=== PATIENT | female | born 1960 | race Caucasian/White ===

== ENCOUNTER → 2017-04-17 | Outpatient (CLI) | payer BC ==
[~2017-04-17] VITALS: Ht 149.9 cm; Wt 43.5 kg
[~2017-04-17] MED LIST: EST1.25T PO; LEVO500T69 PO; NITR100C3 PO; NS IV 1000 ML 1,000 ML ONE; PROP1TAB77 PO; ZLP5T PO
[2017-04-17 13:58] LABS: BILIRUBIN,URINE NEGATIVE (NEGATIVE); CLARITY,URINE CLEAR; COLOR,URINE YELLOW; GLUCOSE, URINE (UA) NEGATIVE (NEGATIVE); KETONES,URINE NEGATIVE (NEGATIVE); LEUKOCYTE ESTERASE ,URINE NEGATIVE (NEGATIVE); NITRITE,URINE NEGATIVE (NEGATIVE); PH,URINE 7 (5-9); PROTEIN,URINE NEGATIVE (NEGATIVE); UROBILINOGEN,URINE NORMAL (NORMAL)
[2017-04-17 14:00] VITALS: BP 131/51
[2017-04-17 14:07] LABS: HEMOGLOBIN 13.5 G/DL (11.5-16.0); MEAN PLATELET VOLUME 8.7 FL (7.4-10.4); RED BLOOD COUNT 4.59 10^6/uL (4.35-5.85); RED CELL DISTRIBUTION WIDTH 12.7 % (10.0-14.5); WHITE BLOOD COUNT 12.8 10^3/uL (4.3-11.0)
[2017-04-17 14:09] LABS: RBC,URINE 0-2 /HPF
[2017-04-17 14:10] LABS: BACTERIA,URINE NEGATIVE /HPF; SQUAMOUS EPITHELIAL CELL,UR RARE /HPF
[2017-04-17 14:32] LABS: BUN/CREATININE RATIO 15; CARBON DIOXIDE 27 MMOL/L (21-32); CHLORIDE 104 MMOL/L (98-107); CREATININE SERUM 0.75 MG/DL (0.60-1.30); POTASSIUM 3.7 MMOL/L (3.6-5.0); SODIUM 141 MMOL/L (135-145)
[2017-04-17 14:33] LABS: ALANINE AMINOTRANSFERASE 18 U/L (0-55); ALBUMIN 3.5 GM/DL (3.2-4.5); ALKALINE PHOSPHATASE 40 U/L (40-136); BILIRUBIN,TOTAL 0.3 MG/DL (0.1-1.0); CALCIUM 9.3 MG/DL (8.5-10.1); GFR ESTIMATED > 60; GLUCOSE 90 MG/DL (70-105); TOTAL PROTEIN 6.4 GM/DL (6.4-8.2)
[2017-04-17 15:00] VITALS: BP 131/51
== END ==
LOC: SDC 13:34 → EDSTATUS 13:36
PROVIDERS: ATTEND Nurse Practitioner Family
DX: E86.0 Dehydration (principal); R53.83 Other fatigue; R53.81 Other malaise
CPT/HCPCS: 36415; 80053; 81000; 84443; 85027; 96360

== ENCOUNTER → 2017-04-25 | Outpatient (CLI) | payer BC ==
[~2017-04-25] MED LIST changes: -NS IV 1000 ML 1,000 ML ONE
--- NOTE | 2017-04-25 12:31 | Diagnostic Imaging Report ---
INDICATION: Cough and shortness of breath. COMPARISON: None. FINDINGS: Two views of the chest are obtained. Heart size is normal. The pulmonary vessels appear unremarkable. There is no pneumothorax, mediastinal widening, or pleural fluid. The lungs are clear. The osseous structures appear unremarkable. IMPRESSION: Negative chest. Dictated by: Dictated on workstation # [id number]
== END ==
LOC: RAD 11:54
PROVIDERS: ATTEND Nurse Practitioner Family
DX: R05 Cough (principal); R06.02 Shortness of breath
CPT/HCPCS: 71046

== ENCOUNTER → 2017-04-30 | Outpatient (CLI) | payer BC ==
--- NOTE | 2017-04-30 11:31 | Diagnostic Imaging Report ---
PROCEDURE: US Thyroid. TECHNIQUE: Multiple Real-time grayscale images were obtained of the thyroid in various projections. INDICATION: Enlarged thyroid. FINDINGS: The right lobe of the thyroid measures 3.6 x 1.1 x 0.9 cm and the left lobe measures 4.4 x 1.1 x 1.1 cm. Both lobes demonstrate fairly homogeneous echotexture. There is a tiny well-defined hypoechoic nodule in the left lobe measuring 3 mm. No dominant thyroid mass is detected. IMPRESSION: Tiny left lobe thyroid nodule. No dominant thyroid mass is detected. Dictated by: Dictated on workstation # [id number]
== END ==
LOC: RAD 09:36
PROVIDERS: ATTEND Nurse Practitioner Family
DX: E04.9 Nontoxic goiter, unspecified (principal); R13.10 Dysphagia, unspecified
CPT/HCPCS: 76536

== ENCOUNTER → 2017-05-09 | Outpatient (CLI) | payer BC | LOC: RT 14:09 | PROVIDERS: ATTEND Nurse Practitioner Family | DX: R06.02 Shortness of breath (principal) | CPT/HCPCS: 94060; 94726; 94729 ==

== ENCOUNTER 2018-08-01 08:59 | Outpatient (CLI) | payer BC ==
[~2018-08-01] VITALS: Ht 149.9 cm; Wt 51.3 kg
[2018-08-01] MEDS ORDERED: PANT40TA3 PO (12:40)
[2018-08-01] MEDS ORDERED: PRED5TAB PO (12:40)
[2018-08-01] MEDS ORDERED: EST1.25T PO (12:40)
[2018-08-01] MEDS ORDERED: ADAL40SY SQ (12:40)
[2018-08-01] MEDS ORDERED: SUCR1TAB PO (12:40)
== END 2018-08-01 12:42 | disposition home or self-care (01) ==
LOC: PREOP 08:59
PROVIDERS: ATTEND Surgery
DX: Z01.818 Encounter for other preprocedural examination (principal)

== ENCOUNTER 2018-08-07 10:25 | Day surgery (SDC) | payer BC ==
[~2018-08-07] VITALS: Ht 149.9 cm; Wt 51.3 kg
[~2018-08-07 10:25] MED LIST changes: +ADAL40SY SQ; +PANT40TA3 PO; +PRED5TAB PO; +SUCR1TAB PO
--- NOTE | 2018-08-07 10:30 | Conscious Sedation/ASA ---
Conscious Sedation Pre-Proced Time 10:30 ASA Score 2 For ASA 3 and 4: Consider anesthesia and medical clearance. Also, for patients with a history of failed moderate sedation consider anesthesia. Airway Lungs Heart ASA score ASA 1: a normal healthy patient ASA 2: a patient with a mild systemic disease (mid diabetes, controlled hypertension, obesity ASA 3: a patient with a severe systemic disease that limits activity (angina , COPD, prior Myocardial infarction) ASA 4: a patient with an incapacitating disease that is a constant threat to life (CHF, renal failure) ASA 5: a moribund patient not expected to survive 24 hrs. (ruptured aneurysm) ASA 6: a declared brain- patient whose organs are being harvested. For emergent operations, add the letter E after the classification Mallampati Classification Grade 2 Sedation Plan Analgesia, Amnesia, Plan communicated to team members, Discussed options with patient/fam, Discussed risks with patient/fam The patient is an appropriate candidate to undergo the planned procedure, sedation, and anesthesia. The patient immediately re-assessed prior to indication. KADEEM ORLANDO MD August 07, 2018 10:30
--- OUTSIDE RECORDS SUMMARY | 2018-08-07 10:30 | XMS REPORT | CCD ---
Author Author Radha Sosa Organization Yamilet Angeles MD, [facility] Address [address] [place] [address] Phone Care Team Providers Care Airline Security Representative Name Role Phone PP Unavailable CCM Unavailable Summary Purpose Interface Exchange Insurance Providers Payer name Policy type / Coverage type Covered alliance party ID Effective Begin Date Effective End Date Blue Cross Blue [facility] Blue Cross/Blue [facility] [id number] Unknown Family history Father Diagnosis Age At Onset Arthritis Unknown Cancer Unknown Mother Diagnosis Age At Onset Cancer Unknown Social History Social History Element Codes Description Effective Dates Marital status Unknown Michael 04/17/2017 Number of children Unknown 1 04/06/[address]: 329483784 Never smoker 04/06/[address]: 238646701 Never drinks alcohol 04/06/2017 Allergies, Adverse Reactions, Alerts Substance Reaction Codes Entered Date Inactivated Date Status unknown ingredient - see notes Unknown 04/13/2017 No Inactive Date Active Latex Unknown 04/13/2017 No Inactive Date Active CEPHALOSPORINS Unknown 04/13/2017 No Inactive Date Active Past Medical History Illness Codes Condition Status Onset Date Resolved Date Gastro-esophageal reflux disease without esophagitis ICD-9: 530.81 ICD-10: K21.9 Active 04/17/2017 Unknown Rheumatoid arthritis with rheumatoid factor of multiple sites without organ or systems involvement ICD-9: 714.0 ICD-10: M05.79 Active 05/11/2017 Unknown Other acute sinusitis ICD-9: 461.8 ICD-10: J01.80 Active 04/06/2017 Unknown Other allergic rhinitis ICD-9: 477.8 ICD-10: J30.89 Active 04/17/2017 Unknown Pneumonia due to other specified infectious organisms ICD-9: 483.8 ICD-10: J16.8 Active 05/01/2018 Unknown Diverticulitis of large intestine without perforation or abscess without bleeding ICD-9: 562.11 ICD-10: K57.32 Active 01/28/2018 Unknown Dysuria ICD-9: 788.1 ICD-10: R30.0 Active 06/04/2017 Unknown Other specified intestinal infections ICD-9: 009.0 ICD-10: A08.8 Active 04/13/2017 Unknown Chronic pain syndrome ICD-9: 338.4 ICD-10: G89.4 Active 10/15/2017 Unknown Generalized anxiety disorder ICD-9: 300.00 ICD-10: F41.1 Active 07/19/2017 Unknown Major depressive disorder, single episode, moderate ICD-9: 296.22 ICD-10: F32.1 Active 07/19/2017 Unknown Slow transit constipation ICD-9: 564.01 ICD-10: K59.01 Active 08/20/2017 Unknown Rheumatoid arthritis with rheumatoid factor of right wrist without organ or systems involvement ICD-9 : 714.0 ICD-10: M05.731 Active 05/25/2017 Unknown Cough ICD-9: 786.2 ICD-10: R05 Active 04/25/2017 Unknown Nontoxic goiter, unspecified ICD-9: 240.9 ICD-10: E04.9 Active 04/06/2017 Unknown Shortness of breath ICD-9: 786.05 ICD-10: R06.02 Active 04/25/2017 Unknown Acute laryngopharyngitis ICD-9: 465.0 ICD-10: J06.0 Active 04/17/2017 Unknown Diarrhea, unspecified ICD-9: 787.91 ICD-10: R19.7 Active 04/13/2017 Unknown Pain in left knee ICD- 9: 719.46 ICD-10: M25.562 Active 04/06/2017 Unknown Problems Condition Codes Effective Dates Condition Status Gastro-esophageal reflux disease without esophagitis ICD-9: 530.81 ICD-10: K21.9 04/17/2017 Active Rheumatoid arthritis with rheumatoid factor of multiple sites without organ or systems involvement ICD-9: 714.0 ICD-10: M05.79 05/11/2017 Active Other acute sinusitis ICD-9: 461.8 ICD-10: J01.80 04/06/2017 Active Other allergic rhinitis ICD-9: 477.8 ICD-10: J30.89 04/17/2017 Active Pneumonia due to other specified infectious organisms ICD-9: 483.8 ICD-10: J16.8 05/01/2018 Active Diverticulitis of large intestine without perforation or abscess without bleeding ICD-9: 562.11 ICD-10: K57.32 01/28/2018 Active Dysuria ICD-9: 788.1 ICD-10: R30.0 06/04/2017 Active Other specified intestinal infections ICD-9: 009.0 ICD-10: A08.8 04/13/2017 Active Chronic pain syndrome ICD-9: 338.4 ICD-10: G89.4 10/15/2017 Active Generalized anxiety disorder ICD-9: 300.00 ICD-10: F41.1 07/19/2017 Active Major depressive disorder, single episode, moderate ICD-9: 296.22 ICD-10: F32.1 07/19/2017 Active Slow transit constipation ICD-9: 564.01 ICD-10: K59.01 08/20/2017 Active Rheumatoid arthritis with rheumatoid factor of right wrist without organ or systems involvement ICD-9 : 714.0 ICD-10: M05.731 05/25/2017 Active Cough ICD-9: 786.2 ICD-10: R05 04/25/2017 Active Nontoxic goiter, unspecified ICD-9: 240.9 ICD-10: E04.9 04/06/2017 Active Shortness of breath ICD-9: 786.05 ICD-10: R06.02 04/25/2017 Active Acute laryngopharyngitis ICD-9: 465.0 ICD-10: J06.0 04/17/2017 Active Diarrhea, unspecified ICD-9: 787.91 ICD-10: R19.7 04/13/2017 Active Pain in left knee ICD- 9: 719.46 ICD-10: M25.562 04/06/2017 Active Medications Medication Codes Instructions Start Date Stop Date Status Fill Instructions hydrocodone 5 mg-acetaminophen 325 mg tablet RxNorm: 207377 1 Tablet(s) PO TID as needed for pain 08/05/2018 No Stop Date Active pantoprazole 40 mg tablet,delayed release RxNorm: 541091 1 TABLET(S) PO DAILY 07/17/2018 11/13/2018 Active Dexilant 60 mg capsule, delayed release RxNorm: 975999 1 Capsule(s) PO daily 07/16/2018 08/14/2018 Active Carafate 1 gram tablet RxNorm: 830198 1 Tablet(s) PO AC & HS as needed 07/16/2018 08/14/2018 Active ketoconazole 2 % topical cream RxNorm: 459292 1 Application TOP BID 07/16/2018 08/14/2018 Active Augmentin 500 mg-125 mg tablet RxNorm: 722151 1 Tablet(s) PO TID 06/21/2018 06/30/2018 Inactive Premarin 1.25 mg tablet RxNorm: 229438 1 Tablet(s) PO daily 05/28/2019 Active Premarin 1.25 mg tablet RxNorm: 882135 1 Tablet(s) PO daily 06/02/2018 Inactive pantoprazole 40 mg tablet,delayed release RxNorm: 529911 1 Tablet(s) PO daily 05/28/2018 05/22/2019 Active Premarin 1.25 mg tablet RxNorm: 651528 1 Tablet(s) PO daily 05/30/2018 Inactive pantoprazole 40 mg tablet,delayed release RxNorm: 889244 1 Tablet(s) PO daily 05/16/2018 05/27/2018 Inactive Augmentin 500 mg-125 mg tablet RxNorm: 048413 1 Tablet(s) PO TID 05/16/2018 05/25/2018 Inactive Augmentin 500 mg-125 mg tablet RxNorm: 122175 1 Tablet(s) PO TID 05/15/2018 05/15/2018 Inactive pantoprazole 40 mg tablet,delayed release RxNorm: 829017 1 Tablet(s) PO daily 05/15/2018 05/15/2018 Inactive Premarin 1.25 mg tablet RxNorm: 409661 1 Tablet(s) PO daily 05/27/2018 Inactive Premarin 1.25 mg tablet RxNorm: 381561 1 Tablet(s) PO daily 05/07/2018 Inactive Levaquin 500 mg tablet RxNorm: 793855 1 Tablet(s) PO daily 05/07/2018 Inactive Kenalog 40 mg/mL suspension for injection RxNorm: 7198806 Milliliter(s) Inj 05/01/2018 05/01/2018 Inactive Diflucan 150 mg tablet RxNorm: 240995 Tablet(s) 1 TABLET(S) PO DAILY 05/01/2018 05/05/2018 Inactive doxycycline hyclate 100 mg capsule RxNorm: 8918321 1 Capsule(s) PO BID 04/26/2018 04/29/2018 Inactive ProAir HFA 90 mcg/actuation aerosol inhaler RxNorm: 2415492 1 INH TID 04/19/2018 06/17/2018 Inactive doxycycline hyclate 100 mg capsule RxNorm: 1471120 1 Capsule(s) PO BID 04/19/2018 04/25/2018 Inactive doxycycline hyclate 100 mg capsule RxNorm: 8601779 1 Capsule(s) PO BID 04/19/2018 04/18/2018 Inactive Diflucan 150 mg tablet RxNorm: 070112 1 TABLET(S) PO DAILY 02/201904/23/2018 Inactive ProAir HFA 90 mcg/actuation aerosol inhaler RxNorm: 3749517 1 INH TID 04/19/2018 04/18/2018 Inactive Zithromax Z-Gary 250 mg tablet RxNorm: 382246 1 Tablet(s) PO UD 04/16/2018 07/16/2018 Inactive Diflucan 150 mg tablet RxNorm: 324704 1 Tablet(s) PO daily 11/201804/18/2018 Inactive Premarin 1.25 mg tablet RxNorm: 375837 1 Tablet(s) PO daily 02/28/2018 Inactive Premarin 1.25 mg tablet RxNorm: 695266 1 Tablet(s) PO daily 04/25/2018 Inactive pantoprazole 40 mg tablet,delayed release RxNorm: 104368 1 Tablet(s) PO daily 02/21/2018 02/20/2018 Inactive pantoprazole 40 mg tablet,delayed release RxNorm: 036035 1 Tablet(s) PO daily 02/21/2018 05/14/2018 Inactive hydrocodone 5 mg-acetaminophen 325 mg tablet RxNorm: 545850 1 Tablet(s) PO TID as needed for pain 02/20/2018 08/04/2018 Inactive Bactrim DS 800 mg-160 mg tablet RxNorm: 196357 1 Tablet(s) PO BID 02/06/2018 02/05/2018 Inactive Bactrim DS 800 mg-160 mg tablet RxNorm: 425441 1 Tablet(s) PO BID 02/06/2018 02/15/2018 Inactive Diflucan 150 mg tablet RxNorm: 946551 1 Tablet(s) PO daily 02/02/2018 Inactive Diflucan 150 mg tablet RxNorm: 955194 1 Tablet(s) PO daily 01/28/2018 Inactive Flagyl 500 mg tablet RxNorm: 395439 1 Tablet(s) PO TID 201702/06/2018 Inactive Premarin 1.25 mg tablet RxNorm: 282053 1 Tablet(s) PO daily 02/28/2018 Inactive Cipro 500 mg tablet RxNorm: 395318 1 Tablet(s) PO BID 201702/06/2018 Inactive hydrocodone 5 mg-acetaminophen 325 mg tablet RxNorm: 497946 1 Tablet(s) PO TID as needed for pain 12/31/2017 02/19/2018 Inactive Premarin 1.25 mg tablet RxNorm: 803110 1 Tablet(s) PO daily 01/27/2018 Inactive Prilosec 20 mg capsule,delayed release RxNorm: 661138 1 Capsule(s) PO daily 11/19/2017 02/20/2018 Inactive hydrocodone 5 mg-acetaminophen 325 mg tablet RxNorm: 968458 1 Tablet(s) PO TID as needed for pain 10/15/2017 12/30/2017 Inactive gabapentin 100 mg capsule RxNorm: 422544 1 Capsule(s) PO BID No Stop Date Active hydrocodone 5 mg-acetaminophen 325 mg tablet RxNorm: 641783 1 Tablet(s) PO QID as needed 09/19/2017 10/14/2017 Inactive Lyrica 50 mg capsule RxNorm: 362064 1 Capsule(s) PO TID 2017 No Stop Date Active Celebrex 200 mg capsule RxNorm: 213149 1 Capsule(s) PO daily 09/18/2017 Inactive Xanax 0.25 mg tablet RxNorm: 619029 1 Tablet(s) PO BID 201708/17/2017 Inactive Cymbalta 30 mg capsule,delayed release RxNorm: 144482 1 Capsule(s) PO daily 07/19/2017 08/17/2017 Inactive amoxicillin 500 mg capsule RxNorm: 480857 1 Capsule(s) PO TID 04/17/2017 04/26/2017 Inactive Prilosec OTC 20 mg tablet,delayed release RxNorm: 657243 1 Tablet(s) PO BID 04/17/2017 05/16/2017 Inactive 1 pill twice a day x 2 weeks, then daily Zofran 4 mg tablet RxNorm: 322241 1 Tablet(s) PO TID as needed 04/13/2017 04/17/2017 Inactive Flagyl 500 mg tablet RxNorm: 986684 1 Tablet(s) PO TID 201704/22/2017 Inactive promethazine 25 mg tablet RxNorm: 569232 1 Tablet(s) PO TID as needed nausea unrelieved by zofran 04/13/20172017 Inactive Zithromax Z-Gary 250 mg tablet RxNorm: 547033 1 Tablet(s) PO UD 04/06/2017 04/16/2017 Inactive prednisone 5 mg tablet RxNorm: 334118 1 Tablet(s) PO daily No Start Date Active Humira Pen 40 mg/0.8 mL subcutaneous RxNorm: 7816911 1 Milliliter(s) SQ QW No Start Date Active Linzess 145 mcg capsule RxNorm: 0363787 1 Capsule(s) PO daily No Start Date 08/16/2017 Inactive Prilosec 20 mg capsule,delayed release RxNorm: 236891 1 Capsule(s) PO daily No Start Date 11/18/2017 Inactive Premarin 1.25 mg tablet RxNorm: 367350 1 Tablet(s) PO daily No Start Date 12/30/2017 Inactive Medication Administered Medication Codes Instructions Start Date Status Kenalog 40 mg/mL suspension for injection RxNorm: 0027864 Milliliter 05/01/2018 No longer Active Immunizations No Immunization data Assessments Condition Codes Effective Dates Rheumatoid arthritis with rheumatoid factor of multiple sites without organ or systems involvement ICD-10: M05.79 ICD-9: 714.0 07/16/2018 Gastro-esophageal reflux disease without esophagitis ICD-10 : K21.9 ICD-9: 530.81 07/16/2018 Other acute sinusitis ICD-10: J01.80 ICD-9: 461.8 06/21/2018 Other allergic rhinitis ICD-10: J30.89 ICD-9: 477.8 06/21/2018 Pneumonia due to other specified infectious organisms ICD-10 : J16.8 ICD-9: 483.8 05/01/2018 Diverticulitis of large intestine without perforation or abscess without bleeding ICD-10: K57.32 ICD-9: 562.11 01/28/2018 Dysuria ICD-10: R30.0 ICD-9: 788.1 01/28/2018 Generalized anxiety disorder ICD-10: F41.1 ICD-9: 300.00 10/15/2017 Major depressive disorder, single episode, moderate ICD-10: F32.1 ICD-9: 296.22 10/15/2017 Chronic pain syndrome ICD-10: G89.4 ICD-9: 338.4 10/15/2017 Slow transit constipation ICD-10: K59.01 ICD-9: 564.01 08/20/2017 Rheumatoid arthritis with rheumatoid factor of right wrist without organ or systems involvement ICD-10: M05.731 ICD-9: 714.0 05/25/2017 Cough ICD-10: R05 ICD-9: 786.2 04/25/2017 Nontoxic goiter, unspecified ICD-10: E04.9 ICD-9: 240.9 04/25/2017 Shortness of breath ICD-10: R06.02 ICD-9: 786.05 04/25/2017 Acute laryngopharyngitis ICD-10: J06.0 ICD-9: 465.0 04/17/2017 Other specified intestinal infections ICD-10: A08.8 ICD-9: 009.0 04/13/2017 Diarrhea, unspecified ICD-10: R19.7 ICD-9: 787.91 04/13/2017 Pain in left knee ICD-10: M25.562 ICD-9: 719.46 04/06/2017 Reason For Visit Reason For Visit Effective Dates Notes medication follow up 07/16/2018 sinus congestion 06/21/2018 sinus congestion 05/15/2018 sinus congestion 05/01/2018 sinus congestion 04/16/2018 urinary frequency 01/28/2018 pain 10/15/2017 pain 09/19/2017 pain 08/20/2017 pain 07/19/2017 pain 06/13/2017 wrist pain 05/25/2017 abnormal test results 05/11/2017 cough 04/25/2017 abdominal pain 04/17/2017 vomiting 04/13/2017 knee pain 04/06/2017 Results Observation Observation Code Item Item Code Result Date Urine Culture Ucult Complete >100,000 col/ml aerobic growth sent to ref lab 02/01/2018 Urine Culture Ucult Preliminary NO Growth Day 1 06/06/2017 Urine Culture Ucult Complete NO Growth Day 2 06/06/2017 Review of Systems System Result Effective Dates Constitutional No recent illness 2018 Constitutional No chills 07/16/2018 Constitutional No diaphoresis 07/16/2018 Constitutional No fever 07/16/2018 Eyes No eye erythema 07/16/2018 Ears/Nose/Throat/Neck No nasal discharge 07/16/2018 Ears/Nose/Throat/Neck nasal allergies 12/2018 Cardiovascular No arrhythmia 07/16/2018 Cardiovascular No dyspnea 07/16/2018 Respiratory No cough 07/16/2018 Respiratory No chest congestion 2018 Gastrointestinal No abdominal pain 2018 Gastrointestinal No constipation 2018 Gastrointestinal No diarrhea 07/16/2018 Gastrointestinal No vomiting 07/16/2018 Gastrointestinal No nausea 07/16/2018 Gastrointestinal No melena 07/16/2018 Gastrointestinal No hematochezia 2018 Gastrointestinal gastroesophageal reflux 07/16/2018 Musculoskeletal arthralgia(s) 07/16/2018 Neurologic No alteration of consciousness 07/16/2018 Neurologic No mental status change 2018 Dermatologic sores 07/16/2018 Constitutional recent illness 06/21/2018 Constitutional No chills 06/21/2018 Constitutional No diaphoresis 06/21/2018 Constitutional No fever 06/21/2018 Eyes No eye erythema 06/21/2018 Ears/Nose/Throat/Neck nasal allergies Ears/Nose/Throat/Neck nasal discharge Ears/Nose/Throat/Neck postnasal drip Ears/Nose/Throat/Neck sinus congestion Ears/Nose/Throat/Neck No sore throat Cardiovascular No chest pain/pressure Cardiovascular No dyspnea 06/21/2018 Respiratory No chest congestion 2018 Respiratory cough 06/21/2018 Respiratory No dyspnea 06/21/2018 Gastrointestinal No abdominal pain 2018 Gastrointestinal No constipation 2018 Gastrointestinal No diarrhea 06/21/2018 Gastrointestinal No nausea 06/21/2018 Gastrointestinal No vomiting 06/21/2018 Dermatologic No rash 06/21/2018 Neurologic No alteration of consciousness 06/21/2018 Neurologic No mental status change 2018 Constitutional recent illness 05/15/2018 Constitutional No chills 05/15/2018 Constitutional No diaphoresis 05/15/2018 Constitutional No fever 05/15/2018 Eyes No eye erythema 05/15/2018 Ears/Nose/Throat/Neck nasal allergies 09/2018 Ears/Nose/Throat/Neck nasal discharge 09/2018 Ears/Nose/Throat/Neck postnasal drip 09/2018 Ears/Nose/Throat/Neck sinus congestion Ears/Nose/Throat/Neck No sore throat 09/2018 Cardiovascular No chest pain/pressure 09/2018 Cardiovascular No dyspnea 05/15/2018 Respiratory No chest congestion 2018 Respiratory cough 05/15/2018 Respiratory No dyspnea 05/15/2018 Gastrointestinal No abdominal pain 2018 Gastrointestinal No constipation 2018 Gastrointestinal No diarrhea 05/15/2018 Gastrointestinal No nausea 05/15/2018 Gastrointestinal No vomiting 05/15/2018 Dermatologic No rash 05/15/2018 Neurologic No alteration of consciousness 05/15/2018 Neurologic No mental status change 2018 Constitutional recent illness 05/01/2018 Constitutional chills 05/01/2018 Constitutional fever 05/01/2018 Eyes No eye erythema 05/01/2018 Ears/Nose/Throat/Neck nasal allergies Ears/Nose/Throat/Neck nasal discharge Ears/Nose/Throat/Neck postnasal drip Ears/Nose/Throat/Neck sinus congestion Cardiovascular No chest pain/pressure Respiratory productive sputum 05/01/2018 Respiratory cough 05/01/2018 Respiratory wheezing 05/01/2018 Gastrointestinal No abdominal pain 2018 Musculoskeletal No joint complaint 2018 Dermatologic No rash 05/01/2018 Neurologic No alteration of consciousness 05/01/2018 Neurologic No mental status change 2018 Respiratory dyspnea on exertion 2018 Respiratory No dyspnea 05/01/2018 Constitutional recent illness 04/16/2018 Constitutional No chills 04/16/2018 Constitutional No diaphoresis 04/16/2018 Constitutional No fever 04/16/2018 Eyes No eye erythema 04/16/2018 Ears/Nose/Throat/Neck nasal allergies 11/2018 Ears/Nose/Throat/Neck nasal discharge 11/2018 Ears/Nose/Throat/Neck postnasal drip 11/2018 Ears/Nose/Throat/Neck sinus congestion Ears/Nose/Throat/Neck No sore throat 11/2018 Cardiovascular No chest pain/pressure 11/2018 Cardiovascular No dyspnea 04/16/2018 Respiratory No chest congestion 2018 Respiratory cough 04/16/2018 Respiratory No dyspnea 04/16/2018 Gastrointestinal No abdominal pain 2018 Gastrointestinal No constipation 2018 Gastrointestinal No diarrhea 04/16/2018 Gastrointestinal No nausea 04/16/2018 Gastrointestinal No vomiting 04/16/2018 Dermatologic No rash 04/16/2018 Neurologic No alteration of consciousness 04/16/2018 Neurologic No mental status change 2018 Constitutional recent illness 01/28/2018 Constitutional No chills 01/28/2018 Constitutional No diaphoresis 01/28/2018 Constitutional No fever 01/28/2018 Eyes No eye erythema 01/28/2018 Ears/Nose/Throat/Neck No nasal discharge 01/28/2018 Ears/Nose/Throat/Neck No nasal allergies 01/28/2018 Cardiovascular No chest pain/pressure Cardiovascular No dyspnea 01/28/2018 Respiratory No cough 01/28/2018 Respiratory No chest congestion 2017 Gastrointestinal abdominal pain 2017 Gastrointestinal constipation 01/28/2018 Gastrointestinal diarrhea 01/28/2018 Gastrointestinal vomiting 01/28/2018 Gastrointestinal nausea 01/28/2018 Gastrointestinal No melena 01/28/2018 Gastrointestinal No hematochezia 2017 Genitourinary/Nephrology dysuria 2017 Genitourinary/Nephrology flank pain 01/28 Dermatologic No rash 01/28/2018 Neurologic No alteration of consciousness 01/28/2018 Neurologic No mental status change 2017 Constitutional No recent illness 2017 Constitutional No chills 10/15/2017 Constitutional No diaphoresis 10/15/2017 Constitutional No fever 10/15/2017 Eyes No eye erythema 10/15/2017 Ears/Nose/Throat/Neck No nasal discharge 10/15/2017 Cardiovascular No chest pain/pressure 12/2017 Cardiovascular No dyspnea 10/15/2017 Respiratory No cough 10/15/2017 Gastrointestinal No abdominal pain 2017 Musculoskeletal stiffness 10/15/2017 Musculoskeletal swelling 10/15/2017 Musculoskeletal arthralgia(s) 10/15/2017 Musculoskeletal joint complaint 2017 Neurologic No alteration of consciousness 10/15/2017 Neurologic No mental status change 2017 Psychiatric anxiety 10/15/2017 Psychiatric depression 10/15/2017 Constitutional No recent illness 2017 Constitutional No chills 09/19/2017 Constitutional No diaphoresis 09/19/2017 Constitutional No fever 09/19/2017 Eyes No eye erythema 09/19/2017 Ears/Nose/Throat/Neck No nasal discharge 09/19/2017 Cardiovascular No chest pain/pressure Cardiovascular No dyspnea 09/19/2017 Respiratory No cough 09/19/2017 Gastrointestinal No abdominal pain 2017 Musculoskeletal stiffness 09/19/2017 Musculoskeletal swelling 09/19/2017 Musculoskeletal arthralgia(s) 09/19/2017 Musculoskeletal joint complaint 2017 Neurologic No alteration of consciousness 09/19/2017 Neurologic No mental status change 2017 Psychiatric anxiety 09/19/2017 Psychiatric depression 09/19/2017 Constitutional No recent illness 2017 Constitutional No chills 08/20/2017 Constitutional No diaphoresis 08/20/2017 Constitutional No fever 08/20/2017 Eyes No eye erythema 08/20/2017 Ears/Nose/Throat/Neck No nasal discharge 08/20/2017 Cardiovascular No chest pain/pressure Cardiovascular No dyspnea 08/20/2017 Respiratory No cough 08/20/2017 Gastrointestinal No abdominal pain 2017 Musculoskeletal stiffness 08/20/2017 Musculoskeletal swelling 08/20/2017 Musculoskeletal arthralgia(s) 08/20/2017 Musculoskeletal joint complaint 2017 Neurologic No alteration of consciousness 08/20/2017 Neurologic No mental status change 2017 Psychiatric anxiety 08/20/2017 Psychiatric depression 08/20/2017 Constitutional No recent illness 2017 Constitutional No chills 07/19/2017 Constitutional No diaphoresis 07/19/2017 Constitutional No fever 07/19/2017 Eyes No eye erythema 07/19/2017 Ears/Nose/Throat/Neck No nasal discharge 07/19/2017 Cardiovascular No chest pain/pressure 03/2018 Cardiovascular No dyspnea 07/19/2017 Respiratory No cough 07/19/2017 Gastrointestinal No abdominal pain 2017 Musculoskeletal stiffness 07/19/2017 Musculoskeletal swelling 07/19/2017 Musculoskeletal arthralgia(s) 07/19/2017 Musculoskeletal joint complaint 2017 Neurologic No alteration of consciousness 07/19/2017 Neurologic No mental status change 2017 Psychiatric anxiety 07/19/2017 Psychiatric depression 07/19/2017 Constitutional No recent illness 2017 Constitutional No chills 06/13/2017 Constitutional No diaphoresis 06/13/2017 Constitutional No fever 06/13/2017 Eyes No eye erythema 06/13/2017 Ears/Nose/Throat/Neck No nasal discharge 06/13/2017 Cardiovascular No chest pain/pressure 10/2017 Cardiovascular No dyspnea 06/13/2017 Respiratory No cough 06/13/2017 Gastrointestinal No abdominal pain 2017 Musculoskeletal joint complaint 2017 Musculoskeletal swelling 06/13/2017 Musculoskeletal arthralgia(s) 06/13/2017 Musculoskeletal stiffness 06/13/2017 Neurologic No alteration of consciousness 06/13/2017 Neurologic No mental status change 2017 Constitutional No recent illness 2017 Constitutional No chills 05/25/2017 Constitutional No fever 05/25/2017 Eyes No eye erythema 05/25/2017 Ears/Nose/Throat/Neck No nasal discharge 05/25/2017 Cardiovascular No chest pain/pressure Cardiovascular No dyspnea 05/25/2017 Respiratory No cough 05/25/2017 Respiratory No dyspnea 05/25/2017 Musculoskeletal joint complaint 2017 Neurologic No alteration of consciousness 05/25/2017 Neurologic No mental status change 2017 Constitutional No recent illness 2017 Constitutional No chills 05/11/2017 Constitutional No diaphoresis 05/11/2017 Constitutional No fever 05/11/2017 Eyes No eye erythema 05/11/2017 Ears/Nose/Throat/Neck No nasal discharge 05/11/2017 Ears/Nose/Throat/Neck No nasal allergies 05/11/2017 Ears/Nose/Throat/Neck dental pain 2017 Cardiovascular No chest pain/pressure 05/2017 Cardiovascular No dyspnea 05/11/2017 Respiratory No cough 05/11/2017 Respiratory dyspnea on exertion 2017 Respiratory No chest congestion 2017 Gastrointestinal No abdominal pain 2017 Dermatologic No rash 05/11/2017 Neurologic No alteration of consciousness 05/11/2017 Neurologic No mental status change 2017 Constitutional recent illness 04/25/2017 Constitutional chills 04/25/2017 Constitutional No diaphoresis 04/25/2017 Constitutional fatigue 04/25/2017 Constitutional No fever 04/25/2017 Constitutional malaise 04/25/2017 Eyes No eye erythema 04/25/2017 Ears/Nose/Throat/Neck nasal allergies Ears/Nose/Throat/Neck nasal discharge Ears/Nose/Throat/Neck postnasal drip Ears/Nose/Throat/Neck sinus congestion Cardiovascular No chest pain/pressure Cardiovascular No dyspnea 04/25/2017 Respiratory chest congestion 04/25/2017 Respiratory cough 04/25/2017 Gastrointestinal abdominal pain 2017 Gastrointestinal No constipation 2017 Gastrointestinal diarrhea 04/25/2017 Gastrointestinal gastroesophageal reflux 04/25/2017 Gastrointestinal No nausea 04/25/2017 Gastrointestinal No vomiting 04/25/2017 Musculoskeletal arthralgia(s) 04/25/2017 Dermatologic No rash 04/25/2017 Neurologic No alteration of consciousness 04/25/2017 Neurologic No mental status change 2017 Constitutional anorexia 04/25/2017 Respiratory No dyspnea 04/25/2017 Respiratory dyspnea on exertion 2017 Constitutional recent illness 04/17/2017 Constitutional chills 04/17/2017 Constitutional No diaphoresis 04/17/2017 Constitutional fatigue 04/17/2017 Constitutional No fever 04/17/2017 Constitutional malaise 04/17/2017 Eyes No eye erythema 04/17/2017 Ears/Nose/Throat/Neck nasal allergies 12/2017 Ears/Nose/Throat/Neck nasal discharge 12/2017 Ears/Nose/Throat/Neck postnasal drip 12/2017 Ears/Nose/Throat/Neck sinus congestion Cardiovascular No chest pain/pressure 12/2017 Cardiovascular No dyspnea 04/17/2017 Respiratory No chest congestion 2017 Respiratory No cough 04/17/2017 Gastrointestinal abdominal pain 2017 Gastrointestinal No constipation 2017 Gastrointestinal diarrhea 04/17/2017 Gastrointestinal nausea 04/17/2017 Gastrointestinal No vomiting 04/17/2017 Musculoskeletal arthralgia(s) 04/17/2017 Dermatologic No rash 04/17/2017 Neurologic No alteration of consciousness 04/17/2017 Neurologic No mental status change 2017 Gastrointestinal gastroesophageal reflux 04/17/2017 Constitutional recent illness 04/13/2017 Constitutional chills 04/13/2017 Constitutional No diaphoresis 04/13/2017 Constitutional fatigue 04/13/2017 Constitutional malaise 04/13/2017 Constitutional No fever 04/13/2017 Eyes No eye erythema 04/13/2017 Ears/Nose/Throat/Neck nasal allergies 08/2017 Ears/Nose/Throat/Neck nasal discharge 08/2017 Ears/Nose/Throat/Neck postnasal drip 08/2017 Ears/Nose/Throat/Neck No sinus congestion 04/13/2017 Cardiovascular No chest pain/pressure 08/2017 Cardiovascular No dyspnea 04/13/2017 Respiratory No cough 04/13/2017 Respiratory No chest congestion 2017 Gastrointestinal abdominal pain 2017 Gastrointestinal No constipation 2017 Gastrointestinal diarrhea 04/13/2017 Gastrointestinal nausea 04/13/2017 Gastrointestinal vomiting 04/13/2017 Musculoskeletal arthralgia(s) 04/13/2017 Dermatologic No rash 04/13/2017 Neurologic No alteration of consciousness 04/13/2017 Neurologic No mental status change 2017 Constitutional recent illness 04/06/2017 Constitutional No chills 04/06/2017 Constitutional No diaphoresis 04/06/2017 Constitutional fatigue 04/06/2017 Constitutional No fever 04/06/2017 Constitutional malaise 04/06/2017 Eyes No eye erythema 04/06/2017 Ears/Nose/Throat/Neck nasal discharge Ears/Nose/Throat/Neck nasal allergies Ears/Nose/Throat/Neck postnasal drip Ears/Nose/Throat/Neck sinus congestion Ears/Nose/Throat/Neck No sore throat Ears/Nose/Throat/Neck No otalgia 2016 Cardiovascular No chest pain/pressure Cardiovascular No dyspnea 04/06/2017 Respiratory No cough 04/06/2017 Respiratory No chest congestion 2016 Respiratory No dyspnea 04/06/2017 Gastrointestinal No abdominal pain 2016 Gastrointestinal No constipation 2016 Gastrointestinal No diarrhea 04/06/2017 Gastrointestinal No vomiting 04/06/2017 Gastrointestinal No nausea 04/06/2017 Musculoskeletal arthralgia(s) 04/06/2017 Dermatologic No rash 04/06/2017 Neurologic No alteration of consciousness 04/06/2017 Neurologic No mental status change 2016 Physical Exam Exam Name System Name Item Name Status Result Effective Dates Notes Full Exam - General 1994 Constitutional general appearance Overall: well developed 07/16/2018 None Full Exam - General 1994 Constitutional general appearance Overall: in no acute distress 07/16/2018 None Full Exam - General 1994 Constitutional general appearance Overall: well nourished 07/16/2018 None Full Exam - General 1994 Eyes conjunctiva /eyelids Overall: eyelids normal 07/16/2018 None Full Exam - General 1994 Eyes conjunctiva /eyelids Overall: cornea clear 07/16/2018 None Full Exam - General 1994 Eyes conjunctiva /eyelids Overall: conjunctiva clear 07/16/2018 None Full Exam - General 1994 Ears/Nose/Throat lips/teeth/gingiva Overall: benign lips 07/16/2018 None Full Exam - General 1994 Ears/Nose/Throat oral cavity/pharynx/larynx Overall: oral mucosa clear 07/16/2018 None Full Exam - General 1994 Respiratory respiratory effort/rhythm Overall: normal rate 07/16/2018 None Full Exam - General 1994 Respiratory respiratory effort/rhythm Overall: no retractions 07/16/2018 None Full Exam - General 1994 Respiratory auscultation Overall: breath sounds clear bilaterally 07/16/2018 None Full Exam - General 1994 Cardiovascular auscultation of heart Overall: regular rate 07/16/2018 None Full Exam - General 1994 Cardiovascular auscultation of heart Overall: normal heart sounds 07/16/2018 None Full Exam - General 1994 Abdomen abdominal exam Overall: normal bowel sounds 07/16/2018 None Full Exam - General 1994 Abdomen abdominal exam Epigastric: tender to palpation 07/16/2018 None Full Exam - General 1994 Abdomen abdominal exam Epigastric: dull pain 07/16/2018 None Full Exam - General 1994 Abdomen abdominal exam Epigastric: no guarding 07/16/2018 None Full Exam - General 1994 Abdomen abdominal exam Epigastric: no rebound tenderness 07/16/2018 None Full Exam - General 1994 Abdomen abdominal exam Epigastric: soft 07/16/2018 None Full Exam - General 1994 Musculoskeletal head and neck Overall: head atraumatic 07/16/2018 None Full Exam - General 1994 Integument inspection of skin Location: left leg 07/16/2018 None Full Exam - General 1994 Integument inspection of skin Location: right leg 07/16/2018 None Full Exam - General 1994 Integument inspection of skin Rash/Lesions: patch 07/16/2018 None Full Exam - General 1994 Neurologic cranial nerves Overall: crainial nerves 2 - 12 grossly intact 07/16/2018 None Full Exam - General 1994 Psychiatric orientation/consciousness Overall: oriented to person, place and time 07/16/2018 None Full Exam - General 1994 Psychiatric mood and affect Overall: normal mood and affect 07/16/2018 None Full Exam - General 1994 Psychiatric appearance Overall: well-groomed, good eye contact 07/16/2018 None Full Exam - ENT Constitutional general appearance Overall: well nourished 06/21/2018 None Full Exam - ENT Constitutional general appearance Overall: well developed 06/21/2018 None Full Exam - ENT Constitutional general appearance Overall: in no acute distress 06/21/2018 None Full Exam - ENT Ears/Nose/Throat otoscopic exam Overall: external auditory canals normal 06/21/2018 None Full Exam - ENT Ears/Nose/Throat otoscopic exam Left tympanic membrane: air -fluid level 06/21/2018 None Full Exam - ENT Ears/Nose/Throat otoscopic exam Right tympanic membrane: air-fluid level 06/21/2018 None Full Exam - ENT Ears/Nose/Throat nasal mucosa, septum, turbinates Drainage: clear 06/21/2018 None Full Exam - ENT Ears/Nose/Throat nasal mucosa, septum, turbinates Drainage: yellow 06/21/2018 None Full Exam - ENT Ears/Nose/Throat lips/ teeth/gingiva Overall: benign lips 06/21/2018 None Full Exam - ENT Ears/Nose/Throat oropharynx Posterior Pharynx: clear post nasal drainage 06/21/2018 None Full Exam - ENT Face and Head palpation Left maxillary sinus: tender 06/21/2018 None Full Exam - ENT Face and Head palpation Right maxillary sinus: tender 06/21/2018 None Full Exam - ENT Respiratory inspection Overall: no retractions 06/21/2018 None Full Exam - ENT Respiratory inspection Overall: normal rate None Full Exam - ENT Respiratory auscultation Overall: breath sounds clear bilaterally 06/21/2018 None Full Exam - ENT Cardiovascular auscultation of heart Overall: regular rate 06/21/2018 None Full Exam - ENT Cardiovascular auscultation of heart Overall: normal heart sounds 06/21/2018 None Full Exam - ENT Lymphatic palpation of lymph nodes Overall: anterior cervical chain benign 06/21/2018 None Full Exam - ENT Lymphatic palpation of lymph nodes Overall: posterior cervical chain benign 06/21/2018 None Full Exam - ENT Neurologic mood and affect Overall: normal mood 06/21/2018 None Full Exam - ENT Neurologic mood and affect Overall: normal affect 06/21/2018 None Full Exam - ENT Neurologic orientation Overall: oriented to person, place and time 06/21/2018 None Full Exam - ENT Constitutional general appearance Overall: well nourished 05/15/2018 None Full Exam - ENT Constitutional general appearance Overall: well developed 05/15/2018 None Full Exam - ENT Constitutional general appearance Overall: in no acute distress 05/15/2018 None Full Exam - ENT Ears/Nose/Throat lips/ teeth/gingiva Overall: benign lips 05/15/2018 None Full Exam - ENT Respiratory inspection Overall: no retractions 05/15/2018 None Full Exam - ENT Respiratory inspection Overall: normal rate 09/2018 None Full Exam - ENT Neurologic mood and affect Overall: normal mood 05/15/2018 None Full Exam - ENT Neurologic mood and affect Overall: normal affect 05/15/2018 None Full Exam - ENT Neurologic orientation Overall: oriented to person, place and time 05/15/2018 None Full Exam - ENT Cardiovascular examination of vasculature Overall: no clubbing 05/15/2018 None Full Exam - ENT Musculoskeletal head and neck Overall: head atraumatic 05/15/2018 None Full Exam - ENT Musculoskeletal gait and station Overall: normal station 05/15/2018 None Full Exam - ENT Musculoskeletal gait and station Overall: normal gait 05/15/2018 None Full Exam - General 1994 Constitutional general appearance Overall: well developed 05/01/2018 None Full Exam - General 1994 Constitutional general appearance Overall: in no acute distress 05/01/2018 None Full Exam - General 1994 Constitutional general appearance Overall: well nourished 05/01/2018 None Full Exam - General 1994 Eyes conjunctiva /eyelids Overall: conjunctiva clear 05/01/2018 None Full Exam - General 1994 Eyes conjunctiva /eyelids Overall: eyelids normal 05/01/2018 None Full Exam - General 1994 Ears/Nose/Throat otoscopic exam Overall: external auditory canals clear 05/01/2018 None Full Exam - General 1994 Ears/Nose/Throat otoscopic exam Tympanic membrane: air- fluid level 05/01/2018 None Full Exam - General 1994 Ears/Nose/Throat lips/teeth/gingiva Overall: benign lips 05/01/2018 None Full Exam - General 1994 Ears/Nose/Throat oral cavity/pharynx/larynx Overall: oral mucosa clear 05/01/2018 None Full Exam - General 1995 Ears/Nose/Throat oral cavity/pharynx/larynx Posterior Pharynx: clear post nasal drainage 05/01/2018 None Full Exam - General 1994 Respiratory auscultation Diffuse: diminished 05/01/2018 None Full Exam - General 1994 Respiratory respiratory effort/rhythm Overall: no retractions 05/01/2018 None Full Exam - General 1994 Respiratory respiratory effort/rhythm Overall: normal rate 05/01/2018 None Full Exam - General 1994 Cardiovascular auscultation of heart Overall: regular rate 05/01/2018 None Full Exam - General 1994 Cardiovascular auscultation of heart Overall: normal heart sounds 05/01/2018 None Full Exam - General 1994 Lymphatic neck nodes Overall: anterior cervical chain benign 05/01/2018 None Full Exam - General 1994 Lymphatic neck nodes Overall: posterior cervical chain benign 05/01/2018 None Full Exam - General 1994 Neurologic cranial nerves Overall: crainial nerves 2 - 12 grossly intact 05/01/2018 None Full Exam - General 1994 Psychiatric orientation/consciousness Overall: oriented to person, place and time 05/01/2018 None Full Exam - General 1994 Psychiatric mood and affect Overall: normal mood and affect 05/01/2018 None Full Exam - General 1994 Respiratory auscultation Lower lung field: expiratory wheezes 05/01/2018 None Full Exam - General 1994 Respiratory auscultation Lower lung field: crackles 05/01/2018 None Full Exam - ENT Constitutional general appearance Overall: well nourished 04/16/2018 None Full Exam - ENT Constitutional general appearance Overall: well developed 04/16/2018 None Full Exam - ENT Constitutional general appearance Overall: in no acute distress 04/16/2018 None Full Exam - ENT Ears/Nose/Throat otoscopic exam Overall: external auditory canals normal 04/16/2018 None Full Exam - ENT Ears/Nose/Throat otoscopic exam Left tympanic membrane: air -fluid level 04/16/2018 None Full Exam - ENT Ears/Nose/Throat otoscopic exam Right tympanic membrane: air-fluid level 04/16/2018 None Full Exam - ENT Ears/Nose/Throat nasal mucosa, septum, turbinates Drainage: clear 04/16/2018 None Full Exam - ENT Ears/Nose/Throat nasal mucosa, septum, turbinates Drainage: yellow 04/16/2018 None Full Exam - ENT Ears/Nose/Throat lips/ teeth/gingiva Overall: benign lips 04/16/2018 None Full Exam - ENT Ears/Nose/Throat oropharynx Posterior Pharynx: clear post nasal drainage 04/16/2018 None Full Exam - ENT Face and Head palpation Left maxillary sinus: tender 04/16/2018 None Full Exam - ENT Face and Head palpation Right maxillary sinus: tender 04/16/2018 None Full Exam - ENT Respiratory inspection Overall: no retractions 04/16/2018 None Full Exam - ENT Respiratory inspection Overall: normal rate 11/2018 None Full Exam - ENT Respiratory auscultation Overall: breath sounds clear bilaterally 04/16/2018 None Full Exam - ENT Cardiovascular auscultation of heart Overall: regular rate 04/16/2018 None Full Exam - ENT Cardiovascular auscultation of heart Overall: normal heart sounds 04/16/2018 None Full Exam - ENT Lymphatic palpation of lymph nodes Overall: anterior cervical chain benign 04/16/2018 None Full Exam - ENT Lymphatic palpation of lymph nodes Overall: posterior cervical chain benign 04/16/2018 None Full Exam - ENT Neurologic mood and affect Overall: normal mood 04/16/2018 None Full Exam - ENT Neurologic mood and affect Overall: normal affect 04/16/2018 None Full Exam - ENT Neurologic orientation Overall: oriented to person, place and time 04/16/2018 None Full Exam - General 1994 Constitutional general appearance Overall: well developed 01/28/2018 None Full Exam - General 1994 Constitutional general appearance Overall: in no acute distress 01/28/2018 None Full Exam - General 1994 Constitutional general appearance Overall: well nourished 01/28/2018 None Full Exam - General 1994 Eyes conjunctiva /eyelids Overall: eyelids normal 01/28/2018 None Full Exam - General 1994 Eyes conjunctiva /eyelids Overall: cornea clear 01/28/2018 None Full Exam - General 1994 Eyes conjunctiva /eyelids Overall: conjunctiva clear 01/28/2018 None Full Exam - General 1994 Ears/Nose/Throat lips/teeth/gingiva Overall: benign lips 01/28/2018 None Full Exam - General 1994 Ears/Nose/Throat oral cavity/pharynx/larynx Overall: oral mucosa clear 01/28/2018 None Full Exam - General 1994 Respiratory respiratory effort/rhythm Overall: normal rate 01/28/2018 None Full Exam - General 1994 Respiratory respiratory effort/rhythm Overall: no retractions 01/28/2018 None Full Exam - General 1994 Respiratory auscultation Overall: breath sounds clear bilaterally 01/28/2018 None Full Exam - General 1994 Cardiovascular auscultation of heart Overall: regular rate 01/28/2018 None Full Exam - General 1994 Cardiovascular auscultation of heart Overall: normal heart sounds 01/28/2018 None Full Exam - General 1994 Abdomen abdominal exam Overall: normal bowel sounds 01/28/2018 None Full Exam - General 1994 Abdomen abdominal exam Lower quadrant: tender to palpation 01/28/2018 None Full Exam - General 1994 Abdomen abdominal exam Lower quadrant: dull pain 01/28/2018 None Full Exam - General 1994 Abdomen abdominal exam Lower quadrant: no guarding 01/28/2018 None Full Exam - General 1994 Abdomen abdominal exam Lower quadrant: no rebound tenderness 01/28/2018 None Full Exam - General 1994 Abdomen abdominal exam Lower quadrant: soft 01/28/2018 None Full Exam - General 1994 Abdomen abdominal exam Upper quadrant: tender to palpation 01/28/2018 None Full Exam - General 1994 Abdomen abdominal exam Upper quadrant: dull pain 01/28/2018 None Full Exam - General 1994 Abdomen abdominal exam Upper quadrant: no guarding 01/28/2018 None Full Exam - General 1994 Abdomen abdominal exam Upper quadrant: no rebound tenderness 01/28/2018 None Full Exam - General 1994 Abdomen abdominal exam Upper quadrant: soft 01/28/2018 None Full Exam - General 1994 Musculoskeletal head and neck Overall: head atraumatic 01/28/2018 None Full Exam - General 1994 Musculoskeletal gait and station Overall: normal station 01/28/2018 None Full Exam - General 1994 Musculoskeletal gait and station Overall: normal gait 01/28/2018 None Full Exam - General 1994 Neurologic cranial nerves Overall: crainial nerves 2 - 12 grossly intact 01/28/2018 None Full Exam - General 1994 Psychiatric orientation/consciousness Overall: oriented to person, place and time 01/28/2018 None Full Exam - General 1994 Psychiatric mood and affect Overall: normal mood and affect 01/28/2018 None Full Exam - General 1995 Psychiatric appearance Overall: well-groomed, good eye contact 01/28/2018 None Full Exam - Orthopedics Constitutional general appearance Overall: well nourished 10/15/2017 None Full Exam - Orthopedics Constitutional general appearance Overall: well developed 10/15/2017 None Full Exam - Orthopedics Constitutional general appearance Overall: in no acute distress 10/15/2017 None Full Exam - Orthopedics Eyes conjunctiva/ eyelids Overall: conjunctiva clear 10/15/2017 None Full Exam - Orthopedics Eyes conjunctiva/ eyelids Overall: cornea clear 10/15/2017 None Full Exam - Orthopedics Eyes conjunctiva/ eyelids Overall: eyelids normal 10/15/2017 None Full Exam - Orthopedics Ears/Nose/Throat lips/teeth/gingiva Overall: benign lips 10/15/2017 None Full Exam - Orthopedics Ears/Nose/Throat oral cavity/pharynx/larynx Overall: oral mucosa clear 10/15/2017 None Full Exam - Orthopedics Respiratory auscultation Overall: breath sounds clear bilaterally 10/15/2017 None Full Exam - Orthopedics Respiratory respiratory effort/rhythm Overall: no retractions 10/15/2017 None Full Exam - Orthopedics Respiratory respiratory effort/rhythm Overall: normal rate 10/15/2017 None Full Exam - Orthopedics MS: head/neck insp & palp - H/N Overall: head atraumatic 10/15/2017 None Full Exam - Orthopedics MS: left upper extremity insp & palp - LUE Wrist: joint swelling 10/15/2017 None Full Exam - Orthopedics MS: left upper extremity insp & palp - LUE Wrist: tender 10/15/2017 None Full Exam - Orthopedics MS: left lower extremity insp & palp - LLE Ankle: swelling 10/15/2017 None Full Exam - Orthopedics MS: left lower extremity insp & palp - LLE Ankle: tender 10/15/2017 None Full Exam - Orthopedics Neurological mood and affect Mood: anxious 10/15/2017 None Full Exam - Orthopedics Neurological mood and affect Affect: mood congruent 10/15/2017 None Full Exam - Orthopedics Psychiatric orientation/consciousness Overall: oriented to person, place and time 10/15/2017 None Full Exam - Orthopedics Psychiatric mood and affect Overall: normal mood and affect 10/15/2017 None Full Exam - Orthopedics Constitutional general appearance Overall: well nourished 09/19/2017 None Full Exam - Orthopedics Constitutional general appearance Overall: well developed 09/19/2017 None Full Exam - Orthopedics Constitutional general appearance Overall: in no acute distress 09/19/2017 None Full Exam - Orthopedics Eyes conjunctiva/ eyelids Overall: conjunctiva clear 09/19/2017 None Full Exam - Orthopedics Eyes conjunctiva/ eyelids Overall: cornea clear 09/19/2017 None Full Exam - Orthopedics Eyes conjunctiva/ eyelids Overall: eyelids normal 09/19/2017 None Full Exam - Orthopedics Ears/Nose/Throat lips/teeth/gingiva Overall: benign lips 09/19/2017 None Full Exam - Orthopedics Ears/Nose/Throat oral cavity/pharynx/larynx Overall: oral mucosa clear 09/19/2017 None Full Exam - Orthopedics Respiratory auscultation Overall: breath sounds clear bilaterally 09/19/2017 None Full Exam - Orthopedics Respiratory respiratory effort/rhythm Overall: no retractions 09/19/2017 None Full Exam - Orthopedics Respiratory respiratory effort/rhythm Overall: normal rate 09/19/2017 None Full Exam - Orthopedics MS: head/neck insp & palp - H/N Overall: head atraumatic 09/19/2017 None Full Exam - Orthopedics MS: left upper extremity insp & palp - LUE Wrist: joint swelling 09/19/2017 None Full Exam - Orthopedics MS: left upper extremity insp & palp - LUE Wrist: tender 09/19/2017 None Full Exam - Orthopedics MS: left lower extremity insp & palp - LLE Ankle: swelling 09/19/2017 None Full Exam - Orthopedics MS: left lower extremity insp & palp - LLE Ankle: tender 09/19/2017 None Full Exam - Orthopedics Neurological mood and affect Mood: anxious 09/19/2017 None Full Exam - Orthopedics Neurological mood and affect Affect: mood congruent 09/19/2017 None Full Exam - Orthopedics Psychiatric orientation/consciousness Overall: oriented to person, place and time 09/19/2017 None Full Exam - Orthopedics Psychiatric mood and affect Overall: normal mood and affect 09/19/2017 None Full Exam - Orthopedics Constitutional general appearance Overall: well nourished 08/20/2017 None Full Exam - Orthopedics Constitutional general appearance Overall: well developed 08/20/2017 None Full Exam - Orthopedics Constitutional general appearance Overall: in no acute distress 08/20/2017 None Full Exam - Orthopedics Eyes conjunctiva/ eyelids Overall: conjunctiva clear 08/20/2017 None Full Exam - Orthopedics Eyes conjunctiva/ eyelids Overall: cornea clear 08/20/2017 None Full Exam - Orthopedics Eyes conjunctiva/ eyelids Overall: eyelids normal 08/20/2017 None Full Exam - Orthopedics Ears/Nose/Throat lips/teeth/gingiva Overall: benign lips 08/20/2017 None Full Exam - Orthopedics Ears/Nose/Throat oral cavity/pharynx/larynx Overall: oral mucosa clear 08/20/2017 None Full Exam - Orthopedics Respiratory auscultation Overall: breath sounds clear bilaterally 08/20/2017 None Full Exam - Orthopedics Respiratory respiratory effort/rhythm Overall: no retractions 08/20/2017 None Full Exam - Orthopedics Respiratory respiratory effort/rhythm Overall: normal rate 08/20/2017 None Full Exam - Orthopedics MS: head/neck insp & palp - H/N Overall: head atraumatic 08/20/2017 None Full Exam - Orthopedics MS: left upper extremity insp & palp - LUE Wrist: joint swelling 08/20/2017 None Full Exam - Orthopedics MS: left upper extremity insp & palp - LUE Wrist: tender 08/20/2017 None Full Exam - Orthopedics MS: left lower extremity insp & palp - LLE Ankle: swelling 08/20/2017 None Full Exam - Orthopedics MS: left lower extremity insp & palp - LLE Ankle: tender 08/20/2017 None Full Exam - Orthopedics Neurological mood and affect Mood: anxious 08/20/2017 None Full Exam - Orthopedics Neurological mood and affect Affect: mood congruent 08/20/2017 None Full Exam - Orthopedics Psychiatric orientation/consciousness Overall: oriented to person, place and time 08/20/2017 None Full Exam - Orthopedics Psychiatric mood and affect Overall: normal mood and affect 08/20/2017 None Full Exam - Orthopedics Constitutional general appearance Overall: well nourished 07/19/2017 None Full Exam - Orthopedics Constitutional general appearance Overall: well developed 07/19/2017 None Full Exam - Orthopedics Constitutional general appearance Overall: in no acute distress 07/19/2017 None Full Exam - Orthopedics Eyes conjunctiva/ eyelids Overall: conjunctiva clear 07/19/2017 None Full Exam - Orthopedics Eyes conjunctiva/ eyelids Overall: cornea clear 07/19/2017 None Full Exam - Orthopedics Eyes conjunctiva/ eyelids Overall: eyelids normal 07/19/2017 None Full Exam - Orthopedics Ears/Nose/Throat lips/teeth/gingiva Overall: benign lips 07/19/2017 None Full Exam - Orthopedics Ears/Nose/Throat oral cavity/pharynx/larynx Overall: oral mucosa clear 07/19/2017 None Full Exam - Orthopedics Respiratory auscultation Overall: breath sounds clear bilaterally 07/19/2017 None Full Exam - Orthopedics Respiratory respiratory effort/rhythm Overall: no retractions 07/19/2017 None Full Exam - Orthopedics Respiratory respiratory effort/rhythm Overall: normal rate 07/19/2017 None Full Exam - Orthopedics MS: head/neck insp & palp - H/N Overall: head atraumatic 07/19/2017 None Full Exam - Orthopedics MS: left upper extremity insp & palp - LUE Wrist: joint swelling 07/19/2017 None Full Exam - Orthopedics MS: left upper extremity insp & palp - LUE Wrist: tender 07/19/2017 None Full Exam - Orthopedics MS: left lower extremity insp & palp - LLE Ankle: swelling 07/19/2017 None Full Exam - Orthopedics MS: left lower extremity insp & palp - LLE Ankle: tender 07/19/2017 None Full Exam - Orthopedics Psychiatric orientation/consciousness Overall: oriented to person, place and time 07/19/2017 None Full Exam - Orthopedics Psychiatric mood and affect Overall: normal mood and affect 07/19/2017 None Full Exam - Orthopedics Neurological mood and affect Mood: anxious 07/19/2017 None Full Exam - Orthopedics Neurological mood and affect Affect: mood congruent 07/19/2017 None Full Exam - Orthopedics Constitutional general appearance Overall: well nourished 06/13/2017 None Full Exam - Orthopedics Constitutional general appearance Overall: well developed 06/13/2017 None Full Exam - Orthopedics Constitutional general appearance Overall: in no acute distress 06/13/2017 None Full Exam - Orthopedics Eyes conjunctiva/ eyelids Overall: conjunctiva clear 06/13/2017 None Full Exam - Orthopedics Eyes conjunctiva/ eyelids Overall: cornea clear 06/13/2017 None Full Exam - Orthopedics Eyes conjunctiva/ eyelids Overall: eyelids normal 06/13/2017 None Full Exam - Orthopedics Ears/Nose/Throat lips/teeth/gingiva Overall: benign lips 06/13/2017 None Full Exam - Orthopedics Ears/Nose/Throat oral cavity/pharynx/larynx Overall: oral mucosa clear 06/13/2017 None Full Exam - Orthopedics Respiratory respiratory effort/rhythm Overall: no retractions 06/13/2017 None Full Exam - Orthopedics Respiratory respiratory effort/rhythm Overall: normal rate 06/13/2017 None Full Exam - Orthopedics Respiratory auscultation Overall: breath sounds clear bilaterally 06/13/2017 None Full Exam - Orthopedics MS: head/neck insp & palp - H/N Overall: head atraumatic 06/13/2017 None Full Exam - Orthopedics MS: left upper extremity insp & palp - LUE Wrist: tender 06/13/2017 None Full Exam - Orthopedics MS: left upper extremity insp & palp - LUE Wrist: joint swelling 06/13/2017 None Full Exam - Orthopedics MS: left lower extremity insp & palp - LLE Ankle: swelling 06/13/2017 None Full Exam - Orthopedics MS: left lower extremity insp & palp - LLE Ankle: tender 06/13/2017 None Full Exam - Orthopedics Psychiatric orientation/consciousness Overall: oriented to person, place and time 06/13/2017 None Full Exam - Orthopedics Psychiatric mood and affect Overall: normal mood and affect 06/13/2017 None Full Exam - Orthopedics Constitutional general appearance Overall: well nourished 05/25/2017 None Full Exam - Orthopedics Constitutional general appearance Overall: well developed 05/25/2017 None Full Exam - Orthopedics Constitutional general appearance Overall: in no acute distress 05/25/2017 None Full Exam - Orthopedics Eyes conjunctiva/ eyelids Overall: conjunctiva clear 05/25/2017 None Full Exam - Orthopedics Eyes conjunctiva/ eyelids Overall: eyelids normal 05/25/2017 None Full Exam - Orthopedics Ears/Nose/Throat lips/teeth/gingiva Overall: benign lips 05/25/2017 None Full Exam - Orthopedics Ears/Nose/Throat oral cavity/pharynx/larynx Overall: oral mucosa clear 05/25/2017 None Full Exam - Orthopedics Respiratory respiratory effort/rhythm Overall: no retractions 05/25/2017 None Full Exam - Orthopedics Respiratory respiratory effort/rhythm Overall: normal rate 05/25/2017 None Full Exam - Orthopedics Psychiatric orientation/consciousness Overall: oriented to person, place and time 05/25/2017 None Full Exam - Orthopedics Psychiatric mood and affect Overall: normal mood and affect 05/25/2017 None Full Exam - Orthopedics Psychiatric appearance Overall: well-groomed, good eye contact 05/25/2017 None Full Exam - Orthopedics MS: right upper extremity insp & palp - RUE Wrist: redness 05/25/2017 None Full Exam - Orthopedics MS: right upper extremity insp & palp - RUE Wrist: swelling 05/25/2017 None Full Exam - Orthopedics MS: right upper extremity insp & palp - RUE Wrist: tender 05/25/2017 None Full Exam - General 1995 Constitutional general appearance Overall: well developed 05/11/2017 None Full Exam - General 1994 Constitutional general appearance Overall: in no acute distress 05/11/2017 None Full Exam - General 1994 Constitutional general appearance Overall: well nourished 05/11/2017 None Full Exam - General 1994 Eyes conjunctiva /eyelids Overall: conjunctiva clear 05/11/2017 None Full Exam - General 1994 Eyes conjunctiva /eyelids Overall: cornea clear 05/11/2017 None Full Exam - General 1994 Eyes conjunctiva /eyelids Overall: eyelids normal 05/11/2017 None Full Exam - General 1994 Ears/Nose/Throat otoscopic exam Overall: external auditory canals clear 05/11/2017 None Full Exam - General 1994 Ears/Nose/Throat otoscopic exam Overall: tympanic membranes clear 05/11/2017 None Full Exam - General 1994 Ears/Nose/Throat lips/teeth/gingiva Overall: benign lips 05/11/2017 None Full Exam - General 1994 Ears/Nose/Throat oral cavity/pharynx/larynx Overall: oral mucosa clear 05/11/2017 None Full Exam - General 1994 Respiratory respiratory effort/rhythm Overall: no retractions 05/11/2017 None Full Exam - General 1994 Respiratory respiratory effort/rhythm Overall: normal rate 05/11/2017 None Full Exam - General 1994 Respiratory auscultation Overall: breath sounds clear bilaterally 05/11/2017 None Full Exam - General 1994 Respiratory auscultation Diffuse: diminished 05/11/2017 None Full Exam - General 1994 Cardiovascular auscultation of heart Overall: regular rate 05/11/2017 None Full Exam - General 1994 Cardiovascular auscultation of heart Overall: normal heart sounds 05/11/2017 None Full Exam - General 1994 Musculoskeletal head and neck Overall: head atraumatic 05/11/2017 None Full Exam - General 1994 Neurologic cranial nerves Overall: crainial nerves 2 - 12 grossly intact 05/11/2017 None Full Exam - General 1994 Psychiatric orientation/consciousness Overall: oriented to person, place and time 05/11/2017 None Full Exam - General 1994 Psychiatric mood and affect Overall: normal mood and affect 05/11/2017 None Full Exam - General 1994 Psychiatric appearance Overall: well-groomed, good eye contact 05/11/2017 None Full Exam - General 1994 Constitutional general appearance Overall: well developed 04/25/2017 None Full Exam - General 1994 Constitutional general appearance Overall: well nourished 04/25/2017 None Full Exam - General 1994 Constitutional general appearance Evidence of Distress: mild distress 04/25/2017 None Full Exam - General 1994 Eyes conjunctiva /eyelids Overall: conjunctiva clear 04/25/2017 None Full Exam - General 1994 Eyes conjunctiva /eyelids Overall: cornea clear 04/25/2017 None Full Exam - General 1994 Eyes conjunctiva /eyelids Overall: eyelids normal 04/25/2017 None Full Exam - General 1994 Ears/Nose/Throat otoscopic exam Overall: external auditory canals clear 04/25/2017 None Full Exam - General 1994 Ears/Nose/Throat lips/teeth/gingiva Overall: benign lips 04/25/2017 None Full Exam - General 1994 Ears/Nose/Throat oral cavity/pharynx/larynx Overall: oral mucosa clear 04/25/2017 None Full Exam - General 1994 Ears/Nose/Throat oral cavity/pharynx/larynx Posterior Pharynx: clear post nasal drainage 04/25/2017 None Full Exam - General 1994 Respiratory auscultation Overall: breath sounds clear bilaterally 04/25/2017 None Full Exam - General 1994 Respiratory auscultation Diffuse: diminished 04/25/2017 None Full Exam - General 1994 Respiratory respiratory effort/rhythm Overall: no retractions 04/25/2017 None Full Exam - General 1994 Respiratory respiratory effort/rhythm Overall: normal rate 04/25/2017 None Full Exam - General 1994 Cardiovascular auscultation of heart Overall: regular rate 04/25/2017 None Full Exam - General 1994 Cardiovascular auscultation of heart Overall: normal heart sounds 04/25/2017 None Full Exam - General 1994 Musculoskeletal gait and station Overall: normal gait 04/25/2017 None Full Exam - General 1994 Musculoskeletal gait and station Overall: normal station 04/25/2017 None Full Exam - General 1994 Musculoskeletal head and neck Overall: head atraumatic 04/25/2017 None Full Exam - General 1994 Neurologic cranial nerves Overall: crainial nerves 2 - 12 grossly intact 04/25/2017 None Full Exam - General 1994 Psychiatric orientation/consciousness Overall: oriented to person, place and time 04/25/2017 None Full Exam - General 1994 Psychiatric mood and affect Overall: normal mood and affect 04/25/2017 None Full Exam - General 1994 Psychiatric mood and affect Mood: flat 04/25/2017 None Full Exam - General 1994 Psychiatric mood and affect Mood: labile mood 04/25/2017 None Full Exam - General 1994 Psychiatric appearance Overall: well-groomed, good eye contact 04/25/2017 None Full Exam - General 1994 Ears/Nose/Throat otoscopic exam Overall: tympanic membranes clear 04/25/2017 None Full Exam - General 1994 Abdomen abdominal exam Overall: no tenderness 04/25/2017 None Full Exam - General 1994 Abdomen abdominal exam Overall: normal bowel sounds 04/25/2017 None Full Exam - General 1994 Constitutional general appearance Overall: well developed 04/17/2017 None Full Exam - General 1994 Constitutional general appearance Overall: well nourished 04/17/2017 None Full Exam - General 1994 Constitutional general appearance Evidence of Distress: mild distress 04/17/2017 None Full Exam - General 1994 Eyes conjunctiva /eyelids Overall: conjunctiva clear 04/17/2017 None Full Exam - General 1994 Eyes conjunctiva /eyelids Overall: cornea clear 04/17/2017 None Full Exam - General 1994 Eyes conjunctiva /eyelids Overall: eyelids normal 04/17/2017 None Full Exam - General 1994 Ears/Nose/Throat otoscopic exam Overall: external auditory canals clear 04/17/2017 None Full Exam - General 1994 Ears/Nose/Throat otoscopic exam Tympanic membrane: air- fluid level 04/17/2017 None Full Exam - General 1994 Ears/Nose/Throat lips/teeth/gingiva Overall: benign lips 04/17/2017 None Full Exam - General 1994 Ears/Nose/Throat oral cavity/pharynx/larynx Overall: oral mucosa clear 04/17/2017 None Full Exam - General 1994 Respiratory auscultation Overall: breath sounds clear bilaterally 04/17/2017 None Full Exam - General 1994 Respiratory auscultation Diffuse: diminished 04/17/2017 None Full Exam - General 1994 Respiratory respiratory effort/rhythm Overall: no retractions 04/17/2017 None Full Exam - General 1994 Respiratory respiratory effort/rhythm Overall: normal rate 04/17/2017 None Full Exam - General 1994 Cardiovascular auscultation of heart Overall: regular rate 04/17/2017 None Full Exam - General 1994 Cardiovascular auscultation of heart Overall: normal heart sounds 04/17/2017 None Full Exam - General 1994 Abdomen abdominal exam Bowel sounds: hyperactive 04/17/2017 None Full Exam - General 1994 Abdomen abdominal exam Upper quadrant: tender to palpation 04/17/2017 None Full Exam - General 1994 Abdomen abdominal exam Upper quadrant: dull pain 04/17/2017 None Full Exam - General 1994 Abdomen abdominal exam Upper quadrant: no guarding 04/17/2017 None Full Exam - General 1994 Abdomen abdominal exam Upper quadrant: no rebound tenderness 04/17/2017 None Full Exam - General 1994 Abdomen abdominal exam Upper quadrant: soft 04/17/2017 None Full Exam - General 1994 Abdomen abdominal exam Lower quadrant: tender to palpation 04/17/2017 None Full Exam - General 1994 Abdomen abdominal exam Lower quadrant: dull pain 04/17/2017 None Full Exam - General 1994 Abdomen abdominal exam Lower quadrant: no guarding 04/17/2017 None Full Exam - General 1994 Abdomen abdominal exam Lower quadrant: no rebound tenderness 04/17/2017 None Full Exam - General 1994 Abdomen abdominal exam Lower quadrant: soft 04/17/2017 None Full Exam - General 1994 Musculoskeletal gait and station Overall: normal gait 04/17/2017 None Full Exam - General 1994 Musculoskeletal gait and station Overall: normal station 04/17/2017 None Full Exam - General 1994 Musculoskeletal head and neck Overall: head atraumatic 04/17/2017 None Full Exam - General 1994 Neurologic cranial nerves Overall: crainial nerves 2 - 12 grossly intact 04/17/2017 None Full Exam - General 1994 Psychiatric orientation/consciousness Overall: oriented to person, place and time 04/17/2017 None Full Exam - General 1994 Psychiatric mood and affect Overall: normal mood and affect 04/17/2017 None Full Exam - General 1994 Psychiatric mood and affect Mood: flat 04/17/2017 None Full Exam - General 1994 Psychiatric mood and affect Mood: labile mood 04/17/2017 None Full Exam - General 1994 Psychiatric appearance Overall: well-groomed, good eye contact 04/17/2017 None Full Exam - General 1994 Ears/Nose/Throat oral cavity/pharynx/larynx Posterior Pharynx: clear post nasal drainage 04/17/2017 None Full Exam - General 1994 Ears/Nose/Throat oral cavity/pharynx/larynx Oropharynx: erythema 04/17/2017 None Full Exam - General 1994 Ears/Nose/Throat internal nose Sinus tenderness: left maxillary 04/17/2017 None Full Exam - General 1994 Ears/Nose/Throat internal nose Sinus tenderness: right maxillary 04/17/2017 None Full Exam - General 1994 Ears/Nose/Throat internal nose Drainage: thick 04/17/2017 None Full Exam - General 1994 Ears/Nose/Throat internal nose Drainage: mucoid 04/17/2017 None Full Exam - General 1994 Constitutional general appearance Overall: well developed 04/13/2017 None Full Exam - General 1994 Constitutional general appearance Overall: well nourished 04/13/2017 None Full Exam - General 1994 Constitutional general appearance Evidence of Distress: mild distress 04/13/2017 None Full Exam - General 1994 Eyes conjunctiva /eyelids Overall: conjunctiva clear 04/13/2017 None Full Exam - General 1994 Eyes conjunctiva /eyelids Overall: cornea clear 04/13/2017 None Full Exam - General 1994 Eyes conjunctiva /eyelids Overall: eyelids normal 04/13/2017 None Full Exam - General 1994 Ears/Nose/Throat oral cavity/pharynx/larynx Overall: oral mucosa clear 04/13/2017 None Full Exam - General 1994 Ears/Nose/Throat lips/teeth/gingiva Overall: benign lips 04/13/2017 None Full Exam - General 1994 Ears/Nose/Throat otoscopic exam Overall: external auditory canals clear 04/13/2017 None Full Exam - General 1994 Ears/Nose/Throat otoscopic exam Tympanic membrane: air- fluid level 04/13/2017 None Full Exam - General 1994 Respiratory auscultation Overall: breath sounds clear bilaterally 04/13/2017 None Full Exam - General 1994 Respiratory auscultation Diffuse: diminished 04/13/2017 None Full Exam - General 1994 Respiratory respiratory effort/rhythm Overall: no retractions 04/13/2017 None Full Exam - General 1994 Respiratory respiratory effort/rhythm Overall: normal rate 04/13/2017 None Full Exam - General 1994 Cardiovascular auscultation of heart Overall: normal heart sounds 04/13/2017 None Full Exam - General 1994 Cardiovascular auscultation of heart Overall: regular rate 04/13/2017 None Full Exam - General 1994 Abdomen abdominal exam Bowel sounds: hyperactive 04/13/2017 None Full Exam - General 1994 Abdomen abdominal exam Lower quadrant: dull pain 04/13/2017 None Full Exam - General 1994 Abdomen abdominal exam Lower quadrant: tender to palpation 04/13/2017 None Full Exam - General 1994 Abdomen abdominal exam Lower quadrant: no guarding 04/13/2017 None Full Exam - General 1994 Abdomen abdominal exam Lower quadrant: no rebound tenderness 04/13/2017 None Full Exam - General 1994 Abdomen abdominal exam Lower quadrant: soft 04/13/2017 None Full Exam - General 1994 Abdomen abdominal exam Upper quadrant: dull pain 04/13/2017 None Full Exam - General 1994 Abdomen abdominal exam Upper quadrant: tender to palpation 04/13/2017 None Full Exam - General 1994 Abdomen abdominal exam Upper quadrant: no guarding 04/13/2017 None Full Exam - General 1994 Abdomen abdominal exam Upper quadrant: no rebound tenderness 04/13/2017 None Full Exam - General 1994 Abdomen abdominal exam Upper quadrant: soft 04/13/2017 None Full Exam - General 1994 Musculoskeletal head and neck Overall: head atraumatic 04/13/2017 None Full Exam - General 1994 Musculoskeletal gait and station Overall: normal station 04/13/2017 None Full Exam - General 1994 Musculoskeletal gait and station Overall: normal gait 04/13/2017 None Full Exam - General 1994 Neurologic cranial nerves Overall: crainial nerves 2 - 12 grossly intact 04/13/2017 None Full Exam - General 1994 Psychiatric orientation/consciousness Overall: oriented to person, place and time 04/13/2017 None Full Exam - General 1994 Psychiatric mood and affect Overall: normal mood and affect 04/13/2017 None Full Exam - General 1994 Psychiatric appearance Overall: well-groomed, good eye contact 04/13/2017 None Full Exam - General 1994 Psychiatric mood and affect Mood: labile mood 04/13/2017 None Full Exam - General 1994 Psychiatric mood and affect Mood: flat 04/13/2017 None Full Exam - General 1994 Constitutional general appearance Overall: well developed 04/06/2017 None Full Exam - General 1994 Constitutional general appearance Overall: in no acute distress 04/06/2017 None Full Exam - General 1994 Constitutional general appearance Overall: well nourished 04/06/2017 None Full Exam - General 1994 Eyes conjunctiva /eyelids Overall: conjunctiva clear 04/06/2017 None Full Exam - General 1994 Eyes conjunctiva /eyelids Overall: cornea clear 04/06/2017 None Full Exam - General 1994 Eyes conjunctiva /eyelids Overall: eyelids normal 04/06/2017 None Full Exam - General 1994 Eyes pupils and irises Overall: pupils equal, round, reactive to light and accomodation 04/06/2017 None Full Exam - General 1994 Ears/Nose/Throat otoscopic exam Overall: external auditory canals clear 04/06/2017 None Full Exam - General 1994 Ears/Nose/Throat otoscopic exam Tympanic membrane: air- fluid level 04/06/2017 None Full Exam - General 1994 Ears/Nose/Throat internal nose Sinus tenderness: left maxillary 04/06/2017 None Full Exam - General 1994 Ears/Nose/Throat internal nose Sinus tenderness: right maxillary 04/06/2017 None Full Exam - General 1994 Ears/Nose/Throat lips/teeth/gingiva Overall: benign lips 04/06/2017 None Full Exam - General 1994 Ears/Nose/Throat oral cavity/pharynx/larynx Overall: oral mucosa clear 04/06/2017 None Full Exam - General 1994 Ears/Nose/Throat oral cavity/pharynx/larynx Posterior Pharynx: clear post nasal drainage 04/06/2017 None Full Exam - General 1994 Respiratory auscultation Overall: breath sounds clear bilaterally 04/06/2017 None Full Exam - General 1994 Respiratory auscultation Diffuse: diminished 04/06/2017 None Full Exam - General 1994 Respiratory respiratory effort/rhythm Overall: no retractions 04/06/2017 None Full Exam - General 1994 Respiratory respiratory effort/rhythm Overall: normal rate 04/06/2017 None Full Exam - General 1994 Cardiovascular auscultation of heart Overall: regular rate 04/06/2017 None Full Exam - General 1994 Cardiovascular auscultation of heart Overall: normal heart sounds 04/06/2017 None Full Exam - General 1994 Abdomen abdominal exam Overall: normal bowel sounds 04/06/2017 None Full Exam - General 1994 Abdomen abdominal exam Overall: no tenderness 04/06/2017 None Full Exam - General 1994 Lymphatic neck nodes Overall: posterior cervical chain benign 04/06/2017 None Full Exam - General 1994 Lymphatic neck nodes Overall: anterior cervical chain benign 04/06/2017 None Full Exam - General 1994 Musculoskeletal head and neck Overall: head atraumatic 04/06/2017 None Full Exam - General 1994 Musculoskeletal gait and station Overall: normal station 04/06/2017 None Full Exam - General 1994 Musculoskeletal gait and station Overall: normal gait 04/06/2017 None Full Exam - General 1994 Neurologic cranial nerves Overall: crainial nerves 2 - 12 grossly intact 04/06/2017 None Full Exam - General 1994 Psychiatric orientation/consciousness Overall: oriented to person, place and time 04/06/2017 None Full Exam - General 1994 Psychiatric mood and affect Overall: normal mood and affect 04/06/2017 None Full Exam - General 1994 Psychiatric appearance Overall: well-groomed, good eye contact 04/06/2017 None Full Exam - General 1994 Neck thyroid Size: enlarged gland None Full Exam - General 1994 Musculoskeletal lower extremity Palpation - knee: crepitus 04/06/2017 None Full Exam - General 1994 Musculoskeletal lower extremity ROM - knee: pain with flexion 04/06/2017 None Procedures Procedure Codes Date TRIAMCINOLONE ACET INJ NOS CPT-4: J3301 05/01/2018 URINALYSIS NONAUTO W/O SCOPE CPT-4: 63807 06/04/2017 Vital Signs Date Vital 07/16/2018 Blood Pressure 1: 126/68 Code : 8480-6 BMI: 22.0 Code : 31191-9 Heart Rate 1 : 70 bpm Height: 4'11" SpO2: 98% Weight: 109 lbs 06/21/2018 Blood Pressure 1: 114/64 Code : 8480-6 BMI: 22.8 Code : 18638-6 Heart Rate 1 : 70 bpm Height: 4'11" SpO2: 97% Weight: 113 lbs 05/15/2018 Height: Weight: 05/01/2018 Blood Pressure 1: 134/68 Code : 8480-6 BMI: 22.6 Code : 03422-3 Heart Rate 1 : 83 bpm Height: 4'11" SpO2: 99% Temperature: 37.1 (C) / 98.8 (F) Weight: 112 lbs 04/16/2018 Blood Pressure 1: 122/60 Code : 8480-6 BMI: 22.6 Code : 49157-6 Heart Rate 1 : 72 bpm Height: 4'11" SpO2: 92% Temperature: 36.7 (C) / 98.1 (F) Weight: 112 lbs 01/28/2018 Blood Pressure 1: 136/52 Code : 8480-6 BMI: 22.6 Code : 96958-6 Heart Rate 1 : 76 bpm Height: 4'11" SpO2: 98% Weight: 112 lbs 10/15/2017 Blood Pressure 1: 136/78 Code : 8480-6 BMI: 22.6 Code : 86459-1 Heart Rate 1 : 86 bpm Height: 4'11" SpO2: 98% Weight: 112 lbs 09/19/2017 Blood Pressure 1: 122/68 Code : 8480-6 BMI: 22.4 Code : 38075-3 Heart Rate 1 : 74 bpm Height: 4'11" SpO2: 97% Weight: 111 lbs 08/20/2017 Blood Pressure 1: 132/78 Code : 8480-6 BMI: 22.0 Code : 11850-9 Heart Rate 1 : 80 bpm Height: 4'11" SpO2: 96% Weight: 109 lbs 07/19/2017 Blood Pressure 1: 130/64 Code : 8480-6 BMI: 20.6 Code : 38948-7 Heart Rate 1 : 78 bpm Height: 4'11" SpO2: 98% Weight: 102 lbs 06/13/2017 Blood Pressure 1: 130/64 Code : 8480-6 BMI: 20.0 Code : 19215-0 Heart Rate 1 : 66 bpm Height: 4'11" SpO2: 97% Weight: 99 lbs 05/25/2017 Blood Pressure 1: 132/60 Code : 8480-6 BMI: 20.0 Code : 12793-0 Heart Rate 1 : 81 bpm Height: 4'11" SpO2: 99% Weight: 99 lbs 05/11/2017 Blood Pressure 1: 132/70 Code : 8480-6 Heart Rate 1: 69 bpm Height: SpO2: 99% Weight: 04/25/2017 Blood Pressure 1: 136/78 Code : 8480-6 BMI: 20.2 Code : 85075-7 Heart Rate 1 : 70 bpm Height: 4'11" SpO2: 99% Weight: 100 lbs 04/17/2017 Blood Pressure 1: 118/70 Code : 8480-6 BMI: 20.2 Code : 71718-1 Heart Rate 1 : 62 bpm Height: 4'11" SpO2: 99% Temperature: 36.4 (C) / 97.6 (F) Weight: 100 lbs 04/13/2017 Blood Pressure 1: 136/78 Code : 8480-6 BMI: 19.4 Code : 67165-4 Heart Rate 1 : 79 bpm Height: 4'11" SpO2: 97% Temperature: 36.8 (C) / 98.2 (F) Weight: 96 lbs 04/06/2017 Blood Pressure 1: 120/68 Code : 8480-6 BMI: 20.2 Code : 35378-6 Heart Rate 1 : 71 bpm Height: 4'11" SpO2: 97% Weight: 100 lbs Functional Status No Functional Status data History of Present Illness Symptom Name Status Result Effective Date Notes Additional Comments medication use 07/16/2018 reaction Quality chronic 07/16 None Significant Past Medical History Other: RA 07/16/2018 None Location frontal sinuses 06/21/2018 None Quality fullness None Quality pain 2018 None Quality pressure None Onset and Resolution sudden in onset 06/21/2018 None Onset of Symptom 3 days ago 06/21/2018 None Location diffusely None Quality aching 2018 None Quality burning 06/21 None Quality constant None Onset and Resolution sudden in onset 06/21/2018 None Onset of Symptom 3 days ago 06/21/2018 None Location maxillary sinuses 05/15/2018 None Location frontal sinuses 05/15/2018 None Quality chronic 05/15 None Onset and Resolution ongoing 05/15/2018 None Pertinent Findings Denies fever 05/15/2018 None Pertinent Findings cough 05/15/2018 None Pertinent Findings decreased energy level 05/15/2018 None Location frontal sinuses 05/01/2018 None Quality constant None Quality fullness None Quality pressure None Onset and Resolution sudden in onset 05/01/2018 None Onset of Symptom 1 weeks ago 05/01/2018 None Frequency of Episodes daily 05/01/2018 None Location in the throat 05/01/2018 None Quality constant None Quality hacking 05/01 None Quality productive None Onset and Resolution ongoing 05/01/2018 None Location diffusely None Quality aching 2018 None Quality constant None Onset and Resolution ongoing 05/01/2018 None Location frontal sinuses 04/16/2018 None Quality constant 11/2018 None Quality fullness 11/2018 None Quality pressure 11/2018 None Onset and Resolution sudden in onset 04/16/2018 None Onset of Symptom 1 weeks ago 04/16/2018 None Frequency of Episodes daily 04/16/2018 None urinary frequency Quality constant 01/28/2018 None urinary frequency Onset and Resolution sudden in onset 01/28/2018 None urinary frequency Onset of Symptom 1 weeks ago 01/28/2018 None urinary urgency Quality constant 01/28/2018 None urinary urgency Onset and Resolution sudden in onset 01/28/2018 None urinary urgency Onset of Symptom 1 weeks ago 01/28/2018 None abdominal pain Location diffusely 01/28/2018 None abdominal pain Quality aching 01/28/2018 None abdominal pain Quality cramping 01/28/2018 None abdominal pain Quality intermittent 01/28/2018 None pain Onset and Resolution ongoing 10/15/2017 None pain Pertinent Findings Denies fever 10/15/2017 None pain Pertinent Findings pain 10/15/2017 None swelling Quality chronic 10/15/2017 None swelling Pertinent Findings Denies fever 10/15/2017 None pain Onset and Resolution ongoing 09/19/2017 None pain Pertinent Findings Denies fever 09/19/2017 None swelling Quality chronic 09/19/2017 None swelling Pertinent Findings Denies fever 09/19/2017 None pain Pertinent Findings pain 09/19/2017 None pain Onset and Resolution ongoing 08/20/2017 None pain Pertinent Findings Denies fever 08/20/2017 None pain Pertinent Findings pain 08/20/2017 None swelling Quality chronic 08/20/2017 None swelling Pertinent Findings Denies fever 08/20/2017 None pain Onset and Resolution ongoing 07/19/2017 None pain Location-Major in a generalized area 07/19/2017 None pain Location-Major on the hands 07/19/2017 None pain Location-Major on the feet 07/19/2017 None pain Pertinent Findings Denies fever 07/19/2017 None swelling Location-Extremities on the right wrist 07/19/2017 None swelling Quality chronic 07/19/2017 None swelling Pertinent Findings Denies fever 07/19/2017 None pain Location-Major on the upper body 06/13/2017 None pain Location-Major on the lower body 06/13/2017 None swelling Location-Major on the upper body 06/13/2017 None swelling Location-Major on the lower body 06/13/2017 None wrist pain Location on the right 05/25/2017 None wrist pain Quality constant 05/25/2017 None wrist pain Onset and Resolution sudden in onset 05/25/2017 None wrist pain Onset of Symptom 1 weeks ago 05/25/2017 None wrist pain Frequency of Episodes daily 05/25/2017 None wrist pain Pertinent Findings decreased range of motion 05/25/2017 None wrist pain Pertinent Findings stiffness 05/25/2017 None wrist pain Pertinent Findings swelling 05/25/2017 None abnormal test results Test Performed on 05/11/2017 None abnormal test results Repeated Abnormal Results 0 05/11/2017 None abnormal test results Pertinent Findings Denies fever 05/11/2017 None abnormal test results Pertinent Findings Denies chill 05/11/2017 None abnormal test results Type of Test(s) PFT 05/11/2017 None cough Location in the lung 04/25/2017 None cough Quality acute None cough Onset and Resolution ongoing 04/25/2017 None cough Limitation on Activities moderately limits activities 04/25/2017 None cough Pertinent Findings Denies fever 04/25/2017 None fatigue Limitation on Activities moderately limits activities 04/25/2017 None fatigue Pertinent Findings Denies fever 04/25/2017 None fatigue Pertinent Findings nasal congestion 04/25/2017 None earache Location left ear 04/17/2017 None earache Quality acute 04/17/2017 None earache Onset and Resolution sudden in onset 04/17/2017 None earache Onset of Symptom 2 days ago 04/17/2017 None abdominal pain Quality acute 04/17/2017 None abdominal pain Quality constant 04/17/2017 None abdominal pain Location in the epigastric area 04/17/2017 None abdominal pain Onset and Resolution sudden in onset 04/17/2017 None abdominal pain Onset of Symptom 8 days ago 04/17/2017 None abdominal pain Pertinent Findings nausea 04/17/2017 with certain smells abdominal pain Pertinent Findings lightheadedness 04/17/2017 None abdominal pain Pertinent Findings Denies vomiting 04/17/2017 None vomiting Quality projectile 04/13/2017 None vomiting Quality acute 04/13/2017 None vomiting Quality intermittent 04/13/2017 None vomiting Onset and Resolution sudden in onset 04/13/2017 None vomiting Onset of Symptom 5 days ago 04/13/2017 None vomiting Pertinent Findings chills 04/13/2017 None vomiting Pertinent Findings decreased energy level 04/13/2017 None vomiting Pertinent Findings decreased liquid intake 04/13/2017 None vomiting Pertinent Findings Denies dyspepsia 04/13/2017 None vomiting Pertinent Findings Denies early satiety 04/13/2017 None vomiting Pertinent Findings feeding poorly 04/13/2017 None vomiting Pertinent Findings Denies feeding well 04/13/2017 None vomiting Pertinent Findings fever 04/13/2017 None vomiting Pertinent Findings gastroenteritis 04/13/2017 None vomiting Pertinent Findings Denies heartburn 04/13/2017 None vomiting Pertinent Findings intermittent abdominal pain 04/13/2017 None vomiting Pertinent Findings irritability 04/13/2017 None vomiting Pertinent Findings lethargy 04/13/2017 None vomiting Pertinent Findings Denies melena 04/13/2017 None vomiting Pertinent Findings Denies respiratory distress 04/13/2017 None vomiting Pertinent Findings Denies tachycardic 04/13/2017 None vomiting Pertinent Findings unable to tolerate any liquids 04/13/2017 None vomiting Pertinent Findings weight loss 04/13/2017 None vomiting Exacerbating Factors exertion 04/13/2017 None vomiting Exacerbating Factors activity 04/13/2017 None vomiting Exacerbating Factors medication 04/13/2017 None vomiting Alleviating Factors rest 04/13/2017 None vomiting Severity severe 04/13/2017 None diarrhea Quality acute 04/13/2017 None diarrhea Quality intermittent 04/13/2017 None diarrhea Onset and Resolution sudden in onset 04/13/2017 None diarrhea Onset of Symptom 5 days ago 04/13/2017 None diarrhea Limitation on Activities moderately limits activities 04/13/2017 None diarrhea Pertinent Findings fecal urgency 04/13/2017 None diarrhea Pertinent Findings chills 04/13/2017 None diarrhea Pertinent Findings cramping 04/13/2017 None diarrhea Pertinent Findings Denies dyspepsia 04/13/2017 None diarrhea Pertinent Findings emesis 04/13/2017 None diarrhea Pertinent Findings fever 04/13/2017 None diarrhea Pertinent Findings lethargy 04/13/2017 None diarrhea Pertinent Findings nausea 04/13/2017 None diarrhea Pertinent Findings poor weight gain 04/13/2017 None diarrhea Pertinent Findings unable to tolerate liquids orally 04/13/2017 None diarrhea Pertinent Findings weight loss 04/13/2017 None diarrhea Pertinent Findings lightheadedness 04/13/2017 None diarrhea Exacerbating Factors exertion 04/13/2017 None diarrhea Exacerbating Factors activity 04/13/2017 None diarrhea Alleviating Factors diet changes 04/13/2017 None diarrhea Alleviating Factors rest 04/13/2017 None knee pain Location on the left 04/06/2017 None knee pain Onset and Resolution sudden in onset 04/06/2017 None knee pain Onset of Symptom 3 days ago 04/06/2017 None knee pain Frequency of Episodes daily 04/06/2017 None sinus congestion Location frontal sinuses 04/06/2017 None sinus congestion Quality fullness 04/06/2017 None sinus congestion Quality pressure 04/06/2017 None sinus congestion Quality pain 04/06/2017 None sinus congestion Onset and Resolution sudden in onset 04/06/2017 None sinus congestion Onset of Symptom 3 days ago 04/06/2017 None sinus congestion Frequency of Episodes daily 04/06/2017 None sinus congestion Pertinent Findings decreased energy level 04/06/2017 None sinus congestion Pertinent Findings hoarseness 04/06/2017 None Advance Directives No Advance Directive data Encounters Encounter Performer Location Codes Date EST. PATIENT, LEVEL III Diagnosis: Gastro-esophageal reflux disease without esophagitis[ICD10: K21.9] Diagnosis: Rheumatoid arthritis with rheumatoid factor of multiple sites without organ or systems involvement[ICD10: M05.79] Radha Angeles MD, [facility] CPT-4: 28483 07/16/2018 53030 EST. PATIENT, LEVEL III Diagnosis: Other acute sinusitis[ICD10: J01.80] Diagnosis: Other allergic rhinitis[ICD10: J30.89] Radha Angeles MD, [facility] CPT-4: 19167 06/21/2018 92780 EST. PATIENT, LEVEL III Diagnosis: Other acute sinusitis[ICD10: J01.80] Diagnosis: Other allergic rhinitis[ICD10: J30.89] Radha Angeles MD, [facility] CPT-4: 34903 05/15/2018 41367 EST. PATIENT, LEVEL IV Diagnosis: Pneumonia due to other specified infectious organisms[ICD10: J16.8] Radha Angeles MD, [facility] CPT-4: 39783 05/01/2018 59963 EST. PATIENT, LEVEL IV Diagnosis: Other acute sinusitis[ICD10: J01.80] Diagnosis: Other allergic rhinitis[ICD10: J30.89] Radha Angeles MD, [facility] CPT-4: 63940 04/16/2018 84329 EST. PATIENT, LEVEL III Diagnosis: Dysuria[ICD10: R30.0] Diagnosis: Diverticulitis of large intestine without perforation or abscess without bleeding[ICD10: K57.32] Diagnosis: Gastro-esophageal reflux disease without esophagitis[ICD10: K21.9] Radha Angeles MD, [facility] CPT-4: 04683 01/28/2018 59538 EST. PATIENT, LEVEL III Diagnosis: Rheumatoid arthritis with rheumatoid factor of multiple sites without organ or systems involvement[ICD10: M05.79] Diagnosis: Generalized anxiety disorder[ICD10: F41.1] Diagnosis: Major depressive disorder, single episode, moderate[ICD10: F32.1] Diagnosis: Chronic pain syndrome[ICD10: G89.4] Radha Angeles MD, [facility] CPT-4: 06754 10/15/2017 19440 EST. PATIENT, LEVEL III Diagnosis: Rheumatoid arthritis with rheumatoid factor of multiple sites without organ or systems involvement[ICD10: M05.79] Diagnosis: Generalized anxiety disorder[ICD10: F41.1] Diagnosis: Major depressive disorder, single episode, moderate[ICD10: F32.1] Radha Angeles MD, [facility] CPT-4: 11550 09/19/2017 58346 EST. PATIENT, LEVEL III Diagnosis: Rheumatoid arthritis with rheumatoid factor of multiple sites without organ or systems involvement[ICD10: M05.79] Diagnosis: Generalized anxiety disorder[ICD10: F41.1] Diagnosis: Major depressive disorder, single episode, moderate[ICD10: F32.1] Diagnosis: Slow transit constipation[ICD10: K59.01] Radha Angeles MD, [facility] CPT-4: 49775 08/20/2017 85115 EST. PATIENT, LEVEL III Diagnosis: Rheumatoid arthritis with rheumatoid factor of multiple sites without organ or systems involvement[ICD10: M05.79] Diagnosis: Generalized anxiety disorder[ICD10: F41.1] Diagnosis: Major depressive disorder, single episode, moderate[ICD10: F32.1] Radha Angeles MD, [facility] CPT-4: 75266 07/19/2017 77274 EST. PATIENT, LEVEL III Diagnosis: Rheumatoid arthritis with rheumatoid factor of multiple sites without organ or systems involvement[ICD10: M05.79] Radha Angeles MD, [facility] CPT-4: 72343 06/13/2017 77385 EST. PATIENT, LEVEL III Diagnosis: Rheumatoid arthritis with rheumatoid factor of right wrist without organ or systems involvement[ICD10: M05.731] Radha Angeles MD, [facility] CPT -4: 17340 05/25/2017 32969 EST. PATIENT, LEVEL III Diagnosis: Gastro-esophageal reflux disease without esophagitis[ICD10: K21.9] Diagnosis: Rheumatoid arthritis with rheumatoid factor of multiple sites without organ or systems involvement[ICD10: M05.79] Radha Angeles MD, [facility] CPT-4: 03997 05/11/2017 64759 EST. PATIENT, LEVEL IV Diagnosis: Cough[ICD10: R05] Diagnosis: Gastro-esophageal reflux disease without esophagitis[ICD10: K21.9] Diagnosis: Nontoxic goiter, unspecified[ICD10: E04.9] Diagnosis: Shortness of breath[ICD10: R06.02] Radha Angeles MD, [facility] CPT-4: 33869 04/25/2017 75054 EST. PATIENT, LEVEL IV Diagnosis: Acute laryngopharyngitis[ICD10: J06.0] Diagnosis: Other allergic rhinitis[ICD10: J30.89] Diagnosis: Gastro-esophageal reflux disease without esophagitis[ICD10: K21.9] Radha Angeles MD, [facility] CPT-4: 22170 04/17/2017 00542 EST. PATIENT, LEVEL IV Diagnosis: Diarrhea, unspecified[ICD10: R19.7] Diagnosis: Other specified intestinal infections[ICD10: A08.8] Radha Angeles MD, [facility] CPT-4: 69432 04/13/2017 OFFICE VISIT, NEW - LEVEL 4 Diagnosis: Other acute sinusitis[ICD10: J01.80] Diagnosis: Pain in left knee[ICD10: M25.562] Diagnosis: Nontoxic goiter, unspecified[ICD10: E04.9] Radha Angeles MD, [facility] CPT-4: 54630 04/06/2017 Plan of Care Planned Activity Notes Codes Status Date Referral: Nacho Sutton [address] [facility] Referral Completed 07/24/2018 Appointment: Radha Sosa WPtel: [address] [place], [place] [phone] (30 min) [facility] 07/22/2018 Care Plan: Referral Order SNOMED-CT : [id number] Pending 07/17/2018 Visit Plan: Esophageal Reflux - the patient has been counseled against excessive intake of caffeine, spicy foods, peppermint, and cinnamon - all of which can exacerbate esophageal reflux. The patient is to take medications as prescribed and call the office if the symptoms are not improving. 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 Call if symptoms do not show improvement. Allergies - chronic - recommended pt to use allergy medication as prescribed. Pt has been counseled as to the appropriate use of the medication. Pt to call if allergy symptoms are not controlled with the medication. If using nasal spray , instructions as follows: Nasal spray- use twice daily, one spray per nostril twice daily, after 30 minutes, rinse out nose with saline spray.. Use opposite hand per nostril to spray in the nasal steroid allergy spray. 06/21/2018 Appointment: Radha Sosa WPtel: [facility] (30 min) Complex 06/21/2018 Patient Education: Patient Medication Summary Completed 06/21/2018 Visit Plan: Sinusitis - Pt has acute infection - pain in face, maxillary region, Pt informed to use decongestant, RX given to patient, sinus rinses also recommended. Call if symptoms do not show improvement. Allergies - chronic - recommended pt to use allergy medication as prescribed. Pt has been counseled as to the appropriate use of the medication. Pt to call if allergy symptoms are not controlled with the medication. If using nasal spray , instructions as follows: Nasal spray- use twice daily, one spray per nostril twice daily, after 30 minutes, rinse out nose with saline spray.. Use opposite hand per nostril to spray in the nasal steroid allergy spray. 05/15/2018 Appointment: Radha Sosa WPtel: [facility] (15 min) Moderate 05/15/2018 Patient Education: Patient Medication Summary Completed 05/15/2018 Care Plan: CHEST X-RAY 2VW FRONTAL&LATL LOINC : 21399-2 Pending 05/02/2018 Visit Plan: Pneumonia - Pt has been diagnosed with pneumonia by physical exam. A chest xray has been ordered as have antibiotics. The pt is aware of the diagnosis and the need for acute treatment of this illness. 05/01/2018 Appointment: Radha Sosa WPtel: [facility] (15 min) Moderate 05/01/2018 Patient Education: Patient Medication Summary Completed 05/01/2018 Visit Plan: Sinusitis - Pt has acute infection - pain in face, maxillary region, Pt informed to use decongestant, RX given to patient, sinus rinses also recommended. Call if symptoms do not show improvement. Allergies - chronic - recommended pt to use allergy medication as prescribed. Pt has been counseled as to the appropriate use of the medication. Pt to call if allergy symptoms are not controlled with the medication. If using nasal spray , instructions as follows: Nasal spray- use twice daily, one spray per nostril twice daily, after 30 minutes, rinse out nose with saline spray.. Use opposite hand per nostril to spray in the nasal steroid allergy spray. 04/16/2018 Appointment: Radha Sosa WPtel: [facility] (15 min) Moderate 04/16/2018 Patient Education: Patient Medication Summary Completed 04/16/2018 Visit Plan: Diverticulitis - rx for antibiotic sent to pt' s pharmacy - pt advised to avoid seeds, nuts, popcorn, or any other food which has been proven to upset the pt's stomach. UTI - pt with positive urinalysis - culture sent if appropriate. Antibiotic electronically prescribed to pt's pharmacy of choice. Pt to call if symptoms do not improve. Esophageal Reflux - the patient has been counseled against excessive intake of caffeine, spicy foods , peppermint, and cinnamon - all of which can exacerbate esophageal reflux. The patient is to take medications as prescribed and call the office if the symptoms are not improving. 01/28/2018 Visit Plan: Diverticulitis - rx for antibiotic sent to pt' s pharmacy - pt advised to avoid seeds, nuts, popcorn, or any other food which has been proven to upset the pt's stomach. UTI - pt with positive urinalysis - culture sent if appropriate. Antibiotic electronically prescribed to pt's pharmacy of choice. Pt to call if symptoms do not improve. Esophageal Reflux - the patient has been counseled against excessive intake of caffeine, spicy foods , peppermint, and cinnamon - all of which can exacerbate esophageal reflux. The patient is to take medications as prescribed and call the office if the symptoms are not improving. 01/28/2018 Appointment: Radha Sosa WPtel: [address] [phone] (15 min) Moderate 01/28/2018 Patient Education: Patient Medication Summary Completed 01/28/2018 Visit Plan: Chronic Depression and anxiety - the pt has symptoms of chronic anxiety and depression that have been fairly well controlled since the last office visit. The pt has expected periods of exacerbation with abatement of the symptoms with change in situational exposure. No change in current medications. RA - defer to rheumatology - pt is to notify clinic with any changes in the current treatment plan. Chronic Pain Syndrome - pt has chronic pain - has been maintained on current medications, has not sought out other medications, only uses PRN pain medications as directed , and understands the consequences of over-medication. 10/15/2017 Appointment: Radha Sosa WPtel: [facility] (15 min) Moderate 10/15/2017 Patient Education: Patient Medication Summary Completed 10/15/2017 Visit Plan: Chronic Depression and anxiety - the pt has symptoms of chronic anxiety and depression that have been fairly well controlled since the last office visit. The pt has expected periods of exacerbation with abatement of the symptoms with change in situational exposure. No change in current medications. RA - defer to rheumatology - pt is to notify clinic with any changes in the current treatment plan. 09/19/2017 Appointment: [facility]Ptel[facility] ([facility] 09/19/2017 Patient Education: Patient Medication Summary Completed 09/19/2017 Appointment: Radha Sosa WPtel: [address] [facility] [place] (15 min) Moderate 08/21/2017 Visit Plan: Chronic Depression and anxiety - the pt has symptoms of chronic anxiety and depression that have been fairly well controlled since the last office visit. The pt has expected periods of exacerbation with abatement of the symptoms with change in situational exposure. No change in current medications. RA - defer to rheumatology and ortho - pt is to notify clinic with any changes in the current treatment plan. Constipation - uncontrolled - I have discussed with the patient the need for adequate fiber and water intake to facilitate soft, easily passed stools. The pt noted understanding of our conversation. I have given the patient a recipe for "power pudding" - equal parts, bran flakes, prune juice, and apple sauce. The pt is to call if symptoms not improved on this regimen. 08/20/2017 Patient Education: Patient Medication Summary Completed 08/20/2017 Appointment: Radha Sosa WPtel: [facility] [place] (15 min) Moderate 08/17/2017 Appointment: Radha Sosa WPtel: [facility] [place] (30 min) Complex 07/23/2017 Visit Plan: RA - defer to rheumatology - pt is to notify clinic with any changes in the current treatment plan. Anxiety - the patient has uncontrolled anxiety and will benefit from an SSRI on a daily basis to attempt control of the symptoms of anxiety (tachycardia, overwhelming sensations , stress, insomnia, etc). I also believe that the patient will benefit from very low dose of prn benzodiazepine. Pt is aware of the risks and benefits of treatment with the above medications. Depression - uncontrolled - Pt has been counseled about the diagnosis of depression, the potential causes, and risks associated with the diagnosis. The pt denies suicidal ideation, or plans. The patient has been counseled about treatment options, and understands the risks associated with treatment of depression, as well as the risks associated with NOT treating the depression. I believe the pt will benefit from medical intervention and an antidepressant has been appropriately prescribed for this patient. 07/19/2017 Appointment: Radha Sosa WPtel: [address] [phone] [place] (30 min) Complex 07/19/2017 Patient Education: Patient Medication Summary Completed 07/19/2017 Visit Plan: RA flare - Pt has not yet taken her dose of prednisone - pt is to take prednisone - Discussed with Dr. Chan's nurse on the phone - they are ordering an MRI of the wrist and are making her a follow up appointment for the same day - will defer to specialist - pt is to notify clinic with any changes in current treatment plan. 06/13/2017 Appointment: Radha Sosa WPtel: [facility] [place] (15 min) Moderate 06/13/2017 Patient Education: Patient Medication Summary Completed 06/13/2017 Appointment: Lab Draw 06/04/2017 Patient Education: Patient Medication Summary Completed 06/04/2017 Visit Plan: RA - will send RX - pt is to follow up with her specialist and notify clinic with any change in the treatment plan - The pt is to use prn antiinflammatories to manage acute pain. The patient is to call the office if the pain is worsening or does not improve. 05/25/2017 Appointment: Radha Sosa WPtel: [facility] [place] (30 min) Complex 05/25/2017 Patient Education: Patient Medication Summary Completed 05/25/2017 Appointment: Radha Sosa WPtel: [facility] [place] (30 min) Complex 05/24/2017 Visit Plan: Esophageal Reflux - the patient has been counseled against excessive intake of caffeine, spicy foods, peppermint, and cinnamon - all of which can exacerbate esophageal reflux. The patient is to take medications as prescribed and call the office if the symptoms are not improving. RA - defer to specialist - pt is to notify clinic with any changes in the current treatment plan. 05/11/2017 Appointment: Rad[facility] Sosa WPtel[facility] [place] (30 min) Complex 05/11/2017 Patient Education: Patient Medication Summary Completed 05/11/2017 Visit Plan: cough, shortness of breath - ongoing - Pt states that she would like testing done to know what is causing her problems - will order PFTs - pt is to notify clinic with any acute changes, questions, or concern. Esophageal Reflux - the patient has been counseled against excessive intake of caffeine, spicy foods, peppermint, and cinnamon - all of which can exacerbate esophageal reflux. The patient is to take medications as prescribed and call the office if the symptoms are not improving. Thyroid - await US and treat/refer as indicated 04/25/2017 Appointment: Radha Sosa WPtel: [address] [phone] (30 min) Complex 04/25/2017 Patient Education: Patient Medication Summary Completed 04/25/2017 Visit Plan: Esophageal Reflux - the patient has been counseled against excessive intake of caffeine, spicy foods, peppermint, and cinnamon - all of which can exacerbate esophageal reflux. The patient is to take medications as prescribed and call the office if the symptoms are not improving. URI - Pt advised to increase fluids, vitamin C. Discussed natural and expected course of this diagnosis and need to alert me if symptoms do not follow expected course, or if any worse. RX sent to patient's pharmacy. Allergies - chronic - recommended pt to use allergy medication as prescribed. Pt has been counseled as to the appropriate use of the medication. Pt to call if allergy symptoms are not controlled with the medication. If using nasal spray , instructions as follows: Nasal spray- use twice daily, one spray per nostril twice daily, after 30 minutes, rinse out nose with saline spray.. Use opposite hand per nostril to spray in the nasal steroid allergy spray. 04/17/2017 [id number] [facility] 04/17/2017 Patient Education: Patient Medication Summary Completed 04/17/2017 Visit Plan: Diarrhea - recommended bland diet, low fat diet , start on probiotic, and rehydrate with gatorade-like product. Pt to call if feeling worse, diarrhea becomes bloody, or does not improve with above recommendations. Pt to call for acute worsening of stomach upset or stomach pain. Gastroenteritis - discussed need to stay away from milk products while acutely ill with diarrhea and nausea and emesis as it may worsen the symptoms. Liquids initially until the nausea improves, then recommend to advance to bland diet for 1 day, then advance as tolerated. Call if symptoms not improved. 04/13/2017 Appointment: Radha Sosa WPtel: [address] [place] [address] (15 min) Moderate 04/13/2017 Patient Education: Patient Medication Summary Completed 04/13/2017 Visit Plan: Sinusitis - Pt has acute infection - pain in face, maxillary region, Pt informed to use decongestant, RX given to patient, sinus rinses also recommended. Call if symptoms do not show improvement. Knee pain - pt is to use RICE - Rest, Ice, Compression, elevation. The pt is to use prn antiinflammatories to manage acute pain. The patient is to call the office if the pain is worsening or does not improve. Enlarged thyroid - will order thyroid US - will treat as indicated 04/06/2017 Appointment: Radha Sosa WPtel: [address] [place] [address] New Patient 04/06/2017 Patient Education: Patient Medication Summary Completed 04/06/2017 Referral: Nacho Sutton [address] [facility] Referral Initiated Instructions Comment . RA - will send RX - pt is to follow up with her specialist and notify clinic with any change in the treatment plan - The pt is to use prn antiinflammatories to manage acute pain. The patient is to call the office if the pain is worsening or does not improve. Prilosec twice a day x 2 weeks then once a day x 2 weeks Antibiotic for URI - take a probiotic while on the antibiotic take allergy medicine daily gatorade to rehydrate. Esophageal Reflux - the patient has been counseled against excessive intake of caffeine, spicy foods, peppermint, and cinnamon - all of which can exacerbate esophageal reflux. The patient is to take medications as prescribed and call the office if the symptoms are not improving. URI - Pt advised to increase fluids, vitamin C. Discussed natural and expected course of this diagnosis and need to alert me if symptoms do not follow expected course, or if any worse. RX sent to patient's pharmacy. Allergies - chronic - recommended pt to use allergy medication as prescribed. Pt has been counseled as to the appropriate use of the medication. Pt to call if allergy symptoms are not controlled with the medication. If using nasal spray, instructions as follows: Nasal spray- use twice daily, one spray per nostril twice daily, after 30 minutes, rinse out nose with saline spray.. Use opposite hand per nostril to spray in the nasal steroid allergy spray. . RA - defer to rheumatology - pt is to notify clinic with any changes in the current treatment plan. Anxiety - the patient has uncontrolled anxiety and will benefit from an SSRI on a daily basis to attempt control of the symptoms of anxiety (tachycardia, overwhelming sensations, stress, insomnia, etc). I also believe that the patient will benefit from very low dose of prn benzodiazepine. Pt is aware of the risks and benefits of treatment with the above medications. Depression - uncontrolled - Pt has been counseled about the diagnosis of depression, the potential causes, and risks associated with the diagnosis. The pt denies suicidal ideation, or plans. The patient has been counseled about treatment options, and understands the risks associated with treatment of depression, as well as the risks associated with NOT treating the depression. I believe the pt will benefit from medical intervention and an antidepressant has been appropriately prescribed for this patient. EMG - nerve conduction studies Linzess 72mcg instead of the 145mcg Lyrica 50mg twice a day - if no improvement you can increase it to 3 times a day VSL3 - probiotic. Chronic Depression and anxiety - the pt has symptoms of chronic anxiety and depression that have been fairly well controlled since the last office visit. The pt has expected periods of exacerbation with abatement of the symptoms with change in situational exposure. No change in current medications. RA - defer to rheumatology and ortho - pt is to notify clinic with any changes in the current treatment plan. Constipation - uncontrolled - I have discussed with the patient the need for adequate fiber and water intake to facilitate soft, easily passed stools. The pt noted understanding of our conversation. I have given the patient a recipe for "power pudding" - equal parts, bran flakes, prune juice, and apple sauce. The pt is to call if symptoms not improved on this regimen. . Sinusitis - Pt has acute infection - pain in face, maxillary region, Pt informed to use decongestant, RX given to patient, sinus rinses also recommended. Call if symptoms do not show improvement. Knee pain - pt is to use RICE - Rest, Ice, Compression, elevation. The pt is to use prn antiinflammatories to manage acute pain. The patient is to call the office if the pain is worsening or does not improve. Enlarged thyroid - will order thyroid US - will treat as indicated . Sinusitis - Pt has acute infection - pain in face, maxillary region, Pt informed to use decongestant, RX given to patient, sinus rinses also recommended. Call if symptoms do not show improvement. Allergies - chronic - recommended pt to use allergy medication as prescribed. Pt has been counseled as to the appropriate use of the medication. Pt to call if allergy symptoms are not controlled with the medication. If using nasal spray, instructions as follows: Nasal spray- use twice daily, one spray per nostril twice daily, after 30 minutes, rinse out nose with saline spray.. Use opposite hand per nostril to spray in the nasal steroid allergy spray. . Diverticulitis - rx for antibiotic sent to pt's pharmacy - pt advised to avoid seeds, nuts, popcorn, or any other food which has been proven to upset the pt's stomach. UTI - pt with positive urinalysis - culture sent if appropriate. Antibiotic electronically prescribed to pt's pharmacy of choice. Pt to call if symptoms do not improve. Esophageal Reflux - the patient has been counseled against excessive intake of caffeine, spicy foods, peppermint, and cinnamon - all of which can exacerbate esophageal reflux. The patient is to take medications as prescribed and call the office if the symptoms are not improving. . Diverticulitis - rx for antibiotic sent to pt's pharmacy - pt advised to avoid seeds, nuts, popcorn, or any other food which has been proven to upset the pt's stomach. UTI - pt with positive urinalysis - culture sent if appropriate. Antibiotic electronically prescribed to pt's pharmacy of choice. Pt to call if symptoms do not improve. Esophageal Reflux - the patient has been counseled against excessive intake of caffeine, spicy foods, peppermint, and cinnamon - all of which can exacerbate esophageal reflux. The patient is to take medications as prescribed and call the office if the symptoms are not improving. . cough, shortness of breath - ongoing - Pt states that she would like testing done to know what is causing her problems - will order PFTs - pt is to notify clinic with any acute changes, questions, or concern. Esophageal Reflux - the patient has been counseled against excessive intake of caffeine, spicy foods, peppermint, and cinnamon - all of which can exacerbate esophageal reflux. The patient is to take medications as prescribed and call the office if the symptoms are not improving. Thyroid - await US and treat/refer as indicated . Sinusitis - Pt has acute infection - pain in face, maxillary region, Pt informed to use decongestant, RX given to patient, sinus rinses also recommended. Call if symptoms do not show improvement. Allergies - chronic - recommended pt to use allergy medication as prescribed. Pt has been counseled as to the appropriate use of the medication. Pt to call if allergy symptoms are not controlled with the medication. If using nasal spray, instructions as follows: Nasal spray- use twice daily, one spray per nostril twice daily, after 30 minutes, rinse out nose with saline spray.. Use opposite hand per nostril to spray in the nasal steroid allergy spray. ketoconazole cream for spots on legs - if no better will freeze the spots carafate - break up and put with water - take with meals and at bedtime stop pantoprazole and start dexilant - if dexilant is too expensive then change the pantoprazole to twice a day for 1 week will refer to Dr. Sutton for an EGD will contact Dr. Chan's office about enbrel . Esophageal Reflux - the patient has been counseled against excessive intake of caffeine, spicy foods, peppermint, and cinnamon - all of which can exacerbate esophageal reflux. The patient is to take medications as prescribed and call the office if the symptoms are not improving. 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 Sinusitis - Pt has acute infection - pain in face, maxillary region, Pt informed to use decongestant, RX given to patient, sinus rinses also recommended. Call if symptoms do not show improvement. Allergies - chronic - recommended pt to use allergy medication as prescribed. Pt has been counseled as to the appropriate use of the medication. Pt to call if allergy symptoms are not controlled with the medication. If using nasal spray, instructions as follows: Nasal spray- use twice daily, one spray per nostril twice daily, after 30 minutes, rinse out nose with saline spray.. Use opposite hand per nostril to spray in the nasal steroid allergy spray. . Pneumonia - Pt has been diagnosed with pneumonia by physical exam. A chest xray has been ordered as have antibiotics. The pt is aware of the diagnosis and the need for acute treatment of this illness. . Diarrhea - recommended bland diet, low fat diet, start on probiotic, and rehydrate with gatorade-like product. Pt to call if feeling worse, diarrhea becomes bloody, or does not improve with above recommendations. Pt to call for acute worsening of stomach upset or stomach pain. Gastroenteritis - discussed need to stay away from milk products while acutely ill with diarrhea and nausea and emesis as it may worsen the symptoms. Liquids initially until the nausea improves, then recommend to advance to bland diet for 1 day, then advance as tolerated. Call if symptoms not improved. Will refer for EGD (scope) for reflux, and difficulty swallowing. Stop bevespi inhaler - if symptoms return then let me know and we will start you back on it B12 liquid over the counter. Esophageal Reflux - the patient has been counseled against excessive intake of caffeine, spicy foods, peppermint, and cinnamon - all of which can exacerbate esophageal reflux. The patient is to take medications as prescribed and call the office if the symptoms are not improving. RA - defer to specialist - pt is to notify clinic with any changes in the current treatment plan. . Chronic Depression and anxiety - the pt has symptoms of chronic anxiety and depression that have been fairly well controlled since the last office visit. The pt has expected periods of exacerbation with abatement of the symptoms with change in situational exposure. No change in current medications. RA - defer to rheumatology - pt is to notify clinic with any changes in the current treatment plan. . RA flare - Pt has not yet taken her dose of prednisone - pt is to take prednisone - Discussed with Dr. Chan's nurse on the phone - they are ordering an MRI of the wrist and are making her a follow up appointment for the same day - will defer to specialist - pt is to notify clinic with any changes in current treatment plan. . Chronic Depression and anxiety - the pt has symptoms of chronic anxiety and depression that have been fairly well controlled since the last office visit. The pt has expected periods of exacerbation with abatement of the symptoms with change in situational exposure. No change in current medications. RA - defer to rheumatology - pt is to notify clinic with any changes in the current treatment plan. Chronic Pain Syndrome - pt has chronic pain - has been maintained on current medications, has not sought out other medications, only uses PRN pain medications as directed, and understands the consequences of over-medication.
--- NOTE | 2018-08-07 10:31 | Progress Note-Pre Operative ---
Pre-Operative Progress Note H&P Reviewed The H&P was reviewed, patient examined and no changes noted. Date Seen by Provider: August 07, 2018 Time Seen by Provider: 10:30 Date H&P Reviewed: August 07, 2018 Time H&P Reviewed: 10:30 Pre-Operative Diagnosis: GERD KADEEM ORLANDO MD August 07, 2018 10:31
--- OUTSIDE RECORDS SUMMARY | 2018-08-07 10:32 | XMS REPORT | CCD ---
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 Name Role Phone PP Unavailable CCM Unavailable Summary Purpose Interface Exchange Insurance Providers Payer name Policy type / Coverage type Covered green party ID Effective Begin Date Effective End Date Blue Cross Blue [facility] Blue Cross/Blue [facility] [id number] Unknown Family history Father Diagnosis Age At Onset Arthritis Unknown Cancer Unknown Mother Diagnosis Age At Onset Cancer Unknown Social History Social History Element Codes Description Effective Dates Marital status Unknown Michael 04/17/2017 Number of children Unknown 1 04/06/[address]: 101531377 Never smoker 04/06/[address]: 336351350 Never drinks alcohol 04/06/2017 Allergies, Adverse Reactions, [...] Start Date Stop Date Status Fill Instructions pantoprazole 40 mg tablet,delayed release RxNorm: 890642 1 TABLET(S) PO DAILY 07/17/2018 11/13/2018 Active Dexilant 60 mg capsule, delayed release RxNorm: 107737 1 Capsule(s) PO daily 07/16/2018 08/14/2018 Active Carafate 1 gram tablet RxNorm: 434967 1 Tablet(s) PO AC & HS as needed 07/16/2018 08/14/2018 Active ketoconazole 2 % topical cream RxNorm: 574555 1 Application TOP BID 07/16/2018 08/14/2018 Active Augmentin 500 mg-125 mg tablet RxNorm: 869161 1 Tablet(s) PO TID 06/21/2018 06/30/2018 Inactive Premarin 1.25 mg tablet RxNorm: 271277 1 Tablet(s) PO daily 05/28/2019 Active Premarin 1.25 mg tablet RxNorm: 053860 1 Tablet(s) PO daily 06/02/2018 Inactive pantoprazole 40 mg tablet,delayed release RxNorm: 058886 1 Tablet(s) PO daily 05/28/2018 05/22/2019 Active Premarin 1.25 mg tablet RxNorm: 587733 1 Tablet(s) PO daily 05/30/2018 Inactive pantoprazole 40 mg tablet,delayed release RxNorm: 103648 1 Tablet(s) PO daily 05/16/2018 05/27/2018 Inactive Augmentin 500 mg-125 mg tablet RxNorm: 036676 1 Tablet(s) PO TID 05/16/2018 05/25/2018 Inactive Augmentin 500 mg-125 mg tablet RxNorm: 827822 1 Tablet(s) PO TID 05/15/2018 05/15/2018 Inactive pantoprazole 40 mg tablet,delayed release RxNorm: 956897 1 Tablet(s) PO daily 05/15/2018 05/15/2018 Inactive Premarin 1.25 mg tablet RxNorm: 906091 1 Tablet(s) PO daily 05/27/2018 Inactive Premarin 1.25 mg tablet RxNorm: 485957 1 Tablet(s) PO daily 05/07/2018 Inactive Levaquin 500 mg tablet RxNorm: 279424 1 Tablet(s) PO daily 05/07/2018 Inactive Kenalog 40 mg/mL suspension for injection RxNorm: 4353971 Milliliter(s) Inj 05/01/2018 05/01/2018 Inactive Diflucan 150 mg tablet RxNorm: 460045 Tablet(s) 1 TABLET(S) PO DAILY 05/01/2018 05/05/2018 Inactive doxycycline hyclate 100 mg capsule RxNorm: 5457478 1 Capsule(s) PO BID 04/26/2018 04/29/2018 Inactive ProAir HFA 90 mcg/actuation aerosol inhaler RxNorm: 4880347 1 INH TID 04/19/2018 06/17/2018 Inactive doxycycline hyclate 100 mg capsule RxNorm: 6192508 1 Capsule(s) PO BID 04/19/2018 04/25/2018 Inactive doxycycline hyclate 100 mg capsule RxNorm: 6141704 1 Capsule(s) PO BID 04/19/2018 04/18/2018 Inactive Diflucan 150 mg tablet RxNorm: 366385 1 TABLET(S) PO DAILY 02/201904/23/2018 Inactive ProAir HFA 90 mcg/actuation aerosol inhaler RxNorm: 0554842 1 INH TID 04/19/2018 04/18/2018 Inactive Zithromax Z-Gary 250 mg tablet RxNorm: 208407 1 Tablet(s) PO UD 04/16/2018 07/16/2018 Inactive Diflucan 150 mg tablet RxNorm: 932431 1 Tablet(s) PO daily 11/201804/18/2018 Inactive Premarin 1.25 mg tablet RxNorm: 136535 1 Tablet(s) PO daily 02/28/2018 Inactive Premarin 1.25 mg tablet RxNorm: 626273 1 Tablet(s) PO daily 04/25/2018 Inactive pantoprazole 40 mg tablet,delayed release RxNorm: 142812 1 Tablet(s) PO daily 02/21/2018 02/20/2018 Inactive pantoprazole 40 mg tablet,delayed release RxNorm: 036736 1 Tablet(s) PO daily 02/21/2018 05/14/2018 Inactive hydrocodone 5 mg-acetaminophen 325 mg tablet RxNorm: 501320 1 Tablet(s) PO TID as needed for pain 02/20/2018 No Stop Date Active Bactrim DS 800 mg-160 mg tablet RxNorm: 927357 1 Tablet(s) PO BID 02/06/2018 02/05/2018 Inactive Bactrim DS 800 mg-160 mg tablet RxNorm: 548283 1 Tablet(s) PO BID 02/06/2018 02/15/2018 Inactive Diflucan 150 mg tablet RxNorm: 971740 1 Tablet(s) PO daily 02/02/2018 Inactive Diflucan 150 mg tablet RxNorm: 348001 1 Tablet(s) PO daily 01/28/2018 Inactive Flagyl 500 mg tablet RxNorm: 943833 1 Tablet(s) PO TID 201702/06/2018 Inactive Premarin 1.25 mg tablet RxNorm: 789824 1 Tablet(s) PO daily 02/28/2018 Inactive Cipro 500 mg tablet RxNorm: 568092 1 Tablet(s) PO BID 201702/06/2018 Inactive hydrocodone 5 mg-acetaminophen 325 mg tablet RxNorm: 533918 1 Tablet(s) PO TID as needed for pain 12/31/2017 02/19/2018 Inactive Premarin 1.25 mg tablet RxNorm: 325052 1 Tablet(s) PO daily 01/27/2018 Inactive Prilosec 20 mg capsule,delayed release RxNorm: 957943 1 Capsule(s) PO daily 11/19/2017 02/20/2018 Inactive hydrocodone 5 mg-acetaminophen 325 mg tablet RxNorm: 257620 1 Tablet(s) PO TID as needed for pain 10/15/2017 12/30/2017 Inactive gabapentin 100 mg capsule RxNorm: 335942 1 Capsule(s) PO BID No Stop Date Active hydrocodone 5 mg-acetaminophen 325 mg tablet RxNorm: 430029 1 Tablet(s) PO QID as needed 09/19/2017 10/14/2017 Inactive Lyrica 50 mg capsule RxNorm: 775502 1 Capsule(s) PO TID 2017 No Stop Date Active Celebrex 200 mg capsule RxNorm: 457707 1 Capsule(s) PO daily 09/18/2017 Inactive Xanax 0.25 mg tablet RxNorm: 922262 1 Tablet(s) PO BID 201708/17/2017 Inactive Cymbalta 30 mg capsule,delayed release RxNorm: 358648 1 Capsule(s) PO daily 07/19/2017 08/17/2017 Inactive amoxicillin 500 mg capsule RxNorm: 032828 1 Capsule(s) PO TID 04/17/2017 04/26/2017 Inactive Prilosec OTC 20 mg tablet,delayed release RxNorm: 630974 1 Tablet(s) PO BID 04/17/2017 05/16/2017 Inactive 1 pill twice a day x 2 weeks, then daily Zofran 4 mg tablet RxNorm: 494107 1 Tablet(s) PO TID as needed 04/13/2017 04/17/2017 Inactive Flagyl 500 mg tablet RxNorm: 931031 1 Tablet(s) PO TID 201704/22/2017 Inactive promethazine 25 mg tablet RxNorm: 736871 1 Tablet(s) PO TID as needed nausea unrelieved by zofran 04/13/20172017 Inactive Zithromax Z-Gary 250 mg tablet RxNorm: 641724 1 Tablet(s) PO UD 04/06/2017 04/16/2017 Inactive prednisone 5 mg tablet RxNorm: 660232 1 Tablet(s) PO daily No Start Date Active Humira Pen 40 mg/0.8 mL subcutaneous RxNorm: 8335973 1 Milliliter(s) SQ QW No Start Date Active Linzess 145 mcg capsule RxNorm: 5919874 1 Capsule(s) PO daily No Start Date 08/16/2017 Inactive Prilosec 20 mg capsule,delayed release RxNorm: 442223 1 Capsule(s) PO daily No Start Date 11/18/2017 Inactive Premarin 1.25 mg tablet RxNorm: 552388 1 Tablet(s) PO daily No Start Date 12/30/2017 Inactive Medication Administered Medication Codes Instructions Start Date Status Kenalog 40 mg/mL suspension for injection RxNorm: 1951165 Milliliter 05/01/2018 No longer Active Immunizations No [...] None Full Exam - General 1995 Ears/Nose/Throat otoscopic exam Tympanic membrane: air- fluid level 05/01/2018 None Full Exam - General 1995 Ears/Nose/Throat lips/teeth/gingiva Overall: benign lips 05/01/2018 None Full Exam - General 1995 Ears/Nose/Throat oral cavity/pharynx/larynx Overall: oral mucosa clear [...] affect 01/28/2018 None Full Exam - General 1994 [...] tender 05/25/2017 None Full Exam - General 1994 Constitutional general appearance Overall: well developed 05/11/2017 [...] contact 05/11/2017 None Full Exam - General 1995 Constitutional general appearance Overall: well developed 04/25/2017 None Full Exam - General 1994 Constitutional general appearance Overall: well nourished 04/25/2017 None Full Exam - General 1995 Constitutional general appearance Evidence of Distress: mild distress 04/25/2017 None Full Exam - General 1995 Eyes conjunctiva /eyelids Overall: conjunctiva clear 04/25/2017 [...] clear 04/25/2017 None Full Exam - General 1995 Ears/Nose/Throat [...] [id number] 05/01/2018 URINALYSIS NONAUTO W/O SCOPE CPT-4: 90853 06/04/2017 Vital Signs Date Vital 07/16/2018 Blood Pressure 1: 126/68 Code : 8480-6 BMI: 22.0 Code : 53901-1 Heart Rate 1 : 70 bpm Height: 4'11" SpO2: 98% Weight: 109 lbs 06/21/2018 Blood Pressure 1: 114/64 Code : 8480-6 BMI: 22.8 Code : 90069-3 Heart Rate 1 : 70 bpm Height: 4'11" SpO2: 97% Weight: 113 lbs 05/15/2018 Height: Weight: 05/01/2018 Blood Pressure 1: 134/68 Code : 8480-6 BMI: 22.6 Code : 99051-1 Heart Rate 1 : 83 bpm Height: 4'11" SpO2: 99% Temperature: 37.1 (C) / 98.8 (F) Weight: 112 lbs 04/16/2018 Blood Pressure 1: 122/60 Code : 8480-6 BMI: 22.6 Code : 54325-8 Heart Rate 1 : 72 bpm Height: 4'11" SpO2: 92% Temperature: 36.7 (C) / 98.1 (F) Weight: 112 lbs 01/28/2018 Blood Pressure 1: 136/52 Code : 8480-6 BMI: 22.6 Code : 85677-5 Heart Rate 1 : 76 bpm Height: 4'11" SpO2: 98% Weight: 112 lbs 10/15/2017 Blood Pressure 1: 136/78 Code : 8480-6 BMI: 22.6 Code : 90877-0 Heart Rate 1 : 86 bpm Height: 4'11" SpO2: 98% Weight: 112 lbs 09/19/2017 Blood Pressure 1: 122/68 Code : 8480-6 BMI: 22.4 Code : 08420-7 Heart Rate 1 : 74 bpm Height: 4'11" SpO2: 97% Weight: 111 lbs 08/20/2017 Blood Pressure 1: 132/78 Code : 8480-6 BMI: 22.0 Code : 48791-6 Heart Rate 1 : 80 bpm Height: 4'11" SpO2: 96% Weight: 109 lbs 07/19/2017 Blood Pressure 1: 130/64 Code : 8480-6 BMI: 20.6 Code : 56103-7 Heart Rate 1 : 78 bpm Height: 4'11" SpO2: 98% Weight: 102 lbs 06/13/2017 Blood Pressure 1: 130/64 Code : 8480-6 BMI: 20.0 Code : 01008-9 Heart Rate 1 : 66 bpm Height: 4'11" SpO2: 97% Weight: 99 lbs 05/25/2017 Blood Pressure 1: 132/60 Code : 8480-6 BMI: 20.0 Code : 65653-6 Heart Rate 1 : 81 bpm Height: 4'11" SpO2: 99% Weight: 99 lbs 05/11/2017 Blood Pressure 1: 132/70 Code : 8480-6 Heart Rate 1: 69 bpm Height: SpO2: 99% Weight: 04/25/2017 Blood Pressure 1: 136/78 Code : 8480-6 BMI: 20.2 Code : 54359-2 Heart Rate 1 : 70 bpm Height: 4'11" SpO2: 99% Weight: 100 lbs 04/17/2017 Blood Pressure 1: 118/70 Code : 8480-6 BMI: 20.2 Code : 24027-0 Heart Rate 1 : 62 bpm Height: 4'11" SpO2: 99% Temperature: 36.4 (C) / 97.6 (F) Weight: 100 lbs 04/13/2017 Blood Pressure 1: 136/78 Code : 8480-6 BMI: 19.4 Code : 43318-9 Heart Rate 1 : 79 bpm Height: 4'11" SpO2: 97% Temperature: 36.8 (C) / 98.2 (F) Weight: 96 lbs 04/06/2017 Blood Pressure 1: 120/68 Code : 8480-6 BMI: 20.2 Code : 86432-3 Heart Rate 1 : 71 bpm Height: [...] data Encounters Encounter Performer Location Codes Date 38014 EST. PATIENT, LEVEL III Diagnosis: Gastro-esophageal reflux disease without esophagitis[ICD10: K21.9] Diagnosis: Rheumatoid arthritis with rheumatoid factor of multiple sites without organ or systems involvement[ICD10: M05.79] Radha Angeles MD, [facility] CPT-4: 34621 07/16/2018 78071 EST. PATIENT, LEVEL III Diagnosis: Other acute sinusitis[ICD10: J01.80] Diagnosis: Other allergic rhinitis[ICD10: J30.89] Radha Angeles MD, [facility] CPT-4: 01372 06/21/2018 42976 EST. PATIENT, LEVEL III Diagnosis: Other acute sinusitis[ICD10: J01.80] Diagnosis: Other allergic rhinitis[ICD10: J30.89] Radha Angeles MD, [facility] CPT-4: 17184 05/15/2018 40999 EST. PATIENT, LEVEL IV Diagnosis: Pneumonia due to other specified infectious organisms[ICD10: J16.8] Radha Angeles MD, [facility] CPT-4: 15672 05/01/2018 16121 EST. PATIENT, LEVEL IV Diagnosis: Other acute sinusitis[ICD10: J01.80] Diagnosis: Other allergic rhinitis[ICD10: J30.89] Radha Angeles MD, [facility] CPT-4: 25128 04/16/2018 12219 EST. PATIENT, LEVEL III Diagnosis: Dysuria[ICD10: R30.0] Diagnosis: Diverticulitis of large intestine without perforation or abscess without bleeding[ICD10: K57.32] Diagnosis: Gastro-esophageal reflux disease without esophagitis[ICD10: K21.9] Radha Angeles MD, [facility] CPT-4: 26865 01/28/2018 83737 EST. PATIENT, LEVEL III Diagnosis: Rheumatoid arthritis with rheumatoid factor of multiple sites without organ or systems involvement[ICD10: M05.79] Diagnosis: Generalized anxiety disorder[ICD10: F41.1] Diagnosis: Major depressive disorder, single episode, moderate[ICD10: F32.1] Diagnosis: Chronic pain syndrome[ICD10: G89.4] Radha Angeles MD, [facility] CPT-4: 82027 10/15/2017 65577 EST. PATIENT, LEVEL III Diagnosis: Rheumatoid arthritis with rheumatoid factor of multiple sites without organ or systems involvement[ICD10: M05.79] Diagnosis: Generalized anxiety disorder[ICD10: F41.1] Diagnosis: Major depressive disorder, single episode, moderate[ICD10: F32.1] Radha Angeles MD, [facility] CPT-4: 06160 09/19/2017 72341 EST. PATIENT, LEVEL III Diagnosis: Rheumatoid arthritis with rheumatoid factor of multiple sites without organ or systems involvement[ICD10: M05.79] Diagnosis: Generalized anxiety disorder[ICD10: F41.1] Diagnosis: Major depressive disorder, single episode, moderate[ICD10: F32.1] Diagnosis: Slow transit constipation[ICD10: K59.01] Radha Angeles MD, [facility] CPT-4: 75947 08/20/2017 98906 EST. PATIENT, LEVEL III Diagnosis: Rheumatoid arthritis with rheumatoid factor of multiple sites without organ or systems involvement[ICD10: M05.79] Diagnosis: Generalized anxiety disorder[ICD10: F41.1] Diagnosis: Major depressive disorder, single episode, moderate[ICD10: F32.1] Radha Angeles MD, [facility] CPT-4: 93265 07/19/2017 20462 EST. PATIENT, LEVEL III Diagnosis: Rheumatoid arthritis with rheumatoid factor of multiple sites without organ or systems involvement[ICD10: M05.79] Radha Angeles MD, [facility] CPT-4: 93696 06/13/2017 67871 EST. PATIENT, LEVEL III Diagnosis: Rheumatoid arthritis with rheumatoid factor of right wrist without organ or systems involvement[ICD10: M05.731] Radha Angeles MD, [facility] CPT -4: 88686 05/25/2017 02893 EST. PATIENT, LEVEL III Diagnosis: Gastro-esophageal reflux disease without esophagitis[ICD10: K21.9] Diagnosis: Rheumatoid arthritis with rheumatoid factor of multiple sites without organ or systems involvement[ICD10: M05.79] Radha Angeles MD, [facility] CPT-4: 67834 05/11/2017 49038 EST. PATIENT, LEVEL IV Diagnosis: Cough[ICD10: R05] Diagnosis: Gastro-esophageal reflux disease without esophagitis[ICD10: K21.9] Diagnosis: Nontoxic goiter, unspecified[ICD10: E04.9] Diagnosis: Shortness of breath[ICD10: R06.02] Radha Angeles MD, [facility] CPT-4: 01856 04/25/2017 39939 EST. PATIENT, LEVEL IV Diagnosis: Acute laryngopharyngitis[ICD10: J06.0] Diagnosis: Other allergic rhinitis[ICD10: J30.89] Diagnosis: Gastro-esophageal reflux disease without esophagitis[ICD10: K21.9] Radha Angeles MD, [facility] CPT-4: 58053 04/17/2017 74920 EST. PATIENT, LEVEL IV Diagnosis: Diarrhea, unspecified[ICD10: R19.7] Diagnosis: Other specified intestinal infections[ICD10: A08.8] Radha Angeles MD, [facility] CPT-4: 38298 04/13/2017 OFFICE VISIT, NEW - LEVEL 4 Diagnosis: Other acute sinusitis[ICD10: J01.80] Diagnosis: Pain in left knee[ICD10: M25.562] Diagnosis: Nontoxic goiter, unspecified[ICD10: E04.9] Radha Angeles MD, [facility] CPT-4: 92307 04/06/2017 Plan of Care Planned Activity Notes Codes Status Date Referral: PaulosylviaJakea [address] [facility] Referral Completed 07/24/2018 Care Plan: Referral Order SNOMED-CT : 498461558 Pending 07/17/2018 Visit Plan: Esophageal Reflux - the patient has been counseled against excessive intake of caffeine, spicy foods, peppermint, and cinnamon - all of which can exacerbate esophageal reflux. The patient is to take medications as prescribed and call the office if the symptoms are not improving. 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 06/21/2018 Appointment: Radha Sosa WPtel: [address] [place], [place] [id number] (30 min) Complex 06/21/2018 Patient Education: Patient [...] allergy spray. 05/15/2018 Appointment: Radha Sosa WPtel: [facility] [place] (15 min) Moderate 05/15/2018 Patient Education: Patient Medication Summary Completed 05/15/2018 Care Plan: CHEST X-RAY 2VW FRONTAL&LATL LOINC : 31993-7 Pending 05/02/2018 Visit Plan: Pneumonia - Pt has been diagnosed with pneumonia by physical exam. A chest xray has been ordered as have antibiotics. The pt is aware of the diagnosis and the need for acute treatment of this illness. 05/01/2018 Appointment: Radha Sosa WPtel: [phone] [facility] (15 min) Moderate 05/01/2018 Patient Education: Patient [...] allergy spray. 04/16/2018 Appointment: Radha Sosa WPtel: [phone] [facility] (15 min) Moderate 04/16/2018 Patient Education: [...] not improving. 01/28/2018 Appointment: Radha Sosa WPtel: [facility] [place] (15 min) Moderate 01/28/2018 Patient Education: [...] of over-medication. 10/15/2017 Appointment: Radha Sosa WPtel: [facility] [place] (15 min) Moderate 10/15/2017 Patient Education: [...] treatment plan. 09/19/2017 Appointment: Radha Sosa WPtel: [facility] [place] ([place] min) Complex 09/19/2017 Patient Education: Patient Medication Summary Completed 09/19/2017 Appointment: Radha Sosa WPtel: [facility] [place] (15 min) Moderate 08/21/2017 Visit Plan: Chronic [...] Summary Completed 08/20/2017 Appointment: Radha Sosa WPtel: [phone] [facility] (15 min) Moderate 08/17/2017 Appointment: Radha Sosa WPtel: [facility] [place] (30 min) Complex 07/23/2017 Visit Plan: RA [...] this patient. 07/19/2017 Appointment: Radha Sosa WPtel: [phone] [facility] (30 min) Complex 07/19/2017 Patient Education: Patient [...] treatment plan. 06/13/2017 Appointment: Radha Sosa WPtel: [phone] [place] [place] (15 min) Moderate 06/13/2017 Patient Education: [...] not improve. 05/25/2017 Appointment: Radha Sosa WPtel: [phone] [facility] [place] (30 min) Complex 05/25/2017 Patient Education: Patient Medication Summary Completed 05/25/2017 Appointment: Radha Sosa WPtel: [phone] [facility] [place] (30 min) Complex 05/24/2017 Visit [...] treatment plan. 05/11/2017 Appointment: Radha Sosa WPtel: [phone] [facility] [place] (30 min) Complex 05/11/2017 Patient Education: [...] indicated 04/25/2017 Appointment: Radha Sosa WPtel: [phone] [facility] (30 min) Complex 04/25/2017 Patient Education: Patient [...] allergy spray. 04/17/2017 Appointment: Radha Sosa WPtel: [phone] [facility] (30 min) Complex 04/17/2017 Patient Education: Patient [...] not improved. 04/13/2017 Appointment: Radha Sosa WPtel: [phone] [facility] (15 min) Moderate 04/13/2017 Patient Education: Patient [...] as indicated 04/06/2017 Appointment: Radha Sosa WPtel: [phone] [facility] New Patient 04/06/2017 Patient Education: Patient Medication Summary Completed 04/06/2017 Referral: Nacho Sutton [address] [facility] Referral Initiated Instructions Comment . RA [...] are not improving. 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 Sinusitis - Pt has acute infection [...]
--- NOTE | 2018-08-07 10:34 | Discharge Inst-Surgical ---
D/C Lap Instructions-KIDO New, Converted, or Re-Newed RX: RX on Chart Follow Up Activity as tolerated High Fiber Diet 25g or more per day Avoid Alcohol, Caffeine, Spicy Diggins and Acid foods. Drink 64 fluid oz or more of fluids per day. Symptoms to Report: Fever over 101 degree F, Nausea/Vomiting If any problems/questions: Contact your physician or go to Emergency Room KADEEM ORLANDO MD August 07, 2018 10:34
--- OUTSIDE RECORDS SUMMARY | 2018-08-07 10:34 | XMS REPORT | CCD ---
Author Author Radha Sosa Organization Yamilet Angeles MD, [facility] Address [address] [place] [address] Phone Care Team Providers Care Customer Service Sales Consultant Name Role Phone PP Unavailable CCM Unavailable Summary Purpose Interface Exchange Insurance Providers Payer name Policy type / Coverage type Covered alliance party ID Effective Begin Date Effective End Date Blue Cross Blue [facility] Blue Cross/Blue [facility] [id number] Unknown Family history Father Diagnosis Age At Onset Arthritis Unknown Cancer Unknown Mother Diagnosis Age At Onset Cancer Unknown Social History Social History Element Codes Description Effective Dates Marital status Unknown Michael 04/17/2017 Number of children Unknown 1 04/06/[address]: 315454593 Never smoker 04/06/[address]: 078252605 Never drinks alcohol 04/06/2017 Allergies, Adverse Reactions, [...] Instructions pantoprazole 40 mg tablet,delayed release RxNorm: 363042 1 TABLET(S) PO DAILY 07/17/2018 11/13/2018 Active Dexilant 60 mg capsule, delayed release RxNorm: 747187 1 Capsule(s) PO daily 07/16/2018 08/14/2018 Active Carafate 1 gram tablet RxNorm: 476435 1 Tablet(s) PO AC & HS as needed 07/16/2018 08/14/2018 Active ketoconazole 2 % topical cream RxNorm: 138384 1 Application TOP BID 07/16/2018 08/14/2018 Active Augmentin 500 mg-125 mg tablet RxNorm: 935294 1 Tablet(s) PO TID 06/21/2018 06/30/2018 Inactive Premarin 1.25 mg tablet RxNorm: 879732 1 Tablet(s) PO daily 05/28/2019 Active Premarin 1.25 mg tablet RxNorm: 215927 1 Tablet(s) PO daily 06/02/2018 Inactive pantoprazole 40 mg tablet,delayed release RxNorm: 823247 1 Tablet(s) PO daily 05/28/2018 05/22/2019 Active Premarin 1.25 mg tablet RxNorm: 282264 1 Tablet(s) PO daily 05/30/2018 Inactive pantoprazole 40 mg tablet,delayed release RxNorm: 550481 1 Tablet(s) PO daily 05/16/2018 05/27/2018 Inactive Augmentin 500 mg-125 mg tablet RxNorm: 876744 1 Tablet(s) PO TID 05/16/2018 05/25/2018 Inactive Augmentin 500 mg-125 mg tablet RxNorm: 761049 1 Tablet(s) PO TID 05/15/2018 05/15/2018 Inactive pantoprazole 40 mg tablet,delayed release RxNorm: 776203 1 Tablet(s) PO daily 05/15/2018 05/15/2018 Inactive Premarin 1.25 mg tablet RxNorm: 877310 1 Tablet(s) PO daily 05/27/2018 Inactive Premarin 1.25 mg tablet RxNorm: 063167 1 Tablet(s) PO daily 05/07/2018 Inactive Levaquin 500 mg tablet RxNorm: 883650 1 Tablet(s) PO daily 05/07/2018 Inactive Kenalog 40 mg/mL suspension for injection RxNorm: 6474572 Milliliter(s) Inj 05/01/2018 05/01/2018 Inactive Diflucan 150 mg tablet RxNorm: 905802 Tablet(s) 1 TABLET(S) PO DAILY 05/01/2018 05/05/2018 Inactive doxycycline hyclate 100 mg capsule RxNorm: 8616377 1 Capsule(s) PO BID 04/26/2018 04/29/2018 Inactive ProAir HFA 90 mcg/actuation aerosol inhaler RxNorm: 5593556 1 INH TID 04/19/2018 06/17/2018 Inactive doxycycline hyclate 100 mg capsule RxNorm: 5269234 1 Capsule(s) PO BID 04/19/2018 04/25/2018 Inactive doxycycline hyclate 100 mg capsule RxNorm: 7587916 1 Capsule(s) PO BID 04/19/2018 04/18/2018 Inactive Diflucan 150 mg tablet RxNorm: 729839 1 TABLET(S) PO DAILY 02/201904/23/2018 Inactive ProAir HFA 90 mcg/actuation aerosol inhaler RxNorm: 1623090 1 INH TID 04/19/2018 04/18/2018 Inactive Zithromax Z-Gary 250 mg tablet RxNorm: 493100 1 Tablet(s) PO UD 04/16/2018 07/16/2018 Inactive Diflucan 150 mg tablet RxNorm: 321102 1 Tablet(s) PO daily 11/201804/18/2018 Inactive Premarin 1.25 mg tablet RxNorm: 708989 1 Tablet(s) PO daily 02/28/2018 Inactive Premarin 1.25 mg tablet RxNorm: 891443 1 Tablet(s) PO daily 04/25/2018 Inactive pantoprazole 40 mg tablet,delayed release RxNorm: 438762 1 Tablet(s) PO daily 02/21/2018 02/20/2018 Inactive pantoprazole 40 mg tablet,delayed release RxNorm: 410419 1 Tablet(s) PO daily 02/21/2018 05/14/2018 Inactive hydrocodone 5 mg-acetaminophen 325 mg tablet RxNorm: 855345 1 Tablet(s) PO TID as needed for pain 02/20/2018 No Stop Date Active Bactrim DS 800 mg-160 mg tablet RxNorm: 222212 1 Tablet(s) PO BID 02/06/2018 02/05/2018 Inactive Bactrim DS 800 mg-160 mg tablet RxNorm: 815819 1 Tablet(s) PO BID 02/06/2018 02/15/2018 Inactive Diflucan 150 mg tablet RxNorm: 271828 1 Tablet(s) PO daily 02/02/2018 Inactive Diflucan 150 mg tablet RxNorm: 410481 1 Tablet(s) PO daily 01/28/2018 Inactive Flagyl 500 mg tablet RxNorm: 192632 1 Tablet(s) PO TID 201702/06/2018 Inactive Premarin 1.25 mg tablet RxNorm: 313601 1 Tablet(s) PO daily 02/28/2018 Inactive Cipro 500 mg tablet RxNorm: 514325 1 Tablet(s) PO BID 201702/06/2018 Inactive hydrocodone 5 mg-acetaminophen 325 mg tablet RxNorm: 001439 1 Tablet(s) PO TID as needed for pain 12/31/2017 02/19/2018 Inactive Premarin 1.25 mg tablet RxNorm: 008183 1 Tablet(s) PO daily 01/27/2018 Inactive Prilosec 20 mg capsule,delayed release RxNorm: 408994 1 Capsule(s) PO daily 11/19/2017 02/20/2018 Inactive hydrocodone 5 mg-acetaminophen 325 mg tablet RxNorm: 062007 1 Tablet(s) PO TID as needed for pain 10/15/2017 12/30/2017 Inactive gabapentin 100 mg capsule RxNorm: 958751 1 Capsule(s) PO BID No Stop Date Active hydrocodone 5 mg-acetaminophen 325 mg tablet RxNorm: 018858 1 Tablet(s) PO QID as needed 09/19/2017 10/14/2017 Inactive Lyrica 50 mg capsule RxNorm: 181861 1 Capsule(s) PO TID 2017 No Stop Date Active Celebrex 200 mg capsule RxNorm: 001450 1 Capsule(s) PO daily 09/18/2017 Inactive Xanax 0.25 mg tablet RxNorm: 907282 1 Tablet(s) PO BID 201708/17/2017 Inactive Cymbalta 30 mg capsule,delayed release RxNorm: 370625 1 Capsule(s) PO daily 07/19/2017 08/17/2017 Inactive amoxicillin 500 mg capsule RxNorm: 631755 1 Capsule(s) PO TID 04/17/2017 04/26/2017 Inactive Prilosec OTC 20 mg tablet,delayed release RxNorm: 737061 1 Tablet(s) PO BID 04/17/2017 05/16/2017 Inactive 1 pill twice a day x 2 weeks, then daily Zofran 4 mg tablet RxNorm: 451365 1 Tablet(s) PO TID as needed 04/13/2017 04/17/2017 Inactive Flagyl 500 mg tablet RxNorm: 772495 1 Tablet(s) PO TID 201704/22/2017 Inactive promethazine 25 mg tablet RxNorm: 609048 1 Tablet(s) PO TID as needed nausea unrelieved by zofran 04/13/20172017 Inactive Zithromax Z-Gary 250 mg tablet RxNorm: 235122 1 Tablet(s) PO UD 04/06/2017 04/16/2017 Inactive prednisone 5 mg tablet RxNorm: 088531 1 Tablet(s) PO daily No Start Date Active Humira Pen 40 mg/0.8 mL subcutaneous RxNorm: 2164840 1 Milliliter(s) SQ QW No Start Date Active Linzess 145 mcg capsule RxNorm: 4660773 1 Capsule(s) PO daily No Start Date 08/16/2017 Inactive Prilosec 20 mg capsule,delayed release RxNorm: 801379 1 Capsule(s) PO daily No Start Date 11/18/2017 Inactive Premarin 1.25 mg tablet RxNorm: 669307 1 Tablet(s) PO daily No Start Date 12/30/2017 Inactive Medication Administered Medication Codes Instructions Start Date Status Kenalog 40 mg/mL suspension for injection RxNorm: 7995937 Milliliter 05/01/2018 No longer Active Immunizations No [...] [id number] 05/01/2018 URINALYSIS NONAUTO W/O SCOPE CPT-4: 55169 06/04/2017 Vital Signs Date Vital 07/16/2018 Blood Pressure 1: 126/68 Code : 8480-6 BMI: 22.0 Code : 11476-3 Heart Rate 1 : 70 bpm Height: 4'11" SpO2: 98% Weight: 109 lbs 06/21/2018 Blood Pressure 1: 114/64 Code : 8480-6 BMI: 22.8 Code : 39179-1 Heart Rate 1 : 70 bpm Height: 4'11" SpO2: 97% Weight: 113 lbs 05/15/2018 Height: Weight: 05/01/2018 Blood Pressure 1: 134/68 Code : 8480-6 BMI: 22.6 Code : 51675-0 Heart Rate 1 : 83 bpm Height: 4'11" SpO2: 99% Temperature: 37.1 (C) / 98.8 (F) Weight: 112 lbs 04/16/2018 Blood Pressure 1: 122/60 Code : 8480-6 BMI: 22.6 Code : 50066-4 Heart Rate 1 : 72 bpm Height: 4'11" SpO2: 92% Temperature: 36.7 (C) / 98.1 (F) Weight: 112 lbs 01/28/2018 Blood Pressure 1: 136/52 Code : 8480-6 BMI: 22.6 Code : 01446-1 Heart Rate 1 : 76 bpm Height: 4'11" SpO2: 98% Weight: 112 lbs 10/15/2017 Blood Pressure 1: 136/78 Code : 8480-6 BMI: 22.6 Code : 91012-6 Heart Rate 1 : 86 bpm Height: 4'11" SpO2: 98% Weight: 112 lbs 09/19/2017 Blood Pressure 1: 122/68 Code : 8480-6 BMI: 22.4 Code : 24781-1 Heart Rate 1 : 74 bpm Height: 4'11" SpO2: 97% Weight: 111 lbs 08/20/2017 Blood Pressure 1: 132/78 Code : 8480-6 BMI: 22.0 Code : 80693-3 Heart Rate 1 : 80 bpm Height: 4'11" SpO2: 96% Weight: 109 lbs 07/19/2017 Blood Pressure 1: 130/64 Code : 8480-6 BMI: 20.6 Code : 72252-8 Heart Rate 1 : 78 bpm Height: 4'11" SpO2: 98% Weight: 102 lbs 06/13/2017 Blood Pressure 1: 130/64 Code : 8480-6 BMI: 20.0 Code : 62454-6 Heart Rate 1 : 66 bpm Height: 4'11" SpO2: 97% Weight: 99 lbs 05/25/2017 Blood Pressure 1: 132/60 Code : 8480-6 BMI: 20.0 Code : 18844-2 Heart Rate 1 : 81 bpm Height: 4'11" SpO2: 99% Weight: 99 lbs 05/11/2017 Blood Pressure 1: 132/70 Code : 8480-6 Heart Rate 1: 69 bpm Height: SpO2: 99% Weight: 04/25/2017 Blood Pressure 1: 136/78 Code : 8480-6 BMI: 20.2 Code : 78738-4 Heart Rate 1 : 70 bpm Height: 4'11" SpO2: 99% Weight: 100 lbs 04/17/2017 Blood Pressure 1: 118/70 Code : 8480-6 BMI: 20.2 Code : 73987-2 Heart Rate 1 : 62 bpm Height: 4'11" SpO2: 99% Temperature: 36.4 (C) / 97.6 (F) Weight: 100 lbs 04/13/2017 Blood Pressure 1: 136/78 Code : 8480-6 BMI: 19.4 Code : 35568-5 Heart Rate 1 : 79 bpm Height: 4'11" SpO2: 97% Temperature: 36.8 (C) / 98.2 (F) Weight: 96 lbs 04/06/2017 Blood Pressure 1: 120/68 Code : 8480-6 BMI: 20.2 Code : 94539-6 Heart Rate 1 : 71 bpm Height: [...] data Encounters Encounter Performer Location Codes Date 31292 EST. PATIENT, LEVEL III Diagnosis: Gastro-esophageal reflux disease without esophagitis[ICD10: K21.9] Diagnosis: Rheumatoid arthritis with rheumatoid factor of multiple sites without organ or systems involvement[ICD10: M05.79] Radha Angeles MD, [facility] CPT-4: 53998 07/16/2018 66725 EST. PATIENT, LEVEL III Diagnosis: Other acute sinusitis[ICD10: J01.80] Diagnosis: Other allergic rhinitis[ICD10: J30.89] Radha Angeles MD, [facility] CPT-4: 04036 06/21/2018 80753 EST. PATIENT, LEVEL III Diagnosis: Other acute sinusitis[ICD10: J01.80] Diagnosis: Other allergic rhinitis[ICD10: J30.89] Radha Angeles MD, [facility] CPT-4: 16100 05/15/2018 70783 EST. PATIENT, LEVEL IV Diagnosis: Pneumonia due to other specified infectious organisms[ICD10: J16.8] Radha Angeles MD, [facility] CPT-4: 10699 05/01/2018 37893 EST. PATIENT, LEVEL IV Diagnosis: Other acute sinusitis[ICD10: J01.80] Diagnosis: Other allergic rhinitis[ICD10: J30.89] Radha Angeles MD, [facility] CPT-4: 69157 04/16/2018 64034 EST. PATIENT, LEVEL III Diagnosis: Dysuria[ICD10: R30.0] Diagnosis: Diverticulitis of large intestine without perforation or abscess without bleeding[ICD10: K57.32] Diagnosis: Gastro-esophageal reflux disease without esophagitis[ICD10: K21.9] Radha Angeles MD, [facility] CPT-4: 26141 01/28/2018 20134 EST. PATIENT, LEVEL III Diagnosis: Rheumatoid arthritis with rheumatoid factor of multiple sites without organ or systems involvement[ICD10: M05.79] Diagnosis: Generalized anxiety disorder[ICD10: F41.1] Diagnosis: Major depressive disorder, single episode, moderate[ICD10: F32.1] Diagnosis: Chronic pain syndrome[ICD10: G89.4] Radha Angeles MD, [facility] CPT-4: 84704 10/15/2017 53337 EST. PATIENT, LEVEL III Diagnosis: Rheumatoid arthritis with rheumatoid factor of multiple sites without organ or systems involvement[ICD10: M05.79] Diagnosis: Generalized anxiety disorder[ICD10: F41.1] Diagnosis: Major depressive disorder, single episode, moderate[ICD10: F32.1] Radha Angeles MD, [facility] CPT-4: 82677 09/19/2017 43720 EST. PATIENT, LEVEL III Diagnosis: Rheumatoid arthritis with rheumatoid factor of multiple sites without organ or systems involvement[ICD10: M05.79] Diagnosis: Generalized anxiety disorder[ICD10: F41.1] Diagnosis: Major depressive disorder, single episode, moderate[ICD10: F32.1] Diagnosis: Slow transit constipation[ICD10: K59.01] Radha Angeles MD, [facility] CPT-4: 80656 08/20/2017 20938 EST. PATIENT, LEVEL III Diagnosis: Rheumatoid arthritis with rheumatoid factor of multiple sites without organ or systems involvement[ICD10: M05.79] Diagnosis: Generalized anxiety disorder[ICD10: F41.1] Diagnosis: Major depressive disorder, single episode, moderate[ICD10: F32.1] Radha Angeles MD, [facility] CPT-4: 52318 07/19/2017 94400 EST. PATIENT, LEVEL III Diagnosis: Rheumatoid arthritis with rheumatoid factor of multiple sites without organ or systems involvement[ICD10: M05.79] Radha Angeles MD, [facility] CPT-4: 09848 06/13/2017 56293 EST. PATIENT, LEVEL III Diagnosis: Rheumatoid arthritis with rheumatoid factor of right wrist without organ or systems involvement[ICD10: M05.731] Radha Angeles MD, [facility] CPT -4: 47018 05/25/2017 93975 EST. PATIENT, LEVEL III Diagnosis: Gastro-esophageal reflux disease without esophagitis[ICD10: K21.9] Diagnosis: Rheumatoid arthritis with rheumatoid factor of multiple sites without organ or systems involvement[ICD10: M05.79] Radha Angeles MD, [facility] CPT-4: 50875 05/11/2017 17703 EST. PATIENT, LEVEL IV Diagnosis: Cough[ICD10: R05] Diagnosis: Gastro-esophageal reflux disease without esophagitis[ICD10: K21.9] Diagnosis: Nontoxic goiter, unspecified[ICD10: E04.9] Diagnosis: Shortness of breath[ICD10: R06.02] Radha Angeles MD, [facility] CPT-4: 96696 04/25/2017 92406 EST. PATIENT, LEVEL IV Diagnosis: Acute laryngopharyngitis[ICD10: J06.0] Diagnosis: Other allergic rhinitis[ICD10: J30.89] Diagnosis: Gastro-esophageal reflux disease without esophagitis[ICD10: K21.9] Radha Angeles MD, [facility] CPT-4: 88519 04/17/2017 92652 EST. PATIENT, LEVEL IV Diagnosis: Diarrhea, unspecified[ICD10: R19.7] Diagnosis: Other specified intestinal infections[ICD10: A08.8] Radha Angeles MD, [facility] CPT-4: 42918 04/13/2017 OFFICE VISIT, NEW - LEVEL 4 Diagnosis: Other acute sinusitis[ICD10: J01.80] Diagnosis: Pain in left knee[ICD10: M25.562] Diagnosis: Nontoxic goiter, unspecified[ICD10: E04.9] Radha Angeles MD, [facility] CPT-4: 16450 04/06/2017 Plan of Care Planned Activity Notes Codes Status Date Referral: PaulosylviaJakea [address] [facility] Referral Completed 07/24/2018 Care Plan: Referral Order SNOMED-CT : 718549802 Pending 07/17/2018 Visit Plan: Esophageal Reflux - the patient has been counseled against excessive intake of caffeine, spicy foods, peppermint, and cinnamon - all of which can exacerbate esophageal reflux. The patient is to take medications as prescribed and call the office if the symptoms are not improving. RA - Defer to equipment services associate 07/16/2018 Appointment: Radha Sosa WPtel: [address] [place], [place] [id number] (30 min) [facility] 07/16/2018 Patient Education: Patient Medication Summary Completed [...] allergy spray. 06/21/2018 Appointment: Radha Sosa WPtel: [address] [place], [place] [address] (30 min) Complex 06/21/2018 Patient Education: Patient [...] allergy spray. 05/15/2018 Appointment: Radha [facility]osa [facility]Ptel[facility] ([facility] min[facility] Moderate 05/15/2018 Patient Education: Patient Medication Summary Completed 05/15/2018 Care Plan: CHEST X-RAY 2VW FRONTAL&LATL LOINC : 59735-9 Pending 05/02/2018 Visit Plan: Pneumonia - Pt has been diagnosed with pneumonia by physical exam. A chest xray has been ordered as have antibiotics. The pt is aware of the diagnosis and the need for acute treatment of this illness. 05/01/2018 Appointment: Radha Sosa WPtel: [phone] [facility] (15 min) Moderate 05/01/2018 Patient Education: [...] allergy spray. 04/16/2018 Appointment: Radha Sosa WPtel: [phone] [facility] (15 min) Moderate 04/16/2018 Patient Education: [...] not improving. 01/28/2018 Appointment: Radha Sosa WPtel: [facility] (15 min) Moderate 01/28/2018 Patient Education: [...] of over-medication. 10/15/2017 Appointment: Radha Sosa WPtel: [facility] (15 min) Moderate 10/15/2017 Patient Education: [...] treatment plan. 09/19/2017 Appointment: Radha Sosa WPtel: [facility] ([facility] min[facility] Complex 09/19/2017 Patient Education: Patient Medication Summary Completed 09/19/2017 Appointment: Radha Sosa WPtel: [facility] (15 min) Moderate 08/21/2017 Visit Plan: [...] Summary Completed 08/20/2017 Appointment: Radha Sosa WPtel: [phone] [facility] (15 min) Moderate 08/17/2017 Appointment: Radha Sosa WPtel: [facility] (30 min) Complex 07/23/2017 Visit Plan: [...] this patient. 07/19/2017 Appointment: Radha Sosa WPtel: [phone] [facility] (30 min) Complex 07/19/2017 Patient Education: [...] treatment plan. 06/13/2017 Appointment: [facility]el[phone] [facility] [place] (15 min) Moderate 06/13/2017 Patient Education: [...] improve. 05/25/2017 Appointment: Radha Sosa WPtel: [phone] [facility] [place] (30 min) Complex 05/25/2017 Patient Education: Patient Medication Summary Completed 05/25/2017 Appointment: Radha Sosa WPtel: [phone] [facility] [place] (30 min) Complex 05/24/2017 Visit [...] plan. 05/11/2017 Appointment: Radha Sosa WPtel: [phone] [facility] [place] (30 min) Complex 05/11/2017 Patient [...] indicated 04/25/2017 Appointment: Radha Sosa WPtel: [phone] [facility] (30 min) Complex 04/25/2017 Patient [...] spray. 04/17/2017 Appointment: Radha Sosa WPtel: [phone] [facility] (30 min) Complex 04/17/2017 Patient Education: [...] improved. 04/13/2017 Appointment: Radha Sosa WPtel: [phone] [facility] (15 min) Moderate 04/13/2017 Patient Education: [...] indicated 04/06/2017 Appointment: Radha Sosa WPtel: [phone] [facility] New Patient 04/06/2017 Patient Education: Patient Medication Summary Completed 04/06/2017 Referral: Nacho Sutton [address] [facility] Referral Initiated Instructions Comment . [...] are not improving. RA - Defer to equipment services associate . Sinusitis - Pt has acute infection [...]
--- OUTSIDE RECORDS SUMMARY | 2018-08-07 10:36 | XMS REPORT | CCD ---
Author Author Radha Sosa Organization Yamilet Angeles MD, [facility] Address [address] [place] [address] Phone Care Team Providers Care Bilingual Medical Assistant Name Role Phone PP Unavailable CCM Unavailable Summary Purpose Interface Exchange Insurance Providers Payer name Policy type / Coverage type Covered democrat ID Effective Begin Date Effective End Date Blue Cross Blue [facility] Blue Cross/[facility] [id number] Unknown Family history Father Diagnosis Age At Onset Arthritis Unknown Cancer Unknown Mother Diagnosis Age At Onset Cancer Unknown Social History Social History Element Codes Description Effective Dates Marital status Unknown Michael 04/17/2017 Number of children Unknown 1 04/06/[address]: 418381422 Never smoker 04/06/[address]: 870542318 Never drinks alcohol 04/06/2017 Allergies, Adverse Reactions, Alerts Substance Reaction Codes Entered Date Inactivated Date Status unknown ingredient - see notes Unknown 04/13/2017 No Inactive Date Active Latex Unknown 04/13/2017 No Inactive Date Active CEPHALOSPORINS Unknown 04/13/2017 No Inactive Date Active Past Medical History Illness Codes Condition Status Onset Date Resolved Date Other acute sinusitis ICD-9: 461.8 ICD-10: J01.80 Active 04/06/2017 Unknown Other allergic rhinitis ICD-9: 477.8 ICD-10: J30.89 Active 04/17/2017 Unknown Pneumonia due to other specified infectious organisms ICD-9: 483.8 ICD-10: J16.8 Active 05/01/2018 Unknown Diverticulitis of large intestine without perforation or abscess without bleeding ICD-9: 562.11 ICD-10: K57.32 Active 01/28/2018 Unknown Dysuria ICD-9: 788.1 ICD-10: R30.0 Active 06/04/2017 Unknown Gastro-esophageal reflux disease without esophagitis ICD-9: 530.81 ICD-10: K21.9 Active 04/17/2017 Unknown Other specified intestinal infections ICD-9: 009.0 ICD-10: A08.8 Active 04/13/2017 Unknown Chronic pain syndrome ICD-9: 338.4 ICD-10: G89.4 Active 10/15/2017 Unknown Generalized anxiety disorder ICD-9: 300.00 ICD-10: F41.1 Active 07/19/2017 Unknown Major depressive disorder, single episode, moderate ICD-9: 296.22 ICD-10: F32.1 Active 07/19/2017 Unknown Rheumatoid arthritis with rheumatoid factor of multiple sites without organ or systems involvement ICD-9: 714.0 ICD-10: M05.79 Active 05/11/2017 Unknown Slow transit constipation ICD-9: 564.01 ICD-10: [...] Problems Condition Codes Effective Dates Condition Status Other acute sinusitis ICD-9: 461.8 ICD-10: J01.80 04/06/2017 Active Other allergic rhinitis ICD-9: 477.8 ICD-10: J30.89 04/17/2017 Active Pneumonia due to other specified infectious organisms ICD-9: 483.8 ICD-10: J16.8 05/01/2018 Active Diverticulitis of large intestine without perforation or abscess without bleeding ICD-9: 562.11 ICD-10: K57.32 01/28/2018 Active Dysuria ICD-9: 788.1 ICD-10: R30.0 06/04/2017 Active Gastro-esophageal reflux disease without esophagitis ICD-9: 530.81 ICD-10: K21.9 04/17/2017 Active Other specified intestinal infections ICD-9: 009.0 ICD-10: A08.8 04/13/2017 Active Chronic pain syndrome ICD-9: 338.4 ICD-10: G89.4 10/15/2017 Active Generalized anxiety disorder ICD-9: 300.00 ICD-10: F41.1 07/19/2017 Active Major depressive disorder, single episode, moderate ICD-9: 296.22 ICD-10: F32.1 07/19/2017 Active Rheumatoid arthritis with rheumatoid factor of multiple sites without organ or systems involvement ICD-9: 714.0 ICD-10: M05.79 05/11/2017 Active Slow transit constipation ICD-9: 564.01 ICD-10: [...] Start Date Stop Date Status Fill Instructions Augmentin 500 mg-125 mg tablet RxNorm: 270254 1 Tablet(s) PO TID 06/21/2018 06/30/2018 Active Premarin 1.25 mg tablet RxNorm: 118191 1 Tablet(s) PO daily 05/28/2019 Active Premarin 1.25 mg tablet RxNorm: 013529 1 Tablet(s) PO daily 06/02/2018 Inactive pantoprazole 40 mg tablet,delayed release RxNorm: 874737 1 Tablet(s) PO daily 05/28/2018 05/22/2019 Active Premarin 1.25 mg tablet RxNorm: 778480 1 Tablet(s) PO daily 05/30/2018 Inactive pantoprazole 40 mg tablet,delayed release RxNorm: 812907 1 Tablet(s) PO daily 05/16/2018 05/27/2018 Inactive Augmentin 500 mg-125 mg tablet RxNorm: 880440 1 Tablet(s) PO TID 05/16/2018 05/25/2018 Inactive Augmentin 500 mg-125 mg tablet RxNorm: 709751 1 Tablet(s) PO TID 05/15/2018 05/15/2018 Inactive pantoprazole 40 mg tablet,delayed release RxNorm: 404077 1 Tablet(s) PO daily 05/15/2018 05/15/2018 Inactive Premarin 1.25 mg tablet RxNorm: 406632 1 Tablet(s) PO daily 05/27/2018 Inactive Premarin 1.25 mg tablet RxNorm: 906571 1 Tablet(s) PO daily 05/07/2018 Inactive Levaquin 500 mg tablet RxNorm: 920925 1 Tablet(s) PO daily 05/07/2018 Inactive Kenalog 40 mg/mL suspension for injection RxNorm: 9060591 Milliliter(s) Inj 05/01/2018 05/01/2018 Inactive Diflucan 150 mg tablet RxNorm: 961603 Tablet(s) 1 TABLET(S) PO DAILY 05/01/2018 05/05/2018 Inactive doxycycline hyclate 100 mg capsule RxNorm: 0392324 1 Capsule(s) PO BID 04/26/2018 04/29/2018 Inactive ProAir HFA 90 mcg/actuation aerosol inhaler RxNorm: 2669003 1 INH TID 04/19/2018 06/17/2018 Inactive doxycycline hyclate 100 mg capsule RxNorm: 5022697 1 Capsule(s) PO BID 04/19/2018 04/25/2018 Inactive doxycycline hyclate 100 mg capsule RxNorm: 0825356 1 Capsule(s) PO BID 04/19/2018 04/18/2018 Inactive Diflucan 150 mg tablet RxNorm: 943950 1 TABLET(S) PO DAILY 02/201904/23/2018 Inactive ProAir HFA 90 mcg/actuation aerosol inhaler RxNorm: 3518579 1 INH TID 04/19/2018 04/18/2018 Inactive Zithromax Z-Gary 250 mg tablet RxNorm: 153485 1 Tablet(s) PO UD 04/16/2018 No Stop Date Active Diflucan 150 mg tablet RxNorm: 416367 1 Tablet(s) PO daily 11/201804/18/2018 Inactive Premarin 1.25 mg tablet RxNorm: 084694 1 Tablet(s) PO daily 02/28/2018 Inactive Premarin 1.25 mg tablet RxNorm: 435060 1 Tablet(s) PO daily 04/25/2018 Inactive pantoprazole 40 mg tablet,delayed release RxNorm: 392262 1 Tablet(s) PO daily 02/21/2018 02/20/2018 Inactive pantoprazole 40 mg tablet,delayed release RxNorm: 137675 1 Tablet(s) PO daily 02/21/2018 05/14/2018 Inactive hydrocodone 5 mg-acetaminophen 325 mg tablet RxNorm: 415368 1 Tablet(s) PO TID as needed for pain 02/20/2018 No Stop Date Active Bactrim DS 800 mg-160 mg tablet RxNorm: 610594 1 Tablet(s) PO BID 02/06/2018 02/05/2018 Inactive Bactrim DS 800 mg-160 mg tablet RxNorm: 370382 1 Tablet(s) PO BID 02/06/2018 02/15/2018 Inactive Diflucan 150 mg tablet RxNorm: 681522 1 Tablet(s) PO daily 02/02/2018 Inactive Diflucan 150 mg tablet RxNorm: 793090 1 Tablet(s) PO daily 01/28/2018 Inactive Flagyl 500 mg tablet RxNorm: 798238 1 Tablet(s) PO TID 201702/06/2018 Inactive Premarin 1.25 mg tablet RxNorm: 657125 1 Tablet(s) PO daily 02/28/2018 Inactive Cipro 500 mg tablet RxNorm: 275509 1 Tablet(s) PO BID 201702/06/2018 Inactive hydrocodone 5 mg-acetaminophen 325 mg tablet RxNorm: 677622 1 Tablet(s) PO TID as needed for pain 12/31/2017 02/19/2018 Inactive Premarin 1.25 mg tablet RxNorm: 609414 1 Tablet(s) PO daily 01/27/2018 Inactive Prilosec 20 mg capsule,delayed release RxNorm: 749607 1 Capsule(s) PO daily 11/19/2017 02/20/2018 Inactive hydrocodone 5 mg-acetaminophen 325 mg tablet RxNorm: 928972 1 Tablet(s) PO TID as needed for pain 10/15/2017 12/30/2017 Inactive gabapentin 100 mg capsule RxNorm: 940536 1 Capsule(s) PO BID No Stop Date Active hydrocodone 5 mg-acetaminophen 325 mg tablet RxNorm: 276820 1 Tablet(s) PO QID as needed 09/19/2017 10/14/2017 Inactive Lyrica 50 mg capsule RxNorm: 745417 1 Capsule(s) PO TID 2017 No Stop Date Active Celebrex 200 mg capsule RxNorm: 342191 1 Capsule(s) PO daily 09/18/2017 Inactive Xanax 0.25 mg tablet RxNorm: 285168 1 Tablet(s) PO BID 201708/17/2017 Inactive Cymbalta 30 mg capsule,delayed release RxNorm: 817383 1 Capsule(s) PO daily 07/19/2017 08/17/2017 Inactive amoxicillin 500 mg capsule RxNorm: 694998 1 Capsule(s) PO TID 04/17/2017 04/26/2017 Inactive Prilosec OTC 20 mg tablet,delayed release RxNorm: 499592 1 Tablet(s) PO BID 04/17/2017 05/16/2017 Inactive 1 pill twice a day x 2 weeks, then daily Zofran 4 mg tablet RxNorm: 829746 1 Tablet(s) PO TID as needed 04/13/2017 04/17/2017 Inactive Flagyl 500 mg tablet RxNorm: 423592 1 Tablet(s) PO TID 201704/22/2017 Inactive promethazine 25 mg tablet RxNorm: 742292 1 Tablet(s) PO TID as needed nausea unrelieved by zofran 04/13/20172017 Inactive Zithromax Z-Gary 250 mg tablet RxNorm: 672371 1 Tablet(s) PO UD 04/06/2017 04/16/2017 Inactive prednisone 5 mg tablet RxNorm: 271319 1 Tablet(s) PO daily No Start Date Active Humira Pen 40 mg/0.8 mL subcutaneous RxNorm: 3673193 1 Milliliter(s) SQ QW No Start Date Active Linzess 145 mcg capsule RxNorm: 1563771 1 Capsule(s) PO daily No Start Date 08/16/2017 Inactive Prilosec 20 mg capsule,delayed release RxNorm: 817195 1 Capsule(s) PO daily No Start Date 11/18/2017 Inactive Premarin 1.25 mg tablet RxNorm: 331611 1 Tablet(s) PO daily No Start Date 12/30/2017 Inactive Medication Administered Medication Codes Instructions Start Date Status Kenalog 40 mg/mL suspension for injection RxNorm: 6487096 Milliliter 05/01/2018 No longer Active Immunizations No Immunization data Assessments Condition Codes Effective Dates Other acute sinusitis ICD-10: J01.80 ICD-9: 461.8 06/21/2018 Other allergic rhinitis ICD-10: J30.89 ICD-9: 477.8 06/21/2018 Pneumonia due to other specified infectious organisms ICD-10 : J16.8 ICD-9: 483.8 05/01/2018 Diverticulitis of large intestine without perforation or abscess without bleeding ICD-10: K57.32 ICD-9: 562.11 01/28/2018 Gastro-esophageal reflux disease without esophagitis ICD-10 : K21.9 ICD-9: 530.81 01/28/2018 Dysuria ICD-10: R30.0 ICD-9: 788.1 01/28/2018 Generalized anxiety disorder ICD-10: F41.1 ICD-9: 300.00 10/15/2017 Rheumatoid arthritis with rheumatoid factor of multiple sites without organ or systems involvement ICD-10: M05.79 ICD-9: 714.0 10/15/2017 Major depressive disorder, single episode, moderate [...] Visit Reason For Visit Effective Dates Notes sinus congestion 06/21/2018 sinus congestion 05/15/2018 sinus [...] of Systems System Result Effective Dates Constitutional recent illness 06/21/2018 Constitutional No chills [...] Result Effective Dates Notes Full Exam - ENT Constitutional general appearance [...] clear 05/11/2017 None Full Exam - General 1995 Ears/Nose/Throat otoscopic exam Overall: tympanic membranes clear 05/11/2017 None Full Exam - General 1994 Ears/Nose/Throat lips/teeth/gingiva Overall: benign lips 05/11/2017 None Full Exam - General 1995 Ears/Nose/Throat [...] erythema 04/17/2017 None Full Exam - General 1995 Ears/Nose/Throat internal nose Sinus tenderness: left maxillary 04/17/2017 None Full Exam - General 1994 Ears/Nose/Throat internal nose Sinus tenderness: right maxillary 04/17/2017 None Full Exam - General 1995 Ears/Nose/Throat internal nose Drainage: thick 04/17/2017 None Full Exam - General 1995 Ears/Nose/Throat internal nose Drainage: mucoid 04/17/2017 None [...] [id number] 05/01/2018 URINALYSIS NONAUTO W/O SCOPE CPT-4: 58749 06/04/2017 Vital Signs Date Vital 06/21/2018 Blood Pressure 1: 114/64 Code : 8480-6 BMI: 22.8 Code : 73624-2 Heart Rate 1 : 70 bpm Height: 4'11" SpO2: 97% Weight: 113 lbs 05/15/2018 Height: Weight: 05/01/2018 Blood Pressure 1: 134/68 Code : 8480-6 BMI: 22.6 Code : 36276-9 Heart Rate 1 : 83 bpm Height: 4'11" SpO2: 99% Temperature: 37.1 (C) / 98.8 (F) Weight: 112 lbs 04/16/2018 Blood Pressure 1: 122/60 Code : 8480-6 BMI: 22.6 Code : 44345-6 Heart Rate 1 : 72 bpm Height: 4'11" SpO2: 92% Temperature: 36.7 (C) / 98.1 (F) Weight: 112 lbs 01/28/2018 Blood Pressure 1: 136/52 Code : 8480-6 BMI: 22.6 Code : 69161-6 Heart Rate 1 : 76 bpm Height: 4'11" SpO2: 98% Weight: 112 lbs 10/15/2017 Blood Pressure 1: 136/78 Code : 8480-6 BMI: 22.6 Code : 40068-7 Heart Rate 1 : 86 bpm Height: 4'11" SpO2: 98% Weight: 112 lbs 09/19/2017 Blood Pressure 1: 122/68 Code : 8480-6 BMI: 22.4 Code : 89966-8 Heart Rate 1 : 74 bpm Height: 4'11" SpO2: 97% Weight: 111 lbs 08/20/2017 Blood Pressure 1: 132/78 Code : 8480-6 BMI: 22.0 Code : 08413-8 Heart Rate 1 : 80 bpm Height: 4'11" SpO2: 96% Weight: 109 lbs 07/19/2017 Blood Pressure 1: 130/64 Code : 8480-6 BMI: 20.6 Code : 94147-4 Heart Rate 1 : 78 bpm Height: 4'11" SpO2: 98% Weight: 102 lbs 06/13/2017 Blood Pressure 1: 130/64 Code : 8480-6 BMI: 20.0 Code : 00949-8 Heart Rate 1 : 66 bpm Height: 4'11" SpO2: 97% Weight: 99 lbs 05/25/2017 Blood Pressure 1: 132/60 Code : 8480-6 BMI: 20.0 Code : 69507-6 Heart Rate 1 : 81 bpm Height: 4'11" SpO2: 99% Weight: 99 lbs 05/11/2017 Blood Pressure 1: 132/70 Code : 8480-6 Heart Rate 1: 69 bpm Height: SpO2: 99% Weight: 04/25/2017 Blood Pressure 1: 136/78 Code : 8480-6 BMI: 20.2 Code : 96084-4 Heart Rate 1 : 70 bpm Height: 4'11" SpO2: 99% Weight: 100 lbs 04/17/2017 Blood Pressure 1: 118/70 Code : 8480-6 BMI: 20.2 Code : 79505-2 Heart Rate 1 : 62 bpm Height: 4'11" SpO2: 99% Temperature: 36.4 (C) / 97.6 (F) Weight: 100 lbs 04/13/2017 Blood Pressure 1: 136/78 Code : 8480-6 BMI: 19.4 Code : 70170-8 Heart Rate 1 : 79 bpm Height: 4'11" SpO2: 97% Temperature: 36.8 (C) / 98.2 (F) Weight: 96 lbs 04/06/2017 Blood Pressure 1: 120/68 Code : 8480-6 BMI: 20.2 Code : 34291-1 Heart Rate 1 : 71 bpm Height: 4'11" SpO2: 97% Weight: 100 lbs Functional Status No Functional Status data History of Present Illness Symptom Name Status Result Effective Date Notes Location frontal sinuses 06/21/2018 None Quality fullness [...] Codes Date EST. PATIENT, LEVEL III Diagnosis: Other acute sinusitis[ICD10: J01.80] Diagnosis: Other allergic rhinitis[ICD10: J30.89] Radha Angeles MD, [facility] CPT-4: 38554 06/21/2018 59507 EST. PATIENT, LEVEL III Diagnosis: Other acute sinusitis[ICD10: J01.80] Diagnosis: Other allergic rhinitis[ICD10: J30.89] Radha Angeles MD, [facility] CPT-4: 46031 05/15/2018 60795 EST. PATIENT, LEVEL IV Diagnosis: Pneumonia due to other specified infectious organisms[ICD10: J16.8] Radha Angeles MD, [facility] CPT-4: 35937 05/01/2018 09961 EST. PATIENT, LEVEL IV Diagnosis: Other acute sinusitis[ICD10: J01.80] Diagnosis: Other allergic rhinitis[ICD10: J30.89] Radha Angeles MD, [facility] CPT-4: 61614 04/16/2018 15231 EST. PATIENT, LEVEL III Diagnosis: Dysuria[ICD10: R30.0] Diagnosis: Diverticulitis of large intestine without perforation or abscess without bleeding[ICD10: K57.32] Diagnosis: Gastro-esophageal reflux disease without esophagitis[ICD10: K21.9] Radha Angeles MD, [facility] CPT-4: 10257 01/28/2018 50749 EST. PATIENT, LEVEL III Diagnosis: Rheumatoid arthritis with rheumatoid factor of multiple sites without organ or systems involvement[ICD10: M05.79] Diagnosis: Generalized anxiety disorder[ICD10: F41.1] Diagnosis: Major depressive disorder, single episode, moderate[ICD10: F32.1] Diagnosis: Chronic pain syndrome[ICD10: G89.4] Radha Angeles MD, [facility] CPT-4: 12013 10/15/2017 04390 EST. PATIENT, LEVEL III Diagnosis: Rheumatoid arthritis with rheumatoid factor of multiple sites without organ or systems involvement[ICD10: M05.79] Diagnosis: Generalized anxiety disorder[ICD10: F41.1] Diagnosis: Major depressive disorder, single episode, moderate[ICD10: F32.1] Radha Angeles MD, [facility] CPT-4: 86774 09/19/2017 97928 EST. PATIENT, LEVEL III Diagnosis: Rheumatoid arthritis with rheumatoid factor of multiple sites without organ or systems involvement[ICD10: M05.79] Diagnosis: Generalized anxiety disorder[ICD10: F41.1] Diagnosis: Major depressive disorder, single episode, moderate[ICD10: F32.1] Diagnosis: Slow transit constipation[ICD10: K59.01] Radha Angeles MD, [facility] CPT-4: 36953 08/20/2017 81866 EST. PATIENT, LEVEL III Diagnosis: Rheumatoid arthritis with rheumatoid factor of multiple sites without organ or systems involvement[ICD10: M05.79] Diagnosis: Generalized anxiety disorder[ICD10: F41.1] Diagnosis: Major depressive disorder, single episode, moderate[ICD10: F32.1] Radha Angeles MD, [facility] CPT-4: 18805 07/19/2017 01583 EST. PATIENT, LEVEL III Diagnosis: Rheumatoid arthritis with rheumatoid factor of multiple sites without organ or systems involvement[ICD10: M05.79] Radha Angeles MD, [facility] CPT-4: 14652 06/13/2017 39034 EST. PATIENT, LEVEL III Diagnosis: Rheumatoid arthritis with rheumatoid factor of right wrist without organ or systems involvement[ICD10: M05.731] Radha Angeles MD, [facility] CPT -4: 04055 05/25/2017 90278 EST. PATIENT, LEVEL III Diagnosis: Gastro-esophageal reflux disease without esophagitis[ICD10: K21.9] Diagnosis: Rheumatoid arthritis with rheumatoid factor of multiple sites without organ or systems involvement[ICD10: M05.79] Radha Angeles MD, [facility] CPT-4: 20969 05/11/2017 67373 EST. PATIENT, LEVEL IV Diagnosis: Cough[ICD10: R05] Diagnosis: Gastro-esophageal reflux disease without esophagitis[ICD10: K21.9] Diagnosis: Nontoxic goiter, unspecified[ICD10: E04.9] Diagnosis: Shortness of breath[ICD10: R06.02] Radha Angeles MD, [facility] CPT-4: 17221 04/25/2017 99955 EST. PATIENT, LEVEL IV Diagnosis: Acute laryngopharyngitis[ICD10: J06.0] Diagnosis: Other allergic rhinitis[ICD10: J30.89] Diagnosis: Gastro-esophageal reflux disease without esophagitis[ICD10: K21.9] Radha Angeles MD, [facility] CPT-4: 81445 04/17/2017 39461 EST. PATIENT, LEVEL IV Diagnosis: Diarrhea, unspecified[ICD10: R19.7] Diagnosis: Other specified intestinal infections[ICD10: A08.8] Radha Angeles MD, [facility] CPT-4: 15234 04/13/2017 OFFICE VISIT, NEW - LEVEL 4 Diagnosis: Other acute sinusitis[ICD10: J01.80] Diagnosis: Pain in left knee[ICD10: M25.562] Diagnosis: Nontoxic goiter, unspecified[ICD10: E04.9] Radha Angeles MD, [facility] CPT-4: 58905 04/06/2017 Plan of Care Planned Activity Notes Codes Status Date Visit Plan: Sinusitis - Pt has acute [...] allergy spray. 06/21/2018 Appointment: Radha Sosa WPtel: [address] [place], [place] [phone] (30 min) [facility] 06/21/2018 Patient Education: Patient Medication Summary Completed [...] allergy spray. 05/15/2018 Appointment: Radha Sosa WPtel: [id number] (15 min) Moderate 05/15/2018 Patient Education: Patient Medication Summary Completed 05/15/2018 Care Plan: CHEST X-RAY 2VW FRONTAL&LATL LOINC : 09094-5 Pending 05/02/2018 Visit Plan: Pneumonia - Pt has been diagnosed with pneumonia by physical exam. A chest xray has been ordered as have antibiotics. The pt is aware of the diagnosis and the need for acute treatment of this illness. 05/01/2018 Appointment: Radha Sosa WPtel: [phone] (15 min) Moderate 05/01/2018 Patient Education: Patient [...] allergy spray. 04/16/2018 Appointment: Radha Sosa WPtel: [phone] [facility] (15 min) Moderate 04/16/2018 Patient Education: Patient [...] not improving. 01/28/2018 Appointment: [facility] ([facility] Mod[facility] 01/28/2018 Patient Education: Patient [...] of over-medication. 10/15/2017 Appointment: Rad[facility]osa [facility] ([facility]) Moderate 10/15/2017 Patient Education: Patient [...] treatment plan. 09/19/2017 App[facility]ment: [phone] ([facility]) Complex 09/19/2017 Patient Education: Patient Medication Summary Completed 09/19/2017 Appointment: [phone] [facility] ([facility] min) Moderate 08/21/2017 Visit Plan: Chronic [...] Summary Completed 08/20/2017 Appointment: [phone] [facility] [place] (15 min) Moderate 08/17/2017 Appointment: [phone] ([facility] min) Complex 07/23/2017 Visit Plan: RA [...] patient. 07/19/2017 Appointment: Radha Sosa WPtel: [phone] [facility] [place] (30 min) Complex 07/19/2017 Patient Education: [...] treatment plan. 06/13/2017 Appointment: [phone] [facility] [place] (15 min) Moderate 06/13/2017 Patient Education: [...] improve. 05/25/2017 Appointment: [phone] [facility] [place] (30 min) Complex 05/25/2017 Patient Education: Patient Medication Summary Completed 05/25/2017 Appointment: [phone] [facility] [place] (30 min) Complex 05/24/2017 Visit Plan: [...] plan. 05/11/2017 Appointment: [phone] [facility] ([facility] min) Complex 05/11/2017 Patient Education: Patient [...] as indicated 04/25/2017 Appointment: [phone] [facility] [place] (30 min) Complex 04/25/2017 Patient Education: Patient [...] allergy spray. 04/17/2017 Appointment: Radha Sosa WPtel: [phone] [id number] (30 min) Complex 04/17/2017 Patient Education: Patient [...] not improved. 04/13/2017 Appointment: Radha Sosa WPtel: [phone] [id number] (15 min) Moderate 04/13/2017 Patient Education: Patient [...] as indicated 04/06/2017 Appointment: Radha Sosa WPtel: [id number] New Patient 04/06/2017 Patient Education: Patient Medication Summary Completed 04/06/2017 Instructions Comment . Sinusitis - Pt has acute infection [...] has been appropriately prescribed for this patient. . RA - will send RX - pt is to follow up with her specialist and notify clinic with any change in the treatment plan - The pt is to use prn antiinflammatories to manage acute pain. The patient is to call the office if the pain is worsening or does not improve. . Diverticulitis - rx for antibiotic sent [...] if the symptoms are not improving. . Sinusitis - Pt has acute infection [...] in the nasal steroid allergy spray. . Chronic Depression and anxiety - the [...] changes in the current treatment plan. . Sinusitis - Pt has acute infection [...] for acute treatment of this illness. . RA flare - Pt has not [...] directed, and understands the consequences of over-medication. EMG - nerve conduction studies Linzess 72mcg [...] symptoms not improved on this regimen. . Diverticulitis - rx for antibiotic sent [...] - await US and treat/refer as indicated Will refer for EGD (scope) for reflux, [...] any changes in the current treatment plan. Prilosec twice a day x 2 weeks [...] in the nasal steroid allergy spray. . Diarrhea - recommended bland diet, low [...]
--- OUTSIDE RECORDS SUMMARY | 2018-08-07 10:37 | XMS REPORT | CCD ---
Author Author Radha Sosa Organization Yamilet Angeles MD, [facility] Address [address] [place] [address] Phone Care Team Providers Care Property Handler Name Role Phone PP Unavailable CCM Unavailable Summary Purpose Interface Exchange Insurance Providers Payer name Policy type / Coverage type Covered green party ID Effective Begin Date Effective End Date Blue Cross [facility] Blue Cross/[facility] [id number] Unknown Family history Father Diagnosis Age At Onset Arthritis Unknown Cancer Unknown Mother Diagnosis Age At Onset Cancer Unknown Social History Social History Element Codes Description Effective Dates Marital status Unknown Michael 04/17/2017 Number of children Unknown 1 04/06/[address]: 579176846 Never smoker 04/06/[address]: 079991498 Never drinks alcohol 04/06/2017 Allergies, Adverse Reactions, [...] Instructions Augmentin 500 mg-125 mg tablet RxNorm: 596868 1 Tablet(s) PO TID 06/21/2018 06/30/2018 Active Premarin 1.25 mg tablet RxNorm: 881571 1 Tablet(s) PO daily 05/28/2019 Active Premarin 1.25 mg tablet RxNorm: 843942 1 Tablet(s) PO daily 06/02/2018 Inactive pantoprazole 40 mg tablet,delayed release RxNorm: 237543 1 Tablet(s) PO daily 05/28/2018 05/22/2019 Active Premarin 1.25 mg tablet RxNorm: 870320 1 Tablet(s) PO daily 05/30/2018 Inactive pantoprazole 40 mg tablet,delayed release RxNorm: 773718 1 Tablet(s) PO daily 05/16/2018 05/27/2018 Inactive Augmentin 500 mg-125 mg tablet RxNorm: 744875 1 Tablet(s) PO TID 05/16/2018 05/25/2018 Inactive Augmentin 500 mg-125 mg tablet RxNorm: 609628 1 Tablet(s) PO TID 05/15/2018 05/15/2018 Inactive pantoprazole 40 mg tablet,delayed release RxNorm: 637456 1 Tablet(s) PO daily 05/15/2018 05/15/2018 Inactive Premarin 1.25 mg tablet RxNorm: 472348 1 Tablet(s) PO daily 05/27/2018 Inactive Premarin 1.25 mg tablet RxNorm: 420584 1 Tablet(s) PO daily 05/07/2018 Inactive Levaquin 500 mg tablet RxNorm: 476347 1 Tablet(s) PO daily 05/07/2018 Inactive Kenalog 40 mg/mL suspension for injection RxNorm: 4218339 Milliliter(s) Inj 05/01/2018 05/01/2018 Inactive Diflucan 150 mg tablet RxNorm: 058262 Tablet(s) 1 TABLET(S) PO DAILY 05/01/2018 05/05/2018 Inactive doxycycline hyclate 100 mg capsule RxNorm: 0827000 1 Capsule(s) PO BID 04/26/2018 04/29/2018 Inactive ProAir HFA 90 mcg/actuation aerosol inhaler RxNorm: 6810952 1 INH TID 04/19/2018 06/17/2018 Inactive doxycycline hyclate 100 mg capsule RxNorm: 2068122 1 Capsule(s) PO BID 04/19/2018 04/25/2018 Inactive doxycycline hyclate 100 mg capsule RxNorm: 5061130 1 Capsule(s) PO BID 04/19/2018 04/18/2018 Inactive Diflucan 150 mg tablet RxNorm: 946279 1 TABLET(S) PO DAILY 02/201904/23/2018 Inactive ProAir HFA 90 mcg/actuation aerosol inhaler RxNorm: 5426686 1 INH TID 04/19/2018 04/18/2018 Inactive Zithromax Z-Gary 250 mg tablet RxNorm: 700868 1 Tablet(s) PO UD 04/16/2018 No Stop Date Active Diflucan 150 mg tablet RxNorm: 017101 1 Tablet(s) PO daily 11/201804/18/2018 Inactive Premarin 1.25 mg tablet RxNorm: 937410 1 Tablet(s) PO daily 02/28/2018 Inactive Premarin 1.25 mg tablet RxNorm: 236986 1 Tablet(s) PO daily 04/25/2018 Inactive pantoprazole 40 mg tablet,delayed release RxNorm: 783400 1 Tablet(s) PO daily 02/21/2018 02/20/2018 Inactive pantoprazole 40 mg tablet,delayed release RxNorm: 783908 1 Tablet(s) PO daily 02/21/2018 05/14/2018 Inactive hydrocodone 5 mg-acetaminophen 325 mg tablet RxNorm: 811552 1 Tablet(s) PO TID as needed for pain 02/20/2018 No Stop Date Active Bactrim DS 800 mg-160 mg tablet RxNorm: 352398 1 Tablet(s) PO BID 02/06/2018 02/05/2018 Inactive Bactrim DS 800 mg-160 mg tablet RxNorm: 433778 1 Tablet(s) PO BID 02/06/2018 02/15/2018 Inactive Diflucan 150 mg tablet RxNorm: 334447 1 Tablet(s) PO daily 02/02/2018 Inactive Diflucan 150 mg tablet RxNorm: 504661 1 Tablet(s) PO daily 01/28/2018 Inactive Flagyl 500 mg tablet RxNorm: 640317 1 Tablet(s) PO TID 201702/06/2018 Inactive Premarin 1.25 mg tablet RxNorm: 664888 1 Tablet(s) PO daily 02/28/2018 Inactive Cipro 500 mg tablet RxNorm: 277929 1 Tablet(s) PO BID 201702/06/2018 Inactive hydrocodone 5 mg-acetaminophen 325 mg tablet RxNorm: 686892 1 Tablet(s) PO TID as needed for pain 12/31/2017 02/19/2018 Inactive Premarin 1.25 mg tablet RxNorm: 048370 1 Tablet(s) PO daily 01/27/2018 Inactive Prilosec 20 mg capsule,delayed release RxNorm: 835788 1 Capsule(s) PO daily 11/19/2017 02/20/2018 Inactive hydrocodone 5 mg-acetaminophen 325 mg tablet RxNorm: 313608 1 Tablet(s) PO TID as needed for pain 10/15/2017 12/30/2017 Inactive gabapentin 100 mg capsule RxNorm: 961392 1 Capsule(s) PO BID No Stop Date Active hydrocodone 5 mg-acetaminophen 325 mg tablet RxNorm: 415378 1 Tablet(s) PO QID as needed 09/19/2017 10/14/2017 Inactive Lyrica 50 mg capsule RxNorm: 484495 1 Capsule(s) PO TID 2017 No Stop Date Active Celebrex 200 mg capsule RxNorm: 018626 1 Capsule(s) PO daily 09/18/2017 Inactive Xanax 0.25 mg tablet RxNorm: 314172 1 Tablet(s) PO BID 201708/17/2017 Inactive Cymbalta 30 mg capsule,delayed release RxNorm: 411341 1 Capsule(s) PO daily 07/19/2017 08/17/2017 Inactive amoxicillin 500 mg capsule RxNorm: 686101 1 Capsule(s) PO TID 04/17/2017 04/26/2017 Inactive Prilosec OTC 20 mg tablet,delayed release RxNorm: 059166 1 Tablet(s) PO BID 04/17/2017 05/16/2017 Inactive 1 pill twice a day x 2 weeks, then daily Zofran 4 mg tablet RxNorm: 419937 1 Tablet(s) PO TID as needed 04/13/2017 04/17/2017 Inactive Flagyl 500 mg tablet RxNorm: 961958 1 Tablet(s) PO TID 201704/22/2017 Inactive promethazine 25 mg tablet RxNorm: 950204 1 Tablet(s) PO TID as needed nausea unrelieved by zofran 04/13/20172017 Inactive Zithromax Z-Gary 250 mg tablet RxNorm: 093444 1 Tablet(s) PO UD 04/06/2017 04/16/2017 Inactive prednisone 5 mg tablet RxNorm: 660425 1 Tablet(s) PO daily No Start Date Active Humira Pen 40 mg/0.8 mL subcutaneous RxNorm: 0105523 1 Milliliter(s) SQ QW No Start Date Active Linzess 145 mcg capsule RxNorm: 1704562 1 Capsule(s) PO daily No Start Date 08/16/2017 Inactive Prilosec 20 mg capsule,delayed release RxNorm: 264888 1 Capsule(s) PO daily No Start Date 11/18/2017 Inactive Premarin 1.25 mg tablet RxNorm: 160628 1 Tablet(s) PO daily No Start Date 12/30/2017 Inactive Medication Administered Medication Codes Instructions Start Date Status Kenalog 40 mg/mL suspension for injection RxNorm: 6511955 Milliliter 05/01/2018 No longer Active Immunizations No [...] [id number] 05/01/2018 URINALYSIS NONAUTO W/O SCOPE CPT-4: 08719 06/04/2017 Vital Signs Date Vital 06/21/2018 Blood Pressure 1: 114/64 Code : 8480-6 BMI: 22.8 Code : 74126-6 Heart Rate 1 : 70 bpm Height: 4'11" SpO2: 97% Weight: 113 lbs 05/15/2018 Height: Weight: 05/01/2018 Blood Pressure 1: 134/68 Code : 8480-6 BMI: 22.6 Code : 74345-5 Heart Rate 1 : 83 bpm Height: 4'11" SpO2: 99% Temperature: 37.1 (C) / 98.8 (F) Weight: 112 lbs 04/16/2018 Blood Pressure 1: 122/60 Code : 8480-6 BMI: 22.6 Code : 54605-9 Heart Rate 1 : 72 bpm Height: 4'11" SpO2: 92% Temperature: 36.7 (C) / 98.1 (F) Weight: 112 lbs 01/28/2018 Blood Pressure 1: 136/52 Code : 8480-6 BMI: 22.6 Code : 00738-4 Heart Rate 1 : 76 bpm Height: 4'11" SpO2: 98% Weight: 112 lbs 10/15/2017 Blood Pressure 1: 136/78 Code : 8480-6 BMI: 22.6 Code : 70496-2 Heart Rate 1 : 86 bpm Height: 4'11" SpO2: 98% Weight: 112 lbs 09/19/2017 Blood Pressure 1: 122/68 Code : 8480-6 BMI: 22.4 Code : 73864-0 Heart Rate 1 : 74 bpm Height: 4'11" SpO2: 97% Weight: 111 lbs 08/20/2017 Blood Pressure 1: 132/78 Code : 8480-6 BMI: 22.0 Code : 98448-3 Heart Rate 1 : 80 bpm Height: 4'11" SpO2: 96% Weight: 109 lbs 07/19/2017 Blood Pressure 1: 130/64 Code : 8480-6 BMI: 20.6 Code : 89202-1 Heart Rate 1 : 78 bpm Height: 4'11" SpO2: 98% Weight: 102 lbs 06/13/2017 Blood Pressure 1: 130/64 Code : 8480-6 BMI: 20.0 Code : 48119-1 Heart Rate 1 : 66 bpm Height: 4'11" SpO2: 97% Weight: 99 lbs 05/25/2017 Blood Pressure 1: 132/60 Code : 8480-6 BMI: 20.0 Code : 74234-9 Heart Rate 1 : 81 bpm Height: 4'11" SpO2: 99% Weight: 99 lbs 05/11/2017 Blood Pressure 1: 132/70 Code : 8480-6 Heart Rate 1: 69 bpm Height: SpO2: 99% Weight: 04/25/2017 Blood Pressure 1: 136/78 Code : 8480-6 BMI: 20.2 Code : 74365-9 Heart Rate 1 : 70 bpm Height: 4'11" SpO2: 99% Weight: 100 lbs 04/17/2017 Blood Pressure 1: 118/70 Code : 8480-6 BMI: 20.2 Code : 11721-6 Heart Rate 1 : 62 bpm Height: 4'11" SpO2: 99% Temperature: 36.4 (C) / 97.6 (F) Weight: 100 lbs 04/13/2017 Blood Pressure 1: 136/78 Code : 8480-6 BMI: 19.4 Code : 12436-4 Heart Rate 1 : 79 bpm Height: 4'11" SpO2: 97% Temperature: 36.8 (C) / 98.2 (F) Weight: 96 lbs 04/06/2017 Blood Pressure 1: 120/68 Code : 8480-6 BMI: 20.2 Code : 20464-5 Heart Rate 1 : 71 bpm Height: [...] Other allergic rhinitis[ICD10: J30.89] Radha Angeles MD, [facility] CPT-4: 34264 06/21/2018 84947 EST. PATIENT, LEVEL III Diagnosis: Other acute sinusitis[ICD10: J01.80] Diagnosis: Other allergic rhinitis[ICD10: J30.89] Radha Angeles MD, [facility] CPT-4: 84854 05/15/2018 16441 EST. PATIENT, LEVEL IV Diagnosis: Pneumonia due to other specified infectious organisms[ICD10: J16.8] Radha Angeles MD, [facility] CPT-4: 49110 05/01/2018 15144 EST. PATIENT, LEVEL IV Diagnosis: Other acute sinusitis[ICD10: J01.80] Diagnosis: Other allergic rhinitis[ICD10: J30.89] Radha Angeles MD, [facility] CPT-4: 77905 04/16/2018 09522 EST. PATIENT, LEVEL III Diagnosis: Dysuria[ICD10: R30.0] Diagnosis: Diverticulitis of large intestine without perforation or abscess without bleeding[ICD10: K57.32] Diagnosis: Gastro-esophageal reflux disease without esophagitis[ICD10: K21.9] Radha Angeles MD, [facility] CPT-4: 70990 01/28/2018 20091 EST. PATIENT, LEVEL III Diagnosis: Rheumatoid arthritis with rheumatoid factor of multiple sites without organ or systems involvement[ICD10: M05.79] Diagnosis: Generalized anxiety disorder[ICD10: F41.1] Diagnosis: Major depressive disorder, single episode, moderate[ICD10: F32.1] Diagnosis: Chronic pain syndrome[ICD10: G89.4] Radha Angeles MD, [facility] CPT-4: 72794 10/15/2017 44059 EST. PATIENT, LEVEL III Diagnosis: Rheumatoid arthritis with rheumatoid factor of multiple sites without organ or systems involvement[ICD10: M05.79] Diagnosis: Generalized anxiety disorder[ICD10: F41.1] Diagnosis: Major depressive disorder, single episode, moderate[ICD10: F32.1] Radha Angeles MD, [facility] CPT-4: 13516 09/19/2017 72913 EST. PATIENT, LEVEL III Diagnosis: Rheumatoid arthritis with rheumatoid factor of multiple sites without organ or systems involvement[ICD10: M05.79] Diagnosis: Generalized anxiety disorder[ICD10: F41.1] Diagnosis: Major depressive disorder, single episode, moderate[ICD10: F32.1] Diagnosis: Slow transit constipation[ICD10: K59.01] Radha Angeles MD, [facility] CPT-4: 65604 08/20/2017 63559 EST. PATIENT, LEVEL III Diagnosis: Rheumatoid arthritis with rheumatoid factor of multiple sites without organ or systems involvement[ICD10: M05.79] Diagnosis: Generalized anxiety disorder[ICD10: F41.1] Diagnosis: Major depressive disorder, single episode, moderate[ICD10: F32.1] Radha Angeles MD, [facility] CPT-4: 97779 07/19/2017 54945 EST. PATIENT, LEVEL III Diagnosis: Rheumatoid arthritis with rheumatoid factor of multiple sites without organ or systems involvement[ICD10: M05.79] Radha Angeles MD, [facility] CPT-4: 09606 06/13/2017 06880 EST. PATIENT, LEVEL III Diagnosis: Rheumatoid arthritis with rheumatoid factor of right wrist without organ or systems involvement[ICD10: M05.731] Radha Angeles MD, [facility] CPT -4: 18114 05/25/2017 03327 EST. PATIENT, LEVEL III Diagnosis: Gastro-esophageal reflux disease without esophagitis[ICD10: K21.9] Diagnosis: Rheumatoid arthritis with rheumatoid factor of multiple sites without organ or systems involvement[ICD10: M05.79] Radha Angeles MD, [facility] CPT-4: 97355 05/11/2017 81574 EST. PATIENT, LEVEL IV Diagnosis: Cough[ICD10: R05] Diagnosis: Gastro-esophageal reflux disease without esophagitis[ICD10: K21.9] Diagnosis: Nontoxic goiter, unspecified[ICD10: E04.9] Diagnosis: Shortness of breath[ICD10: R06.02] Radha Angeles MD, [facility] CPT-4: 25600 04/25/2017 13166 EST. PATIENT, LEVEL IV Diagnosis: Acute laryngopharyngitis[ICD10: J06.0] Diagnosis: Other allergic rhinitis[ICD10: J30.89] Diagnosis: Gastro-esophageal reflux disease without esophagitis[ICD10: K21.9] Radha Angeles MD, [facility] CPT-4: 27913 04/17/2017 54663 EST. PATIENT, LEVEL IV Diagnosis: Diarrhea, unspecified[ICD10: R19.7] Diagnosis: Other specified intestinal infections[ICD10: A08.8] Radha Angeles MD, [facility] CPT-4: 03874 04/13/2017 OFFICE VISIT, NEW - LEVEL 4 Diagnosis: Other acute sinusitis[ICD10: J01.80] Diagnosis: Pain in left knee[ICD10: M25.562] Diagnosis: Nontoxic goiter, unspecified[ICD10: E04.9] Radha Angeles MD, [facility] CPT-4: 12644 04/06/2017 Plan of Care Planned Activity Notes [...] in the nasal steroid allergy spray. 06/21/2018 Patient Education: Patient Medication Summary Completed [...] allergy spray. 05/15/2018 Appointment: Radha Sosa WPtel: [phone] [facility] (15 min) Moderate 05/15/2018 Patient Education: Patient Medication Summary Completed 05/15/2018 Care Plan: CHEST X-RAY 2VW FRONTAL&LATL LOINC : 21845-2 Pending 05/02/2018 Visit Plan: Pneumonia - Pt has been diagnosed with pneumonia by physical exam. A chest xray has been ordered as have antibiotics. The pt is aware of the diagnosis and the need for acute treatment of this illness. 05/01/2018 Appointment: Radha Sosa WPtel: [phone] [facility] (15 min) Moderate 05/01/2018 Patient Education: [...] allergy spray. 04/16/2018 Appointment: Radha Sosa WPtel: [phone] [facility] [place] (15 min) Moderate 04/16/2018 Patient Education: Patient [...] not improving. 01/28/2018 Appointment: Radha Sosa WPtel: [facility] [facility] (15 min) Moderate 01/28/2018 Patient Education: Patient [...] of over-medication. 10/15/2017 Appointment: Radha Sosa WPtel: [phone] [facility] (15 min) Moderate 10/15/2017 Patient Education: Patient [...] treatment plan. 09/19/2017 Appointment: Radha Sosa WPtel: [address] [place], [place] [id number] (30 min) Complex 09/19/2017 Patient Education: Patient Medication Summary Completed 09/19/2017 Appointment: Radha Sosa WPtel: [address] [place], [place] [id number] (15 min) Moderate 08/21/2017 Visit Plan: Chronic [...] Summary Completed 08/20/2017 Appointment: Radha Sosa WPtel: [address] [place], [place] [phone] (15 min) Moderate 08/17/2017 Appointment: Radha Sosa WPtel: [address] [place], [place] [phone] (30 min) Complex 07/23/2017 Visit Plan: RA [...] this patient. 07/19/2017 Appointment: Radha Sosa WPtel: [facility] (30 min) Complex 07/19/2017 Patient Education: Patient [...] treatment plan. 06/13/2017 Appointment: Radha Sosa WPtel: [facility] [facility] (15 min) Moderate 06/13/2017 Patient Education: Patient [...] not improve. 05/25/2017 Appointment: Radha Sosa WPtel: [facility] [facility] [place] (30 min) Complex 05/25/2017 Patient Education: Patient Medication Summary Completed 05/25/2017 Appointment: Radha Sosa WPtel: [facility] [place] (30 min) Complex 05/24/2017 Visit Plan: [...] plan. 05/11/2017 Appointment: Radha Sosa WPtel: [phone] [facility] [place] (30 min) Complex 05/11/2017 Patient Education: [...] indicated 04/25/2017 Appointment: Radha Sosa WPtel: [phone] [facility] (30 min) Complex 04/25/2017 Patient Education: Patient [...] spray. 04/17/2017 Appointment: Radha Sosa WPtel: [phone] [facility] [place] (30 min) Complex 04/17/2017 Patient Education: Patient [...] not improved. 04/13/2017 Appointment: Radha Sosa WPtel: [facility] (15 min) Moderate 04/13/2017 Patient Education: Patient [...] as indicated 04/06/2017 Appointment: Radha Sosa WPtel: [facility] [facility] New Patient 04/06/2017 Patient Education: Patient Medication Summary Completed 04/06/2017 Instructions Comment . RA - will send [...] in the nasal steroid allergy spray. . Sinusitis - Pt has acute infection [...]
--- OUTSIDE RECORDS SUMMARY | 2018-08-07 10:38 | XMS REPORT | CCD ---
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 Role Phone PP Unavailable CCM Unavailable Summary Purpose Interface Exchange Insurance Providers Payer name Policy type / Coverage type Covered republican ID Effective Begin Date Effective End Date Blue Cross Blue [facility] Blue Cross/Blue [facility] [id number] Unknown Family history Father Diagnosis Age At Onset Arthritis Unknown Cancer Unknown Mother Diagnosis Age At Onset Cancer Unknown Social History Social History Element Codes Description Effective Dates Marital status Unknown Michael 04/17/2017 Number of children Unknown 1 04/06/[address]: 864207782 Never smoker 04/06/[address]: 971990840 Never drinks alcohol 04/06/2017 Allergies, Adverse Reactions, [...] Start Date Stop Date Status Fill Instructions Premarin 1.25 mg tablet RxNorm: 786944 1 Tablet(s) PO daily 05/28/2019 Active Premarin 1.25 mg tablet RxNorm: 439216 1 Tablet(s) PO daily 06/02/2018 Inactive pantoprazole 40 mg tablet,delayed release RxNorm: 578700 1 Tablet(s) PO daily 05/28/2018 05/22/2019 Active Premarin 1.25 mg tablet RxNorm: 743902 1 Tablet(s) PO daily 05/30/2018 Inactive pantoprazole 40 mg tablet,delayed release RxNorm: 416863 1 Tablet(s) PO daily 05/16/2018 05/27/2018 Inactive Augmentin 500 mg-125 mg tablet RxNorm: 168165 1 Tablet(s) PO TID 05/16/2018 05/25/2018 Inactive Augmentin 500 mg-125 mg tablet RxNorm: 337158 1 Tablet(s) PO TID 05/15/2018 05/15/2018 Inactive pantoprazole 40 mg tablet,delayed release RxNorm: 004251 1 Tablet(s) PO daily 05/15/2018 05/15/2018 Inactive Premarin 1.25 mg tablet RxNorm: 156882 1 Tablet(s) PO daily 05/27/2018 Inactive Premarin 1.25 mg tablet RxNorm: 658683 1 Tablet(s) PO daily 05/07/2018 Inactive Levaquin 500 mg tablet RxNorm: 955863 1 Tablet(s) PO daily 05/07/2018 Inactive Kenalog 40 mg/mL suspension for injection RxNorm: 9829835 Milliliter(s) Inj 05/01/2018 05/01/2018 Inactive Diflucan 150 mg tablet RxNorm: 607369 Tablet(s) 1 TABLET(S) PO DAILY 05/01/2018 05/05/2018 Inactive doxycycline hyclate 100 mg capsule RxNorm: 5432592 1 Capsule(s) PO BID 04/26/2018 04/29/2018 Inactive ProAir HFA 90 mcg/actuation aerosol inhaler RxNorm: 1713706 1 INH TID 04/19/2018 06/17/2018 Active doxycycline hyclate 100 mg capsule RxNorm: 8040323 1 Capsule(s) PO BID 04/19/2018 04/25/2018 Inactive doxycycline hyclate 100 mg capsule RxNorm: 0684466 1 Capsule(s) PO BID 04/19/2018 04/18/2018 Inactive Diflucan 150 mg tablet RxNorm: 417523 1 TABLET(S) PO DAILY 02/201904/23/2018 Inactive ProAir HFA 90 mcg/actuation aerosol inhaler RxNorm: 7889575 1 INH TID 04/19/2018 04/18/2018 Inactive Zithromax Z-Gary 250 mg tablet RxNorm: 886718 1 Tablet(s) PO UD 04/16/2018 No Stop Date Active Diflucan 150 mg tablet RxNorm: 232135 1 Tablet(s) PO daily 11/201804/18/2018 Inactive Premarin 1.25 mg tablet RxNorm: 877451 1 Tablet(s) PO daily 02/28/2018 Inactive Premarin 1.25 mg tablet RxNorm: 841474 1 Tablet(s) PO daily 04/25/2018 Inactive pantoprazole 40 mg tablet,delayed release RxNorm: 608670 1 Tablet(s) PO daily 02/21/2018 02/20/2018 Inactive pantoprazole 40 mg tablet,delayed release RxNorm: 501625 1 Tablet(s) PO daily 02/21/2018 05/14/2018 Inactive hydrocodone 5 mg-acetaminophen 325 mg tablet RxNorm: 185145 1 Tablet(s) PO TID as needed for pain 02/20/2018 No Stop Date Active Bactrim DS 800 mg-160 mg tablet RxNorm: 077078 1 Tablet(s) PO BID 02/06/2018 02/05/2018 Inactive Bactrim DS 800 mg-160 mg tablet RxNorm: 572967 1 Tablet(s) PO BID 02/06/2018 02/15/2018 Inactive Diflucan 150 mg tablet RxNorm: 488128 1 Tablet(s) PO daily 02/02/2018 Inactive Diflucan 150 mg tablet RxNorm: 998074 1 Tablet(s) PO daily 01/28/2018 Inactive Flagyl 500 mg tablet RxNorm: 720844 1 Tablet(s) PO TID 201702/06/2018 Inactive Premarin 1.25 mg tablet RxNorm: 421901 1 Tablet(s) PO daily 02/28/2018 Inactive Cipro 500 mg tablet RxNorm: 030193 1 Tablet(s) PO BID 201702/06/2018 Inactive hydrocodone 5 mg-acetaminophen 325 mg tablet RxNorm: 038940 1 Tablet(s) PO TID as needed for pain 12/31/2017 02/19/2018 Inactive Premarin 1.25 mg tablet RxNorm: 143530 1 Tablet(s) PO daily 01/27/2018 Inactive Prilosec 20 mg capsule,delayed release RxNorm: 764634 1 Capsule(s) PO daily 11/19/2017 02/20/2018 Inactive hydrocodone 5 mg-acetaminophen 325 mg tablet RxNorm: 145611 1 Tablet(s) PO TID as needed for pain 10/15/2017 12/30/2017 Inactive gabapentin 100 mg capsule RxNorm: 909594 1 Capsule(s) PO BID No Stop Date Active hydrocodone 5 mg-acetaminophen 325 mg tablet RxNorm: 195771 1 Tablet(s) PO QID as needed 09/19/2017 10/14/2017 Inactive Lyrica 50 mg capsule RxNorm: 999787 1 Capsule(s) PO TID 2017 No Stop Date Active Celebrex 200 mg capsule RxNorm: 749228 1 Capsule(s) PO daily 09/18/2017 Inactive Xanax 0.25 mg tablet RxNorm: 087935 1 Tablet(s) PO BID 201708/17/2017 Inactive Cymbalta 30 mg capsule,delayed release RxNorm: 641116 1 Capsule(s) PO daily 07/19/2017 08/17/2017 Inactive amoxicillin 500 mg capsule RxNorm: 728540 1 Capsule(s) PO TID 04/17/2017 04/26/2017 Inactive Prilosec OTC 20 mg tablet,delayed release RxNorm: 576317 1 Tablet(s) PO BID 04/17/2017 05/16/2017 Inactive 1 pill twice a day x 2 weeks, then daily Zofran 4 mg tablet RxNorm: 943823 1 Tablet(s) PO TID as needed 04/13/2017 04/17/2017 Inactive Flagyl 500 mg tablet RxNorm: 913104 1 Tablet(s) PO TID 201704/22/2017 Inactive promethazine 25 mg tablet RxNorm: 741861 1 Tablet(s) PO TID as needed nausea unrelieved by zofran 04/13/20172017 Inactive Zithromax Z-Gary 250 mg tablet RxNorm: 677455 1 Tablet(s) PO UD 04/06/2017 04/16/2017 Inactive prednisone 5 mg tablet RxNorm: 538775 1 Tablet(s) PO daily No Start Date Active Humira Pen 40 mg/0.8 mL subcutaneous RxNorm: 3201827 1 Milliliter(s) SQ QW No Start Date Active Linzess 145 mcg capsule RxNorm: 7014677 1 Capsule(s) PO daily No Start Date 08/16/2017 Inactive Prilosec 20 mg capsule,delayed release RxNorm: 961302 1 Capsule(s) PO daily No Start Date 11/18/2017 Inactive Premarin 1.25 mg tablet RxNorm: 232261 1 Tablet(s) PO daily No Start Date 12/30/2017 Inactive Medication Administered Medication Codes Instructions Start Date Status Kenalog 40 mg/mL suspension for injection RxNorm: 3149412 Milliliter 05/01/2018 No longer Active Immunizations No Immunization data Assessments Condition Codes Effective Dates Other acute sinusitis ICD-10: J01.80 ICD-9: 461.8 05/15/2018 Other allergic rhinitis ICD-10: J30.89 ICD-9: 477.8 05/15/2018 Pneumonia due to other specified infectious organisms [...] For Visit Effective Dates Notes sinus congestion 05/15/2018 sinus congestion 05/01/2018 sinus [...] System Result Effective Dates Constitutional recent illness 05/15/2018 Constitutional No chills [...] normal 05/11/2017 None Full Exam - General 1995 Ears/Nose/Throat otoscopic exam Overall: external auditory canals clear 05/11/2017 None Full Exam - General 1995 Ears/Nose/Throat otoscopic exam Overall: tympanic membranes clear 05/11/2017 None Full Exam - General 1995 Ears/Nose/Throat lips/teeth/gingiva Overall: benign lips 05/11/2017 None [...] [id number] 05/01/2018 URINALYSIS NONAUTO W/O SCOPE CPT-4: 92841 06/04/2017 Vital Signs Date Vital 05/15/2018 Height: Weight: 05/01/2018 Blood Pressure 1: 134/68 Code : 8480-6 BMI: 22.6 Code : 30463-1 Heart Rate 1 : 83 bpm Height: 4'11" SpO2: 99% Temperature: 37.1 (C) / 98.8 (F) Weight: 112 lbs 04/16/2018 Blood Pressure 1: 122/60 Code : 8480-6 BMI: 22.6 Code : 48453-0 Heart Rate 1 : 72 bpm Height: 4'11" SpO2: 92% Temperature: 36.7 (C) / 98.1 (F) Weight: 112 lbs 01/28/2018 Blood Pressure 1: 136/52 Code : 8480-6 BMI: 22.6 Code : 69088-7 Heart Rate 1 : 76 bpm Height: 4'11" SpO2: 98% Weight: 112 lbs 10/15/2017 Blood Pressure 1: 136/78 Code : 8480-6 BMI: 22.6 Code : 55313-2 Heart Rate 1 : 86 bpm Height: 4'11" SpO2: 98% Weight: 112 lbs 09/19/2017 Blood Pressure 1: 122/68 Code : 8480-6 BMI: 22.4 Code : 48810-1 Heart Rate 1 : 74 bpm Height: 4'11" SpO2: 97% Weight: 111 lbs 08/20/2017 Blood Pressure 1: 132/78 Code : 8480-6 BMI: 22.0 Code : 20410-8 Heart Rate 1 : 80 bpm Height: 4'11" SpO2: 96% Weight: 109 lbs 07/19/2017 Blood Pressure 1: 130/64 Code : 8480-6 BMI: 20.6 Code : 09607-0 Heart Rate 1 : 78 bpm Height: 4'11" SpO2: 98% Weight: 102 lbs 06/13/2017 Blood Pressure 1: 130/64 Code : 8480-6 BMI: 20.0 Code : 94565-6 Heart Rate 1 : 66 bpm Height: 4'11" SpO2: 97% Weight: 99 lbs 05/25/2017 Blood Pressure 1: 132/60 Code : 8480-6 BMI: 20.0 Code : 31214-1 Heart Rate 1 : 81 bpm Height: 4'11" SpO2: 99% Weight: 99 lbs 05/11/2017 Blood Pressure 1: 132/70 Code : 8480-6 Heart Rate 1: 69 bpm Height: SpO2: 99% Weight: 04/25/2017 Blood Pressure 1: 136/78 Code : 8480-6 BMI: 20.2 Code : 04322-9 Heart Rate 1 : 70 bpm Height: 4'11" SpO2: 99% Weight: 100 lbs 04/17/2017 Blood Pressure 1: 118/70 Code : 8480-6 BMI: 20.2 Code : 09989-1 Heart Rate 1 : 62 bpm Height: 4'11" SpO2: 99% Temperature: 36.4 (C) / 97.6 (F) Weight: 100 lbs 04/13/2017 Blood Pressure 1: 136/78 Code : 8480-6 BMI: 19.4 Code : 98890-4 Heart Rate 1 : 79 bpm Height: 4'11" SpO2: 97% Temperature: 36.8 (C) / 98.2 (F) Weight: 96 lbs 04/06/2017 Blood Pressure 1: 120/68 Code : 8480-6 BMI: 20.2 Code : 32854-9 Heart Rate 1 : 71 bpm Height: 4'11" SpO2: 97% Weight: 100 lbs Functional Status No Functional Status data History of Present Illness Symptom Name Status Result Effective Date Notes Location maxillary sinuses 05/15/2018 None Location frontal [...] data Encounters Encounter Performer Location Codes Date 94574 EST. PATIENT, LEVEL III Diagnosis: Other acute sinusitis[ICD10: J01.80] Diagnosis: Other allergic rhinitis[ICD10: J30.89] Radha Angeles MD, [facility] CPT-4: 02918 05/15/2018 47336 EST. PATIENT, LEVEL IV Diagnosis: Pneumonia due to other specified infectious organisms[ICD10: J16.8] Radha Angeles MD, [facility] CPT-4: 98755 05/01/2018 29682 EST. PATIENT, LEVEL IV Diagnosis: Other acute sinusitis[ICD10: J01.80] Diagnosis: Other allergic rhinitis[ICD10: J30.89] Radha Angeles MD, [facility] CPT-4: 13930 04/16/2018 34005 EST. PATIENT, LEVEL III Diagnosis: Dysuria[ICD10: R30.0] Diagnosis: Diverticulitis of large intestine without perforation or abscess without bleeding[ICD10: K57.32] Diagnosis: Gastro-esophageal reflux disease without esophagitis[ICD10: K21.9] Radha Angeles MD, [facility] CPT-4: 06916 01/28/2018 04503 EST. PATIENT, LEVEL III Diagnosis: Rheumatoid arthritis with rheumatoid factor of multiple sites without organ or systems involvement[ICD10: M05.79] Diagnosis: Generalized anxiety disorder[ICD10: F41.1] Diagnosis: Major depressive disorder, single episode, moderate[ICD10: F32.1] Diagnosis: Chronic pain syndrome[ICD10: G89.4] Radha Angeles MD, [facility] CPT-4: 73542 10/15/2017 18537 EST. PATIENT, LEVEL III Diagnosis: Rheumatoid arthritis with rheumatoid factor of multiple sites without organ or systems involvement[ICD10: M05.79] Diagnosis: Generalized anxiety disorder[ICD10: F41.1] Diagnosis: Major depressive disorder, single episode, moderate[ICD10: F32.1] Radha Anglees MD, [facility] CPT-4: 54437 09/19/2017 13511 EST. PATIENT, LEVEL III Diagnosis: Rheumatoid arthritis with rheumatoid factor of multiple sites without organ or systems involvement[ICD10: M05.79] Diagnosis: Generalized anxiety disorder[ICD10: F41.1] Diagnosis: Major depressive disorder, single episode, moderate[ICD10: F32.1] Diagnosis: Slow transit constipation[ICD10: K59.01] Radha Angeles MD, [facility] CPT-4: 49696 08/20/2017 08088 EST. PATIENT, LEVEL III Diagnosis: Rheumatoid arthritis with rheumatoid factor of multiple sites without organ or systems involvement[ICD10: M05.79] Diagnosis: Generalized anxiety disorder[ICD10: F41.1] Diagnosis: Major depressive disorder, single episode, moderate[ICD10: F32.1] Radha Angeles MD, [facility] CPT-4: 90339 07/19/2017 13211 EST. PATIENT, LEVEL III Diagnosis: Rheumatoid arthritis with rheumatoid factor of multiple sites without organ or systems involvement[ICD10: M05.79] Radha Angeles MD, [facility] CPT-4: 44880 06/13/2017 89027 EST. PATIENT, LEVEL III Diagnosis: Rheumatoid arthritis with rheumatoid factor of right wrist without organ or systems involvement[ICD10: M05.731] Radha Angeles MD, [facility] CPT -4: 13142 05/25/2017 01123 EST. PATIENT, LEVEL III Diagnosis: Gastro-esophageal reflux disease without esophagitis[ICD10: K21.9] Diagnosis: Rheumatoid arthritis with rheumatoid factor of multiple sites without organ or systems involvement[ICD10: M05.79] Radha Angeles MD, [facility] CPT-4: 17216 05/11/2017 38050 EST. PATIENT, LEVEL IV Diagnosis: Cough[ICD10: R05] Diagnosis: Gastro-esophageal reflux disease without esophagitis[ICD10: K21.9] Diagnosis: Nontoxic goiter, unspecified[ICD10: E04.9] Diagnosis: Shortness of breath[ICD10: R06.02] Radha Angeles MD, [facility] CPT-4: 27353 04/25/2017 36285 EST. PATIENT, LEVEL IV Diagnosis: Acute laryngopharyngitis[ICD10: J06.0] Diagnosis: Other allergic rhinitis[ICD10: J30.89] Diagnosis: Gastro-esophageal reflux disease without esophagitis[ICD10: K21.9] Radha Angeles MD, [facility] CPT-4: 89690 04/17/2017 03170 EST. PATIENT, LEVEL IV Diagnosis: Diarrhea, unspecified[ICD10: R19.7] Diagnosis: Other specified intestinal infections[ICD10: A08.8] Radha Angeles MD, [facility] CPT-4: 60074 04/13/2017 OFFICE VISIT, NEW - LEVEL 4 Diagnosis: Other acute sinusitis[ICD10: J01.80] Diagnosis: Pain in left knee[ICD10: M25.562] Diagnosis: Nontoxic goiter, unspecified[ICD10: E04.9] Radha Angeles MD, [facility] CPT-4: 01769 04/06/2017 Plan of Care Planned Activity Notes [...] allergy spray. 05/15/2018 Appointment: Radha Sosa WPtel: [address] [place], [place] [phone] (15 min) Moderate 05/15/2018 Patient Education: Patient Medication Summary Completed 05/15/2018 Care Plan: CHEST X-RAY 2VW FRONTAL&LATL LOINC : 31169-6 Pending 05/02/2018 Visit Plan: Pneumonia - Pt has been diagnosed with pneumonia by physical exam. A chest xray has been ordered as have antibiotics. The pt is aware of the diagnosis and the need for acute treatment of this illness. 05/01/2018 Appointment: [phone] [facility] (15 min) Moderate 05/01/2018 Patient Education: Patient [...] spray. 04/16/2018 Appointment: Rad[facility]osa [facility]el[phone] [facility] (15 min) Moderate 04/16/2018 Patient Education: Patient [...] improving. 01/28/2018 Appointment: Radha Sosa WPtel: [phone] [facility] (15 min) Moderate 01/28/2018 Patient Education: [...] over-medication. 10/15/2017 Appointment: Radha Sosa WPtel: [phone] [facility] (15 min) Moderate 10/15/2017 Patient Education: [...] plan. 09/19/2017 Appointment: Radha Sosa WPtel: [phone] [facility] [place] (30 min) Complex 09/19/2017 Patient Education: Patient Medication Summary Completed 09/19/2017 Appointment: Radha Sosa WPtel: [phone] [facility] (15 min) Moderate 08/21/2017 Visit Plan: [...] Summary Completed 08/20/2017 Appointment: Radha Sosa WPtel: [address] (15 min) Moderate 08/17/2017 Appointment: Radha Sosa WPtel: [facility] (30 min) Complex 07/23/2017 Visit Plan: RA [...] this patient. 07/19/2017 Appointment: Radha Sosa WPtel: [phone] [facility] (30 min) Complex 07/19/2017 Patient Education: Patient [...] plan. 06/13/2017 Appointment: Radha Sosa WPtel: [phone] [facility] [place] (15 min) Moderate 06/13/2017 Patient [...] improve. 05/25/2017 Appointment: Radha Sosa WPtel: [phone] [facility] [place] (30 min) Complex 05/25/2017 Patient Education: Patient Medication Summary Completed 05/25/2017 Appointment: Radha Sosa WPtel: [phone] [facility] [place] (30 min) Complex 05/24/2017 Visit [...] plan. 05/11/2017 Appointment: [facility]el[phone] [facility] [place] (30 min) Complex 05/11/2017 Patient Education: [...] as indicated 04/25/2017 Appointment: Radha Sosa WPtel: [phone] [facility] (30 min) Complex 04/25/2017 Patient Education: [...] allergy spray. 04/17/2017 Appointment: Radha Sosa WPtel[facility] [phone] [facility] (30 min) Complex 04/17/2017 Patient Education: Patient [...] improved. 04/13/2017 Appointment: Radha Sosa WPtel: [phone] [facility] (15 min) Moderate 04/13/2017 Patient Education: Patient [...] as indicated 04/06/2017 Appointment: Radha Sosa WPtel: [facility]66[facility] New Patient 04/06/2017 Patient Education: Patient Medication [...]
--- OUTSIDE RECORDS SUMMARY | 2018-08-07 10:39 | XMS REPORT | CCD ---
Author Author Radha Sosa Organization Yamilet Angeles MD, [facility] Address [address] [place] [address] Phone Care Team Providers Care [employer] Name Role Phone PP Unavailable CCM Unavailable Summary Purpose Interface Exchange Insurance Providers Payer name Policy type / Coverage type Covered green party ID Effective Begin Date Effective End Date Blue Cross Blue [facility] Blue Cross/Blue [facility] [id number] Unknown Family history Father Diagnosis Age At Onset Arthritis Unknown Cancer Unknown Mother Diagnosis Age At Onset Cancer Unknown Social History Social History Element Codes Description Effective Dates Marital status Unknown Michael 04/17/2017 Number of children Unknown 1 04/06/[address]: 259499741 Never smoker 04/06/[address]: 134280892 Never drinks alcohol 04/06/2017 Allergies, Adverse Reactions, [...] Fill Instructions Premarin 1.25 mg tablet RxNorm: 724248 1 Tablet(s) PO daily 05/25/2019 Active pantoprazole 40 mg tablet,delayed release RxNorm: 836727 1 Tablet(s) PO daily 05/28/2018 05/22/2019 Active Premarin 1.25 mg tablet RxNorm: 543774 1 Tablet(s) PO daily 05/30/2018 Inactive pantoprazole 40 mg tablet,delayed release RxNorm: 647566 1 Tablet(s) PO daily 05/16/2018 05/27/2018 Inactive Augmentin 500 mg-125 mg tablet RxNorm: 519694 1 Tablet(s) PO TID 05/16/2018 05/25/2018 Inactive Augmentin 500 mg-125 mg tablet RxNorm: 586698 1 Tablet(s) PO TID 05/15/2018 05/15/2018 Inactive pantoprazole 40 mg tablet,delayed release RxNorm: 597978 1 Tablet(s) PO daily 05/15/2018 05/15/2018 Inactive Premarin 1.25 mg tablet RxNorm: 939349 1 Tablet(s) PO daily 05/27/2018 Inactive Premarin 1.25 mg tablet RxNorm: 899682 1 Tablet(s) PO daily 05/07/2018 Inactive Levaquin 500 mg tablet RxNorm: 089272 1 Tablet(s) PO daily 05/07/2018 Inactive Kenalog 40 mg/mL suspension for injection RxNorm: 0917217 Milliliter(s) Inj 05/01/2018 05/01/2018 Inactive Diflucan 150 mg tablet RxNorm: 573283 Tablet(s) 1 TABLET(S) PO DAILY 05/01/2018 05/05/2018 Inactive doxycycline hyclate 100 mg capsule RxNorm: 7201177 1 Capsule(s) PO BID 04/26/2018 04/29/2018 Inactive ProAir HFA 90 mcg/actuation aerosol inhaler RxNorm: 4459540 1 INH TID 04/19/2018 06/17/2018 Active doxycycline hyclate 100 mg capsule RxNorm: 3619713 1 Capsule(s) PO BID 04/19/2018 04/25/2018 Inactive doxycycline hyclate 100 mg capsule RxNorm: 5936030 1 Capsule(s) PO BID 04/19/2018 04/18/2018 Inactive Diflucan 150 mg tablet RxNorm: 787592 1 TABLET(S) PO DAILY 02/201904/23/2018 Inactive ProAir HFA 90 mcg/actuation aerosol inhaler RxNorm: 9898138 1 INH TID 04/19/2018 04/18/2018 Inactive Zithromax Z-Gary 250 mg tablet RxNorm: 466915 1 Tablet(s) PO UD 04/16/2018 No Stop Date Active Diflucan 150 mg tablet RxNorm: 349457 1 Tablet(s) PO daily 11/201804/18/2018 Inactive Premarin 1.25 mg tablet RxNorm: 858717 1 Tablet(s) PO daily 02/28/2018 Inactive Premarin 1.25 mg tablet RxNorm: 667524 1 Tablet(s) PO daily 04/25/2018 Inactive pantoprazole 40 mg tablet,delayed release RxNorm: 705456 1 Tablet(s) PO daily 02/21/2018 02/20/2018 Inactive pantoprazole 40 mg tablet,delayed release RxNorm: 993753 1 Tablet(s) PO daily 02/21/2018 05/14/2018 Inactive hydrocodone 5 mg-acetaminophen 325 mg tablet RxNorm: 428801 1 Tablet(s) PO TID as needed for pain 02/20/2018 No Stop Date Active Bactrim DS 800 mg-160 mg tablet RxNorm: 480161 1 Tablet(s) PO BID 02/06/2018 02/05/2018 Inactive Bactrim DS 800 mg-160 mg tablet RxNorm: 041745 1 Tablet(s) PO BID 02/06/2018 02/15/2018 Inactive Diflucan 150 mg tablet RxNorm: 251027 1 Tablet(s) PO daily 02/02/2018 Inactive Diflucan 150 mg tablet RxNorm: 107946 1 Tablet(s) PO daily 01/28/2018 Inactive Flagyl 500 mg tablet RxNorm: 731399 1 Tablet(s) PO TID 201702/06/2018 Inactive Premarin 1.25 mg tablet RxNorm: 020778 1 Tablet(s) PO daily 02/28/2018 Inactive Cipro 500 mg tablet RxNorm: 450104 1 Tablet(s) PO BID 201702/06/2018 Inactive hydrocodone 5 mg-acetaminophen 325 mg tablet RxNorm: 859613 1 Tablet(s) PO TID as needed for pain 12/31/2017 02/19/2018 Inactive Premarin 1.25 mg tablet RxNorm: 315182 1 Tablet(s) PO daily 01/27/2018 Inactive Prilosec 20 mg capsule,delayed release RxNorm: 683904 1 Capsule(s) PO daily 11/19/2017 02/20/2018 Inactive hydrocodone 5 mg-acetaminophen 325 mg tablet RxNorm: 431525 1 Tablet(s) PO TID as needed for pain 10/15/2017 12/30/2017 Inactive gabapentin 100 mg capsule RxNorm: 633886 1 Capsule(s) PO BID No Stop Date Active hydrocodone 5 mg-acetaminophen 325 mg tablet RxNorm: 904878 1 Tablet(s) PO QID as needed 09/19/2017 10/14/2017 Inactive Lyrica 50 mg capsule RxNorm: 845206 1 Capsule(s) PO TID 2017 No Stop Date Active Celebrex 200 mg capsule RxNorm: 387080 1 Capsule(s) PO daily 09/18/2017 Inactive Xanax 0.25 mg tablet RxNorm: 961915 1 Tablet(s) PO BID 201708/17/2017 Inactive Cymbalta 30 mg capsule,delayed release RxNorm: 981173 1 Capsule(s) PO daily 07/19/2017 08/17/2017 Inactive amoxicillin 500 mg capsule RxNorm: 958799 1 Capsule(s) PO TID 04/17/2017 04/26/2017 Inactive Prilosec OTC 20 mg tablet,delayed release RxNorm: 959283 1 Tablet(s) PO BID 04/17/2017 05/16/2017 Inactive 1 pill twice a day x 2 weeks, then daily Zofran 4 mg tablet RxNorm: 707732 1 Tablet(s) PO TID as needed 04/13/2017 04/17/2017 Inactive Flagyl 500 mg tablet RxNorm: 881150 1 Tablet(s) PO TID 201704/22/2017 Inactive promethazine 25 mg tablet RxNorm: 214666 1 Tablet(s) PO TID as needed nausea unrelieved by zofran 04/13/20172017 Inactive Zithromax Z-Gary 250 mg tablet RxNorm: 047047 1 Tablet(s) PO UD 04/06/2017 04/16/2017 Inactive prednisone 5 mg tablet RxNorm: 080888 1 Tablet(s) PO daily No Start Date Active Humira Pen 40 mg/0.8 mL subcutaneous RxNorm: 1070056 1 Milliliter(s) SQ QW No Start Date Active Linzess 145 mcg capsule RxNorm: 1959211 1 Capsule(s) PO daily No Start Date 08/16/2017 Inactive Prilosec 20 mg capsule,delayed release RxNorm: 414427 1 Capsule(s) PO daily No Start Date 11/18/2017 Inactive Premarin 1.25 mg tablet RxNorm: 752830 1 Tablet(s) PO daily No Start Date 12/30/2017 Inactive Medication Administered Medication Codes Instructions Start Date Status Kenalog 40 mg/mL suspension for injection RxNorm: 1161307 Milliliter 05/01/2018 No longer Active Immunizations No [...] normal 05/01/2018 None Full Exam - General 1995 [...] [id number] 05/01/2018 URINALYSIS NONAUTO W/O SCOPE CPT-4: 82239 06/04/2017 Vital Signs Date Vital 05/15/2018 Height: Weight: 05/01/2018 Blood Pressure 1: 134/68 Code : 8480-6 BMI: 22.6 Code : 73156-3 Heart Rate 1 : 83 bpm Height: 4'11" SpO2: 99% Temperature: 37.1 (C) / 98.8 (F) Weight: 112 lbs 04/16/2018 Blood Pressure 1: 122/60 Code : 8480-6 BMI: 22.6 Code : 63836-0 Heart Rate 1 : 72 bpm Height: 4'11" SpO2: 92% Temperature: 36.7 (C) / 98.1 (F) Weight: 112 lbs 01/28/2018 Blood Pressure 1: 136/52 Code : 8480-6 BMI: 22.6 Code : 13772-0 Heart Rate 1 : 76 bpm Height: 4'11" SpO2: 98% Weight: 112 lbs 10/15/2017 Blood Pressure 1: 136/78 Code : 8480-6 BMI: 22.6 Code : 28247-4 Heart Rate 1 : 86 bpm Height: 4'11" SpO2: 98% Weight: 112 lbs 09/19/2017 Blood Pressure 1: 122/68 Code : 8480-6 BMI: 22.4 Code : 73339-5 Heart Rate 1 : 74 bpm Height: 4'11" SpO2: 97% Weight: 111 lbs 08/20/2017 Blood Pressure 1: 132/78 Code : 8480-6 BMI: 22.0 Code : 52743-1 Heart Rate 1 : 80 bpm Height: 4'11" SpO2: 96% Weight: 109 lbs 07/19/2017 Blood Pressure 1: 130/64 Code : 8480-6 BMI: 20.6 Code : 79612-1 Heart Rate 1 : 78 bpm Height: 4'11" SpO2: 98% Weight: 102 lbs 06/13/2017 Blood Pressure 1: 130/64 Code : 8480-6 BMI: 20.0 Code : 30281-2 Heart Rate 1 : 66 bpm Height: 4'11" SpO2: 97% Weight: 99 lbs 05/25/2017 Blood Pressure 1: 132/60 Code : 8480-6 BMI: 20.0 Code : 53723-5 Heart Rate 1 : 81 bpm Height: 4'11" SpO2: 99% Weight: 99 lbs 05/11/2017 Blood Pressure 1: 132/70 Code : 8480-6 Heart Rate 1: 69 bpm Height: SpO2: 99% Weight: 04/25/2017 Blood Pressure 1: 136/78 Code : 8480-6 BMI: 20.2 Code : 49900-5 Heart Rate 1 : 70 bpm Height: 4'11" SpO2: 99% Weight: 100 lbs 04/17/2017 Blood Pressure 1: 118/70 Code : 8480-6 BMI: 20.2 Code : 24202-8 Heart Rate 1 : 62 bpm Height: 4'11" SpO2: 99% Temperature: 36.4 (C) / 97.6 (F) Weight: 100 lbs 04/13/2017 Blood Pressure 1: 136/78 Code : 8480-6 BMI: 19.4 Code : 02145-3 Heart Rate 1 : 79 bpm Height: 4'11" SpO2: 97% Temperature: 36.8 (C) / 98.2 (F) Weight: 96 lbs 04/06/2017 Blood Pressure 1: 120/68 Code : 8480-6 BMI: 20.2 Code : 40965-2 Heart Rate 1 : 71 bpm Height: [...] Other allergic rhinitis[ICD10: J30.89] Radha Angeles MD, [facility] CPT-4: 64584 05/15/2018 36781 EST. PATIENT, LEVEL IV Diagnosis: Pneumonia due to other specified infectious organisms[ICD10: J16.8] Radha Angeles MD, [facility] CPT-4: 48622 05/01/2018 03730 EST. PATIENT, LEVEL IV Diagnosis: Other acute sinusitis[ICD10: J01.80] Diagnosis: Other allergic rhinitis[ICD10: J30.89] Radha Angeles MD, [facility] CPT-4: 87454 04/16/2018 63068 EST. PATIENT, LEVEL III Diagnosis: Dysuria[ICD10: R30.0] Diagnosis: Diverticulitis of large intestine without perforation or abscess without bleeding[ICD10: K57.32] Diagnosis: Gastro-esophageal reflux disease without esophagitis[ICD10: K21.9] Radha Angeles MD, [facility] CPT-4: 55047 01/28/2018 71581 EST. PATIENT, LEVEL III Diagnosis: Rheumatoid arthritis with rheumatoid factor of multiple sites without organ or systems involvement[ICD10: M05.79] Diagnosis: Generalized anxiety disorder[ICD10: F41.1] Diagnosis: Major depressive disorder, single episode, moderate[ICD10: F32.1] Diagnosis: Chronic pain syndrome[ICD10: G89.4] Radha Angeles MD, [facility] CPT-4: 37784 10/15/2017 01394 EST. PATIENT, LEVEL III Diagnosis: Rheumatoid arthritis with rheumatoid factor of multiple sites without organ or systems involvement[ICD10: M05.79] Diagnosis: Generalized anxiety disorder[ICD10: F41.1] Diagnosis: Major depressive disorder, single episode, moderate[ICD10: F32.1] Radha Angeles MD, [facility] CPT-4: 81168 09/19/2017 08875 EST. PATIENT, LEVEL III Diagnosis: Rheumatoid arthritis with rheumatoid factor of multiple sites without organ or systems involvement[ICD10: M05.79] Diagnosis: Generalized anxiety disorder[ICD10: F41.1] Diagnosis: Major depressive disorder, single episode, moderate[ICD10: F32.1] Diagnosis: Slow transit constipation[ICD10: K59.01] Radha Angeles MD, [facility] CPT-4: 08930 08/20/2017 85534 EST. PATIENT, LEVEL III Diagnosis: Rheumatoid arthritis with rheumatoid factor of multiple sites without organ or systems involvement[ICD10: M05.79] Diagnosis: Generalized anxiety disorder[ICD10: F41.1] Diagnosis: Major depressive disorder, single episode, moderate[ICD10: F32.1] Radha Angeles MD, [facility] CPT-4: 87542 07/19/2017 71735 EST. PATIENT, LEVEL III Diagnosis: Rheumatoid arthritis with rheumatoid factor of multiple sites without organ or systems involvement[ICD10: M05.79] Radha Angeles MD, [facility] CPT-4: 09883 06/13/2017 16906 EST. PATIENT, LEVEL III Diagnosis: Rheumatoid arthritis with rheumatoid factor of right wrist without organ or systems involvement[ICD10: M05.731] Radha Angeles MD, [facility] CPT -4: 87638 05/25/2017 15955 EST. PATIENT, LEVEL III Diagnosis: Gastro-esophageal reflux disease without esophagitis[ICD10: K21.9] Diagnosis: Rheumatoid arthritis with rheumatoid factor of multiple sites without organ or systems involvement[ICD10: M05.79] Radha Angeles MD, [facility] CPT-4: 84313 05/11/2017 80175 EST. PATIENT, LEVEL IV Diagnosis: Cough[ICD10: R05] Diagnosis: Gastro-esophageal reflux disease without esophagitis[ICD10: K21.9] Diagnosis: Nontoxic goiter, unspecified[ICD10: E04.9] Diagnosis: Shortness of breath[ICD10: R06.02] Radha Angeles MD, [facility] CPT-4: 89376 04/25/2017 02561 EST. PATIENT, LEVEL IV Diagnosis: Acute laryngopharyngitis[ICD10: J06.0] Diagnosis: Other allergic rhinitis[ICD10: J30.89] Diagnosis: Gastro-esophageal reflux disease without esophagitis[ICD10: K21.9] Radha Angeles MD, [facility] CPT-4: 02800 04/17/2017 50403 EST. PATIENT, LEVEL IV Diagnosis: Diarrhea, unspecified[ICD10: R19.7] Diagnosis: Other specified intestinal infections[ICD10: A08.8] Radha Angeles MD, [facility] CPT-4: 65556 04/13/2017 OFFICE VISIT, NEW - LEVEL 4 Diagnosis: Other acute sinusitis[ICD10: J01.80] Diagnosis: Pain in left knee[ICD10: M25.562] Diagnosis: Nontoxic goiter, unspecified[ICD10: E04.9] Radha Angeles MD, [facility] CPT-4: 57122 04/06/2017 Plan of Care Planned Activity Notes [...] allergy spray. 05/15/2018 Appointment: Radha Sosa WPtel: [address] [place], [place] [id number] (15 min) Moderate 05/15/2018 Patient Education: Patient Medication Summary Completed 05/15/2018 Care Plan: CHEST X-RAY 2VW FRONTAL&LATL LOINC : 82580-7 Pending 05/02/2018 Visit Plan: Pneumonia - Pt has been diagnosed with pneumonia by physical exam. A chest xray has been ordered as have antibiotics. The pt is aware of the diagnosis and the need for acute treatment of this illness. 05/01/2018 Appointment: Radha Sosa WPtel: [facility] (15 min) Moderate 05/01/2018 Patient Education: Patient [...] spray. 04/16/2018 Appointment: Radha Sosa WPtel: [phone] [id number] (15 min) Moderate 04/16/2018 Patient Education: Patient [...] not improving. 01/28/2018 Appointment: Radha Sosa WPtel: [phone] [id number] (15 min) Moderate 01/28/2018 Patient Education: Patient [...] of over-medication. 10/15/2017 Appointment: Radha Sosa WPtel: [facility]5 [id number] (15 min) Moderate 10/15/2017 Patient Education: Patient [...] treatment plan. 09/19/2017 Appointment: Rad[facility]Ptel[id number] [facility] 09/19/2017 Patient Education: Patient Medication Summary Completed 09/19/2017 App[facility]ment: [id number] (15 min) Moderate 08/21/2017 Visit Plan: Chronic [...] Completed 08/20/2017 Appointment: Radha Sosa WPtel: [phone] [id number] (15 min) Moderate 08/17/2017 Appointment: Radha Sosa WPtel: [id number] (30 min) Complex 07/23/2017 Visit Plan: RA [...] this patient. 07/19/2017 Appointment: Radha Sosa WPtel: [facility]5 [id number] (30 min) Complex 07/19/2017 Patient Education: Patient [...] treatment plan. 06/13/2017 Appointment: Radha Sosa WPtel: [phone] [id number] [place] (15 min) Moderate 06/13/2017 Patient Education: [...] improve. 05/25/2017 Appointment: Radha Sosa WPtel: [phone] [id number] [place] (30 min) Complex 05/25/2017 Patient Education: Patient Medication Summary Completed 05/25/2017 Appointment: Radha Sosa WPtel: [id number] [place] (30 min) Complex 05/24/2017 Visit Plan: [...] treatment plan. 05/11/2017 Appointment: Radha Sosa WPtel: [facility]8 [id number] [place] (30 min) Complex 05/11/2017 Patient Education: [...] indicated 04/25/2017 Appointment: Radha Sosa WPtel: [phone] [id number] (30 min) Complex 04/25/2017 Patient Education: Patient [...] allergy spray. 04/17/2017 Appointment: Radha Sosa WPtel: [facility]6 [id number] (30 min) Complex 04/17/2017 Patient Education: Patient [...] improved. 04/13/2017 Appointment: Radha Sosa WPtel: [phone] [id number] (15 min) Moderate 04/13/2017 Patient Education: [...] as indicated 04/06/2017 Appointment: Radha Sosa WPtel: [address] [place], [place] [id number] New Patient 04/06/2017 Patient Education: Patient Medication [...]
--- OUTSIDE RECORDS SUMMARY | 2018-08-07 10:40 | XMS REPORT | CCD ---
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 Name Role Phone PP Unavailable CCM Unavailable Summary Purpose Interface Exchange Insurance Providers Payer name Policy type / Coverage type Covered green party ID Effective Begin Date Effective End Date Blue Cross Blue [facility] Blue Cross/Blue [facility] [id number] Unknown Family history Father Diagnosis Age At Onset Arthritis Unknown Cancer Unknown Mother Diagnosis Age At Onset Cancer Unknown Social History Social History Element Codes Description Effective Dates Marital status Unknown Michael 04/17/2017 Number of children Unknown 1 04/06/[address]: 597153404 Never smoker 04/06/[address]: 746402690 Never drinks alcohol 04/06/2017 Allergies, Adverse Reactions, [...] Fill Instructions Premarin 1.25 mg tablet RxNorm: 801686 1 Tablet(s) PO daily 05/22/2019 Active pantoprazole 40 mg tablet,delayed release RxNorm: 176940 1 Tablet(s) PO daily 05/28/2018 05/22/2019 Active pantoprazole 40 mg tablet,delayed release RxNorm: 990619 1 Tablet(s) PO daily 05/16/2018 05/27/2018 Inactive Augmentin 500 mg-125 mg tablet RxNorm: 005404 1 Tablet(s) PO TID 05/16/2018 05/25/2018 Inactive Augmentin 500 mg-125 mg tablet RxNorm: 062556 1 Tablet(s) PO TID 05/15/2018 05/15/2018 Inactive pantoprazole 40 mg tablet,delayed release RxNorm: 466079 1 Tablet(s) PO daily 05/15/2018 05/15/2018 Inactive Premarin 1.25 mg tablet RxNorm: 617814 1 Tablet(s) PO daily 05/27/2018 Inactive Premarin 1.25 mg tablet RxNorm: 885986 1 Tablet(s) PO daily 05/07/2018 Inactive Levaquin 500 mg tablet RxNorm: 902522 1 Tablet(s) PO daily 05/07/2018 Inactive Kenalog 40 mg/mL suspension for injection RxNorm: 7992189 Milliliter(s) Inj 05/01/2018 05/01/2018 Inactive Diflucan 150 mg tablet RxNorm: 343004 Tablet(s) 1 TABLET(S) PO DAILY 05/01/2018 05/05/2018 Inactive doxycycline hyclate 100 mg capsule RxNorm: 0673761 1 Capsule(s) PO BID 04/26/2018 04/29/2018 Inactive ProAir HFA 90 mcg/actuation aerosol inhaler RxNorm: 1911260 1 INH TID 04/19/2018 06/17/2018 Active doxycycline hyclate 100 mg capsule RxNorm: 5432644 1 Capsule(s) PO BID 04/19/2018 04/25/2018 Inactive doxycycline hyclate 100 mg capsule RxNorm: 7261405 1 Capsule(s) PO BID 04/19/2018 04/18/2018 Inactive Diflucan 150 mg tablet RxNorm: 242752 1 TABLET(S) PO DAILY 02/201904/23/2018 Inactive ProAir HFA 90 mcg/actuation aerosol inhaler RxNorm: 7716861 1 INH TID 04/19/2018 04/18/2018 Inactive Zithromax Z-Gary 250 mg tablet RxNorm: 228547 1 Tablet(s) PO UD 04/16/2018 No Stop Date Active Diflucan 150 mg tablet RxNorm: 352096 1 Tablet(s) PO daily 11/201804/18/2018 Inactive Premarin 1.25 mg tablet RxNorm: 942973 1 Tablet(s) PO daily 02/28/2018 Inactive Premarin 1.25 mg tablet RxNorm: 758041 1 Tablet(s) PO daily 04/25/2018 Inactive pantoprazole 40 mg tablet,delayed release RxNorm: 031621 1 Tablet(s) PO daily 02/21/2018 02/20/2018 Inactive pantoprazole 40 mg tablet,delayed release RxNorm: 147880 1 Tablet(s) PO daily 02/21/2018 05/14/2018 Inactive hydrocodone 5 mg-acetaminophen 325 mg tablet RxNorm: 702760 1 Tablet(s) PO TID as needed for pain 02/20/2018 No Stop Date Active Bactrim DS 800 mg-160 mg tablet RxNorm: 940243 1 Tablet(s) PO BID 02/06/2018 02/05/2018 Inactive Bactrim DS 800 mg-160 mg tablet RxNorm: 322231 1 Tablet(s) PO BID 02/06/2018 02/15/2018 Inactive Diflucan 150 mg tablet RxNorm: 328145 1 Tablet(s) PO daily 02/02/2018 Inactive Diflucan 150 mg tablet RxNorm: 728969 1 Tablet(s) PO daily 01/28/2018 Inactive Flagyl 500 mg tablet RxNorm: 765959 1 Tablet(s) PO TID 201702/06/2018 Inactive Premarin 1.25 mg tablet RxNorm: 416855 1 Tablet(s) PO daily 02/28/2018 Inactive Cipro 500 mg tablet RxNorm: 958678 1 Tablet(s) PO BID 201702/06/2018 Inactive hydrocodone 5 mg-acetaminophen 325 mg tablet RxNorm: 388129 1 Tablet(s) PO TID as needed for pain 12/31/2017 02/19/2018 Inactive Premarin 1.25 mg tablet RxNorm: 176226 1 Tablet(s) PO daily 01/27/2018 Inactive Prilosec 20 mg capsule,delayed release RxNorm: 764458 1 Capsule(s) PO daily 11/19/2017 02/20/2018 Inactive hydrocodone 5 mg-acetaminophen 325 mg tablet RxNorm: 165030 1 Tablet(s) PO TID as needed for pain 10/15/2017 12/30/2017 Inactive gabapentin 100 mg capsule RxNorm: 968884 1 Capsule(s) PO BID No Stop Date Active hydrocodone 5 mg-acetaminophen 325 mg tablet RxNorm: 158661 1 Tablet(s) PO QID as needed 09/19/2017 10/14/2017 Inactive Lyrica 50 mg capsule RxNorm: 521196 1 Capsule(s) PO TID 2017 No Stop Date Active Celebrex 200 mg capsule RxNorm: 848894 1 Capsule(s) PO daily 09/18/2017 Inactive Xanax 0.25 mg tablet RxNorm: 850741 1 Tablet(s) PO BID 201708/17/2017 Inactive Cymbalta 30 mg capsule,delayed release RxNorm: 378866 1 Capsule(s) PO daily 07/19/2017 08/17/2017 Inactive amoxicillin 500 mg capsule RxNorm: 484711 1 Capsule(s) PO TID 04/17/2017 04/26/2017 Inactive Prilosec OTC 20 mg tablet,delayed release RxNorm: 129118 1 Tablet(s) PO BID 04/17/2017 05/16/2017 Inactive 1 pill twice a day x 2 weeks, then daily Zofran 4 mg tablet RxNorm: 262596 1 Tablet(s) PO TID as needed 04/13/2017 04/17/2017 Inactive Flagyl 500 mg tablet RxNorm: 920412 1 Tablet(s) PO TID 201704/22/2017 Inactive promethazine 25 mg tablet RxNorm: 492721 1 Tablet(s) PO TID as needed nausea unrelieved by zofran 04/13/20172017 Inactive Zithromax Z-Gary 250 mg tablet RxNorm: 970743 1 Tablet(s) PO UD 04/06/2017 04/16/2017 Inactive prednisone 5 mg tablet RxNorm: 225143 1 Tablet(s) PO daily No Start Date Active Humira Pen 40 mg/0.8 mL subcutaneous RxNorm: 5031515 1 Milliliter(s) SQ QW No Start Date Active Linzess 145 mcg capsule RxNorm: 2252223 1 Capsule(s) PO daily No Start Date 08/16/2017 Inactive Prilosec 20 mg capsule,delayed release RxNorm: 462590 1 Capsule(s) PO daily No Start Date 11/18/2017 Inactive Premarin 1.25 mg tablet RxNorm: 013948 1 Tablet(s) PO daily No Start Date 12/30/2017 Inactive Medication Administered Medication Codes Instructions Start Date Status Kenalog 40 mg/mL suspension for injection RxNorm: 0027706 Milliliter 05/01/2018 No longer Active Immunizations No [...] developed 05/01/2018 None Full Exam - General 1995 Constitutional general appearance Overall: in no acute [...] 05/11/2017 None Full Exam - General 1995 Respiratory respiratory effort/rhythm Overall: no retractions 05/11/2017 [...] lips 04/25/2017 None Full Exam - General 1995 [...] [id number] 05/01/2018 URINALYSIS NONAUTO W/O SCOPE CPT-4: 47254 06/04/2017 Vital Signs Date Vital 05/15/2018 Height: Weight: 05/01/2018 Blood Pressure 1: 134/68 Code : 8480-6 BMI: 22.6 Code : 03040-6 Heart Rate 1 : 83 bpm Height: 4'11" SpO2: 99% Temperature: 37.1 (C) / 98.8 (F) Weight: 112 lbs 04/16/2018 Blood Pressure 1: 122/60 Code : 8480-6 BMI: 22.6 Code : 84933-1 Heart Rate 1 : 72 bpm Height: 4'11" SpO2: 92% Temperature: 36.7 (C) / 98.1 (F) Weight: 112 lbs 01/28/2018 Blood Pressure 1: 136/52 Code : 8480-6 BMI: 22.6 Code : 44486-9 Heart Rate 1 : 76 bpm Height: 4'11" SpO2: 98% Weight: 112 lbs 10/15/2017 Blood Pressure 1: 136/78 Code : 8480-6 BMI: 22.6 Code : 56278-8 Heart Rate 1 : 86 bpm Height: 4'11" SpO2: 98% Weight: 112 lbs 09/19/2017 Blood Pressure 1: 122/68 Code : 8480-6 BMI: 22.4 Code : 14759-3 Heart Rate 1 : 74 bpm Height: 4'11" SpO2: 97% Weight: 111 lbs 08/20/2017 Blood Pressure 1: 132/78 Code : 8480-6 BMI: 22.0 Code : 08054-1 Heart Rate 1 : 80 bpm Height: 4'11" SpO2: 96% Weight: 109 lbs 07/19/2017 Blood Pressure 1: 130/64 Code : 8480-6 BMI: 20.6 Code : 09546-2 Heart Rate 1 : 78 bpm Height: 4'11" SpO2: 98% Weight: 102 lbs 06/13/2017 Blood Pressure 1: 130/64 Code : 8480-6 BMI: 20.0 Code : 36051-2 Heart Rate 1 : 66 bpm Height: 4'11" SpO2: 97% Weight: 99 lbs 05/25/2017 Blood Pressure 1: 132/60 Code : 8480-6 BMI: 20.0 Code : 75558-2 Heart Rate 1 : 81 bpm Height: 4'11" SpO2: 99% Weight: 99 lbs 05/11/2017 Blood Pressure 1: 132/70 Code : 8480-6 Heart Rate 1: 69 bpm Height: SpO2: 99% Weight: 04/25/2017 Blood Pressure 1: 136/78 Code : 8480-6 BMI: 20.2 Code : 52894-4 Heart Rate 1 : 70 bpm Height: 4'11" SpO2: 99% Weight: 100 lbs 04/17/2017 Blood Pressure 1: 118/70 Code : 8480-6 BMI: 20.2 Code : 01810-0 Heart Rate 1 : 62 bpm Height: 4'11" SpO2: 99% Temperature: 36.4 (C) / 97.6 (F) Weight: 100 lbs 04/13/2017 Blood Pressure 1: 136/78 Code : 8480-6 BMI: 19.4 Code : 45909-2 Heart Rate 1 : 79 bpm Height: 4'11" SpO2: 97% Temperature: 36.8 (C) / 98.2 (F) Weight: 96 lbs 04/06/2017 Blood Pressure 1: 120/68 Code : 8480-6 BMI: 20.2 Code : 54595-8 Heart Rate 1 : 71 bpm Height: [...] data Encounters Encounter Performer Location Codes Date 66333 EST. PATIENT, LEVEL III Diagnosis: Other acute sinusitis[ICD10: J01.80] Diagnosis: Other allergic rhinitis[ICD10: J30.89] Radha Angeles MD, [facility] CPT-4: 81948 05/15/2018 10472 EST. PATIENT, LEVEL IV Diagnosis: Pneumonia due to other specified infectious organisms[ICD10: J16.8] Radha Angeles MD, [facility] CPT-4: 77659 05/01/2018 70619 EST. PATIENT, LEVEL IV Diagnosis: Other acute sinusitis[ICD10: J01.80] Diagnosis: Other allergic rhinitis[ICD10: J30.89] Radha Angeles MD, [facility] CPT-4: 07012 04/16/2018 04671 EST. PATIENT, LEVEL III Diagnosis: Dysuria[ICD10: R30.0] Diagnosis: Diverticulitis of large intestine without perforation or abscess without bleeding[ICD10: K57.32] Diagnosis: Gastro-esophageal reflux disease without esophagitis[ICD10: K21.9] Radha Angeles MD, [facility] CPT-4: 11482 01/28/2018 02066 EST. PATIENT, LEVEL III Diagnosis: Rheumatoid arthritis with rheumatoid factor of multiple sites without organ or systems involvement[ICD10: M05.79] Diagnosis: Generalized anxiety disorder[ICD10: F41.1] Diagnosis: Major depressive disorder, single episode, moderate[ICD10: F32.1] Diagnosis: Chronic pain syndrome[ICD10: G89.4] Radha Angeles MD, [facility] CPT-4: 21042 10/15/2017 69303 EST. PATIENT, LEVEL III Diagnosis: Rheumatoid arthritis with rheumatoid factor of multiple sites without organ or systems involvement[ICD10: M05.79] Diagnosis: Generalized anxiety disorder[ICD10: F41.1] Diagnosis: Major depressive disorder, single episode, moderate[ICD10: F32.1] Radha Angeles MD, [facility] CPT-4: 53414 09/19/2017 57969 EST. PATIENT, LEVEL III Diagnosis: Rheumatoid arthritis with rheumatoid factor of multiple sites without organ or systems involvement[ICD10: M05.79] Diagnosis: Generalized anxiety disorder[ICD10: F41.1] Diagnosis: Major depressive disorder, single episode, moderate[ICD10: F32.1] Diagnosis: Slow transit constipation[ICD10: K59.01] Radha Angeles MD, [facility] CPT-4: 76665 08/20/2017 59959 EST. PATIENT, LEVEL III Diagnosis: Rheumatoid arthritis with rheumatoid factor of multiple sites without organ or systems involvement[ICD10: M05.79] Diagnosis: Generalized anxiety disorder[ICD10: F41.1] Diagnosis: Major depressive disorder, single episode, moderate[ICD10: F32.1] Radha Angeles MD, [facility] CPT-4: 64456 07/19/2017 35642 EST. PATIENT, LEVEL III Diagnosis: Rheumatoid arthritis with rheumatoid factor of multiple sites without organ or systems involvement[ICD10: M05.79] Radha Angeles MD, [facility] CPT-4: 39596 06/13/2017 62018 EST. PATIENT, LEVEL III Diagnosis: Rheumatoid arthritis with rheumatoid factor of right wrist without organ or systems involvement[ICD10: M05.731] Radha Angeles MD, [facility] CPT -4: 77848 05/25/2017 73640 EST. PATIENT, LEVEL III Diagnosis: Gastro-esophageal reflux disease without esophagitis[ICD10: K21.9] Diagnosis: Rheumatoid arthritis with rheumatoid factor of multiple sites without organ or systems involvement[ICD10: M05.79] Radha Angeles MD, [facility] CPT-4: 39479 05/11/2017 97210 EST. PATIENT, LEVEL IV Diagnosis: Cough[ICD10: R05] Diagnosis: Gastro-esophageal reflux disease without esophagitis[ICD10: K21.9] Diagnosis: Nontoxic goiter, unspecified[ICD10: E04.9] Diagnosis: Shortness of breath[ICD10: R06.02] Radha Angeles MD, [facility] CPT-4: 23964 04/25/2017 51911 EST. PATIENT, LEVEL IV Diagnosis: Acute laryngopharyngitis[ICD10: J06.0] Diagnosis: Other allergic rhinitis[ICD10: J30.89] Diagnosis: Gastro-esophageal reflux disease without esophagitis[ICD10: K21.9] Radha Angeles MD, [facility] CPT-4: 25079 04/17/2017 33136 EST. PATIENT, LEVEL IV Diagnosis: Diarrhea, unspecified[ICD10: R19.7] Diagnosis: Other specified intestinal infections[ICD10: A08.8] [facility] CPT-4: 27870 04/13/2017 OFFICE VISIT, NEW - LEVEL 4 Diagnosis: Other acute sinusitis[ICD10: J01.80] Diagnosis: Pain in left knee[ICD10: M25.562] Diagnosis: Nontoxic goiter, unspecified[ICD10: E04.9] Radha Angeles MD, [facility] CPT-4: 64768 04/06/2017 Plan of Care Planned Activity Notes [...] allergy spray. 05/15/2018 Appointment: Radha Sosa WPtel: [address] [place], [place] [address] (15 min) Moderate 05/15/2018 Patient Education: Patient Medication Summary Completed 05/15/2018 Care Plan: CHEST X-RAY 2VW FRONTAL&LATL LOINC : 64381-5 Pending 05/02/2018 Visit Plan: Pneumonia - Pt has been diagnosed with pneumonia by physical exam. A chest xray has been ordered as have antibiotics. The pt is aware of the diagnosis and the need for acute treatment of this illness. 05/01/2018 Appointment: Radha Sosa WPtel: [phone] [facility] (15 min) Moderate 05/01/2018 Patient Education: Patient [...] allergy spray. 04/16/2018 Appointment: Radha Sosa WPtel: [phone] [facility] (15 min) Moderate 04/16/2018 Patient Education: Patient [...] not improving. 01/28/2018 Appointment: Radha Sosa WPtel: [facility] (15 min) Moderate 01/28/2018 Patient Education: Patient [...] of over-medication. 10/15/2017 Appointment: Radha Sosa WPtel: [facility] (15 min) Moderate 10/15/2017 Patient Education: [...] treatment plan. 09/19/2017 App[facility]ment: Rad[facility]el[facility] ([facility] 09/19/2017 Patient Education: Patient Medication Summary Completed 09/19/2017 Appointment: Radha Sosa WPtel: [facility] (15 min) Moderate 08/21/2017 Visit Plan: Chronic [...] Completed 08/20/2017 Appointment: Radha Sosa WPtel: [phone] [facility] (15 min) Moderate 08/17/2017 Appointment: Radha Sosa WPtel: [facility] (30 min) Complex 07/23/2017 Visit Plan: RA [...] this patient. 07/19/2017 Appointment: Radha Sosa WPtel: [phone] [facility] (30 min) Complex 07/19/2017 Patient Education: Patient [...] treatment plan. 06/13/2017 App[facility]ment: [facility] [place] (15 min) Moderate 06/13/2017 Patient [...] improve. 05/25/2017 Appointment: Radha Sosa WPtel: [phone] [facility] [place] (30 min) Complex 05/25/2017 Patient Education: Patient Medication Summary Completed 05/25/2017 Appointment: Radha Sosa WPtel: [phone] [facility] [place] (30 min) Complex 05/24/2017 Visit [...] plan. 05/11/2017 Appointment: Radha Sosa WPtel: [phone] [facility] [place] (30 min) Complex 05/11/2017 Patient [...] indicated 04/25/2017 Appointment: Radha Sosa WPtel: [address] [facility] (30 min) Complex 04/25/2017 Patient Education: Patient [...] spray. 04/17/2017 Appointment: Radha Sosa WPtel: [phone] [facility] (30 min) Complex 04/17/2017 Patient Education: Patient [...] improved. 04/13/2017 Appointment: Radha Sosa WPtel: [phone] [facility] (15 min) Moderate 04/13/2017 Patient Education: Patient [...] indicated 04/06/2017 [facility]ment[facility] [facility] 04/06/2017 Patient Education: Patient Medication [...]
--- OUTSIDE RECORDS SUMMARY | 2018-08-07 10:42 | XMS REPORT | CCD ---
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 Name Role Phone PP Unavailable CCM Unavailable Summary Purpose Interface Exchange Insurance Providers Payer name Policy type / Coverage type Covered libertarian ID Effective Begin Date Effective End Date Blue Cross Blue [facility] Blue Cross/Blue [facility] [id number] Unknown Family history Father Diagnosis Age At Onset Arthritis Unknown Cancer Unknown Mother Diagnosis Age At Onset Cancer Unknown Social History Social History Element Codes Description Effective Dates Marital status Unknown Michael 04/17/2017 Number of children Unknown 1 04/06/[address]: 270607610 Never smoker 04/06/[address]: 339526245 Never drinks alcohol 04/06/2017 Allergies, Adverse Reactions, [...] Instructions pantoprazole 40 mg tablet,delayed release RxNorm: 354754 1 Tablet(s) PO daily 05/16/2018 05/10/2019 Active Augmentin 500 mg-125 mg tablet RxNorm: 148409 1 Tablet(s) PO TID 05/16/2018 05/25/2018 Active Augmentin 500 mg-125 mg tablet RxNorm: 438288 1 Tablet(s) PO TID 05/15/2018 05/15/2018 Inactive pantoprazole 40 mg tablet,delayed release RxNorm: 327945 1 Tablet(s) PO daily 05/15/2018 05/15/2018 Inactive Premarin 1.25 mg tablet RxNorm: 196349 1 Tablet(s) PO daily 05/02/2019 Active Premarin 1.25 mg tablet RxNorm: 311550 1 Tablet(s) PO daily 05/07/2018 Inactive Levaquin 500 mg tablet RxNorm: 853871 1 Tablet(s) PO daily 05/07/2018 Inactive Kenalog 40 mg/mL suspension for injection RxNorm: 1530913 Milliliter(s) Inj 05/01/2018 05/01/2018 Inactive Diflucan 150 mg tablet RxNorm: 369626 Tablet(s) 1 TABLET(S) PO DAILY 05/01/2018 05/05/2018 Inactive doxycycline hyclate 100 mg capsule RxNorm: 1435995 1 Capsule(s) PO BID 04/26/2018 04/29/2018 Inactive ProAir HFA 90 mcg/actuation aerosol inhaler RxNorm: 0896152 1 INH TID 04/19/2018 06/17/2018 Active doxycycline hyclate 100 mg capsule RxNorm: 6503080 1 Capsule(s) PO BID 04/19/2018 04/25/2018 Inactive doxycycline hyclate 100 mg capsule RxNorm: 7392459 1 Capsule(s) PO BID 04/19/2018 04/18/2018 Inactive Diflucan 150 mg tablet RxNorm: 050243 1 TABLET(S) PO DAILY 02/201904/23/2018 Inactive ProAir HFA 90 mcg/actuation aerosol inhaler RxNorm: 0060064 1 INH TID 04/19/2018 04/18/2018 Inactive Zithromax Z-Gary 250 mg tablet RxNorm: 728133 1 Tablet(s) PO UD 04/16/2018 No Stop Date Active Diflucan 150 mg tablet RxNorm: 909736 1 Tablet(s) PO daily 11/201804/18/2018 Inactive Premarin 1.25 mg tablet RxNorm: 651159 1 Tablet(s) PO daily 02/28/2018 Inactive Premarin 1.25 mg tablet RxNorm: 712826 1 Tablet(s) PO daily 04/25/2018 Inactive pantoprazole 40 mg tablet,delayed release RxNorm: 569576 1 Tablet(s) PO daily 02/21/2018 02/20/2018 Inactive pantoprazole 40 mg tablet,delayed release RxNorm: 283885 1 Tablet(s) PO daily 02/21/2018 05/14/2018 Inactive hydrocodone 5 mg-acetaminophen 325 mg tablet RxNorm: 567931 1 Tablet(s) PO TID as needed for pain 02/20/2018 No Stop Date Active Bactrim DS 800 mg-160 mg tablet RxNorm: 990416 1 Tablet(s) PO BID 02/06/2018 02/05/2018 Inactive Bactrim DS 800 mg-160 mg tablet RxNorm: 042505 1 Tablet(s) PO BID 02/06/2018 02/15/2018 Inactive Diflucan 150 mg tablet RxNorm: 258744 1 Tablet(s) PO daily 02/02/2018 Inactive Diflucan 150 mg tablet RxNorm: 153902 1 Tablet(s) PO daily 01/28/2018 Inactive Flagyl 500 mg tablet RxNorm: 064580 1 Tablet(s) PO TID 201702/06/2018 Inactive Premarin 1.25 mg tablet RxNorm: 482885 1 Tablet(s) PO daily 02/28/2018 Inactive Cipro 500 mg tablet RxNorm: 881790 1 Tablet(s) PO BID 201702/06/2018 Inactive hydrocodone 5 mg-acetaminophen 325 mg tablet RxNorm: 561959 1 Tablet(s) PO TID as needed for pain 12/31/2017 02/19/2018 Inactive Premarin 1.25 mg tablet RxNorm: 229123 1 Tablet(s) PO daily 01/27/2018 Inactive Prilosec 20 mg capsule,delayed release RxNorm: 851351 1 Capsule(s) PO daily 11/19/2017 02/20/2018 Inactive hydrocodone 5 mg-acetaminophen 325 mg tablet RxNorm: 719653 1 Tablet(s) PO TID as needed for pain 10/15/2017 12/30/2017 Inactive gabapentin 100 mg capsule RxNorm: 981450 1 Capsule(s) PO BID No Stop Date Active hydrocodone 5 mg-acetaminophen 325 mg tablet RxNorm: 408967 1 Tablet(s) PO QID as needed 09/19/2017 10/14/2017 Inactive Lyrica 50 mg capsule RxNorm: 977173 1 Capsule(s) PO TID 2017 No Stop Date Active Celebrex 200 mg capsule RxNorm: 499917 1 Capsule(s) PO daily 09/18/2017 Inactive Xanax 0.25 mg tablet RxNorm: 045555 1 Tablet(s) PO BID 201708/17/2017 Inactive Cymbalta 30 mg capsule,delayed release RxNorm: 502549 1 Capsule(s) PO daily 07/19/2017 08/17/2017 Inactive amoxicillin 500 mg capsule RxNorm: 666434 1 Capsule(s) PO TID 04/17/2017 04/26/2017 Inactive Prilosec OTC 20 mg tablet,delayed release RxNorm: 815320 1 Tablet(s) PO BID 04/17/2017 05/16/2017 Inactive 1 pill twice a day x 2 weeks, then daily Zofran 4 mg tablet RxNorm: 396441 1 Tablet(s) PO TID as needed 04/13/2017 04/17/2017 Inactive Flagyl 500 mg tablet RxNorm: 118133 1 Tablet(s) PO TID 201704/22/2017 Inactive promethazine 25 mg tablet RxNorm: 804165 1 Tablet(s) PO TID as needed nausea unrelieved by zofran 04/13/20172017 Inactive Zithromax Z-Gary 250 mg tablet RxNorm: 284747 1 Tablet(s) PO UD 04/06/2017 04/16/2017 Inactive prednisone 5 mg tablet RxNorm: 421874 1 Tablet(s) PO daily No Start Date Active Humira Pen 40 mg/0.8 mL subcutaneous RxNorm: 7093627 1 Milliliter(s) SQ QW No Start Date Active Linzess 145 mcg capsule RxNorm: 9973160 1 Capsule(s) PO daily No Start Date 08/16/2017 Inactive Prilosec 20 mg capsule,delayed release RxNorm: 621452 1 Capsule(s) PO daily No Start Date 11/18/2017 Inactive Premarin 1.25 mg tablet RxNorm: 554042 1 Tablet(s) PO daily No Start Date 12/30/2017 Inactive Medication Administered Medication Codes Instructions Start Date Status Kenalog 40 mg/mL suspension for injection RxNorm: 1140730 Milliliter 05/01/2018 No longer Active Immunizations No [...] nourished 05/01/2018 None Full Exam - General 1995 Eyes conjunctiva /eyelids Overall: conjunctiva clear 05/01/2018 None Full Exam - General 1995 Eyes conjunctiva /eyelids Overall: eyelids normal 05/01/2018 [...] clear 04/13/2017 None Full Exam - General 1995 Ears/Nose/Throat [...] [id number] 05/01/2018 URINALYSIS NONAUTO W/O SCOPE CPT-4: 94532 06/04/2017 Vital Signs Date Vital 05/15/2018 Height: Weight: 05/01/2018 Blood Pressure 1: 134/68 Code : 8480-6 BMI: 22.6 Code : 81915-8 Heart Rate 1 : 83 bpm Height: 4'11" SpO2: 99% Temperature: 37.1 (C) / 98.8 (F) Weight: 112 lbs 04/16/2018 Blood Pressure 1: 122/60 Code : 8480-6 BMI: 22.6 Code : 68228-7 Heart Rate 1 : 72 bpm Height: 4'11" SpO2: 92% Temperature: 36.7 (C) / 98.1 (F) Weight: 112 lbs 01/28/2018 Blood Pressure 1: 136/52 Code : 8480-6 BMI: 22.6 Code : 20228-7 Heart Rate 1 : 76 bpm Height: 4'11" SpO2: 98% Weight: 112 lbs 10/15/2017 Blood Pressure 1: 136/78 Code : 8480-6 BMI: 22.6 Code : 67667-4 Heart Rate 1 : 86 bpm Height: 4'11" SpO2: 98% Weight: 112 lbs 09/19/2017 Blood Pressure 1: 122/68 Code : 8480-6 BMI: 22.4 Code : 26128-3 Heart Rate 1 : 74 bpm Height: 4'11" SpO2: 97% Weight: 111 lbs 08/20/2017 Blood Pressure 1: 132/78 Code : 8480-6 BMI: 22.0 Code : 46527-2 Heart Rate 1 : 80 bpm Height: 4'11" SpO2: 96% Weight: 109 lbs 07/19/2017 Blood Pressure 1: 130/64 Code : 8480-6 BMI: 20.6 Code : 62983-5 Heart Rate 1 : 78 bpm Height: 4'11" SpO2: 98% Weight: 102 lbs 06/13/2017 Blood Pressure 1: 130/64 Code : 8480-6 BMI: 20.0 Code : 41546-1 Heart Rate 1 : 66 bpm Height: 4'11" SpO2: 97% Weight: 99 lbs 05/25/2017 Blood Pressure 1: 132/60 Code : 8480-6 BMI: 20.0 Code : 33776-2 Heart Rate 1 : 81 bpm Height: 4'11" SpO2: 99% Weight: 99 lbs 05/11/2017 Blood Pressure 1: 132/70 Code : 8480-6 Heart Rate 1: 69 bpm Height: SpO2: 99% Weight: 04/25/2017 Blood Pressure 1: 136/78 Code : 8480-6 BMI: 20.2 Code : 95623-8 Heart Rate 1 : 70 bpm Height: 4'11" SpO2: 99% Weight: 100 lbs 04/17/2017 Blood Pressure 1: 118/70 Code : 8480-6 BMI: 20.2 Code : 40039-7 Heart Rate 1 : 62 bpm Height: 4'11" SpO2: 99% Temperature: 36.4 (C) / 97.6 (F) Weight: 100 lbs 04/13/2017 Blood Pressure 1: 136/78 Code : 8480-6 BMI: 19.4 Code : 05467-7 Heart Rate 1 : 79 bpm Height: 4'11" SpO2: 97% Temperature: 36.8 (C) / 98.2 (F) Weight: 96 lbs 04/06/2017 Blood Pressure 1: 120/68 Code : 8480-6 BMI: 20.2 Code : 63183-9 Heart Rate 1 : 71 bpm Height: [...] Other allergic rhinitis[ICD10: J30.89] Radha Angeles MD, [facility] CPT-4: 24267 05/15/2018 93791 EST. PATIENT, LEVEL IV Diagnosis: Pneumonia due to other specified infectious organisms[ICD10: J16.8] Radha Angeles MD, [facility] CPT-4: 49138 05/01/2018 66937 EST. PATIENT, LEVEL IV Diagnosis: Other acute sinusitis[ICD10: J01.80] Diagnosis: Other allergic rhinitis[ICD10: J30.89] Radha Angeles MD, [facility] CPT-4: 64805 04/16/2018 53549 EST. PATIENT, LEVEL III Diagnosis: Dysuria[ICD10: R30.0] Diagnosis: Diverticulitis of large intestine without perforation or abscess without bleeding[ICD10: K57.32] Diagnosis: Gastro-esophageal reflux disease without esophagitis[ICD10: K21.9] Radha Angeles MD, [facility] CPT-4: 39837 01/28/2018 83146 EST. PATIENT, LEVEL III Diagnosis: Rheumatoid arthritis with rheumatoid factor of multiple sites without organ or systems involvement[ICD10: M05.79] Diagnosis: Generalized anxiety disorder[ICD10: F41.1] Diagnosis: Major depressive disorder, single episode, moderate[ICD10: F32.1] Diagnosis: Chronic pain syndrome[ICD10: G89.4] Radha Angeles MD, [facility] CPT-4: 84608 10/15/2017 37149 EST. PATIENT, LEVEL III Diagnosis: Rheumatoid arthritis with rheumatoid factor of multiple sites without organ or systems involvement[ICD10: M05.79] Diagnosis: Generalized anxiety disorder[ICD10: F41.1] Diagnosis: Major depressive disorder, single episode, moderate[ICD10: F32.1] Radha Angeles MD, [facility] CPT-4: 64337 09/19/2017 12951 EST. PATIENT, LEVEL III Diagnosis: Rheumatoid arthritis with rheumatoid factor of multiple sites without organ or systems involvement[ICD10: M05.79] Diagnosis: Generalized anxiety disorder[ICD10: F41.1] Diagnosis: Major depressive disorder, single episode, moderate[ICD10: F32.1] Diagnosis: Slow transit constipation[ICD10: K59.01] Radha Angeles MD, [facility] CPT-4: 18897 08/20/2017 46886 EST. PATIENT, LEVEL III Diagnosis: Rheumatoid arthritis with rheumatoid factor of multiple sites without organ or systems involvement[ICD10: M05.79] Diagnosis: Generalized anxiety disorder[ICD10: F41.1] Diagnosis: Major depressive disorder, single episode, moderate[ICD10: F32.1] Radha Angeles MD, [facility] CPT-4: 06089 07/19/2017 45580 EST. PATIENT, LEVEL III Diagnosis: Rheumatoid arthritis with rheumatoid factor of multiple sites without organ or systems involvement[ICD10: M05.79] Radha Angeles MD, [facility] CPT-4: 96760 06/13/2017 66414 EST. PATIENT, LEVEL III Diagnosis: Rheumatoid arthritis with rheumatoid factor of right wrist without organ or systems involvement[ICD10: M05.731] Radha Angeles MD, [facility] CPT -4: 13565 05/25/2017 55514 EST. PATIENT, LEVEL III Diagnosis: Gastro-esophageal reflux disease without esophagitis[ICD10: K21.9] Diagnosis: Rheumatoid arthritis with rheumatoid factor of multiple sites without organ or systems involvement[ICD10: M05.79] Radha Angeles MD, [facility] CPT-4: 48827 05/11/2017 52553 EST. PATIENT, LEVEL IV Diagnosis: Cough[ICD10: R05] Diagnosis: Gastro-esophageal reflux disease without esophagitis[ICD10: K21.9] Diagnosis: Nontoxic goiter, unspecified[ICD10: E04.9] Diagnosis: Shortness of breath[ICD10: R06.02] Radha Angeles MD, [facility] CPT-4: 14281 04/25/2017 35885 EST. PATIENT, LEVEL IV Diagnosis: Acute laryngopharyngitis[ICD10: J06.0] Diagnosis: Other allergic rhinitis[ICD10: J30.89] Diagnosis: Gastro-esophageal reflux disease without esophagitis[ICD10: K21.9] Radha Angeles MD, [facility] CPT-4: 32837 04/17/2017 71594 EST. PATIENT, LEVEL IV Diagnosis: Diarrhea, unspecified[ICD10: R19.7] Diagnosis: Other specified intestinal infections[ICD10: A08.8] [facility] CPT-4: 42721 04/13/2017 OFFICE VISIT, NEW - LEVEL 4 Diagnosis: Other acute sinusitis[ICD10: J01.80] Diagnosis: Pain in left knee[ICD10: M25.562] Diagnosis: Nontoxic goiter, unspecified[ICD10: E04.9] [facility] CPT-4: 32726 04/06/2017 Plan of Care Planned Activity Notes [...] allergy spray. 05/15/2018 Appointment: Radha Sosa WPtel: [address] [place], [place] [phone] (15 min) Moderate 05/15/2018 Patient Education: Patient Medication Summary Completed 05/15/2018 Care Plan: CHEST X-RAY 2VW FRONTAL&LATL LOINC : 15840-3 Pending 05/02/2018 Visit Plan: Pneumonia - Pt has been diagnosed with pneumonia by physical exam. A chest xray has been ordered as have antibiotics. The pt is aware of the diagnosis and the need for acute treatment of this illness. 05/01/2018 Appointment: Radha Sosa WPtel: [address] [place], [place] [address] (15 min) Moderate 05/01/2018 Patient Education: Patient [...] spray. 04/16/2018 Appointment: Radha Sosa WPtel: [phone] [facility] (15 min) Moderate 04/16/2018 Patient Education: Patient [...] improving. 01/28/2018 Appointment: [phone] [facility] (15 min) Moderate 01/28/2018 Patient Education: Patient [...] of over-medication. 10/15/2017 Appointment: Radha Sosa WPtel: [facility] [place] (15 min) Moderate 10/15/2017 Patient Education: Patient [...] treatment plan. 09/19/2017 Appointment: Radha Sosa WPtel: [facility]5 [facility] (30 min) Complex 09/19/2017 Patient Education: Patient Medication Summary Completed 09/19/2017 Appointment: Radha Sosa WPtel: [facility]5 [facility]66[facility] (15 min) Moderate 08/21/2017 Visit Plan: Chronic [...] Completed 08/20/2017 Appointment: Radha Sosa WPtel: [phone] [facility] (15 min) Moderate 08/17/2017 Appointment: Radha Sosa WPtel: [facility]1 [facility] (30 min) Complex 07/23/2017 Visit Plan: RA [...] this patient. 07/19/2017 Appointment: Radha Sosa WPtel: [facility]3 [facility] (30 min) Complex 07/19/2017 Patient Education: Patient [...] treatment plan. 06/13/2017 Appointment: Radha Sosa WPtel: [facility]3 [facility] (15 min) Moderate 06/13/2017 Patient Education: Patient [...] not improve. 05/25/2017 Appointment: Radha Sosa WPtel: [facility]4 [facility] [place] (30 min) Complex 05/25/2017 Patient Education: Patient Medication Summary Completed 05/25/2017 Appointment: Radha Sosa WPtel: [phone] [facility] [place] (30 min) Complex 05/24/2017 Visit Plan: [...] treatment plan. 05/11/2017 Appointment: Radha Sosa WPtel: [facility]8 [facility] [place] (30 min) Complex 05/11/2017 Patient Education: [...] as indicated 04/25/2017 Appointment: Radha Sosa WPtel: [facility]9 [facility] [place] (30 min) Complex 04/25/2017 Patient Education: [...] spray. 04/17/2017 Appointment: Radha Sosa WPtel: [phone] [facility] (30 min) Complex 04/17/2017 Patient Education: [...] improved. 04/13/2017 Appointment: [facility]el[phone] (15 min) Moderate 04/13/2017 Patient Education: Patient [...] - will treat as indicated 04/06/2017 Appointment: Ian [facility]ha [facility]el[phone] [facility] [place] New Patient 04/06/2017 Patient Education: Patient Medication [...]
[2018-08-07] MEDS ORDERED: NS IV 500 ML 500 ML IV PRN (10:43)
--- OUTSIDE RECORDS SUMMARY | 2018-08-07 10:43 | XMS REPORT | CCD ---
Author Author Radha Sosa Organization Yamilet Angeles MD, [facility] Address [address] [place] [address] Phone Care Team Providers Care Detail Assembler Name Role Phone PP Unavailable CCM Unavailable Summary Purpose Interface Exchange Insurance Providers Payer name Policy type / Coverage type Covered republican ID Effective Begin Date Effective End Date Blue Cross Blue [facility] Blue Cross/Blue [facility] [id number] Unknown Family history Father Diagnosis Age At Onset Arthritis Unknown Cancer Unknown Mother Diagnosis Age At Onset Cancer Unknown Social History Social History Element Codes Description Effective Dates Marital status Unknown Michael 04/17/2017 Number of children Unknown 1 04/06/[address]: 937513488 Never smoker 04/06/[address]: 551771876 Never drinks alcohol 04/06/2017 Allergies, Adverse Reactions, [...] Instructions pantoprazole 40 mg tablet,delayed release RxNorm: 883693 1 Tablet(s) PO daily 05/16/2018 05/10/2019 Active Augmentin 500 mg-125 mg tablet RxNorm: 978516 1 Tablet(s) PO TID 05/16/2018 05/25/2018 Active Augmentin 500 mg-125 mg tablet RxNorm: 644441 1 Tablet(s) PO TID 05/15/2018 05/15/2018 Inactive pantoprazole 40 mg tablet,delayed release RxNorm: 514592 1 Tablet(s) PO daily 05/15/2018 05/15/2018 Inactive Premarin 1.25 mg tablet RxNorm: 578888 1 Tablet(s) PO daily 05/02/2019 Active Premarin 1.25 mg tablet RxNorm: 563959 1 Tablet(s) PO daily 05/07/2018 Inactive Levaquin 500 mg tablet RxNorm: 186882 1 Tablet(s) PO daily 05/07/2018 Inactive Kenalog 40 mg/mL suspension for injection RxNorm: 7373498 Milliliter(s) Inj 05/01/2018 05/01/2018 Inactive Diflucan 150 mg tablet RxNorm: 602495 Tablet(s) 1 TABLET(S) PO DAILY 05/01/2018 05/05/2018 Inactive doxycycline hyclate 100 mg capsule RxNorm: 2187541 1 Capsule(s) PO BID 04/26/2018 04/29/2018 Inactive ProAir HFA 90 mcg/actuation aerosol inhaler RxNorm: 8326665 1 INH TID 04/19/2018 06/17/2018 Active doxycycline hyclate 100 mg capsule RxNorm: 5000306 1 Capsule(s) PO BID 04/19/2018 04/25/2018 Inactive doxycycline hyclate 100 mg capsule RxNorm: 2615695 1 Capsule(s) PO BID 04/19/2018 04/18/2018 Inactive Diflucan 150 mg tablet RxNorm: 159204 1 TABLET(S) PO DAILY 02/201904/23/2018 Inactive ProAir HFA 90 mcg/actuation aerosol inhaler RxNorm: 6577736 1 INH TID 04/19/2018 04/18/2018 Inactive Zithromax Z-Gary 250 mg tablet RxNorm: 769361 1 Tablet(s) PO UD 04/16/2018 No Stop Date Active Diflucan 150 mg tablet RxNorm: 537361 1 Tablet(s) PO daily 11/201804/18/2018 Inactive Premarin 1.25 mg tablet RxNorm: 258223 1 Tablet(s) PO daily 02/28/2018 Inactive Premarin 1.25 mg tablet RxNorm: 548146 1 Tablet(s) PO daily 04/25/2018 Inactive pantoprazole 40 mg tablet,delayed release RxNorm: 147589 1 Tablet(s) PO daily 02/21/2018 02/20/2018 Inactive pantoprazole 40 mg tablet,delayed release RxNorm: 245505 1 Tablet(s) PO daily 02/21/2018 05/14/2018 Inactive hydrocodone 5 mg-acetaminophen 325 mg tablet RxNorm: 379892 1 Tablet(s) PO TID as needed for pain 02/20/2018 No Stop Date Active Bactrim DS 800 mg-160 mg tablet RxNorm: 857250 1 Tablet(s) PO BID 02/06/2018 02/05/2018 Inactive Bactrim DS 800 mg-160 mg tablet RxNorm: 436010 1 Tablet(s) PO BID 02/06/2018 02/15/2018 Inactive Diflucan 150 mg tablet RxNorm: 441799 1 Tablet(s) PO daily 02/02/2018 Inactive Diflucan 150 mg tablet RxNorm: 252029 1 Tablet(s) PO daily 01/28/2018 Inactive Flagyl 500 mg tablet RxNorm: 169723 1 Tablet(s) PO TID 201702/06/2018 Inactive Premarin 1.25 mg tablet RxNorm: 490765 1 Tablet(s) PO daily 02/28/2018 Inactive Cipro 500 mg tablet RxNorm: 732125 1 Tablet(s) PO BID 201702/06/2018 Inactive hydrocodone 5 mg-acetaminophen 325 mg tablet RxNorm: 988967 1 Tablet(s) PO TID as needed for pain 12/31/2017 02/19/2018 Inactive Premarin 1.25 mg tablet RxNorm: 101654 1 Tablet(s) PO daily 01/27/2018 Inactive Prilosec 20 mg capsule,delayed release RxNorm: 631255 1 Capsule(s) PO daily 11/19/2017 02/20/2018 Inactive hydrocodone 5 mg-acetaminophen 325 mg tablet RxNorm: 969109 1 Tablet(s) PO TID as needed for pain 10/15/2017 12/30/2017 Inactive gabapentin 100 mg capsule RxNorm: 069228 1 Capsule(s) PO BID No Stop Date Active hydrocodone 5 mg-acetaminophen 325 mg tablet RxNorm: 235450 1 Tablet(s) PO QID as needed 09/19/2017 10/14/2017 Inactive Lyrica 50 mg capsule RxNorm: 765808 1 Capsule(s) PO TID 2017 No Stop Date Active Celebrex 200 mg capsule RxNorm: 807352 1 Capsule(s) PO daily 09/18/2017 Inactive Xanax 0.25 mg tablet RxNorm: 864105 1 Tablet(s) PO BID 201708/17/2017 Inactive Cymbalta 30 mg capsule,delayed release RxNorm: 908339 1 Capsule(s) PO daily 07/19/2017 08/17/2017 Inactive amoxicillin 500 mg capsule RxNorm: 834895 1 Capsule(s) PO TID 04/17/2017 04/26/2017 Inactive Prilosec OTC 20 mg tablet,delayed release RxNorm: 041685 1 Tablet(s) PO BID 04/17/2017 05/16/2017 Inactive 1 pill twice a day x 2 weeks, then daily Zofran 4 mg tablet RxNorm: 159133 1 Tablet(s) PO TID as needed 04/13/2017 04/17/2017 Inactive Flagyl 500 mg tablet RxNorm: 209378 1 Tablet(s) PO TID 201704/22/2017 Inactive promethazine 25 mg tablet RxNorm: 335013 1 Tablet(s) PO TID as needed nausea unrelieved by zofran 04/13/20172017 Inactive Zithromax Z-Gary 250 mg tablet RxNorm: 030979 1 Tablet(s) PO UD 04/06/2017 04/16/2017 Inactive prednisone 5 mg tablet RxNorm: 455318 1 Tablet(s) PO daily No Start Date Active Humira Pen 40 mg/0.8 mL subcutaneous RxNorm: 5920241 1 Milliliter(s) SQ QW No Start Date Active Linzess 145 mcg capsule RxNorm: 7465628 1 Capsule(s) PO daily No Start Date 08/16/2017 Inactive Prilosec 20 mg capsule,delayed release RxNorm: 818780 1 Capsule(s) PO daily No Start Date 11/18/2017 Inactive Premarin 1.25 mg tablet RxNorm: 123766 1 Tablet(s) PO daily No Start Date 12/30/2017 Inactive Medication Administered Medication Codes Instructions Start Date Status Kenalog 40 mg/mL suspension for injection RxNorm: 9301562 Milliliter 05/01/2018 No longer Active Immunizations No [...] [id number] 05/01/2018 URINALYSIS NONAUTO W/O SCOPE CPT-4: 86600 06/04/2017 Vital Signs Date Vital 05/15/2018 Height: Weight: 05/01/2018 Blood Pressure 1: 134/68 Code : 8480-6 BMI: 22.6 Code : 15035-6 Heart Rate 1 : 83 bpm Height: 4'11" SpO2: 99% Temperature: 37.1 (C) / 98.8 (F) Weight: 112 lbs 04/16/2018 Blood Pressure 1: 122/60 Code : 8480-6 BMI: 22.6 Code : 41651-8 Heart Rate 1 : 72 bpm Height: 4'11" SpO2: 92% Temperature: 36.7 (C) / 98.1 (F) Weight: 112 lbs 01/28/2018 Blood Pressure 1: 136/52 Code : 8480-6 BMI: 22.6 Code : 24039-4 Heart Rate 1 : 76 bpm Height: 4'11" SpO2: 98% Weight: 112 lbs 10/15/2017 Blood Pressure 1: 136/78 Code : 8480-6 BMI: 22.6 Code : 88228-8 Heart Rate 1 : 86 bpm Height: 4'11" SpO2: 98% Weight: 112 lbs 09/19/2017 Blood Pressure 1: 122/68 Code : 8480-6 BMI: 22.4 Code : 27333-4 Heart Rate 1 : 74 bpm Height: 4'11" SpO2: 97% Weight: 111 lbs 08/20/2017 Blood Pressure 1: 132/78 Code : 8480-6 BMI: 22.0 Code : 47703-1 Heart Rate 1 : 80 bpm Height: 4'11" SpO2: 96% Weight: 109 lbs 07/19/2017 Blood Pressure 1: 130/64 Code : 8480-6 BMI: 20.6 Code : 10663-6 Heart Rate 1 : 78 bpm Height: 4'11" SpO2: 98% Weight: 102 lbs 06/13/2017 Blood Pressure 1: 130/64 Code : 8480-6 BMI: 20.0 Code : 96479-9 Heart Rate 1 : 66 bpm Height: 4'11" SpO2: 97% Weight: 99 lbs 05/25/2017 Blood Pressure 1: 132/60 Code : 8480-6 BMI: 20.0 Code : 16568-7 Heart Rate 1 : 81 bpm Height: 4'11" SpO2: 99% Weight: 99 lbs 05/11/2017 Blood Pressure 1: 132/70 Code : 8480-6 Heart Rate 1: 69 bpm Height: SpO2: 99% Weight: 04/25/2017 Blood Pressure 1: 136/78 Code : 8480-6 BMI: 20.2 Code : 46355-6 Heart Rate 1 : 70 bpm Height: 4'11" SpO2: 99% Weight: 100 lbs 04/17/2017 Blood Pressure 1: 118/70 Code : 8480-6 BMI: 20.2 Code : 47987-9 Heart Rate 1 : 62 bpm Height: 4'11" SpO2: 99% Temperature: 36.4 (C) / 97.6 (F) Weight: 100 lbs 04/13/2017 Blood Pressure 1: 136/78 Code : 8480-6 BMI: 19.4 Code : 31930-7 Heart Rate 1 : 79 bpm Height: 4'11" SpO2: 97% Temperature: 36.8 (C) / 98.2 (F) Weight: 96 lbs 04/06/2017 Blood Pressure 1: 120/68 Code : 8480-6 BMI: 20.2 Code : 55587-2 Heart Rate 1 : 71 bpm Height: [...] Other allergic rhinitis[ICD10: J30.89] Radha Angeles MD, [facility] CPT-4: 74227 05/15/2018 20588 EST. PATIENT, LEVEL IV Diagnosis: Pneumonia due to other specified infectious organisms[ICD10: J16.8] Radha Angeles MD, [facility] CPT-4: 60846 05/01/2018 11280 EST. PATIENT, LEVEL IV Diagnosis: Other acute sinusitis[ICD10: J01.80] Diagnosis: Other allergic rhinitis[ICD10: J30.89] Radha Angeles MD, [facility] CPT-4: 17230 04/16/2018 27466 EST. PATIENT, LEVEL III Diagnosis: Dysuria[ICD10: R30.0] Diagnosis: Diverticulitis of large intestine without perforation or abscess without bleeding[ICD10: K57.32] Diagnosis: Gastro-esophageal reflux disease without esophagitis[ICD10: K21.9] Radha Angeles MD, [facility] CPT-4: 99891 01/28/2018 54066 EST. PATIENT, LEVEL III Diagnosis: Rheumatoid arthritis with rheumatoid factor of multiple sites without organ or systems involvement[ICD10: M05.79] Diagnosis: Generalized anxiety disorder[ICD10: F41.1] Diagnosis: Major depressive disorder, single episode, moderate[ICD10: F32.1] Diagnosis: Chronic pain syndrome[ICD10: G89.4] Radha Angeles MD, [facility] CPT-4: 62806 10/15/2017 50895 EST. PATIENT, LEVEL III Diagnosis: Rheumatoid arthritis with rheumatoid factor of multiple sites without organ or systems involvement[ICD10: M05.79] Diagnosis: Generalized anxiety disorder[ICD10: F41.1] Diagnosis: Major depressive disorder, single episode, moderate[ICD10: F32.1] Radha Angeles MD, [facility] CPT-4: 47411 09/19/2017 66765 EST. PATIENT, LEVEL III Diagnosis: Rheumatoid arthritis with rheumatoid factor of multiple sites without organ or systems involvement[ICD10: M05.79] Diagnosis: Generalized anxiety disorder[ICD10: F41.1] Diagnosis: Major depressive disorder, single episode, moderate[ICD10: F32.1] Diagnosis: Slow transit constipation[ICD10: K59.01] Radha Angeles MD, [facility] CPT-4: 23324 08/20/2017 01146 EST. PATIENT, LEVEL III Diagnosis: Rheumatoid arthritis with rheumatoid factor of multiple sites without organ or systems involvement[ICD10: M05.79] Diagnosis: Generalized anxiety disorder[ICD10: F41.1] Diagnosis: Major depressive disorder, single episode, moderate[ICD10: F32.1] Radha Angeles MD, [facility] CPT-4: 39297 07/19/2017 12036 EST. PATIENT, LEVEL III Diagnosis: Rheumatoid arthritis with rheumatoid factor of multiple sites without organ or systems involvement[ICD10: M05.79] Radha Angeles MD, [facility] CPT-4: 32644 06/13/2017 02120 EST. PATIENT, LEVEL III Diagnosis: Rheumatoid arthritis with rheumatoid factor of right wrist without organ or systems involvement[ICD10: M05.731] Radha Angeles MD, [facility] CPT -4: 58110 05/25/2017 19639 EST. PATIENT, LEVEL III Diagnosis: Gastro-esophageal reflux disease without esophagitis[ICD10: K21.9] Diagnosis: Rheumatoid arthritis with rheumatoid factor of multiple sites without organ or systems involvement[ICD10: M05.79] Radha Angeles MD, [facility] CPT-4: 07477 05/11/2017 29060 EST. PATIENT, LEVEL IV Diagnosis: Cough[ICD10: R05] Diagnosis: Gastro-esophageal reflux disease without esophagitis[ICD10: K21.9] Diagnosis: Nontoxic goiter, unspecified[ICD10: E04.9] Diagnosis: Shortness of breath[ICD10: R06.02] Radha Angeles MD, [facility] CPT-4: 66574 04/25/2017 47217 EST. PATIENT, LEVEL IV Diagnosis: Acute laryngopharyngitis[ICD10: J06.0] Diagnosis: Other allergic rhinitis[ICD10: J30.89] Diagnosis: Gastro-esophageal reflux disease without esophagitis[ICD10: K21.9] Radha Angeles MD, [facility] CPT-4: 69264 04/17/2017 78521 EST. PATIENT, LEVEL IV Diagnosis: Diarrhea, unspecified[ICD10: R19.7] Diagnosis: Other specified intestinal infections[ICD10: A08.8] [facility] CPT-4: 31007 04/13/2017 OFFICE VISIT, NEW - LEVEL 4 Diagnosis: Other acute sinusitis[ICD10: J01.80] Diagnosis: Pain in left knee[ICD10: M25.562] Diagnosis: Nontoxic goiter, unspecified[ICD10: E04.9] [facility] CPT-4: 38765 04/06/2017 Plan of Care Planned Activity Notes [...] allergy spray. 05/15/2018 Appointment: Radha Sosa WPtel: [address] [place], [place] [phone] (15 min) Moderate 05/15/2018 Patient Education: Patient Medication Summary Completed 05/15/2018 Care Plan: CHEST X-RAY 2VW FRONTAL&LATL LOINC : 10259-4 Pending 05/02/2018 Visit Plan: Pneumonia - Pt has been diagnosed with pneumonia by physical exam. A chest xray has been ordered as have antibiotics. The pt is aware of the diagnosis and the need for acute treatment of this illness. 05/01/2018 Appointment: Radha Sosa WPtel: [address] [place], [place] [address] (15 min) Moderate 05/01/2018 Patient Education: Patient [...] spray. 04/16/2018 Appointment: Radha Sosa WPtel: [address] [facility] (15 min) Moderate 04/16/2018 Patient Education: [...] improving. 01/28/2018 Appointment: Rad[facility] [facility] (15 min) Moderate 01/28/2018 Patient Education: Patient [...] 10/15/2017 Appointment: Radha Sosa WPtel: [facility] (15 min) Moderate 10/15/2017 Patient Education: [...] 09/19/2017 Appointment: Radha Sosa WPtel: [facility]5 [facility] (30 min) Complex 09/19/2017 Patient Education: Patient Medication Summary Completed 09/19/2017 Appointment: Radha Sosa WPtel: [facility]5 [facility]66[facility] (15 min) Moderate 08/21/2017 Visit Plan: [...] Completed 08/20/2017 Appointment: Radha Sosa WPtel: [phone] [facility] (15 min) Moderate 08/17/2017 Appointment: Radha Sosa WPtel: [facility]2 [facility] (30 min) Complex 07/23/2017 Visit Plan: [...] this patient. 07/19/2017 Appointment: Radha Sosa WPtel: [facility]2 [facility] (30 min) Complex 07/19/2017 Patient Education: [...] 06/13/2017 Appointment: Radha Sosa WPtel: [facility]0 [facility] (15 min) Moderate 06/13/2017 Patient Education: Patient [...] 05/25/2017 Appointment: Radha Sosa WPtel: [facility]7 [facility] [place] (30 min) Complex 05/25/2017 Patient Education: Patient Medication Summary Completed 05/25/2017 Appointment: Radha Sosa WPtel: [phone] [facility] [place] (30 min) Complex 05/24/2017 Visit [...] Appointment: Radha Sosa WPtel: [facility]4 [facility] [place] (30 min) Complex 05/11/2017 Patient [...] as indicated 04/25/2017 Appointment: Radha Sosa WPtel: [facility]8 [facility] [place] (30 min) Complex 04/25/2017 Patient Education: [...] spray. 04/17/2017 Appointment: Radha Sosa WPtel: [phone] [facility] (30 min) Complex 04/17/2017 Patient Education: [...] improved. 04/13/2017 Appointment: Radha Sosa WPtel: [phone] [facility] (15 min) Moderate 04/13/2017 Patient Education: Patient [...] indicated 04/06/2017 Appointment: Ian Radha WPtel: [address] [facility] [place] New Patient 04/06/2017 Patient Education: Patient [...]
[2018-08-07] MEDS ORDERED: HURRICAINE EXT TUBE (BENZOCAINE) XX PRN (10:45)
[2018-08-07] MEDS ORDERED: LIDOCAINE JELLY 2% 6 ML SYRINGE MM PRN (10:45)
[2018-08-07] MEDS ORDERED: MIDAZOLAM 2 MG/2 ML (VERSED) VIAL IVP ONE (10:45)
[2018-08-07] MEDS ORDERED: ONDANSETRON 4 MG/2 ML (SDV) Z0FRAN IV PRN ×2 (10:45)
[2018-08-07] MEDS ORDERED: HYDROcodone/APAP 5 MG/325 MG (LORTAB) TAB PO PRN ×2 (10:45)
[2018-08-07] MEDS ORDERED: morphine INJ 10 MG/ML 1ML (SYR OR VIAL) IV PRN ×2 (10:45)
[2018-08-07] MEDS ORDERED: fentaNYL INJECTION 100 MCG/2 ML AMP IVP ONE (10:45)
[2018-08-07] MEDS ORDERED: ACETAMINOPHEN 325 MG TABLET PO PRN ×2 (10:45)
--- OUTSIDE RECORDS SUMMARY | 2018-08-07 10:45 | XMS REPORT | CCD ---
Author Author Radha Sosa Organization Yamilet Angeles MD, [facility] Address [address] [place] [address] Phone Care Team Providers Care Edging Catcher Name Role Phone PP Unavailable CCM Unavailable Summary Purpose Interface Exchange Insurance Providers Payer name Policy type / Coverage type Covered alliance party ID Effective Begin Date Effective End Date Blue Cross Blue [facility] Blue Cross/Blue [facility] [id number] Unknown Family history Father Diagnosis Age At Onset Arthritis Unknown Cancer Unknown Mother Diagnosis Age At Onset Cancer Unknown Social History Social History Element Codes Description Effective Dates Marital status Unknown Michael 04/17/2017 Number of children Unknown 1 04/06/[address]: 031034992 Never smoker 04/06/[address]: 369024175 Never drinks alcohol 04/06/2017 Allergies, Adverse Reactions, Alerts Substance Reaction Codes Entered Date Inactivated Date Status unknown ingredient - see notes Unknown 04/13/2017 No Inactive Date Active Latex Unknown 04/13/2017 No Inactive Date Active CEPHALOSPORINS Unknown 04/13/2017 No Inactive Date Active Past Medical History Illness Codes Condition Status Onset Date Resolved Date Pneumonia due to other specified infectious organisms ICD-9: 483.8 ICD-10: J16.8 Active 05/01/2018 Unknown Other acute sinusitis ICD-9: 461.8 ICD-10: J01.80 Active 04/06/2017 Unknown Other allergic rhinitis ICD-9: 477.8 ICD-10: J30.89 Active 04/17/2017 Unknown Diverticulitis of large intestine without perforation [...] Problems Condition Codes Effective Dates Condition Status Pneumonia due to other specified infectious organisms ICD-9: 483.8 ICD-10: J16.8 05/01/2018 Active Other acute sinusitis ICD-9: 461.8 ICD-10: J01.80 04/06/2017 Active Other allergic rhinitis ICD-9: 477.8 ICD-10: J30.89 04/17/2017 Active Diverticulitis of large intestine without perforation [...] Instructions pantoprazole 40 mg tablet,delayed release RxNorm: 263913 1 Tablet(s) PO daily 05/16/2018 05/10/2019 Active Augmentin 500 mg-125 mg tablet RxNorm: 909990 1 Tablet(s) PO TID 05/16/2018 05/25/2018 Active Augmentin 500 mg-125 mg tablet RxNorm: 906844 1 Tablet(s) PO TID 05/15/2018 05/15/2018 Inactive pantoprazole 40 mg tablet,delayed release RxNorm: 926148 1 Tablet(s) PO daily 05/15/2018 05/15/2018 Inactive Premarin 1.25 mg tablet RxNorm: 950673 1 Tablet(s) PO daily 05/02/2019 Active Premarin 1.25 mg tablet RxNorm: 724162 1 Tablet(s) PO daily 05/07/2018 Inactive Levaquin 500 mg tablet RxNorm: 903053 1 Tablet(s) PO daily 05/07/2018 Inactive Kenalog 40 mg/mL suspension for injection RxNorm: 5882233 Milliliter(s) Inj 05/01/2018 05/01/2018 Inactive Diflucan 150 mg tablet RxNorm: 587027 Tablet(s) 1 TABLET(S) PO DAILY 05/01/2018 05/05/2018 Inactive doxycycline hyclate 100 mg capsule RxNorm: 0625445 1 Capsule(s) PO BID 04/26/2018 04/29/2018 Inactive ProAir HFA 90 mcg/actuation aerosol inhaler RxNorm: 8630978 1 INH TID 04/19/2018 06/17/2018 Active doxycycline hyclate 100 mg capsule RxNorm: 9800493 1 Capsule(s) PO BID 04/19/2018 04/25/2018 Inactive doxycycline hyclate 100 mg capsule RxNorm: 9260359 1 Capsule(s) PO BID 04/19/2018 04/18/2018 Inactive Diflucan 150 mg tablet RxNorm: 588532 1 TABLET(S) PO DAILY 02/201904/23/2018 Inactive ProAir HFA 90 mcg/actuation aerosol inhaler RxNorm: 9920644 1 INH TID 04/19/2018 04/18/2018 Inactive Zithromax Z-Gary 250 mg tablet RxNorm: 544366 1 Tablet(s) PO UD 04/16/2018 No Stop Date Active Diflucan 150 mg tablet RxNorm: 646159 1 Tablet(s) PO daily 11/201804/18/2018 Inactive Premarin 1.25 mg tablet RxNorm: 730344 1 Tablet(s) PO daily 02/28/2018 Inactive Premarin 1.25 mg tablet RxNorm: 722253 1 Tablet(s) PO daily 04/25/2018 Inactive pantoprazole 40 mg tablet,delayed release RxNorm: 215736 1 Tablet(s) PO daily 02/21/2018 02/20/2018 Inactive pantoprazole 40 mg tablet,delayed release RxNorm: 685577 1 Tablet(s) PO daily 02/21/2018 05/14/2018 Inactive hydrocodone 5 mg-acetaminophen 325 mg tablet RxNorm: 540865 1 Tablet(s) PO TID as needed for pain 02/20/2018 No Stop Date Active Bactrim DS 800 mg-160 mg tablet RxNorm: 632206 1 Tablet(s) PO BID 02/06/2018 02/05/2018 Inactive Bactrim DS 800 mg-160 mg tablet RxNorm: 704202 1 Tablet(s) PO BID 02/06/2018 02/15/2018 Inactive Diflucan 150 mg tablet RxNorm: 792610 1 Tablet(s) PO daily 02/02/2018 Inactive Diflucan 150 mg tablet RxNorm: 658791 1 Tablet(s) PO daily 01/28/2018 Inactive Flagyl 500 mg tablet RxNorm: 272482 1 Tablet(s) PO TID 201702/06/2018 Inactive Premarin 1.25 mg tablet RxNorm: 243455 1 Tablet(s) PO daily 02/28/2018 Inactive Cipro 500 mg tablet RxNorm: 992915 1 Tablet(s) PO BID 201702/06/2018 Inactive hydrocodone 5 mg-acetaminophen 325 mg tablet RxNorm: 702445 1 Tablet(s) PO TID as needed for pain 12/31/2017 02/19/2018 Inactive Premarin 1.25 mg tablet RxNorm: 155329 1 Tablet(s) PO daily 01/27/2018 Inactive Prilosec 20 mg capsule,delayed release RxNorm: 895075 1 Capsule(s) PO daily 11/19/2017 02/20/2018 Inactive hydrocodone 5 mg-acetaminophen 325 mg tablet RxNorm: 282396 1 Tablet(s) PO TID as needed for pain 10/15/2017 12/30/2017 Inactive gabapentin 100 mg capsule RxNorm: 646154 1 Capsule(s) PO BID No Stop Date Active hydrocodone 5 mg-acetaminophen 325 mg tablet RxNorm: 538421 1 Tablet(s) PO QID as needed 09/19/2017 10/14/2017 Inactive Lyrica 50 mg capsule RxNorm: 164049 1 Capsule(s) PO TID 2017 No Stop Date Active Celebrex 200 mg capsule RxNorm: 196944 1 Capsule(s) PO daily 09/18/2017 Inactive Xanax 0.25 mg tablet RxNorm: 673939 1 Tablet(s) PO BID 201708/17/2017 Inactive Cymbalta 30 mg capsule,delayed release RxNorm: 369600 1 Capsule(s) PO daily 07/19/2017 08/17/2017 Inactive amoxicillin 500 mg capsule RxNorm: 349027 1 Capsule(s) PO TID 04/17/2017 04/26/2017 Inactive Prilosec OTC 20 mg tablet,delayed release RxNorm: 272743 1 Tablet(s) PO BID 04/17/2017 05/16/2017 Inactive 1 pill twice a day x 2 weeks, then daily Zofran 4 mg tablet RxNorm: 267648 1 Tablet(s) PO TID as needed 04/13/2017 04/17/2017 Inactive Flagyl 500 mg tablet RxNorm: 053327 1 Tablet(s) PO TID 201704/22/2017 Inactive promethazine 25 mg tablet RxNorm: 179207 1 Tablet(s) PO TID as needed nausea unrelieved by zofran 04/13/20172017 Inactive Zithromax Z-Gary 250 mg tablet RxNorm: 189188 1 Tablet(s) PO UD 04/06/2017 04/16/2017 Inactive prednisone 5 mg tablet RxNorm: 071534 1 Tablet(s) PO daily No Start Date Active Humira Pen 40 mg/0.8 mL subcutaneous RxNorm: 0643699 1 Milliliter(s) SQ QW No Start Date Active Linzess 145 mcg capsule RxNorm: 5483213 1 Capsule(s) PO daily No Start Date 08/16/2017 Inactive Prilosec 20 mg capsule,delayed release RxNorm: 302709 1 Capsule(s) PO daily No Start Date 11/18/2017 Inactive Premarin 1.25 mg tablet RxNorm: 611316 1 Tablet(s) PO daily No Start Date 12/30/2017 Inactive Medication Administered Medication Codes Instructions Start Date Status Kenalog 40 mg/mL suspension for injection RxNorm: 1022289 Milliliter 05/01/2018 No longer Active Immunizations No Immunization data Assessments Condition Codes Effective Dates Pneumonia due to other specified infectious organisms ICD-10 : J16.8 ICD-9: 483.8 05/01/2018 Other allergic rhinitis ICD-10: J30.89 ICD-9: 477.8 04/16/2018 Other acute sinusitis ICD-10: J01.80 ICD-9: 461.8 04/16/2018 Diverticulitis of large intestine without perforation or abscess without bleeding ICD-10: K57.32 ICD-9: 562.11 01/28/2018 Dysuria ICD-10: R30.0 ICD-9: 788.1 01/28/2018 Gastro-esophageal reflux disease without esophagitis ICD-10 : K21.9 ICD-9: 530.81 01/28/2018 Generalized anxiety disorder ICD-10: F41.1 ICD-9: 300.00 10/15/2017 Major depressive disorder, single episode, moderate ICD-10: F32.1 ICD-9: 296.22 10/15/2017 Rheumatoid arthritis with rheumatoid factor of multiple sites without organ or systems involvement ICD-10: M05.79 ICD-9: 714.0 10/15/2017 Chronic pain syndrome ICD-10: G89.4 ICD-9: 338.4 10/15/2017 Slow transit constipation ICD-10: K59.01 ICD-9: 564.01 08/20/2017 Rheumatoid arthritis with rheumatoid factor of right wrist without organ or systems involvement ICD-10: M05.731 ICD-9: 714.0 05/25/2017 Shortness of breath ICD-10: R06.02 ICD-9: 786.05 04/25/2017 Nontoxic goiter, unspecified ICD-10: E04.9 ICD-9: 240.9 04/25/2017 Cough ICD-10: R05 ICD-9: 786.2 04/25/2017 Acute laryngopharyngitis ICD-10: J06.0 ICD-9: 465.0 04/17/2017 Diarrhea, unspecified ICD-10: R19.7 ICD-9: 787.91 04/13/2017 Other specified intestinal infections ICD-10: A08.8 ICD-9: 009.0 04/13/2017 Pain in left knee ICD-10: M25.562 ICD-9: 719.46 04/06/2017 Reason For Visit Reason For Visit Effective Dates Notes sinus congestion 05/01/2018 sinus congestion 04/16/2018 urinary frequency 01/28/2018 pain 10/15/2017 pain 09/19/2017 pain 08/20/2017 pain 07/19/2017 pain 06/13/2017 wrist pain 05/25/2017 abnormal test results 05/11/2017 cough 04/25/2017 abdominal pain 04/17/2017 vomiting 04/13/2017 knee pain 04/06/2017 Results Observation Observation Code Item Item Code Result Date Urine Culture Ucult Complete >100,000 col/ml aerobic growth sent to ref lab 02/01/2018 Urine Culture Ucult Complete NO Growth Day 2 06/06/2017 Urine Culture Ucult Preliminary NO Growth Day 1 06/06/2017 Review of Systems System Result Effective Dates Constitutional recent illness 05/01/2018 Constitutional chills 05/01/2018 [...] contact 04/17/2017 None Full Exam - General 1995 Ears/Nose/Throat oral cavity/pharynx/larynx Posterior Pharynx: clear post nasal drainage 04/17/2017 None Full Exam - General 1995 Ears/Nose/Throat oral cavity/pharynx/larynx Oropharynx: erythema 04/17/2017 None [...] [id number] 05/01/2018 URINALYSIS NONAUTO W/O SCOPE CPT-4: 42161 06/04/2017 Vital Signs Date Vital 05/01/2018 Blood Pressure 1: 134/68 Code : 8480-6 BMI: 22.6 Code : 63926-7 Heart Rate 1 : 83 bpm Height: 4'11" SpO2: 99% Temperature: 37.1 (C) / 98.8 (F) Weight: 112 lbs 04/16/2018 Blood Pressure 1: 122/60 Code : 8480-6 BMI: 22.6 Code : 10090-9 Heart Rate 1 : 72 bpm Height: 4'11" SpO2: 92% Temperature: 36.7 (C) / 98.1 (F) Weight: 112 lbs 01/28/2018 Blood Pressure 1: 136/52 Code : 8480-6 BMI: 22.6 Code : 20606-8 Heart Rate 1 : 76 bpm Height: 4'11" SpO2: 98% Weight: 112 lbs 10/15/2017 Blood Pressure 1: 136/78 Code : 8480-6 BMI: 22.6 Code : 59311-9 Heart Rate 1 : 86 bpm Height: 4'11" SpO2: 98% Weight: 112 lbs 09/19/2017 Blood Pressure 1: 122/68 Code : 8480-6 BMI: 22.4 Code : 15091-6 Heart Rate 1 : 74 bpm Height: 4'11" SpO2: 97% Weight: 111 lbs 08/20/2017 Blood Pressure 1: 132/78 Code : 8480-6 BMI: 22.0 Code : 71738-3 Heart Rate 1 : 80 bpm Height: 4'11" SpO2: 96% Weight: 109 lbs 07/19/2017 Blood Pressure 1: 130/64 Code : 8480-6 BMI: 20.6 Code : 81343-3 Heart Rate 1 : 78 bpm Height: 4'11" SpO2: 98% Weight: 102 lbs 06/13/2017 Blood Pressure 1: 130/64 Code : 8480-6 BMI: 20.0 Code : 76056-3 Heart Rate 1 : 66 bpm Height: 4'11" SpO2: 97% Weight: 99 lbs 05/25/2017 Blood Pressure 1: 132/60 Code : 8480-6 BMI: 20.0 Code : 01201-4 Heart Rate 1 : 81 bpm Height: 4'11" SpO2: 99% Weight: 99 lbs 05/11/2017 Blood Pressure 1: 132/70 Code : 8480-6 Heart Rate 1: 69 bpm Height: SpO2: 99% Weight: 04/25/2017 Blood Pressure 1: 136/78 Code : 8480-6 BMI: 20.2 Code : 27950-7 Heart Rate 1 : 70 bpm Height: 4'11" SpO2: 99% Weight: 100 lbs 04/17/2017 Blood Pressure 1: 118/70 Code : 8480-6 BMI: 20.2 Code : 53065-3 Heart Rate 1 : 62 bpm Height: 4'11" SpO2: 99% Temperature: 36.4 (C) / 97.6 (F) Weight: 100 lbs 04/13/2017 Blood Pressure 1: 136/78 Code : 8480-6 BMI: 19.4 Code : 73670-8 Heart Rate 1 : 79 bpm Height: 4'11" SpO2: 97% Temperature: 36.8 (C) / 98.2 (F) Weight: 96 lbs 04/06/2017 Blood Pressure 1: 120/68 Code : 8480-6 BMI: 20.2 Code : 84005-1 Heart Rate 1 : 71 bpm Height: 4'11" SpO2: 97% Weight: 100 lbs Functional Status No Functional Status data History of Present Illness Symptom Name Status Result Effective Date Notes Location frontal sinuses 05/01/2018 None Quality constant [...] data Encounters Encounter Performer Location Codes Date 54932 EST. PATIENT, LEVEL IV Diagnosis: Pneumonia due to other specified infectious organisms[ICD10: J16.8] Radha Angeles MD, [facility] CPT-4: 32703 05/01/2018 95866 EST. PATIENT, LEVEL IV Diagnosis: Other acute sinusitis[ICD10: J01.80] Diagnosis: Other allergic rhinitis[ICD10: J30.89] Radha Angeles MD, [facility] CPT-4: 96794 04/16/2018 51406 EST. PATIENT, LEVEL III Diagnosis: Dysuria[ICD10: R30.0] Diagnosis: Diverticulitis of large intestine without perforation or abscess without bleeding[ICD10: K57.32] Diagnosis: Gastro-esophageal reflux disease without esophagitis[ICD10: K21.9] Radha Angeles MD, [facility] CPT-4: 40506 01/28/2018 91752 EST. PATIENT, LEVEL III Diagnosis: Rheumatoid arthritis with rheumatoid factor of multiple sites without organ or systems involvement[ICD10: M05.79] Diagnosis: Generalized anxiety disorder[ICD10: F41.1] Diagnosis: Major depressive disorder, single episode, moderate[ICD10: F32.1] Diagnosis: Chronic pain syndrome[ICD10: G89.4] Radha Angeles MD, [facility] CPT-4: 44649 10/15/2017 69578 EST. PATIENT, LEVEL III Diagnosis: Rheumatoid arthritis with rheumatoid factor of multiple sites without organ or systems involvement[ICD10: M05.79] Diagnosis: Generalized anxiety disorder[ICD10: F41.1] Diagnosis: Major depressive disorder, single episode, moderate[ICD10: F32.1] Radha Angeles MD, [facility] CPT-4: 02035 09/19/2017 66352 EST. PATIENT, LEVEL III Diagnosis: Rheumatoid arthritis with rheumatoid factor of multiple sites without organ or systems involvement[ICD10: M05.79] Diagnosis: Generalized anxiety disorder[ICD10: F41.1] Diagnosis: Major depressive disorder, single episode, moderate[ICD10: F32.1] Diagnosis: Slow transit constipation[ICD10: K59.01] Radha Angeles MD, [facility] CPT-4: 37398 08/20/2017 12433 EST. PATIENT, LEVEL III Diagnosis: Rheumatoid arthritis with rheumatoid factor of multiple sites without organ or systems involvement[ICD10: M05.79] Diagnosis: Generalized anxiety disorder[ICD10: F41.1] Diagnosis: Major depressive disorder, single episode, moderate[ICD10: F32.1] Radha Angeles MD, [facility] CPT-4: 55050 07/19/2017 42360 EST. PATIENT, LEVEL III Diagnosis: Rheumatoid arthritis with rheumatoid factor of multiple sites without organ or systems involvement[ICD10: M05.79] Radha Angeles MD, [facility] CPT-4: 74774 06/13/2017 45208 EST. PATIENT, LEVEL III Diagnosis: Rheumatoid arthritis with rheumatoid factor of right wrist without organ or systems involvement[ICD10: M05.731] Radha Angeles MD, [facility] CPT -4: 89548 05/25/2017 60834 EST. PATIENT, LEVEL III Diagnosis: Gastro-esophageal reflux disease without esophagitis[ICD10: K21.9] Diagnosis: Rheumatoid arthritis with rheumatoid factor of multiple sites without organ or systems involvement[ICD10: M05.79] Radha Angeles MD, [facility] CPT-4: 34006 05/11/2017 43342 EST. PATIENT, LEVEL IV Diagnosis: Cough[ICD10: R05] Diagnosis: Gastro-esophageal reflux disease without esophagitis[ICD10: K21.9] Diagnosis: Nontoxic goiter, unspecified[ICD10: E04.9] Diagnosis: Shortness of breath[ICD10: R06.02] Radha Angeles MD, [facility] CPT-4: 44917 04/25/2017 19331 EST. PATIENT, LEVEL IV Diagnosis: Acute laryngopharyngitis[ICD10: J06.0] Diagnosis: Other allergic rhinitis[ICD10: J30.89] Diagnosis: Gastro-esophageal reflux disease without esophagitis[ICD10: K21.9] Radha Angeles MD, [facility] CPT-4: 80041 04/17/2017 26327 EST. PATIENT, LEVEL IV Diagnosis: Diarrhea, unspecified[ICD10: R19.7] Diagnosis: Other specified intestinal infections[ICD10: A08.8] Radha Angeles MD, [facility] CPT-4: 13480 04/13/2017 OFFICE VISIT, NEW - LEVEL 4 Diagnosis: Other acute sinusitis[ICD10: J01.80] Diagnosis: Pain in left knee[ICD10: M25.562] Diagnosis: Nontoxic goiter, unspecified[ICD10: E04.9] Radha Angeles MD, [facility] CPT-4: 59726 04/06/2017 Plan of Care Planned Activity Notes Codes Status Date Appointment: Radha Sosa WPtel: [facility] (15 min) Moderate 05/15/2018 Care Plan: CHEST X-RAY 2VW FRONTAL&LATL LOINC : 74249-0 Pending 05/02/2018 Visit Plan: Pneumonia - Pt has been diagnosed with pneumonia by physical exam. A chest xray has been ordered as have antibiotics. The pt is aware of the diagnosis and the need for acute treatment of this illness. 05/01/2018 Appointment: Radha Sosa WPtel: [phone] [facility] (15 min) Moderate 05/01/2018 Patient Education: Patient [...] allergy spray. 04/16/2018 Appointment: Radha Sosa WPtel: [facility] (15 min) Moderate 04/16/2018 Patient Education: Patient [...] not improving. 01/28/2018 Appointment: Radha Sosa WPtel: [address] [place], [place] [phone] (15 min) Moderate 01/28/2018 Patient [...] of over-medication. 10/15/2017 Appointment: Radha Sosa WPtel: [address] [place], [place] [phone] (15 min) Moderate 10/15/2017 Patient Education: Patient [...] plan. 09/19/2017 Appointment: [phone] [facility] (30 min) Complex 09/19/2017 Patient Education: Patient Medication Summary Completed 09/19/2017 Appointment: Radha Sosa WPtel: [address] [place], [place] [phone] (15 min) Moderate 08/21/2017 Visit Plan: Chronic [...] Summary Completed 08/20/2017 Appointment: Radha Sosa WPtel: [address] [place], [place] [phone] (15 min) Moderate 08/17/2017 Appointment: Radha Sosa WPtel: [address] [place], [place] [address] (30 min) Complex 07/23/2017 Visit Plan: RA [...] this patient. 07/19/2017 Appointment: Radha Sosa WPtel: [address] [place], [place] [phone] (30 min) Complex 07/19/2017 Patient Education: Patient [...] treatment plan. 06/13/2017 Appointment: Radha Sosa WPtel: [address] [place], [place] [phone] (15 min) Moderate 06/13/2017 Patient Education: Patient [...] not improve. 05/25/2017 Appointment: Radha Sosa WPtel: [address] [place], [place] [address] (30 min) Complex 05/25/2017 Patient Education: Patient Medication Summary Completed 05/25/2017 Appointment: Radha Sosa WPtel: [address] [place], [place] [phone] [place] (30 min) Complex 05/24/2017 Visit Plan: [...] plan. 05/11/2017 Appointment: [phone] [facility] (30 min) Complex 05/11/2017 Patient Education: Patient [...] as indicated 04/25/2017 Appointment: Radha Sosa WPtel: [phone] [facility] (30 min) Complex 04/25/2017 Patient Education: Patient [...] allergy spray. 04/17/2017 Appointment: Radha [facility]osa [facility]el[facility] [phone] [facility] (30 min) Complex 04/17/2017 Patient Education: Patient [...] not improved. 04/13/2017 Appointment: Radha Sosa WPtel: [facility] (15 min) Moderate 04/13/2017 Patient Education: Patient [...] indicated 04/06/2017 Appointment: [facility] [phone] [facility] New Patient 04/06/2017 Patient Education: Patient Medication [...] await US and treat/refer as indicated . Pneumonia - Pt has been diagnosed [...]
--- OUTSIDE RECORDS SUMMARY | 2018-08-07 10:46 | XMS REPORT | CCD ---
Author Author Radha Sosa Organization Yamilet Angeles MD, [facility] Address [address] [place] [address] Phone Care Team Providers Care Legal Stenographer Name Role Phone PP Unavailable CCM Unavailable Summary Purpose Interface Exchange Insurance Providers Payer name Policy type / Coverage type Covered constitution party ID Effective Begin Date Effective End Date Blue Cross Blue [facility] Blue Cross/Blue [facility] [id number] Unknown Family history Father Diagnosis Age At Onset Arthritis Unknown Cancer Unknown Mother Diagnosis Age At Onset Cancer Unknown Social History Social History Element Codes Description Effective Dates Marital status Unknown Michael 04/17/2017 Number of children Unknown 1 04/06/[address]: 996601429 Never smoker 04/06/[address]: 910396609 Never drinks alcohol 04/06/2017 Allergies, Adverse Reactions, [...] Instructions pantoprazole 40 mg tablet,delayed release RxNorm: 904963 1 Tablet(s) PO daily 05/15/2018 05/09/2019 Active Premarin 1.25 mg tablet RxNorm: 393742 1 Tablet(s) PO daily 05/02/2019 Active Premarin 1.25 mg tablet RxNorm: 544676 1 Tablet(s) PO daily 05/07/2018 Inactive Levaquin 500 mg tablet RxNorm: 671235 1 Tablet(s) PO daily 05/07/2018 Inactive Kenalog 40 mg/mL suspension for injection RxNorm: 3160921 Milliliter(s) Inj 05/01/2018 05/01/2018 Inactive Diflucan 150 mg tablet RxNorm: 559621 Tablet(s) 1 TABLET(S) PO DAILY 05/01/2018 05/05/2018 Inactive doxycycline hyclate 100 mg capsule RxNorm: 4689740 1 Capsule(s) PO BID 04/26/2018 04/29/2018 Inactive ProAir HFA 90 mcg/actuation aerosol inhaler RxNorm: 2729307 1 INH TID 04/19/2018 06/17/2018 Active doxycycline hyclate 100 mg capsule RxNorm: 4574581 1 Capsule(s) PO BID 04/19/2018 04/25/2018 Inactive doxycycline hyclate 100 mg capsule RxNorm: 2399257 1 Capsule(s) PO BID 04/19/2018 04/18/2018 Inactive Diflucan 150 mg tablet RxNorm: 054254 1 TABLET(S) PO DAILY 02/201904/23/2018 Inactive ProAir HFA 90 mcg/actuation aerosol inhaler RxNorm: 1726889 1 INH TID 04/19/2018 04/18/2018 Inactive Zithromax Z-Gary 250 mg tablet RxNorm: 436033 1 Tablet(s) PO UD 04/16/2018 No Stop Date Active Diflucan 150 mg tablet RxNorm: 006221 1 Tablet(s) PO daily 11/201804/18/2018 Inactive Premarin 1.25 mg tablet RxNorm: 340460 1 Tablet(s) PO daily 02/28/2018 Inactive Premarin 1.25 mg tablet RxNorm: 792770 1 Tablet(s) PO daily 04/25/2018 Inactive pantoprazole 40 mg tablet,delayed release RxNorm: 978505 1 Tablet(s) PO daily 02/21/2018 02/20/2018 Inactive pantoprazole 40 mg tablet,delayed release RxNorm: 003166 1 Tablet(s) PO daily 02/21/2018 05/14/2018 Inactive hydrocodone 5 mg-acetaminophen 325 mg tablet RxNorm: 767437 1 Tablet(s) PO TID as needed for pain 02/20/2018 No Stop Date Active Bactrim DS 800 mg-160 mg tablet RxNorm: 275513 1 Tablet(s) PO BID 02/06/2018 02/05/2018 Inactive Bactrim DS 800 mg-160 mg tablet RxNorm: 412361 1 Tablet(s) PO BID 02/06/2018 02/15/2018 Inactive Diflucan 150 mg tablet RxNorm: 851303 1 Tablet(s) PO daily 02/02/2018 Inactive Diflucan 150 mg tablet RxNorm: 663017 1 Tablet(s) PO daily 01/28/2018 Inactive Flagyl 500 mg tablet RxNorm: 356074 1 Tablet(s) PO TID 201702/06/2018 Inactive Premarin 1.25 mg tablet RxNorm: 682472 1 Tablet(s) PO daily 02/28/2018 Inactive Cipro 500 mg tablet RxNorm: 371330 1 Tablet(s) PO BID 201702/06/2018 Inactive hydrocodone 5 mg-acetaminophen 325 mg tablet RxNorm: 238017 1 Tablet(s) PO TID as needed for pain 12/31/2017 02/19/2018 Inactive Premarin 1.25 mg tablet RxNorm: 622566 1 Tablet(s) PO daily 01/27/2018 Inactive Prilosec 20 mg capsule,delayed release RxNorm: 591570 1 Capsule(s) PO daily 11/19/2017 02/20/2018 Inactive hydrocodone 5 mg-acetaminophen 325 mg tablet RxNorm: 592105 1 Tablet(s) PO TID as needed for pain 10/15/2017 12/30/2017 Inactive gabapentin 100 mg capsule RxNorm: 681324 1 Capsule(s) PO BID No Stop Date Active hydrocodone 5 mg-acetaminophen 325 mg tablet RxNorm: 132665 1 Tablet(s) PO QID as needed 09/19/2017 10/14/2017 Inactive Lyrica 50 mg capsule RxNorm: 797058 1 Capsule(s) PO TID 2017 No Stop Date Active Celebrex 200 mg capsule RxNorm: 203628 1 Capsule(s) PO daily 09/18/2017 Inactive Xanax 0.25 mg tablet RxNorm: 522971 1 Tablet(s) PO BID 201708/17/2017 Inactive Cymbalta 30 mg capsule,delayed release RxNorm: 936704 1 Capsule(s) PO daily 07/19/2017 08/17/2017 Inactive amoxicillin 500 mg capsule RxNorm: 959298 1 Capsule(s) PO TID 04/17/2017 04/26/2017 Inactive Prilosec OTC 20 mg tablet,delayed release RxNorm: 906231 1 Tablet(s) PO BID 04/17/2017 05/16/2017 Inactive 1 pill twice a day x 2 weeks, then daily Zofran 4 mg tablet RxNorm: 891633 1 Tablet(s) PO TID as needed 04/13/2017 04/17/2017 Inactive Flagyl 500 mg tablet RxNorm: 150301 1 Tablet(s) PO TID 201704/22/2017 Inactive promethazine 25 mg tablet RxNorm: 378839 1 Tablet(s) PO TID as needed nausea unrelieved by zofran 04/13/20172017 Inactive Zithromax Z-Gary 250 mg tablet RxNorm: 359481 1 Tablet(s) PO UD 04/06/2017 04/16/2017 Inactive prednisone 5 mg tablet RxNorm: 699781 1 Tablet(s) PO daily No Start Date Active Humira Pen 40 mg/0.8 mL subcutaneous RxNorm: 2510413 1 Milliliter(s) SQ QW No Start Date Active Linzess 145 mcg capsule RxNorm: 3197825 1 Capsule(s) PO daily No Start Date 08/16/2017 Inactive Prilosec 20 mg capsule,delayed release RxNorm: 421913 1 Capsule(s) PO daily No Start Date 11/18/2017 Inactive Premarin 1.25 mg tablet RxNorm: 637935 1 Tablet(s) PO daily No Start Date 12/30/2017 Inactive Medication Administered Medication Codes Instructions Start Date Status Kenalog 40 mg/mL suspension for injection RxNorm: 0495018 Milliliter 05/01/2018 No longer Active Immunizations No Immunization data Assessments Condition Codes Effective Dates Pneumonia due to other specified infectious organisms ICD-10 : J16.8 ICD-9: 483.8 05/01/2018 Other acute sinusitis ICD-10: J01.80 ICD-9: 461.8 04/16/2018 Other allergic rhinitis ICD-10: J30.89 ICD-9: 477.8 04/16/2018 Diverticulitis of large intestine without perforation [...] [id number] 05/01/2018 URINALYSIS NONAUTO W/O SCOPE CPT-4: 85382 06/04/2017 Vital Signs Date Vital 05/01/2018 Blood Pressure 1: 134/68 Code : 8480-6 BMI: 22.6 Code : 00857-9 Heart Rate 1 : 83 bpm Height: 4'11" SpO2: 99% Temperature: 37.1 (C) / 98.8 (F) Weight: 112 lbs 04/16/2018 Blood Pressure 1: 122/60 Code : 8480-6 BMI: 22.6 Code : 79196-5 Heart Rate 1 : 72 bpm Height: 4'11" SpO2: 92% Temperature: 36.7 (C) / 98.1 (F) Weight: 112 lbs 01/28/2018 Blood Pressure 1: 136/52 Code : 8480-6 BMI: 22.6 Code : 06681-5 Heart Rate 1 : 76 bpm Height: 4'11" SpO2: 98% Weight: 112 lbs 10/15/2017 Blood Pressure 1: 136/78 Code : 8480-6 BMI: 22.6 Code : 82749-7 Heart Rate 1 : 86 bpm Height: 4'11" SpO2: 98% Weight: 112 lbs 09/19/2017 Blood Pressure 1: 122/68 Code : 8480-6 BMI: 22.4 Code : 39246-1 Heart Rate 1 : 74 bpm Height: 4'11" SpO2: 97% Weight: 111 lbs 08/20/2017 Blood Pressure 1: 132/78 Code : 8480-6 BMI: 22.0 Code : 46187-3 Heart Rate 1 : 80 bpm Height: 4'11" SpO2: 96% Weight: 109 lbs 07/19/2017 Blood Pressure 1: 130/64 Code : 8480-6 BMI: 20.6 Code : 57786-4 Heart Rate 1 : 78 bpm Height: 4'11" SpO2: 98% Weight: 102 lbs 06/13/2017 Blood Pressure 1: 130/64 Code : 8480-6 BMI: 20.0 Code : 79885-0 Heart Rate 1 : 66 bpm Height: 4'11" SpO2: 97% Weight: 99 lbs 05/25/2017 Blood Pressure 1: 132/60 Code : 8480-6 BMI: 20.0 Code : 46515-3 Heart Rate 1 : 81 bpm Height: 4'11" SpO2: 99% Weight: 99 lbs 05/11/2017 Blood Pressure 1: 132/70 Code : 8480-6 Heart Rate 1: 69 bpm Height: SpO2: 99% Weight: 04/25/2017 Blood Pressure 1: 136/78 Code : 8480-6 BMI: 20.2 Code : 10745-4 Heart Rate 1 : 70 bpm Height: 4'11" SpO2: 99% Weight: 100 lbs 04/17/2017 Blood Pressure 1: 118/70 Code : 8480-6 BMI: 20.2 Code : 35252-8 Heart Rate 1 : 62 bpm Height: 4'11" SpO2: 99% Temperature: 36.4 (C) / 97.6 (F) Weight: 100 lbs 04/13/2017 Blood Pressure 1: 136/78 Code : 8480-6 BMI: 19.4 Code : 83519-7 Heart Rate 1 : 79 bpm Height: 4'11" SpO2: 97% Temperature: 36.8 (C) / 98.2 (F) Weight: 96 lbs 04/06/2017 Blood Pressure 1: 120/68 Code : 8480-6 BMI: 20.2 Code : 18208-4 Heart Rate 1 : 71 bpm Height: [...] Performer Location Codes Date EST. PATIENT, LEVEL IV Diagnosis: Pneumonia due to other specified infectious organisms[ICD10: J16.8] [facility] CPT-4: 81382 05/01/2018 84381 EST. PATIENT, LEVEL IV Diagnosis: Other acute sinusitis[ICD10: J01.80] Diagnosis: Other allergic rhinitis[ICD10: J30.89] [facility] CPT-4: 48354 04/16/2018 83944 EST. PATIENT, LEVEL III Diagnosis: Dysuria[ICD10: R30.0] Diagnosis: Diverticulitis of large intestine without perforation or abscess without bleeding[ICD10: K57.32] Diagnosis: Gastro-esophageal reflux disease without esophagitis[ICD10: K21.9] Radha Angeles MD, [facility] CPT-4: 55783 01/28/2018 76241 EST. PATIENT, LEVEL III Diagnosis: Rheumatoid arthritis with rheumatoid factor of multiple sites without organ or systems involvement[ICD10: M05.79] Diagnosis: Generalized anxiety disorder[ICD10: F41.1] Diagnosis: Major depressive disorder, single episode, moderate[ICD10: F32.1] Diagnosis: Chronic pain syndrome[ICD10: G89.4] Radha Angeles MD, [facility] CPT-4: 20665 10/15/2017 64835 EST. PATIENT, LEVEL III Diagnosis: Rheumatoid arthritis with rheumatoid factor of multiple sites without organ or systems involvement[ICD10: M05.79] Diagnosis: Generalized anxiety disorder[ICD10: F41.1] Diagnosis: Major depressive disorder, single episode, moderate[ICD10: F32.1] Radha Angeles MD, [facility] CPT-4: 26955 09/19/2017 89001 EST. PATIENT, LEVEL III Diagnosis: Rheumatoid arthritis with rheumatoid factor of multiple sites without organ or systems involvement[ICD10: M05.79] Diagnosis: Generalized anxiety disorder[ICD10: F41.1] Diagnosis: Major depressive disorder, single episode, moderate[ICD10: F32.1] Diagnosis: Slow transit constipation[ICD10: K59.01] Radha Angeles MD, [facility] CPT-4: 59264 08/20/2017 82991 EST. PATIENT, LEVEL III Diagnosis: Rheumatoid arthritis with rheumatoid factor of multiple sites without organ or systems involvement[ICD10: M05.79] Diagnosis: Generalized anxiety disorder[ICD10: F41.1] Diagnosis: Major depressive disorder, single episode, moderate[ICD10: F32.1] Radha Angeles MD, [facility] CPT-4: 63870 07/19/2017 93524 EST. PATIENT, LEVEL III Diagnosis: Rheumatoid arthritis with rheumatoid factor of multiple sites without organ or systems involvement[ICD10: M05.79] Radha Angeles MD, [facility] CPT-4: 34110 06/13/2017 16442 EST. PATIENT, LEVEL III Diagnosis: Rheumatoid arthritis with rheumatoid factor of right wrist without organ or systems involvement[ICD10: M05.731] Radha Angeles MD, [facility] CPT -4: 55211 05/25/2017 76910 EST. PATIENT, LEVEL III Diagnosis: Gastro-esophageal reflux disease without esophagitis[ICD10: K21.9] Diagnosis: Rheumatoid arthritis with rheumatoid factor of multiple sites without organ or systems involvement[ICD10: M05.79] Radha Angeles MD, [facility] CPT-4: 43939 05/11/2017 15922 EST. PATIENT, LEVEL IV Diagnosis: Cough[ICD10: R05] Diagnosis: Gastro-esophageal reflux disease without esophagitis[ICD10: K21.9] Diagnosis: Nontoxic goiter, unspecified[ICD10: E04.9] Diagnosis: Shortness of breath[ICD10: R06.02] Radha Angeles MD, [facility] CPT-4: 15983 04/25/2017 26022 EST. PATIENT, LEVEL IV Diagnosis: Acute laryngopharyngitis[ICD10: J06.0] Diagnosis: Other allergic rhinitis[ICD10: J30.89] Diagnosis: Gastro-esophageal reflux disease without esophagitis[ICD10: K21.9] Radha Angeles MD, [facility] CPT-4: 89361 04/17/2017 37662 EST. PATIENT, LEVEL IV Diagnosis: Diarrhea, unspecified[ICD10: R19.7] Diagnosis: Other specified intestinal infections[ICD10: A08.8] Radha Angeles MD, [facility] CPT-4: 74658 04/13/2017 OFFICE VISIT, NEW - LEVEL 4 Diagnosis: Other acute sinusitis[ICD10: J01.80] Diagnosis: Pain in left knee[ICD10: M25.562] Diagnosis: Nontoxic goiter, unspecified[ICD10: E04.9] Radha Angeles MD, [facility] CPT-4: 29499 04/06/2017 Plan of Care Planned Activity Notes Codes Status Date Care Plan: CHEST X-RAY 2VW FRONTAL&LATL LOINC : 47021-0 Pending 05/02/2018 Visit Plan: Pneumonia - Pt has been diagnosed with pneumonia by physical exam. A chest xray has been ordered as have antibiotics. The pt is aware of the diagnosis and the need for acute treatment of this illness. 05/01/2018 Appointment: Radha Sosa WPtel: [phone] [facility]66[facility] (15 min) Moderate 05/01/2018 Patient Education: Patient [...] spray. 04/16/2018 Appointment: Radha Sosa WPtel: [phone] [facility]66[facility] (15 min) Moderate 04/16/2018 Patient Education: [...] not improving. 01/28/2018 Appointment: Radha Sosa WPtel: [address] [place], [place] [phone] (15 min) Moderate 01/28/2018 Patient Education: Patient [...] of over-medication. 10/15/2017 Appointment: Radha Sosa WPtel: [address] [place], [place] [phone] (15 min) Moderate 10/15/2017 Patient Education: Patient [...] treatment plan. 09/19/2017 Appointment: Radha Sosa WPtel: [address] [place], [place] [phone] (30 min) Complex 09/19/2017 Patient Education: Patient Medication Summary Completed 09/19/2017 Appointment: Radha Sosa WPtel: [address] [place], [place] [phone] (15 min) Moderate 08/21/2017 Visit Plan: [...] Summary Completed 08/20/2017 Appointment: Radha Sosa WPtel: [phone] [facility] (15 min) Moderate 08/17/2017 Appointment: Radha Sosa WPtel: [facility] [place][note 2]6 [facility] (30 min) Complex 07/23/2017 Visit Plan: [...] this patient. 07/19/2017 Appointment: Radha Sosa WPtel: [facility] [place][note 2] [facility] [place] (30 min) Complex 07/19/2017 Patient Education: [...] treatment plan. 06/13/2017 Appointment: Radha Sosa WPtel: [facility] [place][note 2]5 [facility] [place] (15 min) Moderate 06/13/2017 Patient Education: [...] not improve. 05/25/2017 Appointment: Radha Sosa WPtel: [facility] [place][note 2]5 [facility] [place] (30 min) Complex 05/25/2017 Patient Education: Patient Medication Summary Completed 05/25/2017 Appointment: Radha Sosa WPtel: [facility] [place][note 2]5 [facility] [place] (30 min) Complex 05/24/2017 [...] treatment plan. 05/11/2017 Appointment: Radha Sosa WPtel: [facility] [place][note 2]5 [facility] [place] (30 min) Complex 05/11/2017 [...] indicated 04/25/2017 Appointment: Radha Sosa WPtel: [phone] [facility]66[facility] (30 min) Complex 04/25/2017 Patient Education: [...] spray. 04/17/2017 Appointment: Radha Sosa WPtel: [phone] (30 min) Complex 04/17/2017 Patient Education: Patient [...] improved. 04/13/2017 Appointment: Radha Sosa WPtel: [phone] [facility] (15 min) Moderate 04/13/2017 Patient [...] as indicated 04/06/2017 Appointment: [facility]el[phone] [facility] 04/06/2017 Patient Education: Patient Medication [...]
--- OUTSIDE RECORDS SUMMARY | 2018-08-07 10:48 | XMS REPORT | CCD ---
Author Author Radha Sosa Organization Yamilet Angeles MD, [facility] Address [address] [place] [address] Phone Care Team Providers Care Chocolate Coater Name Role Phone PP Unavailable CCM Unavailable Summary Purpose Interface Exchange Insurance Providers Payer name Policy type / Coverage type Covered democrat ID Effective Begin Date Effective End Date Blue Cross Blue [facility] Blue Cross/Blue [facility] [id number] Unknown Family history Father Diagnosis Age At Onset Arthritis Unknown Cancer Unknown Mother Diagnosis Age At Onset Cancer Unknown Social History Social History Element Codes Description Effective Dates Marital status Unknown Michael 04/17/2017 Number of children Unknown 1 04/06/[address]: 895654031 Never smoker 04/06/[address]: 746520219 Never drinks alcohol 04/06/2017 Allergies, Adverse Reactions, [...] Fill Instructions Premarin 1.25 mg tablet RxNorm: 881880 1 Tablet(s) PO daily 05/02/2019 Active Premarin 1.25 mg tablet RxNorm: 193132 1 Tablet(s) PO daily 05/07/2018 Inactive Levaquin 500 mg tablet RxNorm: 350003 1 Tablet(s) PO daily 05/07/2018 Inactive Kenalog 40 mg/mL suspension for injection RxNorm: 2075104 Milliliter(s) Inj 05/01/2018 05/01/2018 Inactive Diflucan 150 mg tablet RxNorm: 738175 Tablet(s) 1 TABLET(S) PO DAILY 05/01/2018 05/05/2018 Inactive doxycycline hyclate 100 mg capsule RxNorm: 3158584 1 Capsule(s) PO BID 04/26/2018 04/29/2018 Inactive ProAir HFA 90 mcg/actuation aerosol inhaler RxNorm: 4723517 1 INH TID 04/19/2018 06/17/2018 Active doxycycline hyclate 100 mg capsule RxNorm: 3206643 1 Capsule(s) PO BID 04/19/2018 04/25/2018 Inactive doxycycline hyclate 100 mg capsule RxNorm: 7209252 1 Capsule(s) PO BID 04/19/2018 04/18/2018 Inactive Diflucan 150 mg tablet RxNorm: 634538 1 TABLET(S) PO DAILY 02/201904/23/2018 Inactive ProAir HFA 90 mcg/actuation aerosol inhaler RxNorm: 0428899 1 INH TID 04/19/2018 04/18/2018 Inactive Zithromax Z-Gary 250 mg tablet RxNorm: 014354 1 Tablet(s) PO UD 04/16/2018 No Stop Date Active Diflucan 150 mg tablet RxNorm: 552039 1 Tablet(s) PO daily 11/201804/18/2018 Inactive Premarin 1.25 mg tablet RxNorm: 851947 1 Tablet(s) PO daily 02/28/2018 Inactive Premarin 1.25 mg tablet RxNorm: 226011 1 Tablet(s) PO daily 04/25/2018 Inactive pantoprazole 40 mg tablet,delayed release RxNorm: 046863 1 Tablet(s) PO daily 02/21/2018 06/20/2018 Active pantoprazole 40 mg tablet,delayed release RxNorm: 444014 1 Tablet(s) PO daily 02/21/2018 02/20/2018 Inactive hydrocodone 5 mg-acetaminophen 325 mg tablet RxNorm: 506426 1 Tablet(s) PO TID as needed for pain 02/20/2018 No Stop Date Active Bactrim DS 800 mg-160 mg tablet RxNorm: 557971 1 Tablet(s) PO BID 02/06/2018 02/05/2018 Inactive Bactrim DS 800 mg-160 mg tablet RxNorm: 100739 1 Tablet(s) PO BID 02/06/2018 02/15/2018 Inactive Diflucan 150 mg tablet RxNorm: 032969 1 Tablet(s) PO daily 02/02/2018 Inactive Diflucan 150 mg tablet RxNorm: 251394 1 Tablet(s) PO daily 01/28/2018 Inactive Flagyl 500 mg tablet RxNorm: 069704 1 Tablet(s) PO TID 201702/06/2018 Inactive Premarin 1.25 mg tablet RxNorm: 194414 1 Tablet(s) PO daily 02/28/2018 Inactive Cipro 500 mg tablet RxNorm: 005961 1 Tablet(s) PO BID 201702/06/2018 Inactive hydrocodone 5 mg-acetaminophen 325 mg tablet RxNorm: 811611 1 Tablet(s) PO TID as needed for pain 12/31/2017 02/19/2018 Inactive Premarin 1.25 mg tablet RxNorm: 645821 1 Tablet(s) PO daily 01/27/2018 Inactive Prilosec 20 mg capsule,delayed release RxNorm: 914570 1 Capsule(s) PO daily 11/19/2017 02/20/2018 Inactive hydrocodone 5 mg-acetaminophen 325 mg tablet RxNorm: 449491 1 Tablet(s) PO TID as needed for pain 10/15/2017 12/30/2017 Inactive gabapentin 100 mg capsule RxNorm: 067536 1 Capsule(s) PO BID No Stop Date Active hydrocodone 5 mg-acetaminophen 325 mg tablet RxNorm: 618211 1 Tablet(s) PO QID as needed 09/19/2017 10/14/2017 Inactive Lyrica 50 mg capsule RxNorm: 914754 1 Capsule(s) PO TID 2017 No Stop Date Active Celebrex 200 mg capsule RxNorm: 471697 1 Capsule(s) PO daily 09/18/2017 Inactive Xanax 0.25 mg tablet RxNorm: 446344 1 Tablet(s) PO BID 201708/17/2017 Inactive Cymbalta 30 mg capsule,delayed release RxNorm: 568144 1 Capsule(s) PO daily 07/19/2017 08/17/2017 Inactive amoxicillin 500 mg capsule RxNorm: 129196 1 Capsule(s) PO TID 04/17/2017 04/26/2017 Inactive Prilosec OTC 20 mg tablet,delayed release RxNorm: 795244 1 Tablet(s) PO BID 04/17/2017 05/16/2017 Inactive 1 pill twice a day x 2 weeks, then daily Zofran 4 mg tablet RxNorm: 129650 1 Tablet(s) PO TID as needed 04/13/2017 04/17/2017 Inactive Flagyl 500 mg tablet RxNorm: 123315 1 Tablet(s) PO TID 201704/22/2017 Inactive promethazine 25 mg tablet RxNorm: 798531 1 Tablet(s) PO TID as needed nausea unrelieved by zofran 04/13/20172017 Inactive Zithromax Z-Gary 250 mg tablet RxNorm: 116234 1 Tablet(s) PO UD 04/06/2017 04/16/2017 Inactive prednisone 5 mg tablet RxNorm: 486909 1 Tablet(s) PO daily No Start Date Active Humira Pen 40 mg/0.8 mL subcutaneous RxNorm: 0778738 1 Milliliter(s) SQ QW No Start Date Active Linzess 145 mcg capsule RxNorm: 3576770 1 Capsule(s) PO daily No Start Date 08/16/2017 Inactive Prilosec 20 mg capsule,delayed release RxNorm: 378521 1 Capsule(s) PO daily No Start Date 11/18/2017 Inactive Premarin 1.25 mg tablet RxNorm: 321739 1 Tablet(s) PO daily No Start Date 12/30/2017 Inactive Medication Administered Medication Codes Instructions Start Date Status Kenalog 40 mg/mL suspension for injection RxNorm: 9885000 Milliliter 05/01/2018 No longer Active Immunizations No [...] [id number] 05/01/2018 URINALYSIS NONAUTO W/O SCOPE CPT-4: 04321 06/04/2017 Vital Signs Date Vital 05/01/2018 Blood Pressure 1: 134/68 Code : 8480-6 BMI: 22.6 Code : 76337-1 Heart Rate 1 : 83 bpm Height: 4'11" SpO2: 99% Temperature: 37.1 (C) / 98.8 (F) Weight: 112 lbs 04/16/2018 Blood Pressure 1: 122/60 Code : 8480-6 BMI: 22.6 Code : 79786-3 Heart Rate 1 : 72 bpm Height: 4'11" SpO2: 92% Temperature: 36.7 (C) / 98.1 (F) Weight: 112 lbs 01/28/2018 Blood Pressure 1: 136/52 Code : 8480-6 BMI: 22.6 Code : 10227-3 Heart Rate 1 : 76 bpm Height: 4'11" SpO2: 98% Weight: 112 lbs 10/15/2017 Blood Pressure 1: 136/78 Code : 8480-6 BMI: 22.6 Code : 66763-1 Heart Rate 1 : 86 bpm Height: 4'11" SpO2: 98% Weight: 112 lbs 09/19/2017 Blood Pressure 1: 122/68 Code : 8480-6 BMI: 22.4 Code : 22193-1 Heart Rate 1 : 74 bpm Height: 4'11" SpO2: 97% Weight: 111 lbs 08/20/2017 Blood Pressure 1: 132/78 Code : 8480-6 BMI: 22.0 Code : 52979-0 Heart Rate 1 : 80 bpm Height: 4'11" SpO2: 96% Weight: 109 lbs 07/19/2017 Blood Pressure 1: 130/64 Code : 8480-6 BMI: 20.6 Code : 72128-7 Heart Rate 1 : 78 bpm Height: 4'11" SpO2: 98% Weight: 102 lbs 06/13/2017 Blood Pressure 1: 130/64 Code : 8480-6 BMI: 20.0 Code : 48626-0 Heart Rate 1 : 66 bpm Height: 4'11" SpO2: 97% Weight: 99 lbs 05/25/2017 Blood Pressure 1: 132/60 Code : 8480-6 BMI: 20.0 Code : 33225-0 Heart Rate 1 : 81 bpm Height: 4'11" SpO2: 99% Weight: 99 lbs 05/11/2017 Blood Pressure 1: 132/70 Code : 8480-6 Heart Rate 1: 69 bpm Height: SpO2: 99% Weight: 04/25/2017 Blood Pressure 1: 136/78 Code : 8480-6 BMI: 20.2 Code : 04415-5 Heart Rate 1 : 70 bpm Height: 4'11" SpO2: 99% Weight: 100 lbs 04/17/2017 Blood Pressure 1: 118/70 Code : 8480-6 BMI: 20.2 Code : 92875-8 Heart Rate 1 : 62 bpm Height: 4'11" SpO2: 99% Temperature: 36.4 (C) / 97.6 (F) Weight: 100 lbs 04/13/2017 Blood Pressure 1: 136/78 Code : 8480-6 BMI: 19.4 Code : 09938-3 Heart Rate 1 : 79 bpm Height: 4'11" SpO2: 97% Temperature: 36.8 (C) / 98.2 (F) Weight: 96 lbs 04/06/2017 Blood Pressure 1: 120/68 Code : 8480-6 BMI: 20.2 Code : 16086-4 Heart Rate 1 : 71 bpm Height: [...] organisms[ICD10: J16.8] Radha Angeles MD, [facility] CPT-4: 98218 05/01/2018 16414 EST. PATIENT, LEVEL IV Diagnosis: Other acute sinusitis[ICD10: J01.80] Diagnosis: Other allergic rhinitis[ICD10: J30.89] [facility] CPT-4: 13575 04/16/2018 61092 EST. PATIENT, LEVEL III Diagnosis: Dysuria[ICD10: R30.0] Diagnosis: Diverticulitis of large intestine without perforation or abscess without bleeding[ICD10: K57.32] Diagnosis: Gastro-esophageal reflux disease without esophagitis[ICD10: K21.9] Radha Angeles MD, [facility] CPT-4: 71766 01/28/2018 86884 EST. PATIENT, LEVEL III Diagnosis: Rheumatoid arthritis with rheumatoid factor of multiple sites without organ or systems involvement[ICD10: M05.79] Diagnosis: Generalized anxiety disorder[ICD10: F41.1] Diagnosis: Major depressive disorder, single episode, moderate[ICD10: F32.1] Diagnosis: Chronic pain syndrome[ICD10: G89.4] Radha Angeles MD, [facility] CPT-4: 96679 10/15/2017 09082 EST. PATIENT, LEVEL III Diagnosis: Rheumatoid arthritis with rheumatoid factor of multiple sites without organ or systems involvement[ICD10: M05.79] Diagnosis: Generalized anxiety disorder[ICD10: F41.1] Diagnosis: Major depressive disorder, single episode, moderate[ICD10: F32.1] Radha Angeles MD, [facility] CPT-4: 69075 09/19/2017 51851 EST. PATIENT, LEVEL III Diagnosis: Rheumatoid arthritis with rheumatoid factor of multiple sites without organ or systems involvement[ICD10: M05.79] Diagnosis: Generalized anxiety disorder[ICD10: F41.1] Diagnosis: Major depressive disorder, single episode, moderate[ICD10: F32.1] Diagnosis: Slow transit constipation[ICD10: K59.01] Radha Angeles MD, [facility] CPT-4: 61508 08/20/2017 15952 EST. PATIENT, LEVEL III Diagnosis: Rheumatoid arthritis with rheumatoid factor of multiple sites without organ or systems involvement[ICD10: M05.79] Diagnosis: Generalized anxiety disorder[ICD10: F41.1] Diagnosis: Major depressive disorder, single episode, moderate[ICD10: F32.1] Radha Angeles MD, [facility] CPT-4: 00370 07/19/2017 57153 EST. PATIENT, LEVEL III Diagnosis: Rheumatoid arthritis with rheumatoid factor of multiple sites without organ or systems involvement[ICD10: M05.79] Radha Angeles MD, [facility] CPT-4: 27701 06/13/2017 02409 EST. PATIENT, LEVEL III Diagnosis: Rheumatoid arthritis with rheumatoid factor of right wrist without organ or systems involvement[ICD10: M05.731] Radha Angeles MD, [facility] CPT -4: 44751 05/25/2017 40770 EST. PATIENT, LEVEL III Diagnosis: Gastro-esophageal reflux disease without esophagitis[ICD10: K21.9] Diagnosis: Rheumatoid arthritis with rheumatoid factor of multiple sites without organ or systems involvement[ICD10: M05.79] Radha Angeles MD, [facility] CPT-4: 02502 05/11/2017 23037 EST. PATIENT, LEVEL IV Diagnosis: Cough[ICD10: R05] Diagnosis: Gastro-esophageal reflux disease without esophagitis[ICD10: K21.9] Diagnosis: Nontoxic goiter, unspecified[ICD10: E04.9] Diagnosis: Shortness of breath[ICD10: R06.02] Radha Angeles MD, [facility] CPT-4: 20062 04/25/2017 00966 EST. PATIENT, LEVEL IV Diagnosis: Acute laryngopharyngitis[ICD10: J06.0] Diagnosis: Other allergic rhinitis[ICD10: J30.89] Diagnosis: Gastro-esophageal reflux disease without esophagitis[ICD10: K21.9] Radha Angeles MD, [facility] CPT-4: 67975 04/17/2017 72228 EST. PATIENT, LEVEL IV Diagnosis: Diarrhea, unspecified[ICD10: R19.7] Diagnosis: Other specified intestinal infections[ICD10: A08.8] Radha Angeles MD, [facility] CPT-4: 36566 04/13/2017 OFFICE VISIT, NEW - LEVEL 4 Diagnosis: Other acute sinusitis[ICD10: J01.80] Diagnosis: Pain in left knee[ICD10: M25.562] Diagnosis: Nontoxic goiter, unspecified[ICD10: E04.9] Radha Angeles MD, [facility] CPT-4: 16761 04/06/2017 Plan of Care Planned Activity Notes Codes Status Date Care Plan: CHEST X-RAY 2VW FRONTAL&LATL LOINC : 83169-1 Pending 05/02/2018 Visit Plan: Pneumonia - Pt has been diagnosed with pneumonia by physical exam. A chest xray has been ordered as have antibiotics. The pt is aware of the diagnosis and the need for acute treatment of this illness. 05/01/2018 Appointment: Radha Sosa WPtel: [address] [place], [place] [id number] (15 min) Moderate 05/01/2018 Patient [...] allergy spray. 04/16/2018 Appointment: Radha Sosa WPtel: [address] [place], [place] [address] (15 min) Moderate 04/16/2018 Patient Education: Patient [...] improving. 01/28/2018 Appointment: Radha Sosa WPtel: [phone] [facility] (15 min) Moderate 01/28/2018 Patient Education: [...] of over-medication. 10/15/2017 Appointment: Radha Sosa WPtel: [facility] (15 min) Moderate 10/15/2017 Patient Education: [...] treatment plan. 09/19/2017 Appointment: Radha Sosa WPtel: [facility] (30 min) Complex 09/19/2017 Patient Education: Patient Medication Summary Completed 09/19/2017 Appointment: Radha Sosa WPtel: [facility] (15 min) Moderate 08/21/2017 Visit Plan: [...] Summary Completed 08/20/2017 Appointment: Radha Sosa WPtel: [address] [place], [place] [phone] (15 min) Moderate 08/17/2017 Appointment: Radha Sosa WPtel: [facility] (30 min) Complex 07/23/2017 Visit [...] this patient. 07/19/2017 Appointment: Radha Sosa WPtel: [facility] (30 min) Complex 07/19/2017 Patient Education: [...] plan. 06/13/2017 Appointment: Radha Sosa WPtel: [phone] [facility] [place] (15 min) Moderate 06/13/2017 Patient [...] improve. 05/25/2017 Appointment: Radha Sosa WPtel: [phone] [facility] [place] (30 min) Complex 05/25/2017 Patient Education: Patient Medication Summary Completed 05/25/2017 Appointment: Radha Sosa WPtel: [phone] [facility] [place] (30 min) Complex 05/24/2017 Visit [...] treatment plan. 05/11/2017 Appointment: Radha Sosa WPtel: [facility] [place] (30 min) Complex 05/11/2017 Patient [...] indicated 04/25/2017 Appointment: Radha Sosa WPtel: [phone] [facility] (30 min) Complex 04/25/2017 Patient Education: [...] allergy spray. 04/17/2017 Appointment: Radha Sosa WPtel: [facility] (30 min) Complex 04/17/2017 Patient [...] if symptoms not improved. 04/13/2017 Appointment: Radha Sosal: [facility] (15 min) Moderate 04/13/2017 Patient Education: [...] as indicated 04/06/2017 Appointment: Radha Sosa WPtel[facility] [facility] 04/06/2017 Patient Education: Patient [...]
--- OUTSIDE RECORDS SUMMARY | 2018-08-07 10:49 | XMS REPORT | CCD ---
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 Name Role Phone PP Unavailable CCM Unavailable Summary Purpose Interface Exchange Insurance Providers Payer name Policy type / Coverage type Covered republican ID Effective Begin Date Effective End Date Blue Cross Blue [facility] Blue Cross/Blue [facility] [id number] Unknown Family history Father Diagnosis Age At Onset Arthritis Unknown Cancer Unknown Mother Diagnosis Age At Onset Cancer Unknown Social History Social History Element Codes Description Effective Dates Marital status Unknown Michael 04/17/2017 Number of children Unknown 1 04/06/[address]: 914205176 Never smoker 04/06/[address]: 894821680 Never drinks alcohol 04/06/2017 Allergies, Adverse Reactions, [...] Fill Instructions Premarin 1.25 mg tablet RxNorm: 588367 1 Tablet(s) PO daily 09/02/2018 Active Levaquin 500 mg tablet RxNorm: 264805 1 Tablet(s) PO daily 05/07/2018 Active Kenalog 40 mg/mL suspension for injection RxNorm: 5229844 Milliliter(s) Inj 05/01/2018 05/01/2018 Inactive Diflucan 150 mg tablet RxNorm: 186041 Tablet(s) 1 TABLET(S) PO DAILY 05/01/2018 05/05/2018 Inactive doxycycline hyclate 100 mg capsule RxNorm: 5502858 1 Capsule(s) PO BID 04/26/2018 04/29/2018 Inactive ProAir HFA 90 mcg/actuation aerosol inhaler RxNorm: 9474965 1 INH TID 04/19/2018 06/17/2018 Active doxycycline hyclate 100 mg capsule RxNorm: 7122676 1 Capsule(s) PO BID 04/19/2018 04/25/2018 Inactive doxycycline hyclate 100 mg capsule RxNorm: 5487355 1 Capsule(s) PO BID 04/19/2018 04/18/2018 Inactive Diflucan 150 mg tablet RxNorm: 759405 1 TABLET(S) PO DAILY 02/201904/23/2018 Inactive ProAir HFA 90 mcg/actuation aerosol inhaler RxNorm: 4581981 1 INH TID 04/19/2018 04/18/2018 Inactive Zithromax Z-Gary 250 mg tablet RxNorm: 753389 1 Tablet(s) PO UD 04/16/2018 No Stop Date Active Diflucan 150 mg tablet RxNorm: 263100 1 Tablet(s) PO daily 11/201804/18/2018 Inactive Premarin 1.25 mg tablet RxNorm: 588544 1 Tablet(s) PO daily 02/28/2018 Inactive Premarin 1.25 mg tablet RxNorm: 271632 1 Tablet(s) PO daily 04/25/2018 Inactive pantoprazole 40 mg tablet,delayed release RxNorm: 374008 1 Tablet(s) PO daily 02/21/2018 06/20/2018 Active pantoprazole 40 mg tablet,delayed release RxNorm: 203157 1 Tablet(s) PO daily 02/21/2018 02/20/2018 Inactive hydrocodone 5 mg-acetaminophen 325 mg tablet RxNorm: 458875 1 Tablet(s) PO TID as needed for pain 02/20/2018 No Stop Date Active Bactrim DS 800 mg-160 mg tablet RxNorm: 039223 1 Tablet(s) PO BID 02/06/2018 02/05/2018 Inactive Bactrim DS 800 mg-160 mg tablet RxNorm: 205516 1 Tablet(s) PO BID 02/06/2018 02/15/2018 Inactive Diflucan 150 mg tablet RxNorm: 929440 1 Tablet(s) PO daily 02/02/2018 Inactive Diflucan 150 mg tablet RxNorm: 053649 1 Tablet(s) PO daily 01/28/2018 Inactive Flagyl 500 mg tablet RxNorm: 749846 1 Tablet(s) PO TID 201702/06/2018 Inactive Premarin 1.25 mg tablet RxNorm: 859253 1 Tablet(s) PO daily 02/28/2018 Inactive Cipro 500 mg tablet RxNorm: 626841 1 Tablet(s) PO BID 201702/06/2018 Inactive hydrocodone 5 mg-acetaminophen 325 mg tablet RxNorm: 532895 1 Tablet(s) PO TID as needed for pain 12/31/2017 02/19/2018 Inactive Premarin 1.25 mg tablet RxNorm: 739662 1 Tablet(s) PO daily 01/27/2018 Inactive Prilosec 20 mg capsule,delayed release RxNorm: 811242 1 Capsule(s) PO daily 11/19/2017 02/20/2018 Inactive hydrocodone 5 mg-acetaminophen 325 mg tablet RxNorm: 225041 1 Tablet(s) PO TID as needed for pain 10/15/2017 12/30/2017 Inactive gabapentin 100 mg capsule RxNorm: 141164 1 Capsule(s) PO BID No Stop Date Active hydrocodone 5 mg-acetaminophen 325 mg tablet RxNorm: 212048 1 Tablet(s) PO QID as needed 09/19/2017 10/14/2017 Inactive Lyrica 50 mg capsule RxNorm: 922477 1 Capsule(s) PO TID 2017 No Stop Date Active Celebrex 200 mg capsule RxNorm: 461871 1 Capsule(s) PO daily 09/18/2017 Inactive Xanax 0.25 mg tablet RxNorm: 740629 1 Tablet(s) PO BID 201708/17/2017 Inactive Cymbalta 30 mg capsule,delayed release RxNorm: 938721 1 Capsule(s) PO daily 07/19/2017 08/17/2017 Inactive amoxicillin 500 mg capsule RxNorm: 879219 1 Capsule(s) PO TID 04/17/2017 04/26/2017 Inactive Prilosec OTC 20 mg tablet,delayed release RxNorm: 306018 1 Tablet(s) PO BID 04/17/2017 05/16/2017 Inactive 1 pill twice a day x 2 weeks, then daily Zofran 4 mg tablet RxNorm: 829532 1 Tablet(s) PO TID as needed 04/13/2017 04/17/2017 Inactive Flagyl 500 mg tablet RxNorm: 790783 1 Tablet(s) PO TID 201704/22/2017 Inactive promethazine 25 mg tablet RxNorm: 847429 1 Tablet(s) PO TID as needed nausea unrelieved by zofran 04/13/20172017 Inactive Zithromax Z-Gary 250 mg tablet RxNorm: 680930 1 Tablet(s) PO UD 04/06/2017 04/16/2017 Inactive prednisone 5 mg tablet RxNorm: 227153 1 Tablet(s) PO daily No Start Date Active Humira Pen 40 mg/0.8 mL subcutaneous RxNorm: 7780390 1 Milliliter(s) SQ QW No Start Date Active Linzess 145 mcg capsule RxNorm: 0850111 1 Capsule(s) PO daily No Start Date 08/16/2017 Inactive Prilosec 20 mg capsule,delayed release RxNorm: 415812 1 Capsule(s) PO daily No Start Date 11/18/2017 Inactive Premarin 1.25 mg tablet RxNorm: 839407 1 Tablet(s) PO daily No Start Date 12/30/2017 Inactive Medication Administered Medication Codes Instructions Start Date Status Kenalog 40 mg/mL suspension for injection RxNorm: 6692988 Milliliter 05/01/2018 No longer Active Immunizations No [...] [id number] 05/01/2018 URINALYSIS NONAUTO W/O SCOPE CPT-4: 42403 06/04/2017 Vital Signs Date Vital 05/01/2018 Blood Pressure 1: 134/68 Code : 8480-6 BMI: 22.6 Code : 94145-1 Heart Rate 1 : 83 bpm Height: 4'11" SpO2: 99% Temperature: 37.1 (C) / 98.8 (F) Weight: 112 lbs 04/16/2018 Blood Pressure 1: 122/60 Code : 8480-6 BMI: 22.6 Code : 12479-4 Heart Rate 1 : 72 bpm Height: 4'11" SpO2: 92% Temperature: 36.7 (C) / 98.1 (F) Weight: 112 lbs 01/28/2018 Blood Pressure 1: 136/52 Code : 8480-6 BMI: 22.6 Code : 86319-1 Heart Rate 1 : 76 bpm Height: 4'11" SpO2: 98% Weight: 112 lbs 10/15/2017 Blood Pressure 1: 136/78 Code : 8480-6 BMI: 22.6 Code : 14206-4 Heart Rate 1 : 86 bpm Height: 4'11" SpO2: 98% Weight: 112 lbs 09/19/2017 Blood Pressure 1: 122/68 Code : 8480-6 BMI: 22.4 Code : 60709-6 Heart Rate 1 : 74 bpm Height: 4'11" SpO2: 97% Weight: 111 lbs 08/20/2017 Blood Pressure 1: 132/78 Code : 8480-6 BMI: 22.0 Code : 62048-6 Heart Rate 1 : 80 bpm Height: 4'11" SpO2: 96% Weight: 109 lbs 07/19/2017 Blood Pressure 1: 130/64 Code : 8480-6 BMI: 20.6 Code : 06361-5 Heart Rate 1 : 78 bpm Height: 4'11" SpO2: 98% Weight: 102 lbs 06/13/2017 Blood Pressure 1: 130/64 Code : 8480-6 BMI: 20.0 Code : 19818-0 Heart Rate 1 : 66 bpm Height: 4'11" SpO2: 97% Weight: 99 lbs 05/25/2017 Blood Pressure 1: 132/60 Code : 8480-6 BMI: 20.0 Code : 59591-9 Heart Rate 1 : 81 bpm Height: 4'11" SpO2: 99% Weight: 99 lbs 05/11/2017 Blood Pressure 1: 132/70 Code : 8480-6 Heart Rate 1: 69 bpm Height: SpO2: 99% Weight: 04/25/2017 Blood Pressure 1: 136/78 Code : 8480-6 BMI: 20.2 Code : 39764-5 Heart Rate 1 : 70 bpm Height: 4'11" SpO2: 99% Weight: 100 lbs 04/17/2017 Blood Pressure 1: 118/70 Code : 8480-6 BMI: 20.2 Code : 80653-2 Heart Rate 1 : 62 bpm Height: 4'11" SpO2: 99% Temperature: 36.4 (C) / 97.6 (F) Weight: 100 lbs 04/13/2017 Blood Pressure 1: 136/78 Code : 8480-6 BMI: 19.4 Code : 36500-9 Heart Rate 1 : 79 bpm Height: 4'11" SpO2: 97% Temperature: 36.8 (C) / 98.2 (F) Weight: 96 lbs 04/06/2017 Blood Pressure 1: 120/68 Code : 8480-6 BMI: 20.2 Code : 67960-8 Heart Rate 1 : 71 bpm Height: [...] specified infectious organisms[ICD10: J16.8] Radha Angeles MD, [facility] CPT-4: 53390 05/01/2018 51466 EST. PATIENT, LEVEL IV Diagnosis: Other acute sinusitis[ICD10: J01.80] Diagnosis: Other allergic rhinitis[ICD10: J30.89] Radha Angeles MD, [facility] CPT-4: 50536 04/16/2018 04505 EST. PATIENT, LEVEL III Diagnosis: Dysuria[ICD10: R30.0] Diagnosis: Diverticulitis of large intestine without perforation or abscess without bleeding[ICD10: K57.32] Diagnosis: Gastro-esophageal reflux disease without esophagitis[ICD10: K21.9] [facility] CPT-4: 84607 01/28/2018 70937 EST. PATIENT, LEVEL III Diagnosis: Rheumatoid arthritis with rheumatoid factor of multiple sites without organ or systems involvement[ICD10: M05.79] Diagnosis: Generalized anxiety disorder[ICD10: F41.1] Diagnosis: Major depressive disorder, single episode, moderate[ICD10: F32.1] Diagnosis: Chronic pain syndrome[ICD10: G89.4] Radha Angeles MD, [facility] CPT-4: 26304 10/15/2017 95931 EST. PATIENT, LEVEL III Diagnosis: Rheumatoid arthritis with rheumatoid factor of multiple sites without organ or systems involvement[ICD10: M05.79] Diagnosis: Generalized anxiety disorder[ICD10: F41.1] Diagnosis: Major depressive disorder, single episode, moderate[ICD10: F32.1] Radha Angeles MD, [facility] CPT-4: 40358 09/19/2017 45066 EST. PATIENT, LEVEL III Diagnosis: Rheumatoid arthritis with rheumatoid factor of multiple sites without organ or systems involvement[ICD10: M05.79] Diagnosis: Generalized anxiety disorder[ICD10: F41.1] Diagnosis: Major depressive disorder, single episode, moderate[ICD10: F32.1] Diagnosis: Slow transit constipation[ICD10: K59.01] Radha Angeles MD, [facility] CPT-4: 82890 08/20/2017 75366 EST. PATIENT, LEVEL III Diagnosis: Rheumatoid arthritis with rheumatoid factor of multiple sites without organ or systems involvement[ICD10: M05.79] Diagnosis: Generalized anxiety disorder[ICD10: F41.1] Diagnosis: Major depressive disorder, single episode, moderate[ICD10: F32.1] Radha Angeles MD, [facility] CPT-4: 50092 07/19/2017 49329 EST. PATIENT, LEVEL III Diagnosis: Rheumatoid arthritis with rheumatoid factor of multiple sites without organ or systems involvement[ICD10: M05.79] Radha Angeles MD, [facility] CPT-4: 20532 06/13/2017 14158 EST. PATIENT, LEVEL III Diagnosis: Rheumatoid arthritis with rheumatoid factor of right wrist without organ or systems involvement[ICD10: M05.731] Radha Angeles MD, [facility] CPT -4: 88985 05/25/2017 64895 EST. PATIENT, LEVEL III Diagnosis: Gastro-esophageal reflux disease without esophagitis[ICD10: K21.9] Diagnosis: Rheumatoid arthritis with rheumatoid factor of multiple sites without organ or systems involvement[ICD10: M05.79] Radha Angeles MD, [facility] CPT-4: 68915 05/11/2017 48458 EST. PATIENT, LEVEL IV Diagnosis: Cough[ICD10: R05] Diagnosis: Gastro-esophageal reflux disease without esophagitis[ICD10: K21.9] Diagnosis: Nontoxic goiter, unspecified[ICD10: E04.9] Diagnosis: Shortness of breath[ICD10: R06.02] Radha Angeles MD, [facility] CPT-4: 99364 04/25/2017 11062 EST. PATIENT, LEVEL IV Diagnosis: Acute laryngopharyngitis[ICD10: J06.0] Diagnosis: Other allergic rhinitis[ICD10: J30.89] Diagnosis: Gastro-esophageal reflux disease without esophagitis[ICD10: K21.9] Radha Angeles MD, [facility] CPT-4: 80914 04/17/2017 45970 EST. PATIENT, LEVEL IV Diagnosis: Diarrhea, unspecified[ICD10: R19.7] Diagnosis: Other specified intestinal infections[ICD10: A08.8] Radha Angeles MD, [facility] CPT-4: 35525 04/13/2017 OFFICE VISIT, NEW - LEVEL 4 Diagnosis: Other acute sinusitis[ICD10: J01.80] Diagnosis: Pain in left knee[ICD10: M25.562] Diagnosis: Nontoxic goiter, unspecified[ICD10: E04.9] Radha Angeles MD, [facility] CPT-4: 68171 04/06/2017 Plan of Care Planned Activity Notes Codes Status Date Care Plan: CHEST X-RAY 2VW FRONTAL&LATL LOINC : 06560-3 Pending 05/02/2018 Visit Plan: Pneumonia - Pt has been diagnosed with pneumonia by physical exam. A chest xray has been ordered as have antibiotics. The pt is aware of the diagnosis and the need for acute treatment of this illness. 05/01/2018 Appointment: Radha Sosa WPtel: [address] [place], [place] [id number] (15 min) Moderate 05/01/2018 Patient Education: Patient [...] spray. 04/16/2018 Appointment: Radha Sosa WPtel: [phone] [facility] (15 min) Moderate 04/16/2018 Patient Education: Patient [...] improving. 01/28/2018 Appointment: Radha Sosa WPtel: [phone] [facility] (15 min) Moderate 01/28/2018 Patient Education: Patient [...] of over-medication. 10/15/2017 Appointment: Radha Sosa WPtel: [address] [place] [address] (15 min) Moderate 10/15/2017 Patient Education: Patient [...] treatment plan. 09/19/2017 Appointment: Radha Sosa WPtel: [address] [place], [place] [phone] (30 min) Complex 09/19/2017 Patient Education: Patient Medication Summary Completed 09/19/2017 Appointment: Radha Sosa WPtel: [address] [place], [place] [email or web address]] (15 min) Moderate 08/21/2017 Visit Plan: Chronic [...] Completed 08/20/2017 Appointment: Radha Sosa WPtel: [address] [facility] (15 min) Moderate 08/17/2017 Appointment: Radha Sosa WPtel: [facility] [address] [facility] (30 min) Complex 07/23/2017 Visit Plan: RA [...] this patient. 07/19/2017 [facility]ment[facility] ([facility] Complex 07/19/2017 Patient Education: Patient [...] treatment plan. 06/13/2017 Appointment: [facility]el[facility] [facility] (15 min) Moderate 06/13/2017 Patient Education: Patient [...] improve. 05/25/2017 Appointment: Radha Sosa WPtel: [address] [facility] [place] (30 min) Complex 05/25/2017 Patient Education: Patient Medication Summary Completed 05/25/2017 Appointment: Radha Sosa WPtel: [facility] [address] [facility] [place] (30 min) Complex 05/24/2017 Visit Plan: [...] treatment plan. 05/11/2017 Appointment: Radha Sosa WPtel: [facility] [address] [facility] [place] (30 min) Complex 05/11/2017 Patient Education: [...] indicated 04/25/2017 Appointment: Radha Sosa WPtel: [phone] [facility] [place] (30 min) Complex 04/25/2017 Patient Education: [...] spray. 04/17/2017 App[facility]ment: [facility]osa [facility]el[phone] [facility] (30 min) Complex 04/17/2017 Patient Education: Patient [...] improved. 04/13/2017 Appointment: [facility]osa [facility]el[phone] [facility] (15 min) Moderate 04/13/2017 Patient Education: Patient [...] as indicated 04/06/2017 Appointment: Rad[facility]osa [facility]Ptel[facility] [address] [facility] [place] New Patient 04/06/2017 Patient Education: Patient [...]
--- OUTSIDE RECORDS SUMMARY | 2018-08-07 10:51 | XMS REPORT | CCD ---
Author Author Radha Sosa Organization Yamilet Angeles MD, [facility] Address [address] [place] [address] Phone Care Team Providers Care Hose Coupling Joiner Name Role Phone PP Unavailable CCM Unavailable Summary Purpose Interface Exchange Insurance Providers Payer name Policy type / Coverage type Covered alliance party ID Effective Begin Date Effective End Date Blue Cross Blue [facility] Blue Cross/Blue [facility] [id number] Unknown Family history Father Diagnosis Age At Onset Arthritis Unknown Cancer Unknown Mother Diagnosis Age At Onset Cancer Unknown Social History Social History Element Codes Description Effective Dates Marital status Unknown Michael 04/17/2017 Number of children Unknown 1 04/06/[address]: 147913288 Never smoker 04/06/[address]: 919974124 Never drinks alcohol 04/06/2017 Allergies, Adverse Reactions, [...] Fill Instructions Premarin 1.25 mg tablet RxNorm: 857418 1 Tablet(s) PO daily 09/02/2018 Active Levaquin 500 mg tablet RxNorm: 651525 1 Tablet(s) PO daily 05/07/2018 Active Kenalog 40 mg/mL suspension for injection RxNorm: 2470165 Milliliter(s) Inj 05/01/2018 05/01/2018 Inactive Diflucan 150 mg tablet RxNorm: 279929 Tablet(s) 1 TABLET(S) PO DAILY 05/01/2018 05/05/2018 Inactive doxycycline hyclate 100 mg capsule RxNorm: 1372030 1 Capsule(s) PO BID 04/26/2018 04/29/2018 Inactive ProAir HFA 90 mcg/actuation aerosol inhaler RxNorm: 5330810 1 INH TID 04/19/2018 06/17/2018 Active doxycycline hyclate 100 mg capsule RxNorm: 0893649 1 Capsule(s) PO BID 04/19/2018 04/25/2018 Inactive doxycycline hyclate 100 mg capsule RxNorm: 3982875 1 Capsule(s) PO BID 04/19/2018 04/18/2018 Inactive Diflucan 150 mg tablet RxNorm: 890633 1 TABLET(S) PO DAILY 02/201904/23/2018 Inactive ProAir HFA 90 mcg/actuation aerosol inhaler RxNorm: 0318324 1 INH TID 04/19/2018 04/18/2018 Inactive Zithromax Z-Gary 250 mg tablet RxNorm: 990201 1 Tablet(s) PO UD 04/16/2018 No Stop Date Active Diflucan 150 mg tablet RxNorm: 142860 1 Tablet(s) PO daily 11/201804/18/2018 Inactive Premarin 1.25 mg tablet RxNorm: 950324 1 Tablet(s) PO daily 02/28/2018 Inactive Premarin 1.25 mg tablet RxNorm: 801366 1 Tablet(s) PO daily 04/25/2018 Inactive pantoprazole 40 mg tablet,delayed release RxNorm: 714471 1 Tablet(s) PO daily 02/21/2018 06/20/2018 Active pantoprazole 40 mg tablet,delayed release RxNorm: 153853 1 Tablet(s) PO daily 02/21/2018 02/20/2018 Inactive hydrocodone 5 mg-acetaminophen 325 mg tablet RxNorm: 664688 1 Tablet(s) PO TID as needed for pain 02/20/2018 No Stop Date Active Bactrim DS 800 mg-160 mg tablet RxNorm: 706630 1 Tablet(s) PO BID 02/06/2018 02/05/2018 Inactive Bactrim DS 800 mg-160 mg tablet RxNorm: 943027 1 Tablet(s) PO BID 02/06/2018 02/15/2018 Inactive Diflucan 150 mg tablet RxNorm: 849438 1 Tablet(s) PO daily 02/02/2018 Inactive Diflucan 150 mg tablet RxNorm: 234296 1 Tablet(s) PO daily 01/28/2018 Inactive Flagyl 500 mg tablet RxNorm: 519881 1 Tablet(s) PO TID 201702/06/2018 Inactive Premarin 1.25 mg tablet RxNorm: 407633 1 Tablet(s) PO daily 02/28/2018 Inactive Cipro 500 mg tablet RxNorm: 087454 1 Tablet(s) PO BID 201702/06/2018 Inactive hydrocodone 5 mg-acetaminophen 325 mg tablet RxNorm: 369862 1 Tablet(s) PO TID as needed for pain 12/31/2017 02/19/2018 Inactive Premarin 1.25 mg tablet RxNorm: 425547 1 Tablet(s) PO daily 01/27/2018 Inactive Prilosec 20 mg capsule,delayed release RxNorm: 585119 1 Capsule(s) PO daily 11/19/2017 02/20/2018 Inactive hydrocodone 5 mg-acetaminophen 325 mg tablet RxNorm: 627037 1 Tablet(s) PO TID as needed for pain 10/15/2017 12/30/2017 Inactive gabapentin 100 mg capsule RxNorm: 043753 1 Capsule(s) PO BID No Stop Date Active hydrocodone 5 mg-acetaminophen 325 mg tablet RxNorm: 536131 1 Tablet(s) PO QID as needed 09/19/2017 10/14/2017 Inactive Lyrica 50 mg capsule RxNorm: 134296 1 Capsule(s) PO TID 2017 No Stop Date Active Celebrex 200 mg capsule RxNorm: 970577 1 Capsule(s) PO daily 09/18/2017 Inactive Xanax 0.25 mg tablet RxNorm: 024778 1 Tablet(s) PO BID 201708/17/2017 Inactive Cymbalta 30 mg capsule,delayed release RxNorm: 505812 1 Capsule(s) PO daily 07/19/2017 08/17/2017 Inactive amoxicillin 500 mg capsule RxNorm: 848414 1 Capsule(s) PO TID 04/17/2017 04/26/2017 Inactive Prilosec OTC 20 mg tablet,delayed release RxNorm: 053481 1 Tablet(s) PO BID 04/17/2017 05/16/2017 Inactive 1 pill twice a day x 2 weeks, then daily Zofran 4 mg tablet RxNorm: 868059 1 Tablet(s) PO TID as needed 04/13/2017 04/17/2017 Inactive Flagyl 500 mg tablet RxNorm: 375582 1 Tablet(s) PO TID 201704/22/2017 Inactive promethazine 25 mg tablet RxNorm: 521515 1 Tablet(s) PO TID as needed nausea unrelieved by zofran 04/13/20172017 Inactive Zithromax Z-Gary 250 mg tablet RxNorm: 575123 1 Tablet(s) PO UD 04/06/2017 04/16/2017 Inactive prednisone 5 mg tablet RxNorm: 787875 1 Tablet(s) PO daily No Start Date Active Humira Pen 40 mg/0.8 mL subcutaneous RxNorm: 0247936 1 Milliliter(s) SQ QW No Start Date Active Linzess 145 mcg capsule RxNorm: 7531012 1 Capsule(s) PO daily No Start Date 08/16/2017 Inactive Prilosec 20 mg capsule,delayed release RxNorm: 933367 1 Capsule(s) PO daily No Start Date 11/18/2017 Inactive Premarin 1.25 mg tablet RxNorm: 235733 1 Tablet(s) PO daily No Start Date 12/30/2017 Inactive Medication Administered Medication Codes Instructions Start Date Status Kenalog 40 mg/mL suspension for injection RxNorm: 9994839 Milliliter 05/01/2018 No longer Active Immunizations No [...] [id number] 05/01/2018 URINALYSIS NONAUTO W/O SCOPE CPT-4: 12391 06/04/2017 Vital Signs Date Vital 05/01/2018 Blood Pressure 1: 134/68 Code : 8480-6 BMI: 22.6 Code : 59730-0 Heart Rate 1 : 83 bpm Height: 4'11" SpO2: 99% Temperature: 37.1 (C) / 98.8 (F) Weight: 112 lbs 04/16/2018 Blood Pressure 1: 122/60 Code : 8480-6 BMI: 22.6 Code : 79453-6 Heart Rate 1 : 72 bpm Height: 4'11" SpO2: 92% Temperature: 36.7 (C) / 98.1 (F) Weight: 112 lbs 01/28/2018 Blood Pressure 1: 136/52 Code : 8480-6 BMI: 22.6 Code : 42861-3 Heart Rate 1 : 76 bpm Height: 4'11" SpO2: 98% Weight: 112 lbs 10/15/2017 Blood Pressure 1: 136/78 Code : 8480-6 BMI: 22.6 Code : 24422-5 Heart Rate 1 : 86 bpm Height: 4'11" SpO2: 98% Weight: 112 lbs 09/19/2017 Blood Pressure 1: 122/68 Code : 8480-6 BMI: 22.4 Code : 54547-6 Heart Rate 1 : 74 bpm Height: 4'11" SpO2: 97% Weight: 111 lbs 08/20/2017 Blood Pressure 1: 132/78 Code : 8480-6 BMI: 22.0 Code : 82310-3 Heart Rate 1 : 80 bpm Height: 4'11" SpO2: 96% Weight: 109 lbs 07/19/2017 Blood Pressure 1: 130/64 Code : 8480-6 BMI: 20.6 Code : 64178-7 Heart Rate 1 : 78 bpm Height: 4'11" SpO2: 98% Weight: 102 lbs 06/13/2017 Blood Pressure 1: 130/64 Code : 8480-6 BMI: 20.0 Code : 84502-6 Heart Rate 1 : 66 bpm Height: 4'11" SpO2: 97% Weight: 99 lbs 05/25/2017 Blood Pressure 1: 132/60 Code : 8480-6 BMI: 20.0 Code : 09859-9 Heart Rate 1 : 81 bpm Height: 4'11" SpO2: 99% Weight: 99 lbs 05/11/2017 Blood Pressure 1: 132/70 Code : 8480-6 Heart Rate 1: 69 bpm Height: SpO2: 99% Weight: 04/25/2017 Blood Pressure 1: 136/78 Code : 8480-6 BMI: 20.2 Code : 88949-6 Heart Rate 1 : 70 bpm Height: 4'11" SpO2: 99% Weight: 100 lbs 04/17/2017 Blood Pressure 1: 118/70 Code : 8480-6 BMI: 20.2 Code : 99746-1 Heart Rate 1 : 62 bpm Height: 4'11" SpO2: 99% Temperature: 36.4 (C) / 97.6 (F) Weight: 100 lbs 04/13/2017 Blood Pressure 1: 136/78 Code : 8480-6 BMI: 19.4 Code : 19956-8 Heart Rate 1 : 79 bpm Height: 4'11" SpO2: 97% Temperature: 36.8 (C) / 98.2 (F) Weight: 96 lbs 04/06/2017 Blood Pressure 1: 120/68 Code : 8480-6 BMI: 20.2 Code : 15920-1 Heart Rate 1 : 71 bpm Height: [...] specified infectious organisms[ICD10: J16.8] Radha Angeles MD, [facility] CPT-4: 98083 05/01/2018 60144 EST. PATIENT, LEVEL IV Diagnosis: Other acute sinusitis[ICD10: J01.80] Diagnosis: Other allergic rhinitis[ICD10: J30.89] Radha Angeles MD, [facility] CPT-4: 32590 04/16/2018 40343 EST. PATIENT, LEVEL III Diagnosis: Dysuria[ICD10: R30.0] Diagnosis: Diverticulitis of large intestine without perforation or abscess without bleeding[ICD10: K57.32] Diagnosis: Gastro-esophageal reflux disease without esophagitis[ICD10: K21.9] [facility] CPT-4: 52940 01/28/2018 71305 EST. PATIENT, LEVEL III Diagnosis: Rheumatoid arthritis with rheumatoid factor of multiple sites without organ or systems involvement[ICD10: M05.79] Diagnosis: Generalized anxiety disorder[ICD10: F41.1] Diagnosis: Major depressive disorder, single episode, moderate[ICD10: F32.1] Diagnosis: Chronic pain syndrome[ICD10: G89.4] Radha Angeles MD, [facility] CPT-4: 01323 10/15/2017 36728 EST. PATIENT, LEVEL III Diagnosis: Rheumatoid arthritis with rheumatoid factor of multiple sites without organ or systems involvement[ICD10: M05.79] Diagnosis: Generalized anxiety disorder[ICD10: F41.1] Diagnosis: Major depressive disorder, single episode, moderate[ICD10: F32.1] Radha Angeles MD, [facility] CPT-4: 82484 09/19/2017 54466 EST. PATIENT, LEVEL III Diagnosis: Rheumatoid arthritis with rheumatoid factor of multiple sites without organ or systems involvement[ICD10: M05.79] Diagnosis: Generalized anxiety disorder[ICD10: F41.1] Diagnosis: Major depressive disorder, single episode, moderate[ICD10: F32.1] Diagnosis: Slow transit constipation[ICD10: K59.01] Radha Angeles MD, [facility] CPT-4: 42788 08/20/2017 55231 EST. PATIENT, LEVEL III Diagnosis: Rheumatoid arthritis with rheumatoid factor of multiple sites without organ or systems involvement[ICD10: M05.79] Diagnosis: Generalized anxiety disorder[ICD10: F41.1] Diagnosis: Major depressive disorder, single episode, moderate[ICD10: F32.1] Radha Angeles MD, [facility] CPT-4: 43207 07/19/2017 93462 EST. PATIENT, LEVEL III Diagnosis: Rheumatoid arthritis with rheumatoid factor of multiple sites without organ or systems involvement[ICD10: M05.79] Radha Angeles MD, [facility] CPT-4: 58754 06/13/2017 78609 EST. PATIENT, LEVEL III Diagnosis: Rheumatoid arthritis with rheumatoid factor of right wrist without organ or systems involvement[ICD10: M05.731] Radha Angeles MD, [facility] CPT -4: 14446 05/25/2017 57382 EST. PATIENT, LEVEL III Diagnosis: Gastro-esophageal reflux disease without esophagitis[ICD10: K21.9] Diagnosis: Rheumatoid arthritis with rheumatoid factor of multiple sites without organ or systems involvement[ICD10: M05.79] Radha Angeles MD, [facility] CPT-4: 88110 05/11/2017 33807 EST. PATIENT, LEVEL IV Diagnosis: Cough[ICD10: R05] Diagnosis: Gastro-esophageal reflux disease without esophagitis[ICD10: K21.9] Diagnosis: Nontoxic goiter, unspecified[ICD10: E04.9] Diagnosis: Shortness of breath[ICD10: R06.02] Radha Angeles MD, [facility] CPT-4: 16255 04/25/2017 59762 EST. PATIENT, LEVEL IV Diagnosis: Acute laryngopharyngitis[ICD10: J06.0] Diagnosis: Other allergic rhinitis[ICD10: J30.89] Diagnosis: Gastro-esophageal reflux disease without esophagitis[ICD10: K21.9] Radha Angeles MD, [facility] CPT-4: 19660 04/17/2017 81953 EST. PATIENT, LEVEL IV Diagnosis: Diarrhea, unspecified[ICD10: R19.7] Diagnosis: Other specified intestinal infections[ICD10: A08.8] Radha Angeles MD, [facility] CPT-4: 12702 04/13/2017 OFFICE VISIT, NEW - LEVEL 4 Diagnosis: Other acute sinusitis[ICD10: J01.80] Diagnosis: Pain in left knee[ICD10: M25.562] Diagnosis: Nontoxic goiter, unspecified[ICD10: E04.9] Radha Angeles MD, [facility] CPT-4: 58709 04/06/2017 Plan of Care Planned Activity Notes Codes Status Date Care Plan: CHEST X-RAY 2VW FRONTAL&LATL LOINC : 56708-0 Pending 05/02/2018 Visit Plan: Pneumonia - Pt has been diagnosed with pneumonia by physical exam. A chest xray has been ordered as have antibiotics. The pt is aware of the diagnosis and the need for acute treatment of this illness. 05/01/2018 Appointment: Radha Sosa WPtel: [address] [place], [place] [id number] (15 min) Moderate 05/01/2018 Patient Education: Patient [...] spray. 04/16/2018 Appointment: Radha Sosa WPtel: [phone] [facility] (15 min) Moderate 04/16/2018 Patient Education: Patient [...] improving. 01/28/2018 Appointment: Radha Sosa WPtel: [phone] [facility] (15 min) Moderate 01/28/2018 Patient Education: Patient [...] of over-medication. 10/15/2017 Appointment: Radha Sosa WPtel: [address] [place] [address] (15 min) Moderate 10/15/2017 Patient Education: Patient [...] treatment plan. 09/19/2017 Appointment: Radha Sosa WPtel: [address] [place], [place] [id number] (30 min) Complex 09/19/2017 Patient Education: Patient Medication Summary Completed 09/19/2017 Appointment: Radha Sosa WPtel: [address] [place], [place] [id number] (15 min) Moderate 08/21/2017 Visit Plan: [...] Summary Completed 08/20/2017 Appointment: Radha Sosa WPtel: [phone] [facility] (15 min) Moderate 08/17/2017 Appointment: Radha Sosa WPtel: [facility] (30 min) Complex 07/23/2017 Visit Plan: RA [...] patient. 07/19/2017 [phone] [facility] 07/19/2017 Patient Education: Patient [...] treatment plan. 06/13/2017 [facility]ment[phone] [facility] ([facility] min) Moderate 06/13/2017 Patient Education: Patient [...] improve. 05/25/2017 Appointment: Radha Sosa WPtel: [phone] [facility] [place] (30 min) Complex 05/25/2017 Patient Education: Patient Medication Summary Completed 05/25/2017 Appointment: Radha Sosa WPtel: [facility] [place] (30 min) Complex 05/24/2017 Visit Plan: [...] treatment plan. 05/11/2017 Appointment: Radha Sosa WPtel: [facility] [place] (30 min) Complex 05/11/2017 Patient Education: [...] indicated 04/25/2017 Appointment: Radha Sosa WPtel: [phone] [facility] [place] (30 min) Complex 04/25/2017 Patient Education: [...] spray. 04/17/2017 [facility]ment: [phone] [facility] ([facility]) Complex 04/17/2017 Patient Education: Patient [...] improved. 04/13/2017 App[facility]ment: [facility] [phone] [facility] (15 min) Moderate 04/13/2017 Patient Education: Patient [...] as indicated 04/06/2017 Appointment: [facility]osa [facility] [phone] [facility] [place] New Patient 04/06/2017 Patient Education: Patient [...]
--- OUTSIDE RECORDS SUMMARY | 2018-08-07 10:52 | XMS REPORT | CCD ---
Author Author Radha Sosa Organization Yamilet Angeles MD, [facility] Address [address] [place] [address] Phone Care Team Providers Care Director Of Web Marketing Name Role Phone PP Unavailable CCM Unavailable Summary Purpose Interface Exchange Insurance Providers Payer name Policy type / Coverage type Covered green party ID Effective Begin Date Effective End Date Blue Cross Blue [facility] Blue Cross/Blue [facility] [id number] Unknown Family history Father Diagnosis Age At Onset Arthritis Unknown Cancer Unknown Mother Diagnosis Age At Onset Cancer Unknown Social History Social History Element Codes Description Effective Dates Marital status Unknown Michael 04/17/2017 Number of children Unknown 1 04/06/[address]: 134931377 Never smoker 04/06/[address]: 730507009 Never drinks alcohol 04/06/2017 Allergies, Adverse Reactions, [...] Start Date Stop Date Status Fill Instructions Levaquin 500 mg tablet RxNorm: 630143 1 Tablet(s) PO daily 05/07/2018 Active Diflucan 150 mg tablet RxNorm: 617224 Tablet(s) 1 TABLET(S) PO DAILY 05/01/2018 05/05/2018 Active Kenalog 40 mg/mL suspension for injection RxNorm: 4855259 Milliliter(s) Inj 05/01/2018 05/01/2018 Inactive doxycycline hyclate 100 mg capsule RxNorm: 2737843 1 Capsule(s) PO BID 04/26/2018 04/29/2018 Inactive ProAir HFA 90 mcg/actuation aerosol inhaler RxNorm: 1474675 1 INH TID 04/19/2018 06/17/2018 Active doxycycline hyclate 100 mg capsule RxNorm: 4812199 1 Capsule(s) PO BID 04/19/2018 04/25/2018 Inactive doxycycline hyclate 100 mg capsule RxNorm: 1078307 1 Capsule(s) PO BID 04/19/2018 04/18/2018 Inactive Diflucan 150 mg tablet RxNorm: 665312 1 TABLET(S) PO DAILY 02/201904/23/2018 Inactive ProAir HFA 90 mcg/actuation aerosol inhaler RxNorm: 6073856 1 INH TID 04/19/2018 04/18/2018 Inactive Zithromax Z-Gary 250 mg tablet RxNorm: 772020 1 Tablet(s) PO UD 04/16/2018 No Stop Date Active Diflucan 150 mg tablet RxNorm: 228966 1 Tablet(s) PO daily 11/201804/18/2018 Inactive Premarin 1.25 mg tablet RxNorm: 299030 1 Tablet(s) PO daily 04/25/2018 Inactive Premarin 1.25 mg tablet RxNorm: 286463 1 Tablet(s) PO daily 02/28/2018 Inactive pantoprazole 40 mg tablet,delayed release RxNorm: 656501 1 Tablet(s) PO daily 02/21/2018 06/20/2018 Active pantoprazole 40 mg tablet,delayed release RxNorm: 198345 1 Tablet(s) PO daily 02/21/2018 02/20/2018 Inactive hydrocodone 5 mg-acetaminophen 325 mg tablet RxNorm: 172580 1 Tablet(s) PO TID as needed for pain 02/20/2018 No Stop Date Active Bactrim DS 800 mg-160 mg tablet RxNorm: 736752 1 Tablet(s) PO BID 02/06/2018 02/05/2018 Inactive Bactrim DS 800 mg-160 mg tablet RxNorm: 573861 1 Tablet(s) PO BID 02/06/2018 02/15/2018 Inactive Diflucan 150 mg tablet RxNorm: 023563 1 Tablet(s) PO daily 02/02/2018 Inactive Diflucan 150 mg tablet RxNorm: 183809 1 Tablet(s) PO daily 01/28/2018 Inactive Flagyl 500 mg tablet RxNorm: 520007 1 Tablet(s) PO TID 201702/06/2018 Inactive Premarin 1.25 mg tablet RxNorm: 526347 1 Tablet(s) PO daily 02/28/2018 Inactive Cipro 500 mg tablet RxNorm: 945487 1 Tablet(s) PO BID 201702/06/2018 Inactive hydrocodone 5 mg-acetaminophen 325 mg tablet RxNorm: 860698 1 Tablet(s) PO TID as needed for pain 12/31/2017 02/19/2018 Inactive Premarin 1.25 mg tablet RxNorm: 450334 1 Tablet(s) PO daily 01/27/2018 Inactive Prilosec 20 mg capsule,delayed release RxNorm: 942928 1 Capsule(s) PO daily 11/19/2017 02/20/2018 Inactive hydrocodone 5 mg-acetaminophen 325 mg tablet RxNorm: 546089 1 Tablet(s) PO TID as needed for pain 10/15/2017 12/30/2017 Inactive gabapentin 100 mg capsule RxNorm: 597200 1 Capsule(s) PO BID No Stop Date Active hydrocodone 5 mg-acetaminophen 325 mg tablet RxNorm: 536864 1 Tablet(s) PO QID as needed 09/19/2017 10/14/2017 Inactive Lyrica 50 mg capsule RxNorm: 435231 1 Capsule(s) PO TID 2017 No Stop Date Active Celebrex 200 mg capsule RxNorm: 267769 1 Capsule(s) PO daily 09/18/2017 Inactive Xanax 0.25 mg tablet RxNorm: 852633 1 Tablet(s) PO BID 201708/17/2017 Inactive Cymbalta 30 mg capsule,delayed release RxNorm: 081277 1 Capsule(s) PO daily 07/19/2017 08/17/2017 Inactive amoxicillin 500 mg capsule RxNorm: 017149 1 Capsule(s) PO TID 04/17/2017 04/26/2017 Inactive Prilosec OTC 20 mg tablet,delayed release RxNorm: 366611 1 Tablet(s) PO BID 04/17/2017 05/16/2017 Inactive 1 pill twice a day x 2 weeks, then daily Zofran 4 mg tablet RxNorm: 090962 1 Tablet(s) PO TID as needed 04/13/2017 04/17/2017 Inactive Flagyl 500 mg tablet RxNorm: 357212 1 Tablet(s) PO TID 201704/22/2017 Inactive promethazine 25 mg tablet RxNorm: 957694 1 Tablet(s) PO TID as needed nausea unrelieved by zofran 04/13/20172017 Inactive Zithromax Z-Gary 250 mg tablet RxNorm: 851154 1 Tablet(s) PO UD 04/06/2017 04/16/2017 Inactive prednisone 5 mg tablet RxNorm: 996910 1 Tablet(s) PO daily No Start Date Active Humira Pen 40 mg/0.8 mL subcutaneous RxNorm: 0606657 1 Milliliter(s) SQ QW No Start Date Active Linzess 145 mcg capsule RxNorm: 7157915 1 Capsule(s) PO daily No Start Date 08/16/2017 Inactive Prilosec 20 mg capsule,delayed release RxNorm: 576537 1 Capsule(s) PO daily No Start Date 11/18/2017 Inactive Premarin 1.25 mg tablet RxNorm: 795042 1 Tablet(s) PO daily No Start Date 12/30/2017 Inactive Medication Administered Medication Codes Instructions Start Date Status Kenalog 40 mg/mL suspension for injection RxNorm: 8477219 Milliliter 05/01/2018 No longer Active Immunizations No [...] distress 05/11/2017 None Full Exam - General 1995 Constitutional general appearance Overall: well nourished 05/11/2017 [...] [id number] 05/01/2018 URINALYSIS NONAUTO W/O SCOPE CPT-4: 08777 06/04/2017 Vital Signs Date Vital 05/01/2018 Blood Pressure 1: 134/68 Code : 8480-6 BMI: 22.6 Code : 71680-6 Heart Rate 1 : 83 bpm Height: 4'11" SpO2: 99% Temperature: 37.1 (C) / 98.8 (F) Weight: 112 lbs 04/16/2018 Blood Pressure 1: 122/60 Code : 8480-6 BMI: 22.6 Code : 56430-0 Heart Rate 1 : 72 bpm Height: 4'11" SpO2: 92% Temperature: 36.7 (C) / 98.1 (F) Weight: 112 lbs 01/28/2018 Blood Pressure 1: 136/52 Code : 8480-6 BMI: 22.6 Code : 46311-9 Heart Rate 1 : 76 bpm Height: 4'11" SpO2: 98% Weight: 112 lbs 10/15/2017 Blood Pressure 1: 136/78 Code : 8480-6 BMI: 22.6 Code : 58276-5 Heart Rate 1 : 86 bpm Height: 4'11" SpO2: 98% Weight: 112 lbs 09/19/2017 Blood Pressure 1: 122/68 Code : 8480-6 BMI: 22.4 Code : 88004-6 Heart Rate 1 : 74 bpm Height: 4'11" SpO2: 97% Weight: 111 lbs 08/20/2017 Blood Pressure 1: 132/78 Code : 8480-6 BMI: 22.0 Code : 53949-9 Heart Rate 1 : 80 bpm Height: 4'11" SpO2: 96% Weight: 109 lbs 07/19/2017 Blood Pressure 1: 130/64 Code : 8480-6 BMI: 20.6 Code : 10554-9 Heart Rate 1 : 78 bpm Height: 4'11" SpO2: 98% Weight: 102 lbs 06/13/2017 Blood Pressure 1: 130/64 Code : 8480-6 BMI: 20.0 Code : 65240-2 Heart Rate 1 : 66 bpm Height: 4'11" SpO2: 97% Weight: 99 lbs 05/25/2017 Blood Pressure 1: 132/60 Code : 8480-6 BMI: 20.0 Code : 50920-2 Heart Rate 1 : 81 bpm Height: 4'11" SpO2: 99% Weight: 99 lbs 05/11/2017 Blood Pressure 1: 132/70 Code : 8480-6 Heart Rate 1: 69 bpm Height: SpO2: 99% Weight: 04/25/2017 Blood Pressure 1: 136/78 Code : 8480-6 BMI: 20.2 Code : 16611-0 Heart Rate 1 : 70 bpm Height: 4'11" SpO2: 99% Weight: 100 lbs 04/17/2017 Blood Pressure 1: 118/70 Code : 8480-6 BMI: 20.2 Code : 81722-4 Heart Rate 1 : 62 bpm Height: 4'11" SpO2: 99% Temperature: 36.4 (C) / 97.6 (F) Weight: 100 lbs 04/13/2017 Blood Pressure 1: 136/78 Code : 8480-6 BMI: 19.4 Code : 41488-1 Heart Rate 1 : 79 bpm Height: 4'11" SpO2: 97% Temperature: 36.8 (C) / 98.2 (F) Weight: 96 lbs 04/06/2017 Blood Pressure 1: 120/68 Code : 8480-6 BMI: 20.2 Code : 07780-6 Heart Rate 1 : 71 bpm Height: [...] specified infectious organisms[ICD10: J16.8] Radha Angeles MD, [facility] CPT-4: 46408 05/01/2018 93055 EST. PATIENT, LEVEL IV Diagnosis: Other acute sinusitis[ICD10: J01.80] Diagnosis: Other allergic rhinitis[ICD10: J30.89] Radha Angeles MD, [facility] CPT-4: 45119 04/16/2018 31399 EST. PATIENT, LEVEL III Diagnosis: Dysuria[ICD10: R30.0] Diagnosis: Diverticulitis of large intestine without perforation or abscess without bleeding[ICD10: K57.32] Diagnosis: Gastro-esophageal reflux disease without esophagitis[ICD10: K21.9] Radha Angeles MD, [facility] CPT-4: 73038 01/28/2018 38816 EST. PATIENT, LEVEL III Diagnosis: Rheumatoid arthritis with rheumatoid factor of multiple sites without organ or systems involvement[ICD10: M05.79] Diagnosis: Generalized anxiety disorder[ICD10: F41.1] Diagnosis: Major depressive disorder, single episode, moderate[ICD10: F32.1] Diagnosis: Chronic pain syndrome[ICD10: G89.4] Radha Angeles MD, [facility] CPT-4: 23887 10/15/2017 96967 EST. PATIENT, LEVEL III Diagnosis: Rheumatoid arthritis with rheumatoid factor of multiple sites without organ or systems involvement[ICD10: M05.79] Diagnosis: Generalized anxiety disorder[ICD10: F41.1] Diagnosis: Major depressive disorder, single episode, moderate[ICD10: F32.1] Radha Angeles MD, [facility] CPT-4: 68927 09/19/2017 72367 EST. PATIENT, LEVEL III Diagnosis: Rheumatoid arthritis with rheumatoid factor of multiple sites without organ or systems involvement[ICD10: M05.79] Diagnosis: Generalized anxiety disorder[ICD10: F41.1] Diagnosis: Major depressive disorder, single episode, moderate[ICD10: F32.1] Diagnosis: Slow transit constipation[ICD10: K59.01] Radha Angeles MD, [facility] CPT-4: 21350 08/20/2017 21143 EST. PATIENT, LEVEL III Diagnosis: Rheumatoid arthritis with rheumatoid factor of multiple sites without organ or systems involvement[ICD10: M05.79] Diagnosis: Generalized anxiety disorder[ICD10: F41.1] Diagnosis: Major depressive disorder, single episode, moderate[ICD10: F32.1] Radha Angeles MD, [facility] CPT-4: 40838 07/19/2017 88135 EST. PATIENT, LEVEL III Diagnosis: Rheumatoid arthritis with rheumatoid factor of multiple sites without organ or systems involvement[ICD10: M05.79] Radha Angeles MD, [facility] CPT-4: 39487 06/13/2017 95492 EST. PATIENT, LEVEL III Diagnosis: Rheumatoid arthritis with rheumatoid factor of right wrist without organ or systems involvement[ICD10: M05.731] Radha Angeles MD, [facility] CPT -4: 75320 05/25/2017 49263 EST. PATIENT, LEVEL III Diagnosis: Gastro-esophageal reflux disease without esophagitis[ICD10: K21.9] Diagnosis: Rheumatoid arthritis with rheumatoid factor of multiple sites without organ or systems involvement[ICD10: M05.79] Radha Angeles MD, [facility] CPT-4: 62204 05/11/2017 07118 EST. PATIENT, LEVEL IV Diagnosis: Cough[ICD10: R05] Diagnosis: Gastro-esophageal reflux disease without esophagitis[ICD10: K21.9] Diagnosis: Nontoxic goiter, unspecified[ICD10: E04.9] Diagnosis: Shortness of breath[ICD10: R06.02] Radha Angeles MD, [facility] CPT-4: 83890 04/25/2017 65736 EST. PATIENT, LEVEL IV Diagnosis: Acute laryngopharyngitis[ICD10: J06.0] Diagnosis: Other allergic rhinitis[ICD10: J30.89] Diagnosis: Gastro-esophageal reflux disease without esophagitis[ICD10: K21.9] Radha Angeles MD, [facility] CPT-4: 45297 04/17/2017 67870 EST. PATIENT, LEVEL IV Diagnosis: Diarrhea, unspecified[ICD10: R19.7] Diagnosis: Other specified intestinal infections[ICD10: A08.8] Radha Angeles MD, [facility] CPT-4: 28421 04/13/2017 OFFICE VISIT, NEW - LEVEL 4 Diagnosis: Other acute sinusitis[ICD10: J01.80] Diagnosis: Pain in left knee[ICD10: M25.562] Diagnosis: Nontoxic goiter, unspecified[ICD10: E04.9] Radha Angeles MD, [facility] CPT-4: 17031 04/06/2017 Plan of Care Planned Activity Notes Codes Status Date Care Plan: CHEST X-RAY 2VW FRONTAL&LATL LOINC : 67312-2 Pending 05/02/2018 Visit Plan: Pneumonia - Pt has been diagnosed with pneumonia by physical exam. A chest xray has been ordered as have antibiotics. The pt is aware of the diagnosis and the need for acute treatment of this illness. 05/01/2018 Appointment: Radha Sosa WPtel: [address] [place], [place] [phone] (15 min) Moderate 05/01/2018 Patient Education: Patient [...] 04/16/2018 Appointment: Radha Sosa WPtel: [phone] [facility] (15 min) Moderate 04/16/2018 Patient Education: Patient [...] 01/28/2018 Appointment: Radha Sosa WPtel: [phone] [facility] (15 min) Moderate 01/28/2018 Patient Education: [...] of over-medication. 10/15/2017 Appointment: Radha Sosa WPtel: [phone] [facility] (15 min) Moderate 10/15/2017 Patient Education: [...] treatment plan. 09/19/2017 Appointment: Radha Sosa WPtel: [facility] [facility] [place] (30 min) Complex 09/19/2017 Patient Education: Patient Medication Summary Completed 09/19/2017 Appointment: Radha Sosa WPtel: [facility]6 [facility] (15 min) Moderate 08/21/2017 Visit Plan: [...] Summary Completed 08/20/2017 Appointment: Radha Sosa WPtel: [address] [place], [place] [phone] (15 min) Moderate 08/17/2017 Appointment: Radha Sosa WPtel: [address] [place], [place] [phone] (30 min) Complex 07/23/2017 Visit Plan: [...] this patient. 07/19/2017 Appointment: Radha Sosa WPtel: [facility] [facility] (30 min) Complex 07/19/2017 Patient Education: [...] treatment plan. 06/13/2017 Appointment: Radha Sosa WPtel: [facility] [facility] (15 min) Moderate 06/13/2017 Patient Education: [...] 05/25/2017 Appointment: Radha Sosa WPtel: [phone] [facility] [place] (30 min) Complex 05/25/2017 Patient Education: Patient Medication Summary Completed 05/25/2017 Appointment: Radha Sosa WPtel: [phone] [facility] [place] (30 min) Complex 05/24/2017 Visit [...] plan. 05/11/2017 Appointment: Radha Sosa WPtel: [phone] [facility] [place] (30 min) Complex 05/11/2017 Patient [...] 04/25/2017 Appointment: Radha Sosa WPtel: [phone] [facility] [place] (30 min) Complex 04/25/2017 Patient [...] spray. 04/17/2017 Appointment: Radha Sosa WPtel: [phone] [facility] (30 min) Complex 04/17/2017 Patient Education: [...] improved. 04/13/2017 Appointment: Radha Sosa WPtel: [phone] [facility] [place] (15 min) Moderate 04/13/2017 Patient Education: Patient [...] as indicated 04/06/2017 Appointment: Radha Sosa WPtel: [address] [place], [place] [id number] New Patient 04/06/2017 Patient Education: Patient Medication [...]
--- OUTSIDE RECORDS SUMMARY | 2018-08-07 10:53 | XMS REPORT | CCD ---
Author Author Radha Sosa Organization Yamilet Angeles MD, [facility] Address [address] [place] [address] Phone Care Team Providers Care [employer] Data [employer] Lead Name Role Phone PP Unavailable CCM Unavailable Summary Purpose Interface Exchange Insurance Providers Payer name Policy type / Coverage type Covered democrat ID Effective Begin Date Effective End Date Blue Cross Blue [facility] Blue Cross/Blue Shield [id number] Unknown Family history Father Diagnosis Age At Onset Arthritis Unknown Cancer Unknown Mother Diagnosis Age At Onset Cancer Unknown Social History Social History Element Codes Description Effective Dates Marital status Unknown Michael 04/17/2017 Number of children Unknown 1 04/06/[address]: 548535445 Never smoker 04/06/[address]: 549519020 Never drinks alcohol 04/06/2017 Allergies, Adverse Reactions, [...] Start Date Stop Date Status Fill Instructions doxycycline hyclate 100 mg capsule RxNorm: 8901422 1 Capsule(s) PO BID 04/26/2018 04/29/2018 Active ProAir HFA 90 mcg/actuation aerosol inhaler RxNorm: 1910604 1 INH TID 04/19/2018 06/17/2018 Active doxycycline hyclate 100 mg capsule RxNorm: 6508815 1 Capsule(s) PO BID 04/19/2018 04/25/2018 Inactive doxycycline hyclate 100 mg capsule RxNorm: 9558553 1 Capsule(s) PO BID 04/19/2018 04/18/2018 Inactive Diflucan 150 mg tablet RxNorm: 338892 1 TABLET(S) PO DAILY 02/201904/23/2018 Inactive ProAir HFA 90 mcg/actuation aerosol inhaler RxNorm: 8127204 1 INH TID 04/19/2018 04/18/2018 Inactive Zithromax Z-Gary 250 mg tablet RxNorm: 997477 1 Tablet(s) PO UD 04/16/2018 No Stop Date Active Diflucan 150 mg tablet RxNorm: 429566 1 Tablet(s) PO daily 11/201804/18/2018 Inactive Premarin 1.25 mg tablet RxNorm: 775788 1 Tablet(s) PO daily 04/25/2018 Inactive Premarin 1.25 mg tablet RxNorm: 719720 1 Tablet(s) PO daily 02/28/2018 Inactive pantoprazole 40 mg tablet,delayed release RxNorm: 115721 1 Tablet(s) PO daily 02/21/2018 06/20/2018 Active pantoprazole 40 mg tablet,delayed release RxNorm: 091309 1 Tablet(s) PO daily 02/21/2018 02/20/2018 Inactive hydrocodone 5 mg-acetaminophen 325 mg tablet RxNorm: 645994 1 Tablet(s) PO TID as needed for pain 02/20/2018 No Stop Date Active Bactrim DS 800 mg-160 mg tablet RxNorm: 823784 1 Tablet(s) PO BID 02/06/2018 02/05/2018 Inactive Bactrim DS 800 mg-160 mg tablet RxNorm: 470095 1 Tablet(s) PO BID 02/06/2018 02/15/2018 Inactive Diflucan 150 mg tablet RxNorm: 622619 1 Tablet(s) PO daily 02/02/2018 Inactive Diflucan 150 mg tablet RxNorm: 976202 1 Tablet(s) PO daily 01/28/2018 Inactive Flagyl 500 mg tablet RxNorm: 264219 1 Tablet(s) PO TID 201702/06/2018 Inactive Premarin 1.25 mg tablet RxNorm: 620543 1 Tablet(s) PO daily 02/28/2018 Inactive Cipro 500 mg tablet RxNorm: 473497 1 Tablet(s) PO BID 201702/06/2018 Inactive hydrocodone 5 mg-acetaminophen 325 mg tablet RxNorm: 470967 1 Tablet(s) PO TID as needed for pain 12/31/2017 02/19/2018 Inactive Premarin 1.25 mg tablet RxNorm: 952395 1 Tablet(s) PO daily 01/27/2018 Inactive Prilosec 20 mg capsule,delayed release RxNorm: 784018 1 Capsule(s) PO daily 11/19/2017 02/20/2018 Inactive hydrocodone 5 mg-acetaminophen 325 mg tablet RxNorm: 550007 1 Tablet(s) PO TID as needed for pain 10/15/2017 12/30/2017 Inactive gabapentin 100 mg capsule RxNorm: 417168 1 Capsule(s) PO BID No Stop Date Active hydrocodone 5 mg-acetaminophen 325 mg tablet RxNorm: 531348 1 Tablet(s) PO QID as needed 09/19/2017 10/14/2017 Inactive Lyrica 50 mg capsule RxNorm: 725956 1 Capsule(s) PO TID 2017 No Stop Date Active Celebrex 200 mg capsule RxNorm: 382387 1 Capsule(s) PO daily 09/18/2017 Inactive Xanax 0.25 mg tablet RxNorm: 226690 1 Tablet(s) PO BID 201708/17/2017 Inactive Cymbalta 30 mg capsule,delayed release RxNorm: 637247 1 Capsule(s) PO daily 07/19/2017 08/17/2017 Inactive amoxicillin 500 mg capsule RxNorm: 222274 1 Capsule(s) PO TID 04/17/2017 04/26/2017 Inactive Prilosec OTC 20 mg tablet,delayed release RxNorm: 728744 1 Tablet(s) PO BID 04/17/2017 05/16/2017 Inactive 1 pill twice a day x 2 weeks, then daily Zofran 4 mg tablet RxNorm: 387073 1 Tablet(s) PO TID as needed 04/13/2017 04/17/2017 Inactive Flagyl 500 mg tablet RxNorm: 500465 1 Tablet(s) PO TID 201704/22/2017 Inactive promethazine 25 mg tablet RxNorm: 079651 1 Tablet(s) PO TID as needed nausea unrelieved by zofran 04/13/20172017 Inactive Zithromax Z-Gary 250 mg tablet RxNorm: 668100 1 Tablet(s) PO UD 04/06/2017 04/16/2017 Inactive prednisone 5 mg tablet RxNorm: 871871 1 Tablet(s) PO daily No Start Date Active Humira Pen 40 mg/0.8 mL subcutaneous RxNorm: 7292726 1 Milliliter(s) SQ QW No Start Date Active Linzess 145 mcg capsule RxNorm: 9308738 1 Capsule(s) PO daily No Start Date 08/16/2017 Inactive Prilosec 20 mg capsule,delayed release RxNorm: 094766 1 Capsule(s) PO daily No Start Date 11/18/2017 Inactive Premarin 1.25 mg tablet RxNorm: 320039 1 Tablet(s) PO daily No Start Date 12/30/2017 Inactive Medication Administered No Medication Administered data Immunizations No Immunization data Assessments Condition Codes [...] For Visit Effective Dates Notes sinus congestion 04/16/2018 urinary frequency 01/28/2018 pain [...] System Result Effective Dates Constitutional recent illness 04/16/2018 Constitutional No chills [...] flexion 04/06/2017 None Procedures Procedure Codes Date URINALYSIS NONAUTO W/O SCOPE CPT-4: 06663 06/04/2017 Vital Signs Date Vital 04/16/2018 Blood Pressure 1: 122/60 Code : 8480-6 BMI: 22.6 Code : 23555-7 Heart Rate 1 : 72 bpm Height: 4'11" SpO2: 92% Temperature: 36.7 (C) / 98.1 (F) Weight: 112 lbs 01/28/2018 Blood Pressure 1: 136/52 Code : 8480-6 BMI: 22.6 Code : 39180-5 Heart Rate 1 : 76 bpm Height: 4'11" SpO2: 98% Weight: 112 lbs 10/15/2017 Blood Pressure 1: 136/78 Code : 8480-6 BMI: 22.6 Code : 93661-8 Heart Rate 1 : 86 bpm Height: 4'11" SpO2: 98% Weight: 112 lbs 09/19/2017 Blood Pressure 1: 122/68 Code : 8480-6 BMI: 22.4 Code : 57745-1 Heart Rate 1 : 74 bpm Height: 4'11" SpO2: 97% Weight: 111 lbs 08/20/2017 Blood Pressure 1: 132/78 Code : 8480-6 BMI: 22.0 Code : 39878-8 Heart Rate 1 : 80 bpm Height: 4'11" SpO2: 96% Weight: 109 lbs 07/19/2017 Blood Pressure 1: 130/64 Code : 8480-6 BMI: 20.6 Code : 28882-8 Heart Rate 1 : 78 bpm Height: 4'11" SpO2: 98% Weight: 102 lbs 06/13/2017 Blood Pressure 1: 130/64 Code : 8480-6 BMI: 20.0 Code : 56706-9 Heart Rate 1 : 66 bpm Height: 4'11" SpO2: 97% Weight: 99 lbs 05/25/2017 Blood Pressure 1: 132/60 Code : 8480-6 BMI: 20.0 Code : 91170-2 Heart Rate 1 : 81 bpm Height: 4'11" SpO2: 99% Weight: 99 lbs 05/11/2017 Blood Pressure 1: 132/70 Code : 8480-6 Heart Rate 1: 69 bpm Height: SpO2: 99% Weight: 04/25/2017 Blood Pressure 1: 136/78 Code : 8480-6 BMI: 20.2 Code : 34011-1 Heart Rate 1 : 70 bpm Height: 4'11" SpO2: 99% Weight: 100 lbs 04/17/2017 Blood Pressure 1: 118/70 Code : 8480-6 BMI: 20.2 Code : 22333-2 Heart Rate 1 : 62 bpm Height: 4'11" SpO2: 99% Temperature: 36.4 (C) / 97.6 (F) Weight: 100 lbs 04/13/2017 Blood Pressure 1: 136/78 Code : 8480-6 BMI: 19.4 Code : 35907-0 Heart Rate 1 : 79 bpm Height: 4'11" SpO2: 97% Temperature: 36.8 (C) / 98.2 (F) Weight: 96 lbs 04/06/2017 Blood Pressure 1: 120/68 Code : 8480-6 BMI: 20.2 Code : 56307-3 Heart Rate 1 : 71 bpm Height: 4'11" SpO2: 97% Weight: 100 lbs Functional Status No Functional Status data History of Present Illness Symptom Name Status Result Effective Date Notes Location frontal sinuses 04/16/2018 None Quality constant [...] Codes Date EST. PATIENT, LEVEL IV Diagnosis: Other acute sinusitis[ICD10: J01.80] Diagnosis: Other allergic rhinitis[ICD10: J30.89] Radha Angeles MD, [facility] CPT-4: 28089 04/16/2018 90071 EST. PATIENT, LEVEL III Diagnosis: Dysuria[ICD10: R30.0] Diagnosis: Diverticulitis of large intestine without perforation or abscess without bleeding[ICD10: K57.32] Diagnosis: Gastro-esophageal reflux disease without esophagitis[ICD10: K21.9] Radha Angeles MD, [facility] CPT-4: 59864 01/28/2018 06575 EST. PATIENT, LEVEL III Diagnosis: Rheumatoid arthritis with rheumatoid factor of multiple sites without organ or systems involvement[ICD10: M05.79] Diagnosis: Generalized anxiety disorder[ICD10: F41.1] Diagnosis: Major depressive disorder, single episode, moderate[ICD10: F32.1] Diagnosis: Chronic pain syndrome[ICD10: G89.4] Radha Angeles MD, [facility] CPT-4: 79482 10/15/2017 13143 EST. PATIENT, LEVEL III Diagnosis: Rheumatoid arthritis with rheumatoid factor of multiple sites without organ or systems involvement[ICD10: M05.79] Diagnosis: Generalized anxiety disorder[ICD10: F41.1] Diagnosis: Major depressive disorder, single episode, moderate[ICD10: F32.1] Radha Angeles MD, [facility] CPT-4: 31972 09/19/2017 91568 EST. PATIENT, LEVEL III Diagnosis: Rheumatoid arthritis with rheumatoid factor of multiple sites without organ or systems involvement[ICD10: M05.79] Diagnosis: Generalized anxiety disorder[ICD10: F41.1] Diagnosis: Major depressive disorder, single episode, moderate[ICD10: F32.1] Diagnosis: Slow transit constipation[ICD10: K59.01] Radha Angeles MD, [facility] CPT-4: 32764 08/20/2017 80327 EST. PATIENT, LEVEL III Diagnosis: Rheumatoid arthritis with rheumatoid factor of multiple sites without organ or systems involvement[ICD10: M05.79] Diagnosis: Generalized anxiety disorder[ICD10: F41.1] Diagnosis: Major depressive disorder, single episode, moderate[ICD10: F32.1] Radha Angeles MD, [facility] CPT-4: 60463 07/19/2017 60908 EST. PATIENT, LEVEL III Diagnosis: Rheumatoid arthritis with rheumatoid factor of multiple sites without organ or systems involvement[ICD10: M05.79] Radha Angeles MD, [facility] CPT-4: 36756 06/13/2017 45821 EST. PATIENT, LEVEL III Diagnosis: Rheumatoid arthritis with rheumatoid factor of right wrist without organ or systems involvement[ICD10: M05.731] Radha Angeles MD, [facility] CPT -4: 39156 05/25/2017 66268 EST. PATIENT, LEVEL III Diagnosis: Gastro-esophageal reflux disease without esophagitis[ICD10: K21.9] Diagnosis: Rheumatoid arthritis with rheumatoid factor of multiple sites without organ or systems involvement[ICD10: M05.79] Radha Angeles MD, [facility] CPT-4: 47071 05/11/2017 14184 EST. PATIENT, LEVEL IV Diagnosis: Cough[ICD10: R05] Diagnosis: Gastro-esophageal reflux disease without esophagitis[ICD10: K21.9] Diagnosis: Nontoxic goiter, unspecified[ICD10: E04.9] Diagnosis: Shortness of breath[ICD10: R06.02] Radha Angeles MD, [facility] CPT-4: 62201 04/25/2017 40146 EST. PATIENT, LEVEL IV Diagnosis: Acute laryngopharyngitis[ICD10: J06.0] Diagnosis: Other allergic rhinitis[ICD10: J30.89] Diagnosis: Gastro-esophageal reflux disease without esophagitis[ICD10: K21.9] Radha Angeles MD, [facility] CPT-4: 54880 04/17/2017 79724 EST. PATIENT, LEVEL IV Diagnosis: Diarrhea, unspecified[ICD10: R19.7] Diagnosis: Other specified intestinal infections[ICD10: A08.8] [facility] CPT-4: 80220 04/13/2017 OFFICE VISIT, NEW - LEVEL 4 Diagnosis: Other acute sinusitis[ICD10: J01.80] Diagnosis: Pain in left knee[ICD10: M25.562] Diagnosis: Nontoxic goiter, unspecified[ICD10: E04.9] [facility] CPT-4: 00328 04/06/2017 Plan of Care Planned Activity Notes [...] allergy spray. 04/16/2018 Appointment: Radha Sosa WPtel: [address] [place], [place] [phone] (15 min) Moderate 04/16/2018 Patient Education: Patient [...] not improving. 01/28/2018 Appointment: Radha Sosa WPtel: [facility]2 [facility] (15 min) Moderate 01/28/2018 [...] of over-medication. 10/15/2017 Appointment: Radha Sosa WPtel: [facility]8 [facility] (15 min) Moderate 10/15/2017 Patient Education: [...] treatment plan. 09/19/2017 Appointment: Radha Sosa WPtel: [facility]0 [facility] (30 min) Complex 09/19/2017 Patient Education: Patient Medication Summary Completed 09/19/2017 Appointment: Radha Sosa WPtel: [phone] [facility]66[facility] (15 min) Moderate 08/21/2017 Visit [...] Summary Completed 08/20/2017 Appointment: Radha Sosa WPtel: [facility]5 [facility] (15 min) Moderate 08/17/2017 Appointment: Radha Sosa WPtel: [facility]8 [facility] (30 min) Complex 07/23/2017 Visit Plan: [...] patient. 07/19/2017 Appointment: Radha Sosa WPtel: [phone] [facility] (30 min) Complex 07/19/2017 Patient Education: [...] treatment plan. 06/13/2017 Appointment: Radha Sosa WPtel: [facility]5 [facility] (15 min) Moderate 06/13/2017 Patient Education: [...] not improve. 05/25/2017 Appointment: Radha Sosa WPtel: [facility]5 [facility] [place] (30 min) Complex 05/25/2017 Patient Education: Patient Medication Summary Completed 05/25/2017 Appointment: Radha Sosa WPtel: [address] [place], [place] [phone] (30 min) Complex 05/24/2017 Visit Plan: Esophageal [...] treatment plan. 05/11/2017 Appointment: Radha Sosa WPtel: [facility]5 [facility] [place] (30 min) Complex 05/11/2017 Patient [...] indicated 04/25/2017 Appointment: Radha Sosa WPtel: [phone] [facility] (30 min) Complex 04/25/2017 Patient Education: [...] spray. 04/17/2017 [facility] ([facility] min) Complex 04/17/2017 Patient Education: [...] not improved. 04/13/2017 Appointment: Radha Sosa WPtel: [facility] (15 min) Moderate 04/13/2017 Patient Education: [...] as indicated 04/06/2017 Appointment: Radha Sosa WPtel: [facility]6 [facility] New Patient 04/06/2017 Patient Education: Patient [...] await US and treat/refer as indicated . Diarrhea - recommended bland diet, low [...]
--- OUTSIDE RECORDS SUMMARY | 2018-08-07 10:55 | XMS REPORT | CCD ---
Author Author Radha Sosa Organization Yamilet Angeles MD, [facility] Address [address] [place] [address] Phone Care Team Providers Care Stage Rigger Name Role Phone PP Unavailable CCM Unavailable Summary Purpose Interface Exchange Insurance Providers Payer name Policy type / Coverage type Covered alliance party ID Effective Begin Date Effective End Date Blue Cross Blue [facility] Blue Cross/Blue [facility] [id number] Unknown Family history Father Diagnosis Age At Onset Arthritis Unknown Cancer Unknown Mother Diagnosis Age At Onset Cancer Unknown Social History Social History Element Codes Description Effective Dates Marital status Unknown Michael 04/17/2017 Number of children Unknown 1 04/06/[address]: 452441992 Never smoker 04/06/[address]: 782899656 Never drinks alcohol 04/06/2017 Allergies, Adverse Reactions, [...] Start Date Stop Date Status Fill Instructions ProAir HFA 90 mcg/actuation aerosol inhaler RxNorm: 8884288 1 INH TID 04/19/2018 06/17/2018 Active doxycycline hyclate 100 mg capsule RxNorm: 8636662 1 Capsule(s) PO BID 04/19/2018 04/28/2018 Active Diflucan 150 mg tablet RxNorm: 035287 1 TABLET(S) PO DAILY 02/201904/23/2018 Active doxycycline hyclate 100 mg capsule RxNorm: 0106763 1 Capsule(s) PO BID 04/19/2018 04/18/2018 Inactive ProAir HFA 90 mcg/actuation aerosol inhaler RxNorm: 5503102 1 INH TID 04/19/2018 04/18/2018 Inactive Zithromax Z-Gary 250 mg tablet RxNorm: 794271 1 Tablet(s) PO UD 04/16/2018 No Stop Date Active Diflucan 150 mg tablet RxNorm: 624411 1 Tablet(s) PO daily 11/201804/18/2018 Inactive Premarin 1.25 mg tablet RxNorm: 060739 1 Tablet(s) PO daily 04/25/2018 Active Premarin 1.25 mg tablet RxNorm: 568282 1 Tablet(s) PO daily 02/28/2018 Inactive pantoprazole 40 mg tablet,delayed release RxNorm: 475429 1 Tablet(s) PO daily 02/21/2018 06/20/2018 Active pantoprazole 40 mg tablet,delayed release RxNorm: 831612 1 Tablet(s) PO daily 02/21/2018 02/20/2018 Inactive hydrocodone 5 mg-acetaminophen 325 mg tablet RxNorm: 037762 1 Tablet(s) PO TID as needed for pain 02/20/2018 No Stop Date Active Bactrim DS 800 mg-160 mg tablet RxNorm: 815749 1 Tablet(s) PO BID 02/06/2018 02/05/2018 Inactive Bactrim DS 800 mg-160 mg tablet RxNorm: 743679 1 Tablet(s) PO BID 02/06/2018 02/15/2018 Inactive Diflucan 150 mg tablet RxNorm: 152416 1 Tablet(s) PO daily 02/02/2018 Inactive Diflucan 150 mg tablet RxNorm: 046447 1 Tablet(s) PO daily 01/28/2018 Inactive Flagyl 500 mg tablet RxNorm: 368911 1 Tablet(s) PO TID 201702/06/2018 Inactive Premarin 1.25 mg tablet RxNorm: 092716 1 Tablet(s) PO daily 02/28/2018 Inactive Cipro 500 mg tablet RxNorm: 976524 1 Tablet(s) PO BID 201702/06/2018 Inactive hydrocodone 5 mg-acetaminophen 325 mg tablet RxNorm: 885279 1 Tablet(s) PO TID as needed for pain 12/31/2017 02/19/2018 Inactive Premarin 1.25 mg tablet RxNorm: 609820 1 Tablet(s) PO daily 01/27/2018 Inactive Prilosec 20 mg capsule,delayed release RxNorm: 314560 1 Capsule(s) PO daily 11/19/2017 02/20/2018 Inactive hydrocodone 5 mg-acetaminophen 325 mg tablet RxNorm: 470948 1 Tablet(s) PO TID as needed for pain 10/15/2017 12/30/2017 Inactive gabapentin 100 mg capsule RxNorm: 324425 1 Capsule(s) PO BID No Stop Date Active hydrocodone 5 mg-acetaminophen 325 mg tablet RxNorm: 162925 1 Tablet(s) PO QID as needed 09/19/2017 10/14/2017 Inactive Lyrica 50 mg capsule RxNorm: 164947 1 Capsule(s) PO TID 2017 No Stop Date Active Celebrex 200 mg capsule RxNorm: 804896 1 Capsule(s) PO daily 09/18/2017 Inactive Xanax 0.25 mg tablet RxNorm: 276147 1 Tablet(s) PO BID 201708/17/2017 Inactive Cymbalta 30 mg capsule,delayed release RxNorm: 813494 1 Capsule(s) PO daily 07/19/2017 08/17/2017 Inactive amoxicillin 500 mg capsule RxNorm: 435107 1 Capsule(s) PO TID 04/17/2017 04/26/2017 Inactive Prilosec OTC 20 mg tablet,delayed release RxNorm: 912238 1 Tablet(s) PO BID 04/17/2017 05/16/2017 Inactive 1 pill twice a day x 2 weeks, then daily Zofran 4 mg tablet RxNorm: 544755 1 Tablet(s) PO TID as needed 04/13/2017 04/17/2017 Inactive Flagyl 500 mg tablet RxNorm: 045263 1 Tablet(s) PO TID 201704/22/2017 Inactive promethazine 25 mg tablet RxNorm: 100552 1 Tablet(s) PO TID as needed nausea unrelieved by zofran 04/13/20172017 Inactive Zithromax Z-Gary 250 mg tablet RxNorm: 150751 1 Tablet(s) PO UD 04/06/2017 04/16/2017 Inactive prednisone 5 mg tablet RxNorm: 256206 1 Tablet(s) PO daily No Start Date Active Humira Pen 40 mg/0.8 mL subcutaneous RxNorm: 9422993 1 Milliliter(s) SQ QW No Start Date Active Linzess 145 mcg capsule RxNorm: 3614538 1 Capsule(s) PO daily No Start Date 08/16/2017 Inactive Prilosec 20 mg capsule,delayed release RxNorm: 272514 1 Capsule(s) PO daily No Start Date 11/18/2017 Inactive Premarin 1.25 mg tablet RxNorm: 716399 1 Tablet(s) PO daily No Start Date [...] time 01/28/2018 None Full Exam - General 1995 Psychiatric mood and affect Overall: normal mood [...] Codes Date URINALYSIS NONAUTO W/O SCOPE CPT-4: 13387 06/04/2017 Vital Signs Date Vital 04/16/2018 Blood Pressure 1: 122/60 Code : 8480-6 BMI: 22.6 Code : 32602-7 Heart Rate 1 : 72 bpm Height: 4'11" SpO2: 92% Temperature: 36.7 (C) / 98.1 (F) Weight: 112 lbs 01/28/2018 Blood Pressure 1: 136/52 Code : 8480-6 BMI: 22.6 Code : 73966-0 Heart Rate 1 : 76 bpm Height: 4'11" SpO2: 98% Weight: 112 lbs 10/15/2017 Blood Pressure 1: 136/78 Code : 8480-6 BMI: 22.6 Code : 39819-4 Heart Rate 1 : 86 bpm Height: 4'11" SpO2: 98% Weight: 112 lbs 09/19/2017 Blood Pressure 1: 122/68 Code : 8480-6 BMI: 22.4 Code : 81476-9 Heart Rate 1 : 74 bpm Height: 4'11" SpO2: 97% Weight: 111 lbs 08/20/2017 Blood Pressure 1: 132/78 Code : 8480-6 BMI: 22.0 Code : 85478-5 Heart Rate 1 : 80 bpm Height: 4'11" SpO2: 96% Weight: 109 lbs 07/19/2017 Blood Pressure 1: 130/64 Code : 8480-6 BMI: 20.6 Code : 95832-2 Heart Rate 1 : 78 bpm Height: 4'11" SpO2: 98% Weight: 102 lbs 06/13/2017 Blood Pressure 1: 130/64 Code : 8480-6 BMI: 20.0 Code : 94865-7 Heart Rate 1 : 66 bpm Height: 4'11" SpO2: 97% Weight: 99 lbs 05/25/2017 Blood Pressure 1: 132/60 Code : 8480-6 BMI: 20.0 Code : 88450-7 Heart Rate 1 : 81 bpm Height: 4'11" SpO2: 99% Weight: 99 lbs 05/11/2017 Blood Pressure 1: 132/70 Code : 8480-6 Heart Rate 1: 69 bpm Height: SpO2: 99% Weight: 04/25/2017 Blood Pressure 1: 136/78 Code : 8480-6 BMI: 20.2 Code : 49343-3 Heart Rate 1 : 70 bpm Height: 4'11" SpO2: 99% Weight: 100 lbs 04/17/2017 Blood Pressure 1: 118/70 Code : 8480-6 BMI: 20.2 Code : 84947-5 Heart Rate 1 : 62 bpm Height: 4'11" SpO2: 99% Temperature: 36.4 (C) / 97.6 (F) Weight: 100 lbs 04/13/2017 Blood Pressure 1: 136/78 Code : 8480-6 BMI: 19.4 Code : 71869-4 Heart Rate 1 : 79 bpm Height: 4'11" SpO2: 97% Temperature: 36.8 (C) / 98.2 (F) Weight: 96 lbs 04/06/2017 Blood Pressure 1: 120/68 Code : 8480-6 BMI: 20.2 Code : 61449-5 Heart Rate 1 : 71 bpm Height: [...] Other allergic rhinitis[ICD10: J30.89] Radha Angeles MD, [facility] CPT-4: 82374 04/16/2018 79059 EST. PATIENT, LEVEL III Diagnosis: Dysuria[ICD10: R30.0] Diagnosis: Diverticulitis of large intestine without perforation or abscess without bleeding[ICD10: K57.32] Diagnosis: Gastro-esophageal reflux disease without esophagitis[ICD10: K21.9] Radha Angeles MD, [facility] CPT-4: 45930 01/28/2018 99399 EST. PATIENT, LEVEL III Diagnosis: Rheumatoid arthritis with rheumatoid factor of multiple sites without organ or systems involvement[ICD10: M05.79] Diagnosis: Generalized anxiety disorder[ICD10: F41.1] Diagnosis: Major depressive disorder, single episode, moderate[ICD10: F32.1] Diagnosis: Chronic pain syndrome[ICD10: G89.4] Radha Angeles MD, [facility] CPT-4: 79798 10/15/2017 34661 EST. PATIENT, LEVEL III Diagnosis: Rheumatoid arthritis with rheumatoid factor of multiple sites without organ or systems involvement[ICD10: M05.79] Diagnosis: Generalized anxiety disorder[ICD10: F41.1] Diagnosis: Major depressive disorder, single episode, moderate[ICD10: F32.1] Radha Angeles MD, [facility] CPT-4: 37861 09/19/2017 91129 EST. PATIENT, LEVEL III Diagnosis: Rheumatoid arthritis with rheumatoid factor of multiple sites without organ or systems involvement[ICD10: M05.79] Diagnosis: Generalized anxiety disorder[ICD10: F41.1] Diagnosis: Major depressive disorder, single episode, moderate[ICD10: F32.1] Diagnosis: Slow transit constipation[ICD10: K59.01] Radha Angeles MD, [facility] CPT-4: 32399 08/20/2017 63629 EST. PATIENT, LEVEL III Diagnosis: Rheumatoid arthritis with rheumatoid factor of multiple sites without organ or systems involvement[ICD10: M05.79] Diagnosis: Generalized anxiety disorder[ICD10: F41.1] Diagnosis: Major depressive disorder, single episode, moderate[ICD10: F32.1] Radha Angeles MD, [facility] CPT-4: 31186 07/19/2017 98181 EST. PATIENT, LEVEL III Diagnosis: Rheumatoid arthritis with rheumatoid factor of multiple sites without organ or systems involvement[ICD10: M05.79] Radha Angeles MD, [facility] CPT-4: 54164 06/13/2017 07682 EST. PATIENT, LEVEL III Diagnosis: Rheumatoid arthritis with rheumatoid factor of right wrist without organ or systems involvement[ICD10: M05.731] Radha Angeles MD, [facility] CPT -4: 47628 05/25/2017 39175 EST. PATIENT, LEVEL III Diagnosis: Gastro-esophageal reflux disease without esophagitis[ICD10: K21.9] Diagnosis: Rheumatoid arthritis with rheumatoid factor of multiple sites without organ or systems involvement[ICD10: M05.79] Radha Angeles MD, [facility] CPT-4: 25807 05/11/2017 81989 EST. PATIENT, LEVEL IV Diagnosis: Cough[ICD10: R05] Diagnosis: Gastro-esophageal reflux disease without esophagitis[ICD10: K21.9] Diagnosis: Nontoxic goiter, unspecified[ICD10: E04.9] Diagnosis: Shortness of breath[ICD10: R06.02] Radha Angeles MD, [facility] CPT-4: 50094 04/25/2017 03132 EST. PATIENT, LEVEL IV Diagnosis: Acute laryngopharyngitis[ICD10: J06.0] Diagnosis: Other allergic rhinitis[ICD10: J30.89] Diagnosis: Gastro-esophageal reflux disease without esophagitis[ICD10: K21.9] Radha Angeles MD, [facility] CPT-4: 13021 04/17/2017 57467 EST. PATIENT, LEVEL IV Diagnosis: Diarrhea, unspecified[ICD10: R19.7] Diagnosis: Other specified intestinal infections[ICD10: A08.8] Radha Angeles MD, [facility] CPT-4: 10337 04/13/2017 OFFICE VISIT, NEW - LEVEL 4 Diagnosis: Other acute sinusitis[ICD10: J01.80] Diagnosis: Pain in left knee[ICD10: M25.562] Diagnosis: Nontoxic goiter, unspecified[ICD10: E04.9] [facility] CPT-4: 06362 04/06/2017 Plan of Care Planned Activity Notes [...] allergy spray. 04/16/2018 Appointment: Radha Sosa WPtel: [address] [place], [place] [phone] (15 min) Moderate 04/16/2018 Patient Education: Patient [...] improving. 01/28/2018 Appointment: Radha Sosa WPtel: [phone] [facility] (15 min) Moderate 01/28/2018 Patient Education: Patient [...] over-medication. 10/15/2017 Appointment: Radha Sosa WPtel: [phone] [facility] (15 min) Moderate 10/15/2017 Patient Education: Patient [...] plan. 09/19/2017 [phone] [facility] [place] (30 min) Complex 09/19/2017 Patient Education: Patient Medication Summary Completed 09/19/2017 Appointment: Radha Sosa WPtel: [phone] [phone] (15 min) Moderate 08/21/2017 Visit Plan: Chronic [...] Completed 08/20/2017 Appointment: Radha Sosa WPtel: [phone] (15 min) Moderate 08/17/2017 Appointment: Radha Sosa WPtel: [facility] [place] [address] (30 min) Complex 07/23/2017 Visit Plan: [...] prescribed for this patient. 07/19/2017 Appointment: Radha oSsa WPtel: [phone] [facility] (30 min) Complex 07/19/2017 Patient [...] plan. 06/13/2017 Appointment: Radha Sosa WPtel: [phone] [facility] [place] (15 min) Moderate 06/13/2017 Patient Education: [...] improve. 05/25/2017 Appointment: Radha Sosa WPtel: [phone] [facility] [place] (30 min) Complex 05/25/2017 Patient Education: Patient Medication Summary Completed 05/25/2017 Appointment: Radha Sosa WPtel: [phone] [facility] [place] (30 min) Complex 05/24/2017 Visit Plan: [...] plan. 05/11/2017 [facility]ment[phone] [facility] [place] (30 min) Complex 05/11/2017 Patient Education: [...] as indicated 04/25/2017 Appointment: Radha Sosa WPtel: [facility] [place] (30 min) Complex 04/25/2017 Patient Education: [...] allergy spray. 04/17/2017 Appointment: Radha Sosa WPtel: [facility] [place] (30 min) Complex 04/17/2017 Patient Education: Patient [...] improved. 04/13/2017 Appointment: [facility] [phone] [facility] ([facility] min) Moderate 04/13/2017 Patient Education: Patient [...] indicated 04/06/2017 Appointment: [facility] [phone] [facility] [facility] 04/06/2017 Patient Education: Patient [...]
--- OUTSIDE RECORDS SUMMARY | 2018-08-07 10:57 | XMS REPORT | CCD ---
Author Author Radha Sosa Organization Yamilet Angeles MD, [facility] Address [address] [place] [address] Phone Care Team Providers Care Commercial Account Manager Name Role Phone PP Unavailable CCM Unavailable Summary Purpose Interface Exchange Insurance Providers Payer name Policy type / Coverage type Covered constitution party ID Effective Begin Date Effective End Date Blue Cross Blue [facility] Blue Cross/Blue [facility] [id number] Unknown Family history Father Diagnosis Age At Onset Arthritis Unknown Cancer Unknown Mother Diagnosis Age At Onset Cancer Unknown Social History Social History Element Codes Description Effective Dates Marital status Unknown Michael 04/17/2017 Number of children Unknown 1 04/06/[address]: 161152088 Never smoker 04/06/[address]: 311162645 Never drinks alcohol 04/06/2017 Allergies, Adverse Reactions, [...] ProAir HFA 90 mcg/actuation aerosol inhaler RxNorm: 1991359 1 INH TID 04/19/2018 06/17/2018 Active doxycycline hyclate 100 mg capsule RxNorm: 0338043 1 Capsule(s) PO BID 04/19/2018 04/28/2018 Active doxycycline hyclate 100 mg capsule RxNorm: 8443141 1 Capsule(s) PO BID 04/19/2018 04/18/2018 Inactive ProAir HFA 90 mcg/actuation aerosol inhaler RxNorm: 6568557 1 INH TID 04/19/2018 04/18/2018 Inactive Zithromax Z-Gary 250 mg tablet RxNorm: 459452 1 Tablet(s) PO UD 04/16/2018 No Stop Date Active Diflucan 150 mg tablet RxNorm: 692384 1 Tablet(s) PO daily 11/201804/20/2018 Active Premarin 1.25 mg tablet RxNorm: 396678 1 Tablet(s) PO daily 04/25/2018 Active Premarin 1.25 mg tablet RxNorm: 522722 1 Tablet(s) PO daily 02/28/2018 Inactive pantoprazole 40 mg tablet,delayed release RxNorm: 745529 1 Tablet(s) PO daily 02/21/2018 06/20/2018 Active pantoprazole 40 mg tablet,delayed release RxNorm: 029438 1 Tablet(s) PO daily 02/21/2018 02/20/2018 Inactive hydrocodone 5 mg-acetaminophen 325 mg tablet RxNorm: 567524 1 Tablet(s) PO TID as needed for pain 02/20/2018 No Stop Date Active Bactrim DS 800 mg-160 mg tablet RxNorm: 879553 1 Tablet(s) PO BID 02/06/2018 02/05/2018 Inactive Bactrim DS 800 mg-160 mg tablet RxNorm: 656655 1 Tablet(s) PO BID 02/06/2018 02/15/2018 Inactive Diflucan 150 mg tablet RxNorm: 440743 1 Tablet(s) PO daily 02/02/2018 Inactive Diflucan 150 mg tablet RxNorm: 591467 1 Tablet(s) PO daily 01/28/2018 Inactive Flagyl 500 mg tablet RxNorm: 201971 1 Tablet(s) PO TID 201702/06/2018 Inactive Premarin 1.25 mg tablet RxNorm: 254430 1 Tablet(s) PO daily 02/28/2018 Inactive Cipro 500 mg tablet RxNorm: 959954 1 Tablet(s) PO BID 201702/06/2018 Inactive hydrocodone 5 mg-acetaminophen 325 mg tablet RxNorm: 507814 1 Tablet(s) PO TID as needed for pain 12/31/2017 02/19/2018 Inactive Premarin 1.25 mg tablet RxNorm: 014244 1 Tablet(s) PO daily 01/27/2018 Inactive Prilosec 20 mg capsule,delayed release RxNorm: 564293 1 Capsule(s) PO daily 11/19/2017 02/20/2018 Inactive hydrocodone 5 mg-acetaminophen 325 mg tablet RxNorm: 913381 1 Tablet(s) PO TID as needed for pain 10/15/2017 12/30/2017 Inactive gabapentin 100 mg capsule RxNorm: 211203 1 Capsule(s) PO BID No Stop Date Active hydrocodone 5 mg-acetaminophen 325 mg tablet RxNorm: 376012 1 Tablet(s) PO QID as needed 09/19/2017 10/14/2017 Inactive Lyrica 50 mg capsule RxNorm: 557689 1 Capsule(s) PO TID 2017 No Stop Date Active Celebrex 200 mg capsule RxNorm: 376979 1 Capsule(s) PO daily 09/18/2017 Inactive Xanax 0.25 mg tablet RxNorm: 579647 1 Tablet(s) PO BID 201708/17/2017 Inactive Cymbalta 30 mg capsule,delayed release RxNorm: 219585 1 Capsule(s) PO daily 07/19/2017 08/17/2017 Inactive amoxicillin 500 mg capsule RxNorm: 117376 1 Capsule(s) PO TID 04/17/2017 04/26/2017 Inactive Prilosec OTC 20 mg tablet,delayed release RxNorm: 333614 1 Tablet(s) PO BID 04/17/2017 05/16/2017 Inactive 1 pill twice a day x 2 weeks, then daily Zofran 4 mg tablet RxNorm: 856438 1 Tablet(s) PO TID as needed 04/13/2017 04/17/2017 Inactive Flagyl 500 mg tablet RxNorm: 677830 1 Tablet(s) PO TID 201704/22/2017 Inactive promethazine 25 mg tablet RxNorm: 370495 1 Tablet(s) PO TID as needed nausea unrelieved by zofran 04/13/20172017 Inactive Zithromax Z-Gary 250 mg tablet RxNorm: 149329 1 Tablet(s) PO UD 04/06/2017 04/16/2017 Inactive prednisone 5 mg tablet RxNorm: 029852 1 Tablet(s) PO daily No Start Date Active Humira Pen 40 mg/0.8 mL subcutaneous RxNorm: 2284472 1 Milliliter(s) SQ QW No Start Date Active Linzess 145 mcg capsule RxNorm: 7872226 1 Capsule(s) PO daily No Start Date 08/16/2017 Inactive Prilosec 20 mg capsule,delayed release RxNorm: 477413 1 Capsule(s) PO daily No Start Date 11/18/2017 Inactive Premarin 1.25 mg tablet RxNorm: 933049 1 Tablet(s) PO daily No Start Date [...] Codes Date URINALYSIS NONAUTO W/O SCOPE CPT-4: 68363 06/04/2017 Vital Signs Date Vital 04/16/2018 Blood Pressure 1: 122/60 Code : 8480-6 BMI: 22.6 Code : 53843-4 Heart Rate 1 : 72 bpm Height: 4'11" SpO2: 92% Temperature: 36.7 (C) / 98.1 (F) Weight: 112 lbs 01/28/2018 Blood Pressure 1: 136/52 Code : 8480-6 BMI: 22.6 Code : 66950-6 Heart Rate 1 : 76 bpm Height: 4'11" SpO2: 98% Weight: 112 lbs 10/15/2017 Blood Pressure 1: 136/78 Code : 8480-6 BMI: 22.6 Code : 22891-7 Heart Rate 1 : 86 bpm Height: 4'11" SpO2: 98% Weight: 112 lbs 09/19/2017 Blood Pressure 1: 122/68 Code : 8480-6 BMI: 22.4 Code : 35556-4 Heart Rate 1 : 74 bpm Height: 4'11" SpO2: 97% Weight: 111 lbs 08/20/2017 Blood Pressure 1: 132/78 Code : 8480-6 BMI: 22.0 Code : 17349-2 Heart Rate 1 : 80 bpm Height: 4'11" SpO2: 96% Weight: 109 lbs 07/19/2017 Blood Pressure 1: 130/64 Code : 8480-6 BMI: 20.6 Code : 41388-1 Heart Rate 1 : 78 bpm Height: 4'11" SpO2: 98% Weight: 102 lbs 06/13/2017 Blood Pressure 1: 130/64 Code : 8480-6 BMI: 20.0 Code : 84112-1 Heart Rate 1 : 66 bpm Height: 4'11" SpO2: 97% Weight: 99 lbs 05/25/2017 Blood Pressure 1: 132/60 Code : 8480-6 BMI: 20.0 Code : 34332-4 Heart Rate 1 : 81 bpm Height: 4'11" SpO2: 99% Weight: 99 lbs 05/11/2017 Blood Pressure 1: 132/70 Code : 8480-6 Heart Rate 1: 69 bpm Height: SpO2: 99% Weight: 04/25/2017 Blood Pressure 1: 136/78 Code : 8480-6 BMI: 20.2 Code : 28693-8 Heart Rate 1 : 70 bpm Height: 4'11" SpO2: 99% Weight: 100 lbs 04/17/2017 Blood Pressure 1: 118/70 Code : 8480-6 BMI: 20.2 Code : 70111-5 Heart Rate 1 : 62 bpm Height: 4'11" SpO2: 99% Temperature: 36.4 (C) / 97.6 (F) Weight: 100 lbs 04/13/2017 Blood Pressure 1: 136/78 Code : 8480-6 BMI: 19.4 Code : 39009-4 Heart Rate 1 : 79 bpm Height: 4'11" SpO2: 97% Temperature: 36.8 (C) / 98.2 (F) Weight: 96 lbs 04/06/2017 Blood Pressure 1: 120/68 Code : 8480-6 BMI: 20.2 Code : 88773-8 Heart Rate 1 : 71 bpm Height: [...] Other allergic rhinitis[ICD10: J30.89] Radha Angeles MD, [facility] CPT-4: 75845 04/16/2018 97586 EST. PATIENT, LEVEL III Diagnosis: Dysuria[ICD10: R30.0] Diagnosis: Diverticulitis of large intestine without perforation or abscess without bleeding[ICD10: K57.32] Diagnosis: Gastro-esophageal reflux disease without esophagitis[ICD10: K21.9] Radha Angeles MD, [facility] CPT-4: 74704 01/28/2018 22741 EST. PATIENT, LEVEL III Diagnosis: Rheumatoid arthritis with rheumatoid factor of multiple sites without organ or systems involvement[ICD10: M05.79] Diagnosis: Generalized anxiety disorder[ICD10: F41.1] Diagnosis: Major depressive disorder, single episode, moderate[ICD10: F32.1] Diagnosis: Chronic pain syndrome[ICD10: G89.4] Radha Angeles MD, [facility] CPT-4: 76559 10/15/2017 81081 EST. PATIENT, LEVEL III Diagnosis: Rheumatoid arthritis with rheumatoid factor of multiple sites without organ or systems involvement[ICD10: M05.79] Diagnosis: Generalized anxiety disorder[ICD10: F41.1] Diagnosis: Major depressive disorder, single episode, moderate[ICD10: F32.1] Radha Angeles MD, [facility] CPT-4: 65312 09/19/2017 62849 EST. PATIENT, LEVEL III Diagnosis: Rheumatoid arthritis with rheumatoid factor of multiple sites without organ or systems involvement[ICD10: M05.79] Diagnosis: Generalized anxiety disorder[ICD10: F41.1] Diagnosis: Major depressive disorder, single episode, moderate[ICD10: F32.1] Diagnosis: Slow transit constipation[ICD10: K59.01] Radha Angeles MD, [facility] CPT-4: 42031 08/20/2017 69876 EST. PATIENT, LEVEL III Diagnosis: Rheumatoid arthritis with rheumatoid factor of multiple sites without organ or systems involvement[ICD10: M05.79] Diagnosis: Generalized anxiety disorder[ICD10: F41.1] Diagnosis: Major depressive disorder, single episode, moderate[ICD10: F32.1] Radha Angeles MD, [facility] CPT-4: 08319 07/19/2017 04620 EST. PATIENT, LEVEL III Diagnosis: Rheumatoid arthritis with rheumatoid factor of multiple sites without organ or systems involvement[ICD10: M05.79] Radha Angeles MD, [facility] CPT-4: 76658 06/13/2017 62021 EST. PATIENT, LEVEL III Diagnosis: Rheumatoid arthritis with rheumatoid factor of right wrist without organ or systems involvement[ICD10: M05.731] Radha Angeles MD, [facility] CPT -4: 01516 05/25/2017 41668 EST. PATIENT, LEVEL III Diagnosis: Gastro-esophageal reflux disease without esophagitis[ICD10: K21.9] Diagnosis: Rheumatoid arthritis with rheumatoid factor of multiple sites without organ or systems involvement[ICD10: M05.79] Radha Angeles MD, [facility] CPT-4: 68561 05/11/2017 23031 EST. PATIENT, LEVEL IV Diagnosis: Cough[ICD10: R05] Diagnosis: Gastro-esophageal reflux disease without esophagitis[ICD10: K21.9] Diagnosis: Nontoxic goiter, unspecified[ICD10: E04.9] Diagnosis: Shortness of breath[ICD10: R06.02] Radha Angeles MD, [facility] CPT-4: 37616 04/25/2017 08125 EST. PATIENT, LEVEL IV Diagnosis: Acute laryngopharyngitis[ICD10: J06.0] Diagnosis: Other allergic rhinitis[ICD10: J30.89] Diagnosis: Gastro-esophageal reflux disease without esophagitis[ICD10: K21.9] Radha Angeles MD, [facility] CPT-4: 06622 04/17/2017 25258 EST. PATIENT, LEVEL IV Diagnosis: Diarrhea, unspecified[ICD10: R19.7] Diagnosis: Other specified intestinal infections[ICD10: A08.8] Radha Angeles MD, [facility] CPT-4: 87005 04/13/2017 OFFICE VISIT, NEW - LEVEL 4 Diagnosis: Other acute sinusitis[ICD10: J01.80] Diagnosis: Pain in left knee[ICD10: M25.562] Diagnosis: Nontoxic goiter, unspecified[ICD10: E04.9] Radha Angeles MD, [facility] CPT-4: 21951 04/06/2017 Plan of Care Planned Activity Notes [...] allergy spray. 04/16/2018 Appointment: Radha Sosa WPtel: [address] [place], [place] [phone] (15 min) Moderate 04/16/2018 Patient Education: Patient [...] improving. 01/28/2018 Appointment: Radha Sosa WPtel: [address] [facility] (15 min) Moderate 01/28/2018 Patient Education: [...] of over-medication. 10/15/2017 Appointment: Radha Sosa WPtel: [facility] (15 min) Moderate 10/15/2017 Patient Education: [...] treatment plan. 09/19/2017 Appointment: Radha [facility]osa [facility]el[facility] [place] ([place] min) Complex 09/19/2017 Patient Education: Patient Medication Summary Completed 09/19/2017 Appointment: Radha Sosa WPtel[facility] [place] (15 min) Moderate 08/21/2017 Visit Plan: Chronic [...] Summary Completed 08/20/2017 Appointment: Radha Sosa WPtel: [facility] (15 min) Moderate 08/17/2017 Appointment: Radha Sosa WPtel: [facility]5 [facility] (30 min) Complex 07/23/2017 Visit Plan: [...] this patient. 07/19/2017 Appointment: Radha Sosa WPtel: [facility]6 [facility] [place] (30 min) Complex 07/19/2017 Patient [...] treatment plan. 06/13/2017 Appointment: Radha Sosa WPtel: [facility] [place] (15 min) Moderate 06/13/2017 Patient [...] not improve. 05/25/2017 Appointment: Radha Sosa WPtel: [facility] [place] (30 min) Complex 05/25/2017 Patient Education: Patient Medication Summary Completed 05/25/2017 Appointment: Radha Sosa WPtel: [facility] [place] (30 min) Complex 05/24/2017 Visit [...] treatment plan. 05/11/2017 Appointment: Radha Sosa WPtel: [facility] [place] (30 min) Complex 05/11/2017 Patient [...] as indicated 04/25/2017 Appointment: Radha Sosa WPtel: [facility] (30 min) Complex 04/25/2017 Patient Education: [...] allergy spray. 04/17/2017 Appointment: Radha Sosa WPtel: [facility] (30 min) Complex 04/17/2017 Patient Education: Patient [...] not improved. 04/13/2017 Appointment: Radha Sosa WPtel: [facility] (15 min) Moderate 04/13/2017 Patient Education: [...] as indicated 04/06/2017 Appointment: Radha Sosa WPtel: [address] [place], [place] [address] New Patient 04/06/2017 Patient Education: Patient Medication [...]
[2018-08-07] MEDS ORDERED: NS IV 500 ML 500 ML ONE (10:58)
--- OUTSIDE RECORDS SUMMARY | 2018-08-07 10:58 | XMS REPORT | CCD ---
Author Author Radha Sosa Organization Yamilet Angeles MD, [facility] Address [address] [place] [address] Phone Care Team Providers Care Channel Manager Name Role Phone PP Unavailable CCM Unavailable Summary Purpose Interface Exchange Insurance Providers Payer name Policy type / Coverage type Covered green party ID Effective Begin Date Effective End Date Blue Cross Blue [facility] Blue Cross/Blue [facility] [id number] Unknown Family history Father Diagnosis Age At Onset Arthritis Unknown Cancer Unknown Mother Diagnosis Age At Onset Cancer Unknown Social History Social History Element Codes Description Effective Dates Marital status Unknown Michael 04/17/2017 Number of children Unknown 1 04/06/[address]: 970278856 Never smoker 04/06/[address]: 074716208 Never drinks alcohol 04/06/2017 Allergies, Adverse Reactions, [...] Start Date Stop Date Status Fill Instructions Zithromax Z-Gary 250 mg tablet RxNorm: 995081 1 Tablet(s) PO UD 04/16/2018 No Stop Date Active Diflucan 150 mg tablet RxNorm: 372956 1 Tablet(s) PO daily 11/201804/20/2018 Active Premarin 1.25 mg tablet RxNorm: 156472 1 Tablet(s) PO daily 04/25/2018 Active Premarin 1.25 mg tablet RxNorm: 230041 1 Tablet(s) PO daily 02/28/2018 Inactive pantoprazole 40 mg tablet,delayed release RxNorm: 536672 1 Tablet(s) PO daily 02/21/2018 06/20/2018 Active pantoprazole 40 mg tablet,delayed release RxNorm: 552442 1 Tablet(s) PO daily 02/21/2018 02/20/2018 Inactive hydrocodone 5 mg-acetaminophen 325 mg tablet RxNorm: 040624 1 Tablet(s) PO TID as needed for pain 02/20/2018 No Stop Date Active Bactrim DS 800 mg-160 mg tablet RxNorm: 845493 1 Tablet(s) PO BID 02/06/2018 02/05/2018 Inactive Bactrim DS 800 mg-160 mg tablet RxNorm: 474661 1 Tablet(s) PO BID 02/06/2018 02/15/2018 Inactive Diflucan 150 mg tablet RxNorm: 949003 1 Tablet(s) PO daily 02/02/2018 Inactive Diflucan 150 mg tablet RxNorm: 593548 1 Tablet(s) PO daily 01/28/2018 Inactive Flagyl 500 mg tablet RxNorm: 860741 1 Tablet(s) PO TID 201702/06/2018 Inactive Premarin 1.25 mg tablet RxNorm: 878978 1 Tablet(s) PO daily 02/28/2018 Inactive Cipro 500 mg tablet RxNorm: 557253 1 Tablet(s) PO BID 201702/06/2018 Inactive hydrocodone 5 mg-acetaminophen 325 mg tablet RxNorm: 580972 1 Tablet(s) PO TID as needed for pain 12/31/2017 02/19/2018 Inactive Premarin 1.25 mg tablet RxNorm: 070106 1 Tablet(s) PO daily 01/27/2018 Inactive Prilosec 20 mg capsule,delayed release RxNorm: 751723 1 Capsule(s) PO daily 11/19/2017 02/20/2018 Inactive hydrocodone 5 mg-acetaminophen 325 mg tablet RxNorm: 049521 1 Tablet(s) PO TID as needed for pain 10/15/2017 12/30/2017 Inactive gabapentin 100 mg capsule RxNorm: 387367 1 Capsule(s) PO BID No Stop Date Active hydrocodone 5 mg-acetaminophen 325 mg tablet RxNorm: 532715 1 Tablet(s) PO QID as needed 09/19/2017 10/14/2017 Inactive Lyrica 50 mg capsule RxNorm: 799223 1 Capsule(s) PO TID 2017 No Stop Date Active Celebrex 200 mg capsule RxNorm: 422741 1 Capsule(s) PO daily 09/18/2017 Inactive Xanax 0.25 mg tablet RxNorm: 801931 1 Tablet(s) PO BID 201708/17/2017 Inactive Cymbalta 30 mg capsule,delayed release RxNorm: 290003 1 Capsule(s) PO daily 07/19/2017 08/17/2017 Inactive amoxicillin 500 mg capsule RxNorm: 941423 1 Capsule(s) PO TID 04/17/2017 04/26/2017 Inactive Prilosec OTC 20 mg tablet,delayed release RxNorm: 412435 1 Tablet(s) PO BID 04/17/2017 05/16/2017 Inactive 1 pill twice a day x 2 weeks, then daily Zofran 4 mg tablet RxNorm: 417839 1 Tablet(s) PO TID as needed 04/13/2017 04/17/2017 Inactive Flagyl 500 mg tablet RxNorm: 248673 1 Tablet(s) PO TID 201704/22/2017 Inactive promethazine 25 mg tablet RxNorm: 806007 1 Tablet(s) PO TID as needed nausea unrelieved by zofran 04/13/20172017 Inactive Zithromax Z-Gary 250 mg tablet RxNorm: 900267 1 Tablet(s) PO UD 04/06/2017 04/16/2017 Inactive prednisone 5 mg tablet RxNorm: 274819 1 Tablet(s) PO daily No Start Date Active Humira Pen 40 mg/0.8 mL subcutaneous RxNorm: 3914206 1 Milliliter(s) SQ QW No Start Date Active Linzess 145 mcg capsule RxNorm: 1919390 1 Capsule(s) PO daily No Start Date 08/16/2017 Inactive Prilosec 20 mg capsule,delayed release RxNorm: 746289 1 Capsule(s) PO daily No Start Date 11/18/2017 Inactive Premarin 1.25 mg tablet RxNorm: 436707 1 Tablet(s) PO daily No Start Date [...] developed 05/11/2017 None Full Exam - General 1995 Constitutional general appearance Overall: in no acute distress 05/11/2017 None Full Exam - General 1995 Constitutional general appearance Overall: well nourished 05/11/2017 None Full Exam - General 1995 Eyes conjunctiva /eyelids Overall: conjunctiva clear 05/11/2017 None Full Exam - General 1995 Eyes conjunctiva /eyelids Overall: cornea clear 05/11/2017 [...] Codes Date URINALYSIS NONAUTO W/O SCOPE CPT-4: 19120 06/04/2017 Vital Signs Date Vital 04/16/2018 Blood Pressure 1: 122/60 Code : 8480-6 BMI: 22.6 Code : 02596-0 Heart Rate 1 : 72 bpm Height: 4'11" SpO2: 92% Temperature: 36.7 (C) / 98.1 (F) Weight: 112 lbs 01/28/2018 Blood Pressure 1: 136/52 Code : 8480-6 BMI: 22.6 Code : 94788-4 Heart Rate 1 : 76 bpm Height: 4'11" SpO2: 98% Weight: 112 lbs 10/15/2017 Blood Pressure 1: 136/78 Code : 8480-6 BMI: 22.6 Code : 33572-0 Heart Rate 1 : 86 bpm Height: 4'11" SpO2: 98% Weight: 112 lbs 09/19/2017 Blood Pressure 1: 122/68 Code : 8480-6 BMI: 22.4 Code : 15804-5 Heart Rate 1 : 74 bpm Height: 4'11" SpO2: 97% Weight: 111 lbs 08/20/2017 Blood Pressure 1: 132/78 Code : 8480-6 BMI: 22.0 Code : 39579-9 Heart Rate 1 : 80 bpm Height: 4'11" SpO2: 96% Weight: 109 lbs 07/19/2017 Blood Pressure 1: 130/64 Code : 8480-6 BMI: 20.6 Code : 89857-1 Heart Rate 1 : 78 bpm Height: 4'11" SpO2: 98% Weight: 102 lbs 06/13/2017 Blood Pressure 1: 130/64 Code : 8480-6 BMI: 20.0 Code : 33780-4 Heart Rate 1 : 66 bpm Height: 4'11" SpO2: 97% Weight: 99 lbs 05/25/2017 Blood Pressure 1: 132/60 Code : 8480-6 BMI: 20.0 Code : 87492-7 Heart Rate 1 : 81 bpm Height: 4'11" SpO2: 99% Weight: 99 lbs 05/11/2017 Blood Pressure 1: 132/70 Code : 8480-6 Heart Rate 1: 69 bpm Height: SpO2: 99% Weight: 04/25/2017 Blood Pressure 1: 136/78 Code : 8480-6 BMI: 20.2 Code : 38062-2 Heart Rate 1 : 70 bpm Height: 4'11" SpO2: 99% Weight: 100 lbs 04/17/2017 Blood Pressure 1: 118/70 Code : 8480-6 BMI: 20.2 Code : 68284-8 Heart Rate 1 : 62 bpm Height: 4'11" SpO2: 99% Temperature: 36.4 (C) / 97.6 (F) Weight: 100 lbs 04/13/2017 Blood Pressure 1: 136/78 Code : 8480-6 BMI: 19.4 Code : 54118-5 Heart Rate 1 : 79 bpm Height: 4'11" SpO2: 97% Temperature: 36.8 (C) / 98.2 (F) Weight: 96 lbs 04/06/2017 Blood Pressure 1: 120/68 Code : 8480-6 BMI: 20.2 Code : 89828-5 Heart Rate 1 : 71 bpm Height: [...] data Encounters Encounter Performer Location Codes Date 77251 EST. PATIENT, LEVEL IV Diagnosis: Other acute sinusitis[ICD10: J01.80] Diagnosis: Other allergic rhinitis[ICD10: J30.89] Radha Angeles MD, [facility] CPT-4: 37765 04/16/2018 64969 EST. PATIENT, LEVEL III Diagnosis: Dysuria[ICD10: R30.0] Diagnosis: Diverticulitis of large intestine without perforation or abscess without bleeding[ICD10: K57.32] Diagnosis: Gastro-esophageal reflux disease without esophagitis[ICD10: K21.9] Radha Angeles MD, [facility] CPT-4: 75118 01/28/2018 86592 EST. PATIENT, LEVEL III Diagnosis: Rheumatoid arthritis with rheumatoid factor of multiple sites without organ or systems involvement[ICD10: M05.79] Diagnosis: Generalized anxiety disorder[ICD10: F41.1] Diagnosis: Major depressive disorder, single episode, moderate[ICD10: F32.1] Diagnosis: Chronic pain syndrome[ICD10: G89.4] Radha Angeles MD, [facility] CPT-4: 69182 10/15/2017 56178 EST. PATIENT, LEVEL III Diagnosis: Rheumatoid arthritis with rheumatoid factor of multiple sites without organ or systems involvement[ICD10: M05.79] Diagnosis: Generalized anxiety disorder[ICD10: F41.1] Diagnosis: Major depressive disorder, single episode, moderate[ICD10: F32.1] Radha Angeles MD, [facility] CPT-4: 97335 09/19/2017 24641 EST. PATIENT, LEVEL III Diagnosis: Rheumatoid arthritis with rheumatoid factor of multiple sites without organ or systems involvement[ICD10: M05.79] Diagnosis: Generalized anxiety disorder[ICD10: F41.1] Diagnosis: Major depressive disorder, single episode, moderate[ICD10: F32.1] Diagnosis: Slow transit constipation[ICD10: K59.01] Radha Angeles MD, [facility] CPT-4: 40684 08/20/2017 23166 EST. PATIENT, LEVEL III Diagnosis: Rheumatoid arthritis with rheumatoid factor of multiple sites without organ or systems involvement[ICD10: M05.79] Diagnosis: Generalized anxiety disorder[ICD10: F41.1] Diagnosis: Major depressive disorder, single episode, moderate[ICD10: F32.1] Radha Angeles MD, [facility] CPT-4: 96686 07/19/2017 34354 EST. PATIENT, LEVEL III Diagnosis: Rheumatoid arthritis with rheumatoid factor of multiple sites without organ or systems involvement[ICD10: M05.79] Radha Angeles MD, [facility] CPT-4: 27520 06/13/2017 22559 EST. PATIENT, LEVEL III Diagnosis: Rheumatoid arthritis with rheumatoid factor of right wrist without organ or systems involvement[ICD10: M05.731] Radha Angeles MD, [facility] CPT -4: 14545 05/25/2017 94972 EST. PATIENT, LEVEL III Diagnosis: Gastro-esophageal reflux disease without esophagitis[ICD10: K21.9] Diagnosis: Rheumatoid arthritis with rheumatoid factor of multiple sites without organ or systems involvement[ICD10: M05.79] Radha Angeles MD, [facility] CPT-4: 90755 05/11/2017 71232 EST. PATIENT, LEVEL IV Diagnosis: Cough[ICD10: R05] Diagnosis: Gastro-esophageal reflux disease without esophagitis[ICD10: K21.9] Diagnosis: Nontoxic goiter, unspecified[ICD10: E04.9] Diagnosis: Shortness of breath[ICD10: R06.02] Radha Angeles MD, [facility] CPT-4: 22042 04/25/2017 53486 EST. PATIENT, LEVEL IV Diagnosis: Acute laryngopharyngitis[ICD10: J06.0] Diagnosis: Other allergic rhinitis[ICD10: J30.89] Diagnosis: Gastro-esophageal reflux disease without esophagitis[ICD10: K21.9] Radha Angeles MD, [facility] CPT-4: 22763 04/17/2017 80695 EST. PATIENT, LEVEL IV Diagnosis: Diarrhea, unspecified[ICD10: R19.7] Diagnosis: Other specified intestinal infections[ICD10: A08.8] Radha Angeles MD, [facility] CPT-4: 07449 04/13/2017 OFFICE VISIT, NEW - LEVEL 4 Diagnosis: Other acute sinusitis[ICD10: J01.80] Diagnosis: Pain in left knee[ICD10: M25.562] Diagnosis: Nontoxic goiter, unspecified[ICD10: E04.9] Radha Angeles MD, [facility] CPT-4: 31674 04/06/2017 Plan of Care Planned Activity Notes [...] in the nasal steroid allergy spray. 04/16/2018 Patient Education: Patient Medication Summary Completed [...] not improving. 01/28/2018 Appointment: Radha Sosa WPtel: [address] [place], [place] [id number] (15 min) Moderate 01/28/2018 Patient Education: Patient [...] of over-medication. 10/15/2017 Appointment: Radha Sosa WPtel: [phone] [facility] (15 min) Moderate 10/15/2017 Patient [...] treatment plan. 09/19/2017 Appointment: Radha Sosa WPtel: [phone] [facility] (30 min) Complex 09/19/2017 Patient Education: Patient Medication Summary Completed 09/19/2017 Appointment: Radha Sosa WPtel: [phone] [facility] [place] (15 min) Moderate 08/21/2017 Visit [...] Completed 08/20/2017 Appointment: Radha Sosa WPtel: [phone] [facility] [place] (15 min) Moderate 08/17/2017 Appointment: Radha Sosa WPtel: [phone] [facility] (30 min) Complex 07/23/2017 Visit Plan: [...] patient. 07/19/2017 [phone] [facility] 07/19/2017 Patient Education: Patient [...] plan. 06/13/2017 [phone] ([facility] min) Moderate 06/13/2017 Patient Education: Patient [...] improve. 05/25/2017 Appointment: Radha Sosa WPtel: [phone] [facility] [place] (30 min) Complex 05/25/2017 Patient Education: Patient Medication Summary Completed 05/25/2017 Appointment: Radha Sosa WPtel: [phone] [facility] [place] (30 min) Complex 05/24/2017 [...] treatment plan. 05/11/2017 Appointment: Radha Sosa WPtel: [facility] [place] (30 min) Complex 05/11/2017 [...] as indicated 04/25/2017 Appointment: Radha Sosa WPtel: [facility] [place] (30 min) Complex 04/25/2017 Patient [...] allergy spray. 04/17/2017 Appointment: Radha Sosa WPtel: [address] [place], [place] [phone] (30 min) Complex 04/17/2017 Patient Education: [...] not improved. 04/13/2017 Appointment: Radha Sosa WPtel: [address] [place], [place] [phone] (15 min) Moderate 04/13/2017 Patient Education: Patient [...] as indicated 04/06/2017 Appointment: Radha Sosa WPtel: [facility]4 [facility] New Patient 04/06/2017 Patient Education: [...]
--- OUTSIDE RECORDS SUMMARY | 2018-08-07 10:59 | XMS REPORT | CCD ---
Author Author Radha Sosa Organization Yamilet Angeles MD, [facility] Address [address] [place] [address] Phone Care Team Providers Care Foundation Relations Director Name Role Phone PP Unavailable CCM Unavailable Summary Purpose Interface Exchange Insurance Providers Payer name Policy type / Coverage type Covered republican ID Effective Begin Date Effective End Date Blue Cross Blue [facility] Blue Cross/Blue [facility] [id number] Unknown Family history Father Diagnosis Age At Onset Arthritis Unknown Cancer Unknown Mother Diagnosis Age At Onset Cancer Unknown Social History Social History Element Codes Description Effective Dates Marital status Unknown Michael 04/17/2017 Number of children Unknown 1 04/06/[address]: 661587591 Never smoker 04/06/[address]: 448920693 Never drinks alcohol 04/06/2017 Allergies, Adverse Reactions, [...] Instructions Zithromax Z-Gary 250 mg tablet RxNorm: 320422 1 Tablet(s) PO UD 04/16/2018 No Stop Date Active Diflucan 150 mg tablet RxNorm: 229263 1 Tablet(s) PO daily 11/201804/20/2018 Active Premarin 1.25 mg tablet RxNorm: 438118 1 Tablet(s) PO daily 04/25/2018 Active Premarin 1.25 mg tablet RxNorm: 374549 1 Tablet(s) PO daily 02/28/2018 Inactive pantoprazole 40 mg tablet,delayed release RxNorm: 247740 1 Tablet(s) PO daily 02/21/2018 06/20/2018 Active pantoprazole 40 mg tablet,delayed release RxNorm: 272042 1 Tablet(s) PO daily 02/21/2018 02/20/2018 Inactive hydrocodone 5 mg-acetaminophen 325 mg tablet RxNorm: 975462 1 Tablet(s) PO TID as needed for pain 02/20/2018 No Stop Date Active Bactrim DS 800 mg-160 mg tablet RxNorm: 082095 1 Tablet(s) PO BID 02/06/2018 02/05/2018 Inactive Bactrim DS 800 mg-160 mg tablet RxNorm: 605397 1 Tablet(s) PO BID 02/06/2018 02/15/2018 Inactive Diflucan 150 mg tablet RxNorm: 483009 1 Tablet(s) PO daily 02/02/2018 Inactive Diflucan 150 mg tablet RxNorm: 914650 1 Tablet(s) PO daily 01/28/2018 Inactive Flagyl 500 mg tablet RxNorm: 903838 1 Tablet(s) PO TID 201702/06/2018 Inactive Premarin 1.25 mg tablet RxNorm: 348537 1 Tablet(s) PO daily 02/28/2018 Inactive Cipro 500 mg tablet RxNorm: 464125 1 Tablet(s) PO BID 201702/06/2018 Inactive hydrocodone 5 mg-acetaminophen 325 mg tablet RxNorm: 003529 1 Tablet(s) PO TID as needed for pain 12/31/2017 02/19/2018 Inactive Premarin 1.25 mg tablet RxNorm: 084684 1 Tablet(s) PO daily 01/27/2018 Inactive Prilosec 20 mg capsule,delayed release RxNorm: 689480 1 Capsule(s) PO daily 11/19/2017 02/20/2018 Inactive hydrocodone 5 mg-acetaminophen 325 mg tablet RxNorm: 539011 1 Tablet(s) PO TID as needed for pain 10/15/2017 12/30/2017 Inactive gabapentin 100 mg capsule RxNorm: 465609 1 Capsule(s) PO BID No Stop Date Active hydrocodone 5 mg-acetaminophen 325 mg tablet RxNorm: 485130 1 Tablet(s) PO QID as needed 09/19/2017 10/14/2017 Inactive Lyrica 50 mg capsule RxNorm: 176561 1 Capsule(s) PO TID 2017 No Stop Date Active Celebrex 200 mg capsule RxNorm: 641114 1 Capsule(s) PO daily 09/18/2017 Inactive Xanax 0.25 mg tablet RxNorm: 885764 1 Tablet(s) PO BID 201708/17/2017 Inactive Cymbalta 30 mg capsule,delayed release RxNorm: 554161 1 Capsule(s) PO daily 07/19/2017 08/17/2017 Inactive amoxicillin 500 mg capsule RxNorm: 586494 1 Capsule(s) PO TID 04/17/2017 04/26/2017 Inactive Prilosec OTC 20 mg tablet,delayed release RxNorm: 079031 1 Tablet(s) PO BID 04/17/2017 05/16/2017 Inactive 1 pill twice a day x 2 weeks, then daily Zofran 4 mg tablet RxNorm: 935275 1 Tablet(s) PO TID as needed 04/13/2017 04/17/2017 Inactive Flagyl 500 mg tablet RxNorm: 162994 1 Tablet(s) PO TID 201704/22/2017 Inactive promethazine 25 mg tablet RxNorm: 307215 1 Tablet(s) PO TID as needed nausea unrelieved by zofran 04/13/20172017 Inactive Zithromax Z-Gary 250 mg tablet RxNorm: 143370 1 Tablet(s) PO UD 04/06/2017 04/16/2017 Inactive prednisone 5 mg tablet RxNorm: 071626 1 Tablet(s) PO daily No Start Date Active Humira Pen 40 mg/0.8 mL subcutaneous RxNorm: 4096100 1 Milliliter(s) SQ QW No Start Date Active Linzess 145 mcg capsule RxNorm: 2443508 1 Capsule(s) PO daily No Start Date 08/16/2017 Inactive Prilosec 20 mg capsule,delayed release RxNorm: 150849 1 Capsule(s) PO daily No Start Date 11/18/2017 Inactive Premarin 1.25 mg tablet RxNorm: 928355 1 Tablet(s) PO daily No Start Date [...] Codes Date URINALYSIS NONAUTO W/O SCOPE CPT-4: 80421 06/04/2017 Vital Signs Date Vital 04/16/2018 Blood Pressure 1: 122/60 Code : 8480-6 BMI: 22.6 Code : 84778-6 Heart Rate 1 : 72 bpm Height: 4'11" SpO2: 92% Temperature: 36.7 (C) / 98.1 (F) Weight: 112 lbs 01/28/2018 Blood Pressure 1: 136/52 Code : 8480-6 BMI: 22.6 Code : 56127-8 Heart Rate 1 : 76 bpm Height: 4'11" SpO2: 98% Weight: 112 lbs 10/15/2017 Blood Pressure 1: 136/78 Code : 8480-6 BMI: 22.6 Code : 97999-4 Heart Rate 1 : 86 bpm Height: 4'11" SpO2: 98% Weight: 112 lbs 09/19/2017 Blood Pressure 1: 122/68 Code : 8480-6 BMI: 22.4 Code : 67383-2 Heart Rate 1 : 74 bpm Height: 4'11" SpO2: 97% Weight: 111 lbs 08/20/2017 Blood Pressure 1: 132/78 Code : 8480-6 BMI: 22.0 Code : 80720-1 Heart Rate 1 : 80 bpm Height: 4'11" SpO2: 96% Weight: 109 lbs 07/19/2017 Blood Pressure 1: 130/64 Code : 8480-6 BMI: 20.6 Code : 35576-3 Heart Rate 1 : 78 bpm Height: 4'11" SpO2: 98% Weight: 102 lbs 06/13/2017 Blood Pressure 1: 130/64 Code : 8480-6 BMI: 20.0 Code : 34807-7 Heart Rate 1 : 66 bpm Height: 4'11" SpO2: 97% Weight: 99 lbs 05/25/2017 Blood Pressure 1: 132/60 Code : 8480-6 BMI: 20.0 Code : 17755-5 Heart Rate 1 : 81 bpm Height: 4'11" SpO2: 99% Weight: 99 lbs 05/11/2017 Blood Pressure 1: 132/70 Code : 8480-6 Heart Rate 1: 69 bpm Height: SpO2: 99% Weight: 04/25/2017 Blood Pressure 1: 136/78 Code : 8480-6 BMI: 20.2 Code : 91016-7 Heart Rate 1 : 70 bpm Height: 4'11" SpO2: 99% Weight: 100 lbs 04/17/2017 Blood Pressure 1: 118/70 Code : 8480-6 BMI: 20.2 Code : 53065-3 Heart Rate 1 : 62 bpm Height: 4'11" SpO2: 99% Temperature: 36.4 (C) / 97.6 (F) Weight: 100 lbs 04/13/2017 Blood Pressure 1: 136/78 Code : 8480-6 BMI: 19.4 Code : 83605-6 Heart Rate 1 : 79 bpm Height: 4'11" SpO2: 97% Temperature: 36.8 (C) / 98.2 (F) Weight: 96 lbs 04/06/2017 Blood Pressure 1: 120/68 Code : 8480-6 BMI: 20.2 Code : 44464-5 Heart Rate 1 : 71 bpm Height: [...] data Encounters Encounter Performer Location Codes Date 19141 EST. PATIENT, LEVEL IV Diagnosis: Other acute sinusitis[ICD10: J01.80] Diagnosis: Other allergic rhinitis[ICD10: J30.89] Radha Angeles MD, [facility] CPT-4: 68631 04/16/2018 63952 EST. PATIENT, LEVEL III Diagnosis: Dysuria[ICD10: R30.0] Diagnosis: Diverticulitis of large intestine without perforation or abscess without bleeding[ICD10: K57.32] Diagnosis: Gastro-esophageal reflux disease without esophagitis[ICD10: K21.9] Radha Angeles MD, [facility] CPT-4: 47739 01/28/2018 18396 EST. PATIENT, LEVEL III Diagnosis: Rheumatoid arthritis with rheumatoid factor of multiple sites without organ or systems involvement[ICD10: M05.79] Diagnosis: Generalized anxiety disorder[ICD10: F41.1] Diagnosis: Major depressive disorder, single episode, moderate[ICD10: F32.1] Diagnosis: Chronic pain syndrome[ICD10: G89.4] Radha Angeles MD, [facility] CPT-4: 04689 10/15/2017 80736 EST. PATIENT, LEVEL III Diagnosis: Rheumatoid arthritis with rheumatoid factor of multiple sites without organ or systems involvement[ICD10: M05.79] Diagnosis: Generalized anxiety disorder[ICD10: F41.1] Diagnosis: Major depressive disorder, single episode, moderate[ICD10: F32.1] Radha Angeles MD, [facility] CPT-4: 07989 09/19/2017 54308 EST. PATIENT, LEVEL III Diagnosis: Rheumatoid arthritis with rheumatoid factor of multiple sites without organ or systems involvement[ICD10: M05.79] Diagnosis: Generalized anxiety disorder[ICD10: F41.1] Diagnosis: Major depressive disorder, single episode, moderate[ICD10: F32.1] Diagnosis: Slow transit constipation[ICD10: K59.01] Radha Angeles MD, [facility] CPT-4: 19663 08/20/2017 88726 EST. PATIENT, LEVEL III Diagnosis: Rheumatoid arthritis with rheumatoid factor of multiple sites without organ or systems involvement[ICD10: M05.79] Diagnosis: Generalized anxiety disorder[ICD10: F41.1] Diagnosis: Major depressive disorder, single episode, moderate[ICD10: F32.1] Radha Angeles MD, [facility] CPT-4: 37346 07/19/2017 76775 EST. PATIENT, LEVEL III Diagnosis: Rheumatoid arthritis with rheumatoid factor of multiple sites without organ or systems involvement[ICD10: M05.79] Radha Angeles MD, [facility] CPT-4: 84161 06/13/2017 21197 EST. PATIENT, LEVEL III Diagnosis: Rheumatoid arthritis with rheumatoid factor of right wrist without organ or systems involvement[ICD10: M05.731] Radha Angeles MD, [facility] CPT -4: 58669 05/25/2017 40930 EST. PATIENT, LEVEL III Diagnosis: Gastro-esophageal reflux disease without esophagitis[ICD10: K21.9] Diagnosis: Rheumatoid arthritis with rheumatoid factor of multiple sites without organ or systems involvement[ICD10: M05.79] Radha Angeles MD, [facility] CPT-4: 30198 05/11/2017 77504 EST. PATIENT, LEVEL IV Diagnosis: Cough[ICD10: R05] Diagnosis: Gastro-esophageal reflux disease without esophagitis[ICD10: K21.9] Diagnosis: Nontoxic goiter, unspecified[ICD10: E04.9] Diagnosis: Shortness of breath[ICD10: R06.02] Radha Angeles MD, [facility] CPT-4: 40412 04/25/2017 10738 EST. PATIENT, LEVEL IV Diagnosis: Acute laryngopharyngitis[ICD10: J06.0] Diagnosis: Other allergic rhinitis[ICD10: J30.89] Diagnosis: Gastro-esophageal reflux disease without esophagitis[ICD10: K21.9] Radha Angeles MD, [facility] CPT-4: 06122 04/17/2017 79247 EST. PATIENT, LEVEL IV Diagnosis: Diarrhea, unspecified[ICD10: R19.7] Diagnosis: Other specified intestinal infections[ICD10: A08.8] Radha Angeles MD, [facility] CPT-4: 46668 04/13/2017 OFFICE VISIT, NEW - LEVEL 4 Diagnosis: Other acute sinusitis[ICD10: J01.80] Diagnosis: Pain in left knee[ICD10: M25.562] Diagnosis: Nontoxic goiter, unspecified[ICD10: E04.9] Radha Angeles MD, [facility] CPT-4: 79748 04/06/2017 Plan of Care Planned Activity Notes [...] not improving. 01/28/2018 Appointment: Radha Sosa WPtel: [address] [place], [place] [phone] (15 min) Moderate 01/28/2018 Patient Education: Patient [...] over-medication. 10/15/2017 Appointment: Radha Sosa WPtel: [phone] [phone] (15 min) Moderate 10/15/2017 Patient Education: Patient [...] treatment plan. 09/19/2017 Appointment: Radha Sosa WPtel: [phone] [phone] (30 min) Complex 09/19/2017 Patient Education: Patient Medication Summary Completed 09/19/2017 Appointment: Radha Sosa WPtel: [phone] [phone] [place] (15 min) Moderate 08/21/2017 Visit Plan: [...] Completed 08/20/2017 Appointment: Radha Sosa WPtel: [phone] [phone] [place] (15 min) Moderate 08/17/2017 Appointment: Radha Sosa WPtel: [phone] [phone] (30 min) Complex 07/23/2017 Visit Plan: RA [...] patient. 07/19/2017 [phone] [facility] 07/19/2017 Patient Education: [...] plan. 06/13/2017 [phone] [facility] ([facility] min) Moderate 06/13/2017 Patient Education: [...] improve. 05/25/2017 Appointment: Radha Sosa WPtel: [phone] [phone] [place] (30 min) Complex 05/25/2017 Patient Education: Patient Medication Summary Completed 05/25/2017 Appointment: Radha Sosa WPtel: [phone] [phone] [place] (30 min) Complex 05/24/2017 Visit Plan: [...] treatment plan. 05/11/2017 Appointment: Radha Sosa WPtel: [facility] [place] (30 min) Complex 05/11/2017 Patient Education: [...] as indicated 04/25/2017 Appointment: Radha Sosa WPtel: [facility] [place] (30 min) Complex 04/25/2017 Patient Education: [...] allergy spray. 04/17/2017 Appointment: Radha Sosa WPtel: [address] [place], [place] [phone] (30 min) Complex 04/17/2017 Patient [...] not improved. 04/13/2017 Appointment: Radha Sosa WPtel: [address] [place], [place] [phone] (15 min) Moderate 04/13/2017 Patient Education: Patient [...] as indicated 04/06/2017 Appointment: Radha Sosa WPtel: [facility] New Patient 04/06/2017 Patient Education: [...]
--- OUTSIDE RECORDS SUMMARY | 2018-08-07 11:01 | XMS REPORT | CCD ---
Author Author Radha Sosa Organization Yamilet Angeles MD, [facility] Address [address] [place] [address] Phone Care Team Providers Care [employer] Name Role Phone PP Unavailable CCM Unavailable Summary Purpose Interface Exchange Insurance Providers Payer name Policy type / Coverage type Covered green party ID Effective Begin Date Effective End Date Blue Cross Blue [facility] Blue Cross/Blue Shield [id number] Unknown Family history Father Diagnosis Age At Onset Arthritis Unknown Cancer Unknown Mother Diagnosis Age At Onset Cancer Unknown Social History Social History Element Codes Description Effective Dates Marital status Unknown Michael 04/17/2017 Number of children Unknown 1 04/06/[address]: 022190335 Never smoker 04/06/[address]: 729926479 Never drinks alcohol 04/06/2017 Allergies, Adverse Reactions, Alerts Substance Reaction Codes Entered Date Inactivated Date Status unknown ingredient - see notes Unknown 04/13/2017 No Inactive Date Active Latex Unknown 04/13/2017 No Inactive Date Active CEPHALOSPORINS Unknown 04/13/2017 No Inactive Date Active Past Medical History Illness Codes Condition Status Onset Date Resolved Date Diverticulitis of large intestine without perforation or [...] ICD-9: 465.0 ICD-10: J06.0 Active 04/17/2017 Unknown Other allergic rhinitis ICD-9: 477.8 ICD-10: J30.89 Active 04/17/2017 Unknown Diarrhea, unspecified ICD-9: 787.91 ICD-10: R19.7 Active 04/13/2017 Unknown Other acute sinusitis ICD-9: 461.8 ICD-10: J01.80 Active 04/06/2017 Unknown Pain in left knee ICD- 9: 719.46 ICD-10: M25.562 Active 04/06/2017 Unknown Problems Condition Codes Effective Dates Condition Status Diverticulitis of large intestine without perforation or [...] laryngopharyngitis ICD-9: 465.0 ICD-10: J06.0 04/17/2017 Active Other allergic rhinitis ICD-9: 477.8 ICD-10: J30.89 04/17/2017 Active Diarrhea, unspecified ICD-9: 787.91 ICD-10: R19.7 04/13/2017 Active Other acute sinusitis ICD-9: 461.8 ICD-10: J01.80 04/06/2017 Active Pain in left knee ICD- 9: 719.46 ICD-10: M25.562 04/06/2017 Active Medications Medication Codes Instructions Start Date Stop Date Status Fill Instructions Premarin 1.25 mg tablet RxNorm: 061180 1 Tablet(s) PO daily 02/23/2019 Active pantoprazole 40 mg tablet,delayed release RxNorm: 579319 1 Tablet(s) PO daily 02/21/2018 06/20/2018 Active pantoprazole 40 mg tablet,delayed release RxNorm: 242607 1 Tablet(s) PO daily 02/21/2018 02/20/2018 Inactive hydrocodone 5 mg-acetaminophen 325 mg tablet RxNorm: 685266 1 Tablet(s) PO TID as needed for pain 02/20/2018 No Stop Date Active Bactrim DS 800 mg-160 mg tablet RxNorm: 219802 1 Tablet(s) PO BID 02/06/2018 02/05/2018 Inactive Bactrim DS 800 mg-160 mg tablet RxNorm: 170232 1 Tablet(s) PO BID 02/06/2018 02/15/2018 Inactive Diflucan 150 mg tablet RxNorm: 044038 1 Tablet(s) PO daily 02/02/2018 Inactive Diflucan 150 mg tablet RxNorm: 417629 1 Tablet(s) PO daily 01/28/2018 Inactive Flagyl 500 mg tablet RxNorm: 546719 1 Tablet(s) PO TID 201702/06/2018 Inactive Premarin 1.25 mg tablet RxNorm: 282450 1 Tablet(s) PO daily 02/28/2018 Inactive Cipro 500 mg tablet RxNorm: 142240 1 Tablet(s) PO BID 201702/06/2018 Inactive hydrocodone 5 mg-acetaminophen 325 mg tablet RxNorm: 919662 1 Tablet(s) PO TID as needed for pain 12/31/2017 02/19/2018 Inactive Premarin 1.25 mg tablet RxNorm: 111165 1 Tablet(s) PO daily 01/27/2018 Inactive Prilosec 20 mg capsule,delayed release RxNorm: 019144 1 Capsule(s) PO daily 11/19/2017 02/20/2018 Inactive hydrocodone 5 mg-acetaminophen 325 mg tablet RxNorm: 854539 1 Tablet(s) PO TID as needed for pain 10/15/2017 12/30/2017 Inactive gabapentin 100 mg capsule RxNorm: 529158 1 Capsule(s) PO BID No Stop Date Active hydrocodone 5 mg-acetaminophen 325 mg tablet RxNorm: 108467 1 Tablet(s) PO QID as needed 09/19/2017 10/14/2017 Inactive Lyrica 50 mg capsule RxNorm: 624810 1 Capsule(s) PO TID 2017 No Stop Date Active Celebrex 200 mg capsule RxNorm: 929242 1 Capsule(s) PO daily 09/18/2017 Inactive Xanax 0.25 mg tablet RxNorm: 111667 1 Tablet(s) PO BID 201708/17/2017 Inactive Cymbalta 30 mg capsule,delayed release RxNorm: 930008 1 Capsule(s) PO daily 07/19/2017 08/17/2017 Inactive amoxicillin 500 mg capsule RxNorm: 839283 1 Capsule(s) PO TID 04/17/2017 04/26/2017 Inactive Prilosec OTC 20 mg tablet,delayed release RxNorm: 809515 1 Tablet(s) PO BID 04/17/2017 05/16/2017 Inactive 1 pill twice a day x 2 weeks, then daily Zofran 4 mg tablet RxNorm: 082679 1 Tablet(s) PO TID as needed 04/13/2017 04/17/2017 Inactive Flagyl 500 mg tablet RxNorm: 827394 1 Tablet(s) PO TID 201704/22/2017 Inactive promethazine 25 mg tablet RxNorm: 880868 1 Tablet(s) PO TID as needed nausea unrelieved by zofran 04/13/20172017 Inactive Zithromax Z-Gary 250 mg tablet RxNorm: 690837 1 Tablet(s) PO UD 04/06/2017 04/16/2017 Inactive prednisone 5 mg tablet RxNorm: 337398 1 Tablet(s) PO daily No Start Date Active Humira Pen 40 mg/0.8 mL subcutaneous RxNorm: 6508025 1 Milliliter(s) SQ QW No Start Date Active Linzess 145 mcg capsule RxNorm: 5003164 1 Capsule(s) PO daily No Start Date 08/16/2017 Inactive Prilosec 20 mg capsule,delayed release RxNorm: 845191 1 Capsule(s) PO daily No Start Date 11/18/2017 Inactive Premarin 1.25 mg tablet RxNorm: 224095 1 Tablet(s) PO daily No Start Date 12/30/2017 Inactive Medication Administered No Medication Administered data Immunizations No Immunization data Assessments Condition Codes Effective Dates Diverticulitis of large intestine without perforation or abscess without bleeding ICD-10: K57.32 ICD-9: 562.11 01/28/2018 Gastro-esophageal reflux disease without esophagitis ICD-10 : K21.9 ICD-9: 530.81 01/28/2018 Dysuria ICD-10: R30.0 ICD-9: 788.1 01/28/2018 Rheumatoid arthritis with rheumatoid factor of multiple sites without organ or systems involvement ICD-10: M05.79 ICD-9: 714.0 10/15/2017 Major depressive disorder, single episode, moderate ICD-10: F32.1 ICD-9: 296.22 10/15/2017 Chronic pain syndrome ICD-10: G89.4 ICD-9: 338.4 10/15/2017 Generalized anxiety disorder ICD-10: F41.1 ICD-9: 300.00 10/15/2017 Slow transit constipation ICD-10: K59.01 ICD-9: 564.01 08/20/2017 Rheumatoid arthritis with rheumatoid factor of right wrist without organ or systems involvement ICD-10: M05.731 ICD-9: 714.0 05/25/2017 Cough ICD-10: R05 ICD-9: 786.2 04/25/2017 Nontoxic goiter, unspecified ICD-10: E04.9 ICD-9: 240.9 04/25/2017 Shortness of breath ICD-10: R06.02 ICD-9: 786.05 04/25/2017 Other allergic rhinitis ICD-10: J30.89 ICD-9: 477.8 04/17/2017 Acute laryngopharyngitis ICD-10: J06.0 ICD-9: 465.0 04/17/2017 Diarrhea, unspecified ICD-10: R19.7 ICD-9: 787.91 04/13/2017 Other specified intestinal infections ICD-10: A08.8 ICD-9: 009.0 04/13/2017 Pain in left knee ICD-10: M25.562 ICD-9: 719.46 04/06/2017 Other acute sinusitis ICD-10: J01.80 ICD-9: 461.8 04/06/2017 Reason For Visit Reason For Visit Effective Dates Notes urinary frequency 01/28/2018 pain 10/15/2017 pain 09/19/2017 [...] System Result Effective Dates Constitutional recent illness 01/28/2018 Constitutional No chills [...] General 1995 Ears/Nose/Throat internal nose Sinus tenderness: right maxillary [...] Codes Date URINALYSIS NONAUTO W/O SCOPE CPT-4: 96082 06/04/2017 Vital Signs Date Vital 01/28/2018 Blood Pressure 1: 136/52 Code : 8480-6 BMI: 22.6 Code : 19641-2 Heart Rate 1 : 76 bpm Height: 4'11" SpO2: 98% Weight: 112 lbs 10/15/2017 Blood Pressure 1: 136/78 Code : 8480-6 BMI: 22.6 Code : 33678-4 Heart Rate 1 : 86 bpm Height: 4'11" SpO2: 98% Weight: 112 lbs 09/19/2017 Blood Pressure 1: 122/68 Code : 8480-6 BMI: 22.4 Code : 50993-0 Heart Rate 1 : 74 bpm Height: 4'11" SpO2: 97% Weight: 111 lbs 08/20/2017 Blood Pressure 1: 132/78 Code : 8480-6 BMI: 22.0 Code : 58036-8 Heart Rate 1 : 80 bpm Height: 4'11" SpO2: 96% Weight: 109 lbs 07/19/2017 Blood Pressure 1: 130/64 Code : 8480-6 BMI: 20.6 Code : 36583-2 Heart Rate 1 : 78 bpm Height: 4'11" SpO2: 98% Weight: 102 lbs 06/13/2017 Blood Pressure 1: 130/64 Code : 8480-6 BMI: 20.0 Code : 38964-9 Heart Rate 1 : 66 bpm Height: 4'11" SpO2: 97% Weight: 99 lbs 05/25/2017 Blood Pressure 1: 132/60 Code : 8480-6 BMI: 20.0 Code : 75144-5 Heart Rate 1 : 81 bpm Height: 4'11" SpO2: 99% Weight: 99 lbs 05/11/2017 Blood Pressure 1: 132/70 Code : 8480-6 Heart Rate 1: 69 bpm Height: SpO2: 99% Weight: 04/25/2017 Blood Pressure 1: 136/78 Code : 8480-6 BMI: 20.2 Code : 94157-3 Heart Rate 1 : 70 bpm Height: 4'11" SpO2: 99% Weight: 100 lbs 04/17/2017 Blood Pressure 1: 118/70 Code : 8480-6 BMI: 20.2 Code : 70114-6 Heart Rate 1 : 62 bpm Height: 4'11" SpO2: 99% Temperature: 36.4 (C) / 97.6 (F) Weight: 100 lbs 04/13/2017 Blood Pressure 1: 136/78 Code : 8480-6 BMI: 19.4 Code : 30773-0 Heart Rate 1 : 79 bpm Height: 4'11" SpO2: 97% Temperature: 36.8 (C) / 98.2 (F) Weight: 96 lbs 04/06/2017 Blood Pressure 1: 120/68 Code : 8480-6 BMI: 20.2 Code : 47376-2 Heart Rate 1 : 71 bpm Height: 4'11" SpO2: 97% Weight: 100 lbs Functional Status No Functional Status data History of Present Illness Symptom Name Status Result Effective Date Notes urinary frequency Quality constant 01/28/2018 None urinary [...] data Encounters Encounter Performer Location Codes Date 32571 EST. PATIENT, LEVEL III Diagnosis: Dysuria[ICD10: R30.0] Diagnosis: Diverticulitis of large intestine without perforation or abscess without bleeding[ICD10: K57.32] Diagnosis: Gastro-esophageal reflux disease without esophagitis[ICD10: K21.9] Radha Angeles MD, [facility] CPT-4: 55658 01/28/2018 97399 EST. PATIENT, LEVEL III Diagnosis: Rheumatoid arthritis with rheumatoid factor of multiple sites without organ or systems involvement[ICD10: M05.79] Diagnosis: Generalized anxiety disorder[ICD10: F41.1] Diagnosis: Major depressive disorder, single episode, moderate[ICD10: F32.1] Diagnosis: Chronic pain syndrome[ICD10: G89.4] Radha Angeles MD, [facility] CPT-4: 12861 10/15/2017 72202 EST. PATIENT, LEVEL III Diagnosis: Rheumatoid arthritis with rheumatoid factor of multiple sites without organ or systems involvement[ICD10: M05.79] Diagnosis: Generalized anxiety disorder[ICD10: F41.1] Diagnosis: Major depressive disorder, single episode, moderate[ICD10: F32.1] Radha Angeles MD, [facility] CPT-4: 63522 09/19/2017 06352 EST. PATIENT, LEVEL III Diagnosis: Rheumatoid arthritis with rheumatoid factor of multiple sites without organ or systems involvement[ICD10: M05.79] Diagnosis: Generalized anxiety disorder[ICD10: F41.1] Diagnosis: Major depressive disorder, single episode, moderate[ICD10: F32.1] Diagnosis: Slow transit constipation[ICD10: K59.01] Radha Angeles MD, [facility] CPT-4: 22289 08/20/2017 45369 EST. PATIENT, LEVEL III Diagnosis: Rheumatoid arthritis with rheumatoid factor of multiple sites without organ or systems involvement[ICD10: M05.79] Diagnosis: Generalized anxiety disorder[ICD10: F41.1] Diagnosis: Major depressive disorder, single episode, moderate[ICD10: F32.1] Radha Angeles MD, [facility] CPT-4: 13001 07/19/2017 84691 EST. PATIENT, LEVEL III Diagnosis: Rheumatoid arthritis with rheumatoid factor of multiple sites without organ or systems involvement[ICD10: M05.79] Radha Angeles MD, [facility] CPT-4: 11088 06/13/2017 94828 EST. PATIENT, LEVEL III Diagnosis: Rheumatoid arthritis with rheumatoid factor of right wrist without organ or systems involvement[ICD10: M05.731] Radha Angeles MD, [facility] CPT -4: 84331 05/25/2017 18075 EST. PATIENT, LEVEL III Diagnosis: Gastro-esophageal reflux disease without esophagitis[ICD10: K21.9] Diagnosis: Rheumatoid arthritis with rheumatoid factor of multiple sites without organ or systems involvement[ICD10: M05.79] [facility] CPT-4: 80572 05/11/2017 57294 EST. PATIENT, LEVEL IV Diagnosis: Cough[ICD10: R05] Diagnosis: Gastro-esophageal reflux disease without esophagitis[ICD10: K21.9] Diagnosis: Nontoxic goiter, unspecified[ICD10: E04.9] Diagnosis: Shortness of breath[ICD10: R06.02] Radha Angeles MD, [facility] CPT-4: 93750 04/25/2017 07211 EST. PATIENT, LEVEL IV Diagnosis: Acute laryngopharyngitis[ICD10: J06.0] Diagnosis: Other allergic rhinitis[ICD10: J30.89] Diagnosis: Gastro-esophageal reflux disease without esophagitis[ICD10: K21.9] Radha Angeles MD, [facility] CPT-4: 96599 04/17/2017 13134 EST. PATIENT, LEVEL IV Diagnosis: Diarrhea, unspecified[ICD10: R19.7] Diagnosis: Other specified intestinal infections[ICD10: A08.8] Radha Angeles MD, [facility] CPT-4: 33379 04/13/2017 OFFICE VISIT, NEW - LEVEL 4 Diagnosis: Other acute sinusitis[ICD10: J01.80] Diagnosis: Pain in left knee[ICD10: M25.562] Diagnosis: Nontoxic goiter, unspecified[ICD10: E04.9] [facility] CPT-4: 80228 04/06/2017 Plan of Care Planned Activity Notes Codes Status Date Appointment: [facility] [phone] [facility] ([facility] min) Moderate 01/28/2018 Patient Education: Patient Medication Summary Completed 01/28/2018 Appointment: [facility] [phone] [facility] [place] (15 min) Moderate 10/15/2017 Patient Education: Patient Medication Summary Completed 10/15/2017 App[facility]ment: [facility] [phone] [facility] [place] (30 min) Complex 09/19/2017 Patient Education: Patient Medication Summary Completed 09/19/2017 App[facility]ment: [facility] [phone] [facility] [place] (15 min) Moderate 08/21/2017 Patient Education: Patient Medication Summary Completed 08/20/2017 Appointment: Radha [facility] [place] (15 min) Moderate 08/17/2017 Appointment: Radha Sosa [facility]Ptel[facility] [place] (30 min) Complex 07/23/2017 Appointment: Radha Sosa [facility]Ptel[facility] [place] ([facility] min) Complex 07/19/2017 Patient Education: Patient Medication Summary Completed 07/19/2017 Appointment: Radha Sosa [facility]el[facility] [place] (15 min) Moderate 06/13/2017 Patient Education: Patient Medication Summary Completed 06/13/2017 Appointment: Lab Draw 06/04/2017 Patient Education: Patient Medication Summary Completed 06/04/2017 Appointment: Radha Sosa [facility]Ptel[facility] [place] ([facility] min) Complex 05/25/2017 Patient Education: Patient Medication Summary Completed 05/25/2017 App[facility]ment: [facility] [phone] [facility] [place] ([place] min) Complex 05/24/2017 Appointment: Radha Sosa [facility]Ptel[facility] [place] ([facility] min) Complex 05/11/2017 Patient Education: Patient Medication Summary Completed 05/11/2017 App[facility]ment: [facility] [phone] [facility] (30 min) Complex 04/25/2017 Patient Education: Patient Medication Summary Completed 04/25/2017 [facility] [phone] [facility] ([facility] min) Complex 04/17/2017 Patient Education: Patient Medication Summary Completed 04/17/2017 [facility]ment: [facility] [phone] [facility] (15 min) Moderate 04/13/2017 Patient Education: Patient Medication Summary Completed 04/13/2017 [facility]: [facility] [phone] [facility] [facility] Patient 04/06/2017 Patient Education: Patient Medication Summary Completed 04/06/2017 Instructions No Instructions
--- OUTSIDE RECORDS SUMMARY | 2018-08-07 11:03 | XMS REPORT | CCD ---
Author Author Radha Sosa Organization Yamilet Angeles MD, [facility] Address [address] [place] [address] Phone Care Team Providers Care Voicer Name Role Phone PP Unavailable CCM Unavailable Summary Purpose Interface Exchange Insurance Providers Payer name Policy type / Coverage type Covered democrat ID Effective Begin Date Effective End Date Blue Cross Blue [facility] Blue Cross/Blue Shield [id number] Unknown Family history Father Diagnosis Age At Onset Arthritis Unknown Cancer Unknown Mother Diagnosis Age At Onset Cancer Unknown Social History Social History Element Codes Description Effective Dates Marital status Unknown Michael 04/17/2017 Number of children Unknown 1 04/06/[address]: 491922608 Never smoker 04/06/[address]: 433008995 Never drinks alcohol 04/06/2017 Allergies, Adverse Reactions, [...] Instructions pantoprazole 40 mg tablet,delayed release RxNorm: 979517 1 Tablet(s) PO daily 02/21/2018 06/20/2018 Active pantoprazole 40 mg tablet,delayed release RxNorm: 472681 1 Tablet(s) PO daily 02/21/2018 02/20/2018 Inactive hydrocodone 5 mg-acetaminophen 325 mg tablet RxNorm: 230857 1 Tablet(s) PO TID as needed for pain 02/20/2018 No Stop Date Active Bactrim DS 800 mg-160 mg tablet RxNorm: 258989 1 Tablet(s) PO BID 02/06/2018 02/05/2018 Inactive Bactrim DS 800 mg-160 mg tablet RxNorm: 814042 1 Tablet(s) PO BID 02/06/2018 02/15/2018 Inactive Diflucan 150 mg tablet RxNorm: 307272 1 Tablet(s) PO daily 02/02/2018 Inactive Diflucan 150 mg tablet RxNorm: 181997 1 Tablet(s) PO daily 01/28/2018 Inactive Premarin 1.25 mg tablet RxNorm: 645961 1 Tablet(s) PO daily 01/22/2019 Active Flagyl 500 mg tablet RxNorm: 086673 1 Tablet(s) PO TID 201702/06/2018 Inactive Cipro 500 mg tablet RxNorm: 232619 1 Tablet(s) PO BID 201702/06/2018 Inactive hydrocodone 5 mg-acetaminophen 325 mg tablet RxNorm: 219053 1 Tablet(s) PO TID as needed for pain 12/31/2017 02/19/2018 Inactive Premarin 1.25 mg tablet RxNorm: 340294 1 Tablet(s) PO daily 01/27/2018 Inactive Prilosec 20 mg capsule,delayed release RxNorm: 304788 1 Capsule(s) PO daily 11/19/2017 02/20/2018 Inactive hydrocodone 5 mg-acetaminophen 325 mg tablet RxNorm: 656898 1 Tablet(s) PO TID as needed for pain 10/15/2017 12/30/2017 Inactive gabapentin 100 mg capsule RxNorm: 724158 1 Capsule(s) PO BID No Stop Date Active hydrocodone 5 mg-acetaminophen 325 mg tablet RxNorm: 350199 1 Tablet(s) PO QID as needed 09/19/2017 10/14/2017 Inactive Lyrica 50 mg capsule RxNorm: 691968 1 Capsule(s) PO TID 2017 No Stop Date Active Celebrex 200 mg capsule RxNorm: 777538 1 Capsule(s) PO daily 09/18/2017 Inactive Xanax 0.25 mg tablet RxNorm: 081630 1 Tablet(s) PO BID 201708/17/2017 Inactive Cymbalta 30 mg capsule,delayed release RxNorm: 017608 1 Capsule(s) PO daily 07/19/2017 08/17/2017 Inactive amoxicillin 500 mg capsule RxNorm: 195338 1 Capsule(s) PO TID 04/17/2017 04/26/2017 Inactive Prilosec OTC 20 mg tablet,delayed release RxNorm: 353615 1 Tablet(s) PO BID 04/17/2017 05/16/2017 Inactive 1 pill twice a day x 2 weeks, then daily Zofran 4 mg tablet RxNorm: 856617 1 Tablet(s) PO TID as needed 04/13/2017 04/17/2017 Inactive Flagyl 500 mg tablet RxNorm: 537749 1 Tablet(s) PO TID 201704/22/2017 Inactive promethazine 25 mg tablet RxNorm: 993458 1 Tablet(s) PO TID as needed nausea unrelieved by zofran 04/13/20172017 Inactive Zithromax Z-Gary 250 mg tablet RxNorm: 908009 1 Tablet(s) PO UD 04/06/2017 04/16/2017 Inactive prednisone 5 mg tablet RxNorm: 725587 1 Tablet(s) PO daily No Start Date Active Humira Pen 40 mg/0.8 mL subcutaneous RxNorm: 7942755 1 Milliliter(s) SQ QW No Start Date Active Linzess 145 mcg capsule RxNorm: 2720045 1 Capsule(s) PO daily No Start Date 08/16/2017 Inactive Prilosec 20 mg capsule,delayed release RxNorm: 301793 1 Capsule(s) PO daily No Start Date 11/18/2017 Inactive Premarin 1.25 mg tablet RxNorm: 620746 1 Tablet(s) PO daily No Start Date [...] laryngopharyngitis ICD-10: J06.0 ICD-9: 465.0 04/17/2017 Other allergic rhinitis ICD-10: J30.89 ICD-9: 477.8 04/17/2017 Other specified intestinal infections ICD-10: A08.8 [...] Codes Date URINALYSIS NONAUTO W/O SCOPE CPT-4: 89737 06/04/2017 Vital Signs Date Vital 01/28/2018 Blood Pressure 1: 136/52 Code : 8480-6 BMI: 22.6 Code : 85833-2 Heart Rate 1 : 76 bpm Height: 4'11" SpO2: 98% Weight: 112 lbs 10/15/2017 Blood Pressure 1: 136/78 Code : 8480-6 BMI: 22.6 Code : 24152-6 Heart Rate 1 : 86 bpm Height: 4'11" SpO2: 98% Weight: 112 lbs 09/19/2017 Blood Pressure 1: 122/68 Code : 8480-6 BMI: 22.4 Code : 55083-7 Heart Rate 1 : 74 bpm Height: 4'11" SpO2: 97% Weight: 111 lbs 08/20/2017 Blood Pressure 1: 132/78 Code : 8480-6 BMI: 22.0 Code : 01636-4 Heart Rate 1 : 80 bpm Height: 4'11" SpO2: 96% Weight: 109 lbs 07/19/2017 Blood Pressure 1: 130/64 Code : 8480-6 BMI: 20.6 Code : 78077-6 Heart Rate 1 : 78 bpm Height: 4'11" SpO2: 98% Weight: 102 lbs 06/13/2017 Blood Pressure 1: 130/64 Code : 8480-6 BMI: 20.0 Code : 01288-7 Heart Rate 1 : 66 bpm Height: 4'11" SpO2: 97% Weight: 99 lbs 05/25/2017 Blood Pressure 1: 132/60 Code : 8480-6 BMI: 20.0 Code : 60965-0 Heart Rate 1 : 81 bpm Height: 4'11" SpO2: 99% Weight: 99 lbs 05/11/2017 Blood Pressure 1: 132/70 Code : 8480-6 Heart Rate 1: 69 bpm Height: SpO2: 99% Weight: 04/25/2017 Blood Pressure 1: 136/78 Code : 8480-6 BMI: 20.2 Code : 49862-5 Heart Rate 1 : 70 bpm Height: 4'11" SpO2: 99% Weight: 100 lbs 04/17/2017 Blood Pressure 1: 118/70 Code : 8480-6 BMI: 20.2 Code : 01246-1 Heart Rate 1 : 62 bpm Height: 4'11" SpO2: 99% Temperature: 36.4 (C) / 97.6 (F) Weight: 100 lbs 04/13/2017 Blood Pressure 1: 136/78 Code : 8480-6 BMI: 19.4 Code : 36561-8 Heart Rate 1 : 79 bpm Height: 4'11" SpO2: 97% Temperature: 36.8 (C) / 98.2 (F) Weight: 96 lbs 04/06/2017 Blood Pressure 1: 120/68 Code : 8480-6 BMI: 20.2 Code : 18132-6 Heart Rate 1 : 71 bpm Height: [...] data Encounters Encounter Performer Location Codes Date 49377 EST. PATIENT, LEVEL III Diagnosis: Dysuria[ICD10: R30.0] Diagnosis: Diverticulitis of large intestine without perforation or abscess without bleeding[ICD10: K57.32] Diagnosis: Gastro-esophageal reflux disease without esophagitis[ICD10: K21.9] [facility] CPT-4: 06292 01/28/2018 14993 EST. PATIENT, LEVEL III Diagnosis: Rheumatoid arthritis with rheumatoid factor of multiple sites without organ or systems involvement[ICD10: M05.79] Diagnosis: Generalized anxiety disorder[ICD10: F41.1] Diagnosis: Major depressive disorder, single episode, moderate[ICD10: F32.1] Diagnosis: Chronic pain syndrome[ICD10: G89.4] Radha Angeles MD, [facility] CPT-4: 95869 10/15/2017 91910 EST. PATIENT, LEVEL III Diagnosis: Rheumatoid arthritis with rheumatoid factor of multiple sites without organ or systems involvement[ICD10: M05.79] Diagnosis: Generalized anxiety disorder[ICD10: F41.1] Diagnosis: Major depressive disorder, single episode, moderate[ICD10: F32.1] Radha Angeles MD, [facility] CPT-4: 35268 09/19/2017 98802 EST. PATIENT, LEVEL III Diagnosis: Rheumatoid arthritis with rheumatoid factor of multiple sites without organ or systems involvement[ICD10: M05.79] Diagnosis: Generalized anxiety disorder[ICD10: F41.1] Diagnosis: Major depressive disorder, single episode, moderate[ICD10: F32.1] Diagnosis: Slow transit constipation[ICD10: K59.01] Radha Angeles MD, [facility] CPT-4: 11971 08/20/2017 39829 EST. PATIENT, LEVEL III Diagnosis: Rheumatoid arthritis with rheumatoid factor of multiple sites without organ or systems involvement[ICD10: M05.79] Diagnosis: Generalized anxiety disorder[ICD10: F41.1] Diagnosis: Major depressive disorder, single episode, moderate[ICD10: F32.1] Radha Angeles MD, [facility] CPT-4: 46221 07/19/2017 67624 EST. PATIENT, LEVEL III Diagnosis: Rheumatoid arthritis with rheumatoid factor of multiple sites without organ or systems involvement[ICD10: M05.79] Radha Angeles MD, [facility] CPT-4: 50499 06/13/2017 93299 EST. PATIENT, LEVEL III Diagnosis: Rheumatoid arthritis with rheumatoid factor of right wrist without organ or systems involvement[ICD10: M05.731] Radha Angeles MD, [facility] CPT -4: 45513 05/25/2017 92998 EST. PATIENT, LEVEL III Diagnosis: Gastro-esophageal reflux disease without esophagitis[ICD10: K21.9] Diagnosis: Rheumatoid arthritis with rheumatoid factor of multiple sites without organ or systems involvement[ICD10: M05.79] Radha Angeles MD, [facility] CPT-4: 49867 05/11/2017 49618 EST. PATIENT, LEVEL IV Diagnosis: Cough[ICD10: R05] Diagnosis: Gastro-esophageal reflux disease without esophagitis[ICD10: K21.9] Diagnosis: Nontoxic goiter, unspecified[ICD10: E04.9] Diagnosis: Shortness of breath[ICD10: R06.02] Radha Angeles MD, [facility] CPT-4: 55683 04/25/2017 06692 EST. PATIENT, LEVEL IV Diagnosis: Acute laryngopharyngitis[ICD10: J06.0] Diagnosis: Other allergic rhinitis[ICD10: J30.89] Diagnosis: Gastro-esophageal reflux disease without esophagitis[ICD10: K21.9] Radha Angeles MD, [facility] CPT-4: 09454 04/17/2017 44622 EST. PATIENT, LEVEL IV Diagnosis: Diarrhea, unspecified[ICD10: R19.7] Diagnosis: Other specified intestinal infections[ICD10: A08.8] Radha Angeles MD, [facility] CPT-4: 03060 04/13/2017 OFFICE VISIT, NEW - LEVEL 4 Diagnosis: Other acute sinusitis[ICD10: J01.80] Diagnosis: Pain in left knee[ICD10: M25.562] Diagnosis: Nontoxic goiter, unspecified[ICD10: E04.9] Radha Angeles MD, [facility] CPT-4: 12070 04/06/2017 Plan of Care Planned Activity Notes Codes Status Date Visit Plan: Diverticulitis - rx for antibiotic [...] not improving. 01/28/2018 Appointment: Radha Sosa WPtel: [facility] (15 min) Moderate 01/28/2018 Patient Education: Patient [...] of over-medication. 10/15/2017 Appointment: Radha Sosa WPtel: [facility]2 [facility] (15 min) Moderate 10/15/2017 Patient Education: Patient [...] treatment plan. 09/19/2017 Appointment: Radha Sosa WPtel: [facility]4 [facility] (30 min) Complex 09/19/2017 Patient Education: Patient Medication Summary Completed 09/19/2017 Appointment: Radha Sosa WPtel: [address] [place], [place] [id number] (15 min) Moderate 08/21/2017 [...] Summary Completed 08/20/2017 Appointment: Radha Sosa WPtel: [address] [place], [place] [id number] (15 min) Moderate 08/17/2017 Appointment: Radha Sosa WPtel: [address] [place], [place] [id number] (30 min) Complex 07/23/2017 Visit Plan: [...] this patient. 07/19/2017 Appointment: Radha Sosa WPtel: [facility]5 [facility] (30 min) Complex 07/19/2017 Patient Education: [...] treatment plan. 06/13/2017 Appointment: Radha Sosa WPtel: [facility]1 [facility] (15 min) Moderate 06/13/2017 Patient Education: [...] not improve. 05/25/2017 Appointment: Radha Sosa WPtel: [facility]9 [facility] [place] (30 min) Complex 05/25/2017 Patient Education: Patient Medication Summary Completed 05/25/2017 Appointment: [facility] [place] ([facility] Complex 05/24/2017 Visit [...] treatment plan. 05/11/2017 Appointment: Radha Sosa WPtel: [phone] [facility] (30 min) Complex 05/11/2017 Patient Education: Patient [...] indicated 04/25/2017 Appointment: Radha Sosa WPtel: [phone] [facility] (30 min) Complex 04/25/2017 Patient Education: [...] spray. 04/17/2017 Appointment: Radha Sosa WPtel: [phone] [facility] (30 min) Complex 04/17/2017 Patient Education: [...] not improved. 04/13/2017 Appointment: Radha Sosa WPtel: [address] [place] [address] (15 min) Moderate 04/13/2017 Patient Education: Patient [...] as indicated 04/06/2017 Appointment: Radha Sosa WPtel: [address] [place] [address] New Patient 04/06/2017 Patient Education: Patient Medication [...] US - will treat as indicated . Diverticulitis - rx for antibiotic sent [...]
--- OUTSIDE RECORDS SUMMARY | 2018-08-07 11:04 | XMS REPORT | CCD ---
Author Author Radha Sosa Organization Yamilet Angeles MD, [facility] Address [address] [place] [address] Phone Care Team Providers Care Solar Crew Member Name Role Phone PP Unavailable CCM Unavailable Summary Purpose Interface Exchange Insurance Providers Payer name Policy type / Coverage type Covered democrat ID Effective Begin Date Effective End Date Blue Cross Blue [facility] Blue Cross/Blue Shield [id number] Unknown Family history Father Diagnosis Age At Onset Arthritis Unknown Cancer Unknown Mother Diagnosis Age At Onset Cancer Unknown Social History Social History Element Codes Description Effective Dates Marital status Unknown Michael 04/17/2017 Number of children Unknown 1 04/06/[address]: 723058802 Never smoker 04/06/[address]: 442434080 Never drinks alcohol 04/06/2017 Allergies, Adverse Reactions, [...] hydrocodone 5 mg-acetaminophen 325 mg tablet RxNorm: 490146 1 Tablet(s) PO TID as needed for pain 02/20/2018 No Stop Date Active Bactrim DS 800 mg-160 mg tablet RxNorm: 454994 1 Tablet(s) PO BID 02/06/2018 02/05/2018 Inactive Bactrim DS 800 mg-160 mg tablet RxNorm: 221267 1 Tablet(s) PO BID 02/06/2018 02/15/2018 Inactive Diflucan 150 mg tablet RxNorm: 090527 1 Tablet(s) PO daily 02/02/2018 Inactive Diflucan 150 mg tablet RxNorm: 667737 1 Tablet(s) PO daily 01/28/2018 Inactive Premarin 1.25 mg tablet RxNorm: 962155 1 Tablet(s) PO daily 01/22/2019 Active Flagyl 500 mg tablet RxNorm: 302415 1 Tablet(s) PO TID 201702/06/2018 Inactive Cipro 500 mg tablet RxNorm: 368092 1 Tablet(s) PO BID 201702/06/2018 Inactive hydrocodone 5 mg-acetaminophen 325 mg tablet RxNorm: 391984 1 Tablet(s) PO TID as needed for pain 12/31/2017 02/19/2018 Inactive Premarin 1.25 mg tablet RxNorm: 009331 1 Tablet(s) PO daily 01/27/2018 Inactive Prilosec 20 mg capsule,delayed release RxNorm: 202441 1 Capsule(s) PO daily 11/19/2017 03/18/2018 Active hydrocodone 5 mg-acetaminophen 325 mg tablet RxNorm: 890812 1 Tablet(s) PO TID as needed for pain 10/15/2017 12/30/2017 Inactive gabapentin 100 mg capsule RxNorm: 432034 1 Capsule(s) PO BID No Stop Date Active hydrocodone 5 mg-acetaminophen 325 mg tablet RxNorm: 471133 1 Tablet(s) PO QID as needed 09/19/2017 10/14/2017 Inactive Lyrica 50 mg capsule RxNorm: 568328 1 Capsule(s) PO TID 2017 No Stop Date Active Celebrex 200 mg capsule RxNorm: 955039 1 Capsule(s) PO daily 09/18/2017 Inactive Xanax 0.25 mg tablet RxNorm: 210218 1 Tablet(s) PO BID 201708/17/2017 Inactive Cymbalta 30 mg capsule,delayed release RxNorm: 143536 1 Capsule(s) PO daily 07/19/2017 08/17/2017 Inactive amoxicillin 500 mg capsule RxNorm: 643952 1 Capsule(s) PO TID 04/17/2017 04/26/2017 Inactive Prilosec OTC 20 mg tablet,delayed release RxNorm: 859855 1 Tablet(s) PO BID 04/17/2017 05/16/2017 Inactive 1 pill twice a day x 2 weeks, then daily Zofran 4 mg tablet RxNorm: 728288 1 Tablet(s) PO TID as needed 04/13/2017 04/17/2017 Inactive Flagyl 500 mg tablet RxNorm: 834954 1 Tablet(s) PO TID 201704/22/2017 Inactive promethazine 25 mg tablet RxNorm: 914707 1 Tablet(s) PO TID as needed nausea unrelieved by zofran 04/13/20172017 Inactive Zithromax Z-Gary 250 mg tablet RxNorm: 092428 1 Tablet(s) PO UD 04/06/2017 04/16/2017 Inactive prednisone 5 mg tablet RxNorm: 685515 1 Tablet(s) PO daily No Start Date Active Humira Pen 40 mg/0.8 mL subcutaneous RxNorm: 7884599 1 Milliliter(s) SQ QW No Start Date Active Linzess 145 mcg capsule RxNorm: 8339634 1 Capsule(s) PO daily No Start Date 08/16/2017 Inactive Prilosec 20 mg capsule,delayed release RxNorm: 168036 1 Capsule(s) PO daily No Start Date 11/18/2017 Inactive Premarin 1.25 mg tablet RxNorm: 829163 1 Tablet(s) PO daily No Start Date [...] Codes Date URINALYSIS NONAUTO W/O SCOPE CPT-4: 77721 06/04/2017 Vital Signs Date Vital 01/28/2018 Blood Pressure 1: 136/52 Code : 8480-6 BMI: 22.6 Code : 82512-2 Heart Rate 1 : 76 bpm Height: 4'11" SpO2: 98% Weight: 112 lbs 10/15/2017 Blood Pressure 1: 136/78 Code : 8480-6 BMI: 22.6 Code : 15797-8 Heart Rate 1 : 86 bpm Height: 4'11" SpO2: 98% Weight: 112 lbs 09/19/2017 Blood Pressure 1: 122/68 Code : 8480-6 BMI: 22.4 Code : 14161-4 Heart Rate 1 : 74 bpm Height: 4'11" SpO2: 97% Weight: 111 lbs 08/20/2017 Blood Pressure 1: 132/78 Code : 8480-6 BMI: 22.0 Code : 87448-1 Heart Rate 1 : 80 bpm Height: 4'11" SpO2: 96% Weight: 109 lbs 07/19/2017 Blood Pressure 1: 130/64 Code : 8480-6 BMI: 20.6 Code : 84129-9 Heart Rate 1 : 78 bpm Height: 4'11" SpO2: 98% Weight: 102 lbs 06/13/2017 Blood Pressure 1: 130/64 Code : 8480-6 BMI: 20.0 Code : 68360-7 Heart Rate 1 : 66 bpm Height: 4'11" SpO2: 97% Weight: 99 lbs 05/25/2017 Blood Pressure 1: 132/60 Code : 8480-6 BMI: 20.0 Code : 13606-7 Heart Rate 1 : 81 bpm Height: 4'11" SpO2: 99% Weight: 99 lbs 05/11/2017 Blood Pressure 1: 132/70 Code : 8480-6 Heart Rate 1: 69 bpm Height: SpO2: 99% Weight: 04/25/2017 Blood Pressure 1: 136/78 Code : 8480-6 BMI: 20.2 Code : 45932-7 Heart Rate 1 : 70 bpm Height: 4'11" SpO2: 99% Weight: 100 lbs 04/17/2017 Blood Pressure 1: 118/70 Code : 8480-6 BMI: 20.2 Code : 29612-2 Heart Rate 1 : 62 bpm Height: 4'11" SpO2: 99% Temperature: 36.4 (C) / 97.6 (F) Weight: 100 lbs 04/13/2017 Blood Pressure 1: 136/78 Code : 8480-6 BMI: 19.4 Code : 75334-4 Heart Rate 1 : 79 bpm Height: 4'11" SpO2: 97% Temperature: 36.8 (C) / 98.2 (F) Weight: 96 lbs 04/06/2017 Blood Pressure 1: 120/68 Code : 8480-6 BMI: 20.2 Code : 03374-5 Heart Rate 1 : 71 bpm Height: [...] data Encounters Encounter Performer Location Codes Date 01237 EST. PATIENT, LEVEL III Diagnosis: Dysuria[ICD10: R30.0] Diagnosis: Diverticulitis of large intestine without perforation or abscess without bleeding[ICD10: K57.32] Diagnosis: Gastro-esophageal reflux disease without esophagitis[ICD10: K21.9] Radha Angeles MD, [facility] CPT-4: 43973 01/28/2018 17336 EST. PATIENT, LEVEL III Diagnosis: Rheumatoid arthritis with rheumatoid factor of multiple sites without organ or systems involvement[ICD10: M05.79] Diagnosis: Generalized anxiety disorder[ICD10: F41.1] Diagnosis: Major depressive disorder, single episode, moderate[ICD10: F32.1] Diagnosis: Chronic pain syndrome[ICD10: G89.4] Radha Angeles MD, [facility] CPT-4: 78347 10/15/2017 73085 EST. PATIENT, LEVEL III Diagnosis: Rheumatoid arthritis with rheumatoid factor of multiple sites without organ or systems involvement[ICD10: M05.79] Diagnosis: Generalized anxiety disorder[ICD10: F41.1] Diagnosis: Major depressive disorder, single episode, moderate[ICD10: F32.1] Radha Angeles MD, [facility] CPT-4: 23150 09/19/2017 97572 EST. PATIENT, LEVEL III Diagnosis: Rheumatoid arthritis with rheumatoid factor of multiple sites without organ or systems involvement[ICD10: M05.79] Diagnosis: Generalized anxiety disorder[ICD10: F41.1] Diagnosis: Major depressive disorder, single episode, moderate[ICD10: F32.1] Diagnosis: Slow transit constipation[ICD10: K59.01] Radha Angeles MD, [facility] CPT-4: 10220 08/20/2017 49320 EST. PATIENT, LEVEL III Diagnosis: Rheumatoid arthritis with rheumatoid factor of multiple sites without organ or systems involvement[ICD10: M05.79] Diagnosis: Generalized anxiety disorder[ICD10: F41.1] Diagnosis: Major depressive disorder, single episode, moderate[ICD10: F32.1] Radha Angeles MD, [facility] CPT-4: 36853 07/19/2017 24016 EST. PATIENT, LEVEL III Diagnosis: Rheumatoid arthritis with rheumatoid factor of multiple sites without organ or systems involvement[ICD10: M05.79] Radha Angeles MD, [facility] CPT-4: 61742 06/13/2017 61086 EST. PATIENT, LEVEL III Diagnosis: Rheumatoid arthritis with rheumatoid factor of right wrist without organ or systems involvement[ICD10: M05.731] Radha Angeles MD, [facility] CPT -4: 58598 05/25/2017 19431 EST. PATIENT, LEVEL III Diagnosis: Gastro-esophageal reflux disease without esophagitis[ICD10: K21.9] Diagnosis: Rheumatoid arthritis with rheumatoid factor of multiple sites without organ or systems involvement[ICD10: M05.79] Radha Angeles MD, [facility] CPT-4: 95873 05/11/2017 22405 EST. PATIENT, LEVEL IV Diagnosis: Cough[ICD10: R05] Diagnosis: Gastro-esophageal reflux disease without esophagitis[ICD10: K21.9] Diagnosis: Nontoxic goiter, unspecified[ICD10: E04.9] Diagnosis: Shortness of breath[ICD10: R06.02] Radha Angeles MD, [facility] CPT-4: 18930 04/25/2017 89417 EST. PATIENT, LEVEL IV Diagnosis: Acute laryngopharyngitis[ICD10: J06.0] Diagnosis: Other allergic rhinitis[ICD10: J30.89] Diagnosis: Gastro-esophageal reflux disease without esophagitis[ICD10: K21.9] Radha Angeles MD, [facility] CPT-4: 50638 04/17/2017 24208 EST. PATIENT, LEVEL IV Diagnosis: Diarrhea, unspecified[ICD10: R19.7] Diagnosis: Other specified intestinal infections[ICD10: A08.8] Radha Angeles MD, [facility] CPT-4: 22542 04/13/2017 OFFICE VISIT, NEW - LEVEL 4 Diagnosis: Other acute sinusitis[ICD10: J01.80] Diagnosis: Pain in left knee[ICD10: M25.562] Diagnosis: Nontoxic goiter, unspecified[ICD10: E04.9] Radha Angeles MD, [facility] CPT-4: 07471 04/06/2017 Plan of Care Planned Activity Notes [...] improving. 01/28/2018 Appointment: Radha Sosa WPtel: [facility]8 [facility] (15 min) Moderate 01/28/2018 Patient Education: [...] of over-medication. 10/15/2017 Appointment: Radha Sosa WPtel: [address] [place], [place] [phone] (15 min) Moderate 10/15/2017 Patient Education: Patient [...] in the current treatment plan. 09/19/2017 Appointment: Rdaha Sosa WPtel: [facility]2 [facility] (30 min) Complex 09/19/2017 Patient Education: Patient Medication Summary Completed 09/19/2017 Appointment: Radha Sosa WPtel: [phone] [facility] (15 min) Moderate 08/21/2017 Visit Plan: [...] Completed 08/20/2017 Appointment: Radha Sosa WPtel: [address] [facility] (15 min) Moderate 08/17/2017 Appointment: Radha Sosa WPtel: [facility]0 [facility] (30 min) Complex 07/23/2017 Visit Plan: [...] patient. 07/19/2017 Appointment: Radha Sosa WPtel: [facility]3 [facility] [place] (30 min) Complex 07/19/2017 Patient [...] plan. 06/13/2017 Appointment: Radha Sosa WPtel: [facility]5 [facility] [place] (15 min) Moderate 06/13/2017 Patient [...] not improve. 05/25/2017 Appointment: Radha Sosa WPtel: [address] [place], [place] [phone] [place] (30 min) Complex 05/25/2017 Patient Education: Patient Medication Summary Completed 05/25/2017 Appointment: Radha Sosa WPtel: [address] [place], [place] [phone] [place] (30 min) Complex 05/24/2017 Visit Plan: [...] treatment plan. 05/11/2017 Appointment: Radha Sosa WPtel: [address] [place], [place] [phone] [place] (30 min) Complex 05/11/2017 Patient Education: [...] indicated 04/25/2017 Appointment: Radha Sosa WPtel: [phone] [facility] (30 min) Complex 04/25/2017 Patient Education: [...] allergy spray. 04/17/2017 Appointment: Radha Sosa WPtel: [phone] [facility] (30 min) Complex 04/17/2017 Patient Education: Patient [...] improved. 04/13/2017 Appointment: Radha Sosa WPtel: [facility]0 [facility] (15 min) Moderate 04/13/2017 Patient [...] as indicated 04/06/2017 Appointment: Radha Sosa WPtel: [address] [facility]66[facility] New Patient 04/06/2017 Patient Education: Patient Medication [...]
--- OUTSIDE RECORDS SUMMARY | 2018-08-07 11:05 | XMS REPORT | CCD ---
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 Role Phone PP Unavailable CCM Unavailable Summary Purpose Interface Exchange Insurance Providers Payer name Policy type / Coverage type Covered alliance party ID Effective Begin Date Effective End Date Blue Cross Blue [facility] Blue Cross/Blue Shield [id number] Unknown Family history Father Diagnosis Age At Onset Arthritis Unknown Cancer Unknown Mother Diagnosis Age At Onset Cancer Unknown Social History Social History Element Codes Description Effective Dates Marital status Unknown Michael 04/17/2017 Number of children Unknown 1 04/06/[address]: 312358622 Never smoker 04/06/[address]: 080011154 Never drinks alcohol 04/06/2017 Allergies, Adverse Reactions, [...] Start Date Stop Date Status Fill Instructions Bactrim DS 800 mg-160 mg tablet RxNorm: 921396 1 Tablet(s) PO BID 02/06/2018 02/15/2018 Active Bactrim DS 800 mg-160 mg tablet RxNorm: 047795 1 Tablet(s) PO BID 02/06/2018 02/05/2018 Inactive Diflucan 150 mg tablet RxNorm: 632948 1 Tablet(s) PO daily 02/02/2018 Inactive Diflucan 150 mg tablet RxNorm: 449420 1 Tablet(s) PO daily 01/28/2018 Inactive Flagyl 500 mg tablet RxNorm: 842161 1 Tablet(s) PO TID 201702/06/2018 Inactive Premarin 1.25 mg tablet RxNorm: 243073 1 Tablet(s) PO daily 01/22/2019 Active Cipro 500 mg tablet RxNorm: 615064 1 Tablet(s) PO BID 201702/06/2018 Inactive hydrocodone 5 mg-acetaminophen 325 mg tablet RxNorm: 752484 1 Tablet(s) PO TID as needed for pain 12/31/2017 No Stop Date Active Premarin 1.25 mg tablet RxNorm: 337598 1 Tablet(s) PO daily 01/27/2018 Inactive Prilosec 20 mg capsule,delayed release RxNorm: 135744 1 Capsule(s) PO daily 11/19/2017 03/18/2018 Active hydrocodone 5 mg-acetaminophen 325 mg tablet RxNorm: 686261 1 Tablet(s) PO TID as needed for pain 10/15/2017 12/30/2017 Inactive gabapentin 100 mg capsule RxNorm: 764269 1 Capsule(s) PO BID No Stop Date Active hydrocodone 5 mg-acetaminophen 325 mg tablet RxNorm: 683803 1 Tablet(s) PO QID as needed 09/19/2017 10/14/2017 Inactive Lyrica 50 mg capsule RxNorm: 952384 1 Capsule(s) PO TID 2017 No Stop Date Active Celebrex 200 mg capsule RxNorm: 527397 1 Capsule(s) PO daily 09/18/2017 Inactive Xanax 0.25 mg tablet RxNorm: 591241 1 Tablet(s) PO BID 201708/17/2017 Inactive Cymbalta 30 mg capsule,delayed release RxNorm: 256285 1 Capsule(s) PO daily 07/19/2017 08/17/2017 Inactive amoxicillin 500 mg capsule RxNorm: 031355 1 Capsule(s) PO TID 04/17/2017 04/26/2017 Inactive Prilosec OTC 20 mg tablet,delayed release RxNorm: 368274 1 Tablet(s) PO BID 04/17/2017 05/16/2017 Inactive 1 pill twice a day x 2 weeks, then daily Zofran 4 mg tablet RxNorm: 641215 1 Tablet(s) PO TID as needed 04/13/2017 04/17/2017 Inactive Flagyl 500 mg tablet RxNorm: 418481 1 Tablet(s) PO TID 201704/22/2017 Inactive promethazine 25 mg tablet RxNorm: 563616 1 Tablet(s) PO TID as needed nausea unrelieved by zofran 04/13/20172017 Inactive Zithromax Z-Gary 250 mg tablet RxNorm: 771683 1 Tablet(s) PO UD 04/06/2017 04/16/2017 Inactive prednisone 5 mg tablet RxNorm: 275132 1 Tablet(s) PO daily No Start Date Active Humira Pen 40 mg/0.8 mL subcutaneous RxNorm: 0035447 1 Milliliter(s) SQ QW No Start Date Active Linzess 145 mcg capsule RxNorm: 9693219 1 Capsule(s) PO daily No Start Date 08/16/2017 Inactive Prilosec 20 mg capsule,delayed release RxNorm: 400596 1 Capsule(s) PO daily No Start Date 11/18/2017 Inactive Premarin 1.25 mg tablet RxNorm: 357428 1 Tablet(s) PO daily No Start Date [...] Codes Date URINALYSIS NONAUTO W/O SCOPE CPT-4: 07264 06/04/2017 Vital Signs Date Vital 01/28/2018 Blood Pressure 1: 136/52 Code : 8480-6 BMI: 22.6 Code : 95446-1 Heart Rate 1 : 76 bpm Height: 4'11" SpO2: 98% Weight: 112 lbs 10/15/2017 Blood Pressure 1: 136/78 Code : 8480-6 BMI: 22.6 Code : 84684-0 Heart Rate 1 : 86 bpm Height: 4'11" SpO2: 98% Weight: 112 lbs 09/19/2017 Blood Pressure 1: 122/68 Code : 8480-6 BMI: 22.4 Code : 57072-2 Heart Rate 1 : 74 bpm Height: 4'11" SpO2: 97% Weight: 111 lbs 08/20/2017 Blood Pressure 1: 132/78 Code : 8480-6 BMI: 22.0 Code : 26759-4 Heart Rate 1 : 80 bpm Height: 4'11" SpO2: 96% Weight: 109 lbs 07/19/2017 Blood Pressure 1: 130/64 Code : 8480-6 BMI: 20.6 Code : 03957-8 Heart Rate 1 : 78 bpm Height: 4'11" SpO2: 98% Weight: 102 lbs 06/13/2017 Blood Pressure 1: 130/64 Code : 8480-6 BMI: 20.0 Code : 05129-7 Heart Rate 1 : 66 bpm Height: 4'11" SpO2: 97% Weight: 99 lbs 05/25/2017 Blood Pressure 1: 132/60 Code : 8480-6 BMI: 20.0 Code : 71136-5 Heart Rate 1 : 81 bpm Height: 4'11" SpO2: 99% Weight: 99 lbs 05/11/2017 Blood Pressure 1: 132/70 Code : 8480-6 Heart Rate 1: 69 bpm Height: SpO2: 99% Weight: 04/25/2017 Blood Pressure 1: 136/78 Code : 8480-6 BMI: 20.2 Code : 02164-2 Heart Rate 1 : 70 bpm Height: 4'11" SpO2: 99% Weight: 100 lbs 04/17/2017 Blood Pressure 1: 118/70 Code : 8480-6 BMI: 20.2 Code : 75495-0 Heart Rate 1 : 62 bpm Height: 4'11" SpO2: 99% Temperature: 36.4 (C) / 97.6 (F) Weight: 100 lbs 04/13/2017 Blood Pressure 1: 136/78 Code : 8480-6 BMI: 19.4 Code : 07430-1 Heart Rate 1 : 79 bpm Height: 4'11" SpO2: 97% Temperature: 36.8 (C) / 98.2 (F) Weight: 96 lbs 04/06/2017 Blood Pressure 1: 120/68 Code : 8480-6 BMI: 20.2 Code : 23168-0 Heart Rate 1 : 71 bpm Height: [...] Codes Date EST. PATIENT, LEVEL III Diagnosis: Dysuria[ICD10: R30.0] Diagnosis: Diverticulitis of large intestine without perforation or abscess without bleeding[ICD10: K57.32] Diagnosis: Gastro-esophageal reflux disease without esophagitis[ICD10: K21.9] [facility] CPT-4: 29378 01/28/2018 42662 EST. PATIENT, LEVEL III Diagnosis: Rheumatoid arthritis with rheumatoid factor of multiple sites without organ or systems involvement[ICD10: M05.79] Diagnosis: Generalized anxiety disorder[ICD10: F41.1] Diagnosis: Major depressive disorder, single episode, moderate[ICD10: F32.1] Diagnosis: Chronic pain syndrome[ICD10: G89.4] [facility] CPT-4: 39810 10/15/2017 40828 EST. PATIENT, LEVEL III Diagnosis: Rheumatoid arthritis with rheumatoid factor of multiple sites without organ or systems involvement[ICD10: M05.79] Diagnosis: Generalized anxiety disorder[ICD10: F41.1] Diagnosis: Major depressive disorder, single episode, moderate[ICD10: F32.1] Radha Angeles MD, [facility] CPT-4: 88248 09/19/2017 95486 EST. PATIENT, LEVEL III Diagnosis: Rheumatoid arthritis with rheumatoid factor of multiple sites without organ or systems involvement[ICD10: M05.79] Diagnosis: Generalized anxiety disorder[ICD10: F41.1] Diagnosis: Major depressive disorder, single episode, moderate[ICD10: F32.1] Diagnosis: Slow transit constipation[ICD10: K59.01] Radha Angeles MD, [facility] CPT-4: 40281 08/20/2017 33198 EST. PATIENT, LEVEL III Diagnosis: Rheumatoid arthritis with rheumatoid factor of multiple sites without organ or systems involvement[ICD10: M05.79] Diagnosis: Generalized anxiety disorder[ICD10: F41.1] Diagnosis: Major depressive disorder, single episode, moderate[ICD10: F32.1] Radha Angeles MD, [facility] CPT-4: 10794 07/19/2017 17029 EST. PATIENT, LEVEL III Diagnosis: Rheumatoid arthritis with rheumatoid factor of multiple sites without organ or systems involvement[ICD10: M05.79] Radha Angeles MD, [facility] CPT-4: 10595 06/13/2017 76009 EST. PATIENT, LEVEL III Diagnosis: Rheumatoid arthritis with rheumatoid factor of right wrist without organ or systems involvement[ICD10: M05.731] Radha Angeles MD, [facility] CPT -4: 11782 05/25/2017 24772 EST. PATIENT, LEVEL III Diagnosis: Gastro-esophageal reflux disease without esophagitis[ICD10: K21.9] Diagnosis: Rheumatoid arthritis with rheumatoid factor of multiple sites without organ or systems involvement[ICD10: M05.79] Radha Angeles MD, [facility] CPT-4: 38583 05/11/2017 55432 EST. PATIENT, LEVEL IV Diagnosis: Cough[ICD10: R05] Diagnosis: Gastro-esophageal reflux disease without esophagitis[ICD10: K21.9] Diagnosis: Nontoxic goiter, unspecified[ICD10: E04.9] Diagnosis: Shortness of breath[ICD10: R06.02] Radha Angeles MD, [facility] CPT-4: 26230 04/25/2017 98754 EST. PATIENT, LEVEL IV Diagnosis: Acute laryngopharyngitis[ICD10: J06.0] Diagnosis: Other allergic rhinitis[ICD10: J30.89] Diagnosis: Gastro-esophageal reflux disease without esophagitis[ICD10: K21.9] [facility] CPT-4: 69810 04/17/2017 10764 EST. PATIENT, LEVEL IV Diagnosis: Diarrhea, unspecified[ICD10: R19.7] Diagnosis: Other specified intestinal infections[ICD10: A08.8] [facility] CPT-4: 53815 04/13/2017 OFFICE VISIT, NEW - LEVEL 4 Diagnosis: Other acute sinusitis[ICD10: J01.80] Diagnosis: Pain in left knee[ICD10: M25.562] Diagnosis: Nontoxic goiter, unspecified[ICD10: E04.9] [facility] CPT-4: 17989 04/06/2017 Plan of Care Planned Activity Notes Codes Status Date Appointment: Radha Sosa WPtel: [facility]5 [facility] (15 min) Moderate 01/28/2018 Patient Education: Patient Medication Summary Completed 01/28/2018 Appointment: Radha Sosa WPtel: [address] [place], [place] [phone] (15 min) Moderate 10/15/2017 Patient Education: Patient Medication Summary Completed 10/15/2017 Appointment: Radha Sosa WPtel: [facility]5 [facility] (30 min) Complex 09/19/2017 Patient Education: Patient Medication Summary Completed 09/19/2017 Appointment: Radha Sosa WPtel: [address] [place], [place] [phone] (15 min) Moderate 08/21/2017 Patient Education: Patient Medication Summary Completed 08/20/2017 [facility]: [facility] [place] (15 min) Moderate 08/17/2017 App[facility]ment[facility] [facility] [place] (30 min) Complex 07/23/2017 Appointment: [facility] [facility] [place] ([facility] min) Complex 07/19/2017 Patient Education: Patient Medication Summary Completed 07/19/2017 Appointment: Radha Sosa WPtel: [facility]5 [facility] [place] (15 min) Moderate 06/13/2017 Patient Education: Patient Medication Summary Completed 06/13/2017 Appointment: Lab Draw 06/04/2017 Patient Education: Patient Medication Summary Completed 06/04/2017 Appointment: Radha Sosa WPtel: [facility] [place] ([facility] [place]) Complex 05/25/2017 Patient Education: Patient Medication Summary Completed 05/25/2017 App[facility]ment: [facility] [facility] [place] ([facility] min) Complex 05/24/2017 Appointment: Radha Sosa WPtel: [facility] [place] ([facility] [place]) Complex 05/11/2017 Patient Education: Patient Medication Summary Completed 05/11/2017 Appointment: Radha Sosa WPtel: [facility] [place] ([facility] [place]) Complex 04/25/2017 Patient Education: Patient Medication Summary Completed 04/25/2017 Appointment: Radha Sosa WPtel: [facility] [place] ([facility] min) Complex 04/17/2017 Patient Education: Patient Medication Summary Completed 04/17/2017 Appointment: [facility] [facility] (15 min) Moderate 04/13/2017 Patient Education: Patient Medication Summary Completed 04/13/2017 App[facility]ment: [phone] [facility] 04/06/2017 Patient Education: Patient Medication Summary Completed 04/06/2017 Instructions No Instructions
--- OUTSIDE RECORDS SUMMARY | 2018-08-07 11:06 | XMS REPORT | CCD ---
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 Phone PP Unavailable CCM Unavailable Summary Purpose Interface Exchange Insurance Providers Payer name Policy type / Coverage type Covered democrat ID Effective Begin Date Effective End Date Blue Cross Blue [facility] Blue Cross/Blue Shield [id number] Unknown Family history Father Diagnosis Age At Onset Arthritis Unknown Cancer Unknown Mother Diagnosis Age At Onset Cancer Unknown Social History Social History Element Codes Description Effective Dates Marital status Unknown Michael 04/17/2017 Number of children Unknown 1 04/06/[address]: 822432959 Never smoker 04/06/[address]: 195097096 Never drinks alcohol 04/06/2017 Allergies, Adverse Reactions, [...] Start Date Stop Date Status Fill Instructions Diflucan 150 mg tablet RxNorm: 651098 1 Tablet(s) PO daily 02/02/2018 Active Diflucan 150 mg tablet RxNorm: 445217 1 Tablet(s) PO daily 01/28/2018 Inactive Flagyl 500 mg tablet RxNorm: 454702 1 Tablet(s) PO TID 201702/06/2018 Active Premarin 1.25 mg tablet RxNorm: 299849 1 Tablet(s) PO daily 01/22/2019 Active Cipro 500 mg tablet RxNorm: 597860 1 Tablet(s) PO BID 201702/06/2018 Active hydrocodone 5 mg-acetaminophen 325 mg tablet RxNorm: 158992 1 Tablet(s) PO TID as needed for pain 12/31/2017 No Stop Date Active Premarin 1.25 mg tablet RxNorm: 811193 1 Tablet(s) PO daily 01/27/2018 Inactive Prilosec 20 mg capsule,delayed release RxNorm: 355365 1 Capsule(s) PO daily 11/19/2017 03/18/2018 Active hydrocodone 5 mg-acetaminophen 325 mg tablet RxNorm: 155431 1 Tablet(s) PO TID as needed for pain 10/15/2017 12/30/2017 Inactive gabapentin 100 mg capsule RxNorm: 240469 1 Capsule(s) PO BID No Stop Date Active hydrocodone 5 mg-acetaminophen 325 mg tablet RxNorm: 636484 1 Tablet(s) PO QID as needed 09/19/2017 10/14/2017 Inactive Lyrica 50 mg capsule RxNorm: 638559 1 Capsule(s) PO TID 2017 No Stop Date Active Celebrex 200 mg capsule RxNorm: 984393 1 Capsule(s) PO daily 09/18/2017 Inactive Xanax 0.25 mg tablet RxNorm: 744052 1 Tablet(s) PO BID 201708/17/2017 Inactive Cymbalta 30 mg capsule,delayed release RxNorm: 864972 1 Capsule(s) PO daily 07/19/2017 08/17/2017 Inactive amoxicillin 500 mg capsule RxNorm: 996706 1 Capsule(s) PO TID 04/17/2017 04/26/2017 Inactive Prilosec OTC 20 mg tablet,delayed release RxNorm: 209537 1 Tablet(s) PO BID 04/17/2017 05/16/2017 Inactive 1 pill twice a day x 2 weeks, then daily Zofran 4 mg tablet RxNorm: 002230 1 Tablet(s) PO TID as needed 04/13/2017 04/17/2017 Inactive Flagyl 500 mg tablet RxNorm: 200122 1 Tablet(s) PO TID 201704/22/2017 Inactive promethazine 25 mg tablet RxNorm: 860409 1 Tablet(s) PO TID as needed nausea unrelieved by zofran 04/13/20172017 Inactive Zithromax Z-Gary 250 mg tablet RxNorm: 473870 1 Tablet(s) PO UD 04/06/2017 04/16/2017 Inactive prednisone 5 mg tablet RxNorm: 829470 1 Tablet(s) PO daily No Start Date Active Humira Pen 40 mg/0.8 mL subcutaneous RxNorm: 4920151 1 Milliliter(s) SQ QW No Start Date Active Linzess 145 mcg capsule RxNorm: 6889960 1 Capsule(s) PO daily No Start Date 08/16/2017 Inactive Prilosec 20 mg capsule,delayed release RxNorm: 455230 1 Capsule(s) PO daily No Start Date 11/18/2017 Inactive Premarin 1.25 mg tablet RxNorm: 457035 1 Tablet(s) PO daily No Start Date [...] Item Code Result Date Urine Culture Ucult Preliminary NO Growth Day [...] Codes Date URINALYSIS NONAUTO W/O SCOPE CPT-4: 16809 06/04/2017 Vital Signs Date Vital 01/28/2018 Blood Pressure 1: 136/52 Code : 8480-6 BMI: 22.6 Code : 31692-1 Heart Rate 1 : 76 bpm Height: 4'11" SpO2: 98% Weight: 112 lbs 10/15/2017 Blood Pressure 1: 136/78 Code : 8480-6 BMI: 22.6 Code : 08320-5 Heart Rate 1 : 86 bpm Height: 4'11" SpO2: 98% Weight: 112 lbs 09/19/2017 Blood Pressure 1: 122/68 Code : 8480-6 BMI: 22.4 Code : 60278-4 Heart Rate 1 : 74 bpm Height: 4'11" SpO2: 97% Weight: 111 lbs 08/20/2017 Blood Pressure 1: 132/78 Code : 8480-6 BMI: 22.0 Code : 25652-7 Heart Rate 1 : 80 bpm Height: 4'11" SpO2: 96% Weight: 109 lbs 07/19/2017 Blood Pressure 1: 130/64 Code : 8480-6 BMI: 20.6 Code : 68876-1 Heart Rate 1 : 78 bpm Height: 4'11" SpO2: 98% Weight: 102 lbs 06/13/2017 Blood Pressure 1: 130/64 Code : 8480-6 BMI: 20.0 Code : 27730-3 Heart Rate 1 : 66 bpm Height: 4'11" SpO2: 97% Weight: 99 lbs 05/25/2017 Blood Pressure 1: 132/60 Code : 8480-6 BMI: 20.0 Code : 71425-6 Heart Rate 1 : 81 bpm Height: 4'11" SpO2: 99% Weight: 99 lbs 05/11/2017 Blood Pressure 1: 132/70 Code : 8480-6 Heart Rate 1: 69 bpm Height: SpO2: 99% Weight: 04/25/2017 Blood Pressure 1: 136/78 Code : 8480-6 BMI: 20.2 Code : 43759-3 Heart Rate 1 : 70 bpm Height: 4'11" SpO2: 99% Weight: 100 lbs 04/17/2017 Blood Pressure 1: 118/70 Code : 8480-6 BMI: 20.2 Code : 60910-8 Heart Rate 1 : 62 bpm Height: 4'11" SpO2: 99% Temperature: 36.4 (C) / 97.6 (F) Weight: 100 lbs 04/13/2017 Blood Pressure 1: 136/78 Code : 8480-6 BMI: 19.4 Code : 34667-7 Heart Rate 1 : 79 bpm Height: 4'11" SpO2: 97% Temperature: 36.8 (C) / 98.2 (F) Weight: 96 lbs 04/06/2017 Blood Pressure 1: 120/68 Code : 8480-6 BMI: 20.2 Code : 92675-7 Heart Rate 1 : 71 bpm Height: [...] without esophagitis[ICD10: K21.9] Radha Angeles MD, [facility] CPT-4: 84148 01/28/2018 48441 EST. PATIENT, LEVEL III Diagnosis: Rheumatoid arthritis with rheumatoid factor of multiple sites without organ or systems involvement[ICD10: M05.79] Diagnosis: Generalized anxiety disorder[ICD10: F41.1] Diagnosis: Major depressive disorder, single episode, moderate[ICD10: F32.1] Diagnosis: Chronic pain syndrome[ICD10: G89.4] [facility] CPT-4: 52553 10/15/2017 21542 EST. PATIENT, LEVEL III Diagnosis: Rheumatoid arthritis with rheumatoid factor of multiple sites without organ or systems involvement[ICD10: M05.79] Diagnosis: Generalized anxiety disorder[ICD10: F41.1] Diagnosis: Major depressive disorder, single episode, moderate[ICD10: F32.1] [facility] CPT-4: 78728 09/19/2017 04545 EST. PATIENT, LEVEL III Diagnosis: Rheumatoid arthritis with rheumatoid factor of multiple sites without organ or systems involvement[ICD10: M05.79] Diagnosis: Generalized anxiety disorder[ICD10: F41.1] Diagnosis: Major depressive disorder, single episode, moderate[ICD10: F32.1] Diagnosis: Slow transit constipation[ICD10: K59.01] Radha Angeles MD, [facility] CPT-4: 00970 08/20/2017 72604 EST. PATIENT, LEVEL III Diagnosis: Rheumatoid arthritis with rheumatoid factor of multiple sites without organ or systems involvement[ICD10: M05.79] Diagnosis: Generalized anxiety disorder[ICD10: F41.1] Diagnosis: Major depressive disorder, single episode, moderate[ICD10: F32.1] Radha Angeles MD, [facility] CPT-4: 49560 07/19/2017 01346 EST. PATIENT, LEVEL III Diagnosis: Rheumatoid arthritis with rheumatoid factor of multiple sites without organ or systems involvement[ICD10: M05.79] Radha Angeles MD, [facility] CPT-4: 50679 06/13/2017 08265 EST. PATIENT, LEVEL III Diagnosis: Rheumatoid arthritis with rheumatoid factor of right wrist without organ or systems involvement[ICD10: M05.731] Radha Angeles MD, [facility] CPT -4: 95657 05/25/2017 52489 EST. PATIENT, LEVEL III Diagnosis: Gastro-esophageal reflux disease without esophagitis[ICD10: K21.9] Diagnosis: Rheumatoid arthritis with rheumatoid factor of multiple sites without organ or systems involvement[ICD10: M05.79] Radha Angeles MD, [facility] CPT-4: 00676 05/11/2017 87330 EST. PATIENT, LEVEL IV Diagnosis: Cough[ICD10: R05] Diagnosis: Gastro-esophageal reflux disease without esophagitis[ICD10: K21.9] Diagnosis: Nontoxic goiter, unspecified[ICD10: E04.9] Diagnosis: Shortness of breath[ICD10: R06.02] Radha Angeles MD, [facility] CPT-4: 81451 04/25/2017 52050 EST. PATIENT, LEVEL IV Diagnosis: Acute laryngopharyngitis[ICD10: J06.0] Diagnosis: Other allergic rhinitis[ICD10: J30.89] Diagnosis: Gastro-esophageal reflux disease without esophagitis[ICD10: K21.9] Radha Angeles MD, [facility] CPT-4: 98952 04/17/2017 73578 EST. PATIENT, LEVEL IV Diagnosis: Diarrhea, unspecified[ICD10: R19.7] Diagnosis: Other specified intestinal infections[ICD10: A08.8] [facility] CPT-4: 35853 04/13/2017 OFFICE VISIT, NEW - LEVEL 4 Diagnosis: Other acute sinusitis[ICD10: J01.80] Diagnosis: Pain in left knee[ICD10: M25.562] Diagnosis: Nontoxic goiter, unspecified[ICD10: E04.9] Radha Angeles MD, [facility] CPT-4: 38268 04/06/2017 Plan of Care Planned Activity Notes [...] [facility] [phone] [facility] (15 min) Moderate 01/28/2018 Patient Education: Patient Medication Summary Completed 01/28/2018 Care Plan: Urine Culture Pending 01/28/2018 Visit Plan: Chronic Depression and anxiety [...] of over-medication. 10/15/2017 Appointment: Radha Sosa WPtel: [facility] [...] treatment plan. 09/19/2017 Appointment: Radha Sosa WPtel: [facility] [place] (30 min) Complex 09/19/2017 Patient Education: Patient Medication Summary Completed 09/19/2017 Appointment: Radha Sosa WPtel: [facility] [place] (15 min) Moderate 08/21/2017 Visit Plan: Chronic [...] Summary Completed 08/20/2017 Appointment: Radha Sosa WPtel: [facility] (15 min) Moderate 08/17/2017 Appointment: Radha Sosa WPtel: [facility]66[facility] (30 min) Complex 07/23/2017 Visit [...] this patient. 07/19/2017 Appointment: Radha Sosa WPtel: [facility] (30 min) Complex 07/19/2017 Patient Education: [...] plan. 06/13/2017 Appointment: Radha Sosa [facility]el: [phone] [facility] [place] [place] (15 min) Moderate 06/13/2017 Patient Education: [...] improve. 05/25/2017 Appointment: Radha Sosa WPtel: [phone] [facility] [place] (30 min) Complex 05/25/2017 Patient Education: Patient Medication Summary Completed 05/25/2017 Appointment: Rad[facility]: [phone] [facility] [...] treatment plan. 05/11/2017 Appointment: Radha Sosa WPtel: [facility] [place] (30 min) Complex 05/11/2017 Patient Education: [...] allergy spray. 04/17/2017 Appointment: Radha Sosa WPtel: [facility] (30 min) Complex [...] symptoms not improved. 04/13/2017 Appointment: Radha Sosal: [facility] (15 min) Moderate 04/13/2017 Patient Education: [...] indicated 04/06/2017 Appointment: Radha Sosa [facility]el[facility] [phone] [facility] New Patient 04/06/2017 Patient Education: Patient Medication [...]
--- OUTSIDE RECORDS SUMMARY | 2018-08-07 11:07 | XMS REPORT | CCD ---
Author Author Radha Sosa Organization Yamilet Angeles MD, [facility] Address [address] [place] [address] Phone Care Team Providers Care Last Picker Name Role Phone PP Unavailable CCM Unavailable Summary Purpose Interface Exchange Insurance Providers Payer name Policy type / Coverage type Covered democrat ID Effective Begin Date Effective End Date Blue Cross Blue [facility] Blue Cross/Blue Shield [id number] Unknown Family history Father Diagnosis Age At Onset Arthritis Unknown Cancer Unknown Mother Diagnosis Age At Onset Cancer Unknown Social History Social History Element Codes Description Effective Dates Marital status Unknown Michael 04/17/2017 Number of children Unknown 1 04/06/[address]: 873161647 Never smoker 04/06/[address]: 941654955 Never drinks alcohol 04/06/2017 Allergies, Adverse Reactions, [...] Fill Instructions Diflucan 150 mg tablet RxNorm: 510571 1 Tablet(s) PO daily 02/02/2018 Active Diflucan 150 mg tablet RxNorm: 187591 1 Tablet(s) PO daily 01/28/2018 Inactive Flagyl 500 mg tablet RxNorm: 489559 1 Tablet(s) PO TID 201702/06/2018 Active Premarin 1.25 mg tablet RxNorm: 998543 1 Tablet(s) PO daily 01/22/2019 Active Cipro 500 mg tablet RxNorm: 291287 1 Tablet(s) PO BID 201702/06/2018 Active hydrocodone 5 mg-acetaminophen 325 mg tablet RxNorm: 833999 1 Tablet(s) PO TID as needed for pain 12/31/2017 No Stop Date Active Premarin 1.25 mg tablet RxNorm: 762985 1 Tablet(s) PO daily 01/27/2018 Inactive Prilosec 20 mg capsule,delayed release RxNorm: 469054 1 Capsule(s) PO daily 11/19/2017 03/18/2018 Active hydrocodone 5 mg-acetaminophen 325 mg tablet RxNorm: 771509 1 Tablet(s) PO TID as needed for pain 10/15/2017 12/30/2017 Inactive gabapentin 100 mg capsule RxNorm: 659149 1 Capsule(s) PO BID No Stop Date Active hydrocodone 5 mg-acetaminophen 325 mg tablet RxNorm: 574702 1 Tablet(s) PO QID as needed 09/19/2017 10/14/2017 Inactive Lyrica 50 mg capsule RxNorm: 172555 1 Capsule(s) PO TID 2017 No Stop Date Active Celebrex 200 mg capsule RxNorm: 323893 1 Capsule(s) PO daily 09/18/2017 Inactive Xanax 0.25 mg tablet RxNorm: 631466 1 Tablet(s) PO BID 201708/17/2017 Inactive Cymbalta 30 mg capsule,delayed release RxNorm: 204075 1 Capsule(s) PO daily 07/19/2017 08/17/2017 Inactive amoxicillin 500 mg capsule RxNorm: 918742 1 Capsule(s) PO TID 04/17/2017 04/26/2017 Inactive Prilosec OTC 20 mg tablet,delayed release RxNorm: 639367 1 Tablet(s) PO BID 04/17/2017 05/16/2017 Inactive 1 pill twice a day x 2 weeks, then daily Zofran 4 mg tablet RxNorm: 846247 1 Tablet(s) PO TID as needed 04/13/2017 04/17/2017 Inactive Flagyl 500 mg tablet RxNorm: 624967 1 Tablet(s) PO TID 201704/22/2017 Inactive promethazine 25 mg tablet RxNorm: 245545 1 Tablet(s) PO TID as needed nausea unrelieved by zofran 04/13/20172017 Inactive Zithromax Z-Gary 250 mg tablet RxNorm: 638324 1 Tablet(s) PO UD 04/06/2017 04/16/2017 Inactive prednisone 5 mg tablet RxNorm: 970460 1 Tablet(s) PO daily No Start Date Active Humira Pen 40 mg/0.8 mL subcutaneous RxNorm: 9241502 1 Milliliter(s) SQ QW No Start Date Active Linzess 145 mcg capsule RxNorm: 0245964 1 Capsule(s) PO daily No Start Date 08/16/2017 Inactive Prilosec 20 mg capsule,delayed release RxNorm: 015755 1 Capsule(s) PO daily No Start Date 11/18/2017 Inactive Premarin 1.25 mg tablet RxNorm: 537555 1 Tablet(s) PO daily No Start Date 12/30/2017 Inactive Medication Administered No Medication Administered data Immunizations No Immunization data Assessments Condition Codes Effective Dates Dysuria ICD-10: R30.0 ICD-9: 788.1 01/28/2018 Gastro-esophageal reflux disease without esophagitis ICD-10 : K21.9 ICD-9: 530.81 01/28/2018 Diverticulitis of large intestine without perforation or abscess without bleeding ICD-10: K57.32 ICD-9: 562.11 01/28/2018 Generalized anxiety disorder ICD-10: F41.1 ICD-9: 300.00 10/15/2017 Rheumatoid arthritis with rheumatoid factor of multiple sites without organ or systems involvement ICD-10: M05.79 ICD-9: 714.0 10/15/2017 Chronic pain syndrome ICD-10: G89.4 ICD-9: 338.4 10/15/2017 Major depressive disorder, single episode, moderate ICD-10: F32.1 ICD-9: 296.22 10/15/2017 Slow transit constipation ICD-10: K59.01 ICD-9: 564.01 08/20/2017 Rheumatoid arthritis with rheumatoid factor of right wrist without organ or systems involvement ICD-10: M05.731 ICD-9: 714.0 05/25/2017 Cough ICD-10: R05 ICD-9: 786.2 04/25/2017 Shortness of breath ICD-10: R06.02 ICD-9: 786.05 04/25/2017 Nontoxic goiter, unspecified ICD-10: E04.9 ICD-9: 240.9 04/25/2017 Acute laryngopharyngitis ICD-10: J06.0 ICD-9: 465.0 [...] Codes Date URINALYSIS NONAUTO W/O SCOPE CPT-4: 10791 06/04/2017 Vital Signs Date Vital 01/28/2018 Blood Pressure 1: 136/52 Code : 8480-6 BMI: 22.6 Code : 76210-6 Heart Rate 1 : 76 bpm Height: 4'11" SpO2: 98% Weight: 112 lbs 10/15/2017 Blood Pressure 1: 136/78 Code : 8480-6 BMI: 22.6 Code : 94824-9 Heart Rate 1 : 86 bpm Height: 4'11" SpO2: 98% Weight: 112 lbs 09/19/2017 Blood Pressure 1: 122/68 Code : 8480-6 BMI: 22.4 Code : 74406-8 Heart Rate 1 : 74 bpm Height: 4'11" SpO2: 97% Weight: 111 lbs 08/20/2017 Blood Pressure 1: 132/78 Code : 8480-6 BMI: 22.0 Code : 94059-1 Heart Rate 1 : 80 bpm Height: 4'11" SpO2: 96% Weight: 109 lbs 07/19/2017 Blood Pressure 1: 130/64 Code : 8480-6 BMI: 20.6 Code : 40129-2 Heart Rate 1 : 78 bpm Height: 4'11" SpO2: 98% Weight: 102 lbs 06/13/2017 Blood Pressure 1: 130/64 Code : 8480-6 BMI: 20.0 Code : 26604-6 Heart Rate 1 : 66 bpm Height: 4'11" SpO2: 97% Weight: 99 lbs 05/25/2017 Blood Pressure 1: 132/60 Code : 8480-6 BMI: 20.0 Code : 47933-1 Heart Rate 1 : 81 bpm Height: 4'11" SpO2: 99% Weight: 99 lbs 05/11/2017 Blood Pressure 1: 132/70 Code : 8480-6 Heart Rate 1: 69 bpm Height: SpO2: 99% Weight: 04/25/2017 Blood Pressure 1: 136/78 Code : 8480-6 BMI: 20.2 Code : 93744-1 Heart Rate 1 : 70 bpm Height: 4'11" SpO2: 99% Weight: 100 lbs 04/17/2017 Blood Pressure 1: 118/70 Code : 8480-6 BMI: 20.2 Code : 42727-3 Heart Rate 1 : 62 bpm Height: 4'11" SpO2: 99% Temperature: 36.4 (C) / 97.6 (F) Weight: 100 lbs 04/13/2017 Blood Pressure 1: 136/78 Code : 8480-6 BMI: 19.4 Code : 07466-9 Heart Rate 1 : 79 bpm Height: 4'11" SpO2: 97% Temperature: 36.8 (C) / 98.2 (F) Weight: 96 lbs 04/06/2017 Blood Pressure 1: 120/68 Code : 8480-6 BMI: 20.2 Code : 51159-1 Heart Rate 1 : 71 bpm Height: [...] disease without esophagitis[ICD10: K21.9] Radha Angeles MD, [facility] CPT-4: 93748 01/28/2018 57689 EST. PATIENT, LEVEL III Diagnosis: Rheumatoid arthritis with rheumatoid factor of multiple sites without organ or systems involvement[ICD10: M05.79] Diagnosis: Generalized anxiety disorder[ICD10: F41.1] Diagnosis: Major depressive disorder, single episode, moderate[ICD10: F32.1] Diagnosis: Chronic pain syndrome[ICD10: G89.4] [facility] CPT-4: 90676 10/15/2017 11417 EST. PATIENT, LEVEL III Diagnosis: Rheumatoid arthritis with rheumatoid factor of multiple sites without organ or systems involvement[ICD10: M05.79] Diagnosis: Generalized anxiety disorder[ICD10: F41.1] Diagnosis: Major depressive disorder, single episode, moderate[ICD10: F32.1] [facility] CPT-4: 52353 09/19/2017 77113 EST. PATIENT, LEVEL III Diagnosis: Rheumatoid arthritis with rheumatoid factor of multiple sites without organ or systems involvement[ICD10: M05.79] Diagnosis: Generalized anxiety disorder[ICD10: F41.1] Diagnosis: Major depressive disorder, single episode, moderate[ICD10: F32.1] Diagnosis: Slow transit constipation[ICD10: K59.01] Radha Angeles MD, [facility] CPT-4: 20995 08/20/2017 12658 EST. PATIENT, LEVEL III Diagnosis: Rheumatoid arthritis with rheumatoid factor of multiple sites without organ or systems involvement[ICD10: M05.79] Diagnosis: Generalized anxiety disorder[ICD10: F41.1] Diagnosis: Major depressive disorder, single episode, moderate[ICD10: F32.1] Radha Angeles MD, [facility] CPT-4: 17333 07/19/2017 49898 EST. PATIENT, LEVEL III Diagnosis: Rheumatoid arthritis with rheumatoid factor of multiple sites without organ or systems involvement[ICD10: M05.79] Radha Angeles MD, [facility] CPT-4: 30066 06/13/2017 79858 EST. PATIENT, LEVEL III Diagnosis: Rheumatoid arthritis with rheumatoid factor of right wrist without organ or systems involvement[ICD10: M05.731] Radha Angeles MD, [facility] CPT -4: 79294 05/25/2017 10852 EST. PATIENT, LEVEL III Diagnosis: Gastro-esophageal reflux disease without esophagitis[ICD10: K21.9] Diagnosis: Rheumatoid arthritis with rheumatoid factor of multiple sites without organ or systems involvement[ICD10: M05.79] Radha Angeles MD, [facility] CPT-4: 61813 05/11/2017 22480 EST. PATIENT, LEVEL IV Diagnosis: Cough[ICD10: R05] Diagnosis: Gastro-esophageal reflux disease without esophagitis[ICD10: K21.9] Diagnosis: Nontoxic goiter, unspecified[ICD10: E04.9] Diagnosis: Shortness of breath[ICD10: R06.02] Radha Angeles MD, [facility] CPT-4: 64274 04/25/2017 52110 EST. PATIENT, LEVEL IV Diagnosis: Acute laryngopharyngitis[ICD10: J06.0] Diagnosis: Other allergic rhinitis[ICD10: J30.89] Diagnosis: Gastro-esophageal reflux disease without esophagitis[ICD10: K21.9] [facility] CPT-4: 00256 04/17/2017 64093 EST. PATIENT, LEVEL IV Diagnosis: Diarrhea, unspecified[ICD10: R19.7] Diagnosis: Other specified intestinal infections[ICD10: A08.8] [facility] CPT-4: 13951 04/13/2017 OFFICE VISIT, NEW - LEVEL 4 Diagnosis: Other acute sinusitis[ICD10: J01.80] Diagnosis: Pain in left knee[ICD10: M25.562] Diagnosis: Nontoxic goiter, unspecified[ICD10: E04.9] Radha Angeles MD, [facility] CPT-4: 84700 04/06/2017 Plan of Care Planned Activity Notes [...] not improving. 01/28/2018 Appointment: Radha Sosa WPtel: [address] [place], [place] [phone] (15 min) Moderate 01/28/2018 Patient Education: Patient [...] of over-medication. 10/15/2017 Appointment: Radha Sosa WPtel: [address] [place], [place] [phone] (15 min) Moderate 10/15/2017 Patient [...] treatment plan. 09/19/2017 Appointment: Radha Sosa WPtel: [address] [place] [phone] (30 min) Complex 09/19/2017 Patient Education: Patient Medication Summary Completed 09/19/2017 Appointment: Radha Sosa WPtel: [address] [place], [place] [phone] (15 min) Moderate 08/21/2017 Visit [...] Summary Completed 08/20/2017 Appointment: Radha Sosa WPtel: [facility]9 [facility] [place] (15 min) Moderate 08/17/2017 App[facility]: [facility] [phone] [facility] (30 min) Complex 07/23/2017 Visit Plan: RA [...] patient. 07/19/2017 Appointment: [facility] [phone] [facility] (30 min) Complex 07/19/2017 Patient Education: [...] plan. 06/13/2017 Appointment: [facility] [phone] [facility] (15 min) Moderate 06/13/2017 Patient Education: [...] improve. 05/25/2017 Appointment: [facility] [phone] [facility] (30 min) Complex 05/25/2017 Patient Education: Patient Medication Summary Completed 05/25/2017 Appointment: Radha Sosa WPtel: [phone] [facility] (30 min) Complex 05/24/2017 Visit Plan: Esophageal [...] plan. 05/11/2017 Appointment: Radha Sosa WPtel: [phone] [facility] (30 min) Complex 05/11/2017 Patient Education: Patient [...] as indicated 04/25/2017 Appointment: Radha Sosa WPtel: [facility]5 [facility] [place] (30 min) Complex 04/25/2017 Patient [...] allergy spray. 04/17/2017 Appointment: Radha Sosa WPtel: [address] [place] [address] (30 min) Complex 04/17/2017 Patient Education: Patient [...] improved. 04/13/2017 Appointment: Radha Sosa WPtel: [address] [place] [address] (15 min) Moderate 04/13/2017 Patient Education: Patient [...] as indicated 04/06/2017 Appointment: Radha Sosa WPtel: [facility] New Patient 04/06/2017 Patient Education: Patient Medication [...]
--- OUTSIDE RECORDS SUMMARY | 2018-08-07 11:09 | XMS REPORT | CCD ---
Author Author Radha Sosa Organization Yamilet Angeles MD, [facility] Address [address] [place] [address] Phone Care Team Providers Care Construction Contractor Name Role Phone PP Unavailable CCM Unavailable Summary Purpose Interface Exchange Insurance Providers Payer name Policy type / Coverage type Covered constitution party ID Effective Begin Date Effective End Date Blue Cross Blue [facility] Blue Cross/Blue Shield [id number] Unknown Family history Father Diagnosis Age At Onset Arthritis Unknown Cancer Unknown Mother Diagnosis Age At Onset Cancer Unknown Social History Social History Element Codes Description Effective Dates Marital status Unknown Michael 04/17/2017 Number of children Unknown 1 04/06/[address]: 573770274 Never smoker 04/06/[address]: 510605162 Never drinks alcohol 04/06/2017 Allergies, Adverse Reactions, [...] Start Date Stop Date Status Fill Instructions Flagyl 500 mg tablet RxNorm: 929852 1 Tablet(s) PO TID 201702/06/2018 Active Premarin 1.25 mg tablet RxNorm: 185068 1 Tablet(s) PO daily 01/22/2019 Active Cipro 500 mg tablet RxNorm: 089666 1 Tablet(s) PO BID 201702/06/2018 Active hydrocodone 5 mg-acetaminophen 325 mg tablet RxNorm: 707823 1 Tablet(s) PO TID as needed for pain 12/31/2017 No Stop Date Active Premarin 1.25 mg tablet RxNorm: 819014 1 Tablet(s) PO daily 01/27/2018 Inactive Prilosec 20 mg capsule,delayed release RxNorm: 464598 1 Capsule(s) PO daily 11/19/2017 03/18/2018 Active hydrocodone 5 mg-acetaminophen 325 mg tablet RxNorm: 445200 1 Tablet(s) PO TID as needed for pain 10/15/2017 12/30/2017 Inactive gabapentin 100 mg capsule RxNorm: 677811 1 Capsule(s) PO BID No Stop Date Active hydrocodone 5 mg-acetaminophen 325 mg tablet RxNorm: 516656 1 Tablet(s) PO QID as needed 09/19/2017 10/14/2017 Inactive Lyrica 50 mg capsule RxNorm: 878852 1 Capsule(s) PO TID 2017 No Stop Date Active Celebrex 200 mg capsule RxNorm: 166364 1 Capsule(s) PO daily 09/18/2017 Inactive Xanax 0.25 mg tablet RxNorm: 355628 1 Tablet(s) PO BID 201708/17/2017 Inactive Cymbalta 30 mg capsule,delayed release RxNorm: 667269 1 Capsule(s) PO daily 07/19/2017 08/17/2017 Inactive amoxicillin 500 mg capsule RxNorm: 639678 1 Capsule(s) PO TID 04/17/2017 04/26/2017 Inactive Prilosec OTC 20 mg tablet,delayed release RxNorm: 011867 1 Tablet(s) PO BID 04/17/2017 05/16/2017 Inactive 1 pill twice a day x 2 weeks, then daily Zofran 4 mg tablet RxNorm: 266636 1 Tablet(s) PO TID as needed 04/13/2017 04/17/2017 Inactive Flagyl 500 mg tablet RxNorm: 399833 1 Tablet(s) PO TID 201704/22/2017 Inactive promethazine 25 mg tablet RxNorm: 250511 1 Tablet(s) PO TID as needed nausea unrelieved by zofran 04/13/20172017 Inactive Zithromax Z-Gary 250 mg tablet RxNorm: 283308 1 Tablet(s) PO UD 04/06/2017 04/16/2017 Inactive prednisone 5 mg tablet RxNorm: 333777 1 Tablet(s) PO daily No Start Date Active Humira Pen 40 mg/0.8 mL subcutaneous RxNorm: 0334011 1 Milliliter(s) SQ QW No Start Date Active Linzess 145 mcg capsule RxNorm: 6255522 1 Capsule(s) PO daily No Start Date 08/16/2017 Inactive Prilosec 20 mg capsule,delayed release RxNorm: 463217 1 Capsule(s) PO daily No Start Date 11/18/2017 Inactive Premarin 1.25 mg tablet RxNorm: 309880 1 Tablet(s) PO daily No Start Date [...] Codes Date URINALYSIS NONAUTO W/O SCOPE CPT-4: 97621 06/04/2017 Vital Signs Date Vital 01/28/2018 Blood Pressure 1: 136/52 Code : 8480-6 BMI: 22.6 Code : 96867-2 Heart Rate 1 : 76 bpm Height: 4'11" SpO2: 98% Weight: 112 lbs 10/15/2017 Blood Pressure 1: 136/78 Code : 8480-6 BMI: 22.6 Code : 85640-2 Heart Rate 1 : 86 bpm Height: 4'11" SpO2: 98% Weight: 112 lbs 09/19/2017 Blood Pressure 1: 122/68 Code : 8480-6 BMI: 22.4 Code : 81242-9 Heart Rate 1 : 74 bpm Height: 4'11" SpO2: 97% Weight: 111 lbs 08/20/2017 Blood Pressure 1: 132/78 Code : 8480-6 BMI: 22.0 Code : 38611-2 Heart Rate 1 : 80 bpm Height: 4'11" SpO2: 96% Weight: 109 lbs 07/19/2017 Blood Pressure 1: 130/64 Code : 8480-6 BMI: 20.6 Code : 93615-0 Heart Rate 1 : 78 bpm Height: 4'11" SpO2: 98% Weight: 102 lbs 06/13/2017 Blood Pressure 1: 130/64 Code : 8480-6 BMI: 20.0 Code : 34909-4 Heart Rate 1 : 66 bpm Height: 4'11" SpO2: 97% Weight: 99 lbs 05/25/2017 Blood Pressure 1: 132/60 Code : 8480-6 BMI: 20.0 Code : 57008-8 Heart Rate 1 : 81 bpm Height: 4'11" SpO2: 99% Weight: 99 lbs 05/11/2017 Blood Pressure 1: 132/70 Code : 8480-6 Heart Rate 1: 69 bpm Height: SpO2: 99% Weight: 04/25/2017 Blood Pressure 1: 136/78 Code : 8480-6 BMI: 20.2 Code : 34168-8 Heart Rate 1 : 70 bpm Height: 4'11" SpO2: 99% Weight: 100 lbs 04/17/2017 Blood Pressure 1: 118/70 Code : 8480-6 BMI: 20.2 Code : 30339-0 Heart Rate 1 : 62 bpm Height: 4'11" SpO2: 99% Temperature: 36.4 (C) / 97.6 (F) Weight: 100 lbs 04/13/2017 Blood Pressure 1: 136/78 Code : 8480-6 BMI: 19.4 Code : 23291-6 Heart Rate 1 : 79 bpm Height: 4'11" SpO2: 97% Temperature: 36.8 (C) / 98.2 (F) Weight: 96 lbs 04/06/2017 Blood Pressure 1: 120/68 Code : 8480-6 BMI: 20.2 Code : 27913-2 Heart Rate 1 : 71 bpm Height: [...] Radha Angeles MD, [facility] CPT-4: 71868 01/28/2018 33529 EST. PATIENT, LEVEL III Diagnosis: Rheumatoid arthritis with rheumatoid factor of multiple sites without organ or systems involvement[ICD10: M05.79] Diagnosis: Generalized anxiety disorder[ICD10: F41.1] Diagnosis: Major depressive disorder, single episode, moderate[ICD10: F32.1] Diagnosis: Chronic pain syndrome[ICD10: G89.4] Radha Angeles MD, [facility] CPT-4: 68404 10/15/2017 27578 EST. PATIENT, LEVEL III Diagnosis: Rheumatoid arthritis with rheumatoid factor of multiple sites without organ or systems involvement[ICD10: M05.79] Diagnosis: Generalized anxiety disorder[ICD10: F41.1] Diagnosis: Major depressive disorder, single episode, moderate[ICD10: F32.1] Radha Angeles MD, [facility] CPT-4: 58962 09/19/2017 68062 EST. PATIENT, LEVEL III Diagnosis: Rheumatoid arthritis with rheumatoid factor of multiple sites without organ or systems involvement[ICD10: M05.79] Diagnosis: Generalized anxiety disorder[ICD10: F41.1] Diagnosis: Major depressive disorder, single episode, moderate[ICD10: F32.1] Diagnosis: Slow transit constipation[ICD10: K59.01] Radha Angeles MD, [facility] CPT-4: 58300 08/20/2017 92322 EST. PATIENT, LEVEL III Diagnosis: Rheumatoid arthritis with rheumatoid factor of multiple sites without organ or systems involvement[ICD10: M05.79] Diagnosis: Generalized anxiety disorder[ICD10: F41.1] Diagnosis: Major depressive disorder, single episode, moderate[ICD10: F32.1] Radha Angeles MD, [facility] CPT-4: 33511 07/19/2017 45516 EST. PATIENT, LEVEL III Diagnosis: Rheumatoid arthritis with rheumatoid factor of multiple sites without organ or systems involvement[ICD10: M05.79] Radha Angeles MD, [facility] CPT-4: 61071 06/13/2017 42142 EST. PATIENT, LEVEL III Diagnosis: Rheumatoid arthritis with rheumatoid factor of right wrist without organ or systems involvement[ICD10: M05.731] Radha Angeles MD, [facility] CPT -4: 20370 05/25/2017 29501 EST. PATIENT, LEVEL III Diagnosis: Gastro-esophageal reflux disease without esophagitis[ICD10: K21.9] Diagnosis: Rheumatoid arthritis with rheumatoid factor of multiple sites without organ or systems involvement[ICD10: M05.79] Radha Angeles MD, [facility] CPT-4: 51083 05/11/2017 23145 EST. PATIENT, LEVEL IV Diagnosis: Cough[ICD10: R05] Diagnosis: Gastro-esophageal reflux disease without esophagitis[ICD10: K21.9] Diagnosis: Nontoxic goiter, unspecified[ICD10: E04.9] Diagnosis: Shortness of breath[ICD10: R06.02] Radha Angeles MD, [facility] CPT-4: 89091 04/25/2017 11919 EST. PATIENT, LEVEL IV Diagnosis: Acute laryngopharyngitis[ICD10: J06.0] Diagnosis: Other allergic rhinitis[ICD10: J30.89] Diagnosis: Gastro-esophageal reflux disease without esophagitis[ICD10: K21.9] Radha Angeles MD, [facility] CPT-4: 60767 04/17/2017 61996 EST. PATIENT, LEVEL IV Diagnosis: Diarrhea, unspecified[ICD10: R19.7] Diagnosis: Other specified intestinal infections[ICD10: A08.8] [facility] CPT-4: 91965 04/13/2017 OFFICE VISIT, NEW - LEVEL 4 Diagnosis: Other acute sinusitis[ICD10: J01.80] Diagnosis: Pain in left knee[ICD10: M25.562] Diagnosis: Nontoxic goiter, unspecified[ICD10: E04.9] [facility] CPT-4: 79658 04/06/2017 Plan of Care Planned Activity Notes [...] if the symptoms are not improving. 01/28/2018 Patient Education: Patient Medication Summary Completed [...] of over-medication. 10/15/2017 Appointment: Radha Sosa WPtel: [address] [place], [place] [address] (15 min) Moderate 10/15/2017 Patient Education: Patient [...] plan. 09/19/2017 [facility]ment[facility] [phone] [facility] ([facility] 09/19/2017 Patient Education: Patient Medication Summary Completed 09/19/2017 Appointment: [facility] [phone] [facility] ([facility] min) Moderate 08/21/2017 Visit Plan: Chronic [...] Completed 08/20/2017 Appointment: Radha Sosa WPtel: [facility] [place] (15 min) Moderate 08/17/2017 Appointment: [facility] [phone] [facility] [place] (30 min) Complex 07/23/2017 Visit Plan: [...] patient. 07/19/2017 Appointment: [facility] [phone] [facility] [place] ([facility] min) Complex 07/19/2017 Patient Education: [...] plan. 06/13/2017 Appointment: [facility]el[facility] [phone] [facility] [place] (15 min) Moderate 06/13/2017 Patient Education: [...] improve. 05/25/2017 Appointment: [facility] [phone] [facility] [place] ([facility] min) Complex 05/25/2017 Patient Education: Patient Medication Summary Completed 05/25/2017 Appointment: [facility]el[facility] [phone] [facility] [place] (30 min) Complex 05/24/2017 Visit Plan: [...] treatment plan. 05/11/2017 Appointment: [facility] [phone] [facility] ([facility] min) Complex 05/11/2017 Patient Education: Patient [...] indicated 04/25/2017 Appointment: Radha [facility]osa WPtel: [phone] [facility] [place] (30 min) Complex 04/25/2017 Patient Education: [...] allergy spray. 04/17/2017 Appointment: Radha Sosa WPtel: [phone] [facility] (30 min) Complex 04/17/2017 Patient Education: [...] not improved. 04/13/2017 Appointment: Radha Sosa WPtel: [facility]4 [facility] (15 min) Moderate 04/13/2017 Patient [...] indicated 04/06/2017 Appointment: Radha Sosa WPtel: [facility]5 [facility] New Patient 04/06/2017 Patient Education: [...]
--- OUTSIDE RECORDS SUMMARY | 2018-08-07 11:10 | XMS REPORT | CCD ---
Author Author Radha Sosa Organization Yamilet Angeles MD, [facility] Address [address] [place] [address] Phone Care Team Providers Care Product Scientist Name Role Phone PP Unavailable CCM Unavailable Summary Purpose Interface Exchange Insurance Providers Payer name Policy type / Coverage type Covered constitution party ID Effective Begin Date Effective End Date Blue Cross Blue [facility] Blue Cross/Blue Shield [id number] Unknown Family history Father Diagnosis Age At Onset Arthritis Unknown Cancer Unknown Mother Diagnosis Age At Onset Cancer Unknown Social History Social History Element Codes Description Effective Dates Marital status Unknown Michael 04/17/2017 Number of children Unknown 1 04/06/[address]: 217677108 Never smoker 04/06/[address]: 680606082 Never drinks alcohol 04/06/2017 Allergies, Adverse Reactions, [...] Fill Instructions Flagyl 500 mg tablet RxNorm: 302787 1 Tablet(s) PO TID 201702/06/2018 Active Premarin 1.25 mg tablet RxNorm: 811934 1 Tablet(s) PO daily 01/22/2019 Active Cipro 500 mg tablet RxNorm: 321028 1 Tablet(s) PO BID 201702/06/2018 Active hydrocodone 5 mg-acetaminophen 325 mg tablet RxNorm: 337638 1 Tablet(s) PO TID as needed for pain 12/31/2017 No Stop Date Active Premarin 1.25 mg tablet RxNorm: 184695 1 Tablet(s) PO daily 01/27/2018 Inactive Prilosec 20 mg capsule,delayed release RxNorm: 287972 1 Capsule(s) PO daily 11/19/2017 03/18/2018 Active hydrocodone 5 mg-acetaminophen 325 mg tablet RxNorm: 925072 1 Tablet(s) PO TID as needed for pain 10/15/2017 12/30/2017 Inactive gabapentin 100 mg capsule RxNorm: 957251 1 Capsule(s) PO BID No Stop Date Active hydrocodone 5 mg-acetaminophen 325 mg tablet RxNorm: 750315 1 Tablet(s) PO QID as needed 09/19/2017 10/14/2017 Inactive Lyrica 50 mg capsule RxNorm: 373540 1 Capsule(s) PO TID 2017 No Stop Date Active Celebrex 200 mg capsule RxNorm: 942318 1 Capsule(s) PO daily 09/18/2017 Inactive Xanax 0.25 mg tablet RxNorm: 068599 1 Tablet(s) PO BID 201708/17/2017 Inactive Cymbalta 30 mg capsule,delayed release RxNorm: 190043 1 Capsule(s) PO daily 07/19/2017 08/17/2017 Inactive amoxicillin 500 mg capsule RxNorm: 218817 1 Capsule(s) PO TID 04/17/2017 04/26/2017 Inactive Prilosec OTC 20 mg tablet,delayed release RxNorm: 396847 1 Tablet(s) PO BID 04/17/2017 05/16/2017 Inactive 1 pill twice a day x 2 weeks, then daily Zofran 4 mg tablet RxNorm: 622293 1 Tablet(s) PO TID as needed 04/13/2017 04/17/2017 Inactive Flagyl 500 mg tablet RxNorm: 169437 1 Tablet(s) PO TID 201704/22/2017 Inactive promethazine 25 mg tablet RxNorm: 818712 1 Tablet(s) PO TID as needed nausea unrelieved by zofran 04/13/20172017 Inactive Zithromax Z-Gary 250 mg tablet RxNorm: 573074 1 Tablet(s) PO UD 04/06/2017 04/16/2017 Inactive prednisone 5 mg tablet RxNorm: 895821 1 Tablet(s) PO daily No Start Date Active Humira Pen 40 mg/0.8 mL subcutaneous RxNorm: 3383191 1 Milliliter(s) SQ QW No Start Date Active Linzess 145 mcg capsule RxNorm: 7631946 1 Capsule(s) PO daily No Start Date 08/16/2017 Inactive Prilosec 20 mg capsule,delayed release RxNorm: 229242 1 Capsule(s) PO daily No Start Date 11/18/2017 Inactive Premarin 1.25 mg tablet RxNorm: 353120 1 Tablet(s) PO daily No Start Date [...] Codes Date URINALYSIS NONAUTO W/O SCOPE CPT-4: 00193 06/04/2017 Vital Signs Date Vital 01/28/2018 Blood Pressure 1: 136/52 Code : 8480-6 BMI: 22.6 Code : 78185-6 Heart Rate 1 : 76 bpm Height: 4'11" SpO2: 98% Weight: 112 lbs 10/15/2017 Blood Pressure 1: 136/78 Code : 8480-6 BMI: 22.6 Code : 77145-0 Heart Rate 1 : 86 bpm Height: 4'11" SpO2: 98% Weight: 112 lbs 09/19/2017 Blood Pressure 1: 122/68 Code : 8480-6 BMI: 22.4 Code : 60065-0 Heart Rate 1 : 74 bpm Height: 4'11" SpO2: 97% Weight: 111 lbs 08/20/2017 Blood Pressure 1: 132/78 Code : 8480-6 BMI: 22.0 Code : 85622-7 Heart Rate 1 : 80 bpm Height: 4'11" SpO2: 96% Weight: 109 lbs 07/19/2017 Blood Pressure 1: 130/64 Code : 8480-6 BMI: 20.6 Code : 36826-7 Heart Rate 1 : 78 bpm Height: 4'11" SpO2: 98% Weight: 102 lbs 06/13/2017 Blood Pressure 1: 130/64 Code : 8480-6 BMI: 20.0 Code : 00756-2 Heart Rate 1 : 66 bpm Height: 4'11" SpO2: 97% Weight: 99 lbs 05/25/2017 Blood Pressure 1: 132/60 Code : 8480-6 BMI: 20.0 Code : 55209-5 Heart Rate 1 : 81 bpm Height: 4'11" SpO2: 99% Weight: 99 lbs 05/11/2017 Blood Pressure 1: 132/70 Code : 8480-6 Heart Rate 1: 69 bpm Height: SpO2: 99% Weight: 04/25/2017 Blood Pressure 1: 136/78 Code : 8480-6 BMI: 20.2 Code : 01357-0 Heart Rate 1 : 70 bpm Height: 4'11" SpO2: 99% Weight: 100 lbs 04/17/2017 Blood Pressure 1: 118/70 Code : 8480-6 BMI: 20.2 Code : 06013-5 Heart Rate 1 : 62 bpm Height: 4'11" SpO2: 99% Temperature: 36.4 (C) / 97.6 (F) Weight: 100 lbs 04/13/2017 Blood Pressure 1: 136/78 Code : 8480-6 BMI: 19.4 Code : 50370-1 Heart Rate 1 : 79 bpm Height: 4'11" SpO2: 97% Temperature: 36.8 (C) / 98.2 (F) Weight: 96 lbs 04/06/2017 Blood Pressure 1: 120/68 Code : 8480-6 BMI: 20.2 Code : 38282-0 Heart Rate 1 : 71 bpm Height: [...] esophagitis[ICD10: K21.9] Radha Angeles MD, [facility] CPT-4: 74531 01/28/2018 27685 EST. PATIENT, LEVEL III Diagnosis: Rheumatoid arthritis with rheumatoid factor of multiple sites without organ or systems involvement[ICD10: M05.79] Diagnosis: Generalized anxiety disorder[ICD10: F41.1] Diagnosis: Major depressive disorder, single episode, moderate[ICD10: F32.1] Diagnosis: Chronic pain syndrome[ICD10: G89.4] Radha Angeles MD, [facility] CPT-4: 15264 10/15/2017 48181 EST. PATIENT, LEVEL III Diagnosis: Rheumatoid arthritis with rheumatoid factor of multiple sites without organ or systems involvement[ICD10: M05.79] Diagnosis: Generalized anxiety disorder[ICD10: F41.1] Diagnosis: Major depressive disorder, single episode, moderate[ICD10: F32.1] Radha Angeles MD, [facility] CPT-4: 39028 09/19/2017 45163 EST. PATIENT, LEVEL III Diagnosis: Rheumatoid arthritis with rheumatoid factor of multiple sites without organ or systems involvement[ICD10: M05.79] Diagnosis: Generalized anxiety disorder[ICD10: F41.1] Diagnosis: Major depressive disorder, single episode, moderate[ICD10: F32.1] Diagnosis: Slow transit constipation[ICD10: K59.01] Radha Angeles MD, [facility] CPT-4: 31579 08/20/2017 78800 EST. PATIENT, LEVEL III Diagnosis: Rheumatoid arthritis with rheumatoid factor of multiple sites without organ or systems involvement[ICD10: M05.79] Diagnosis: Generalized anxiety disorder[ICD10: F41.1] Diagnosis: Major depressive disorder, single episode, moderate[ICD10: F32.1] Radha Angeles MD, [facility] CPT-4: 79878 07/19/2017 56560 EST. PATIENT, LEVEL III Diagnosis: Rheumatoid arthritis with rheumatoid factor of multiple sites without organ or systems involvement[ICD10: M05.79] Radha Angeles MD, [facility] CPT-4: 10287 06/13/2017 37346 EST. PATIENT, LEVEL III Diagnosis: Rheumatoid arthritis with rheumatoid factor of right wrist without organ or systems involvement[ICD10: M05.731] Radha Angeles MD, [facility] CPT -4: 56474 05/25/2017 73047 EST. PATIENT, LEVEL III Diagnosis: Gastro-esophageal reflux disease without esophagitis[ICD10: K21.9] Diagnosis: Rheumatoid arthritis with rheumatoid factor of multiple sites without organ or systems involvement[ICD10: M05.79] Radha Angeles MD, [facility] CPT-4: 88519 05/11/2017 59764 EST. PATIENT, LEVEL IV Diagnosis: Cough[ICD10: R05] Diagnosis: Gastro-esophageal reflux disease without esophagitis[ICD10: K21.9] Diagnosis: Nontoxic goiter, unspecified[ICD10: E04.9] Diagnosis: Shortness of breath[ICD10: R06.02] Radha Angeles MD, [facility] CPT-4: 22532 04/25/2017 77792 EST. PATIENT, LEVEL IV Diagnosis: Acute laryngopharyngitis[ICD10: J06.0] Diagnosis: Other allergic rhinitis[ICD10: J30.89] Diagnosis: Gastro-esophageal reflux disease without esophagitis[ICD10: K21.9] Radha Angeles MD, [facility] CPT-4: 14692 04/17/2017 97864 EST. PATIENT, LEVEL IV Diagnosis: Diarrhea, unspecified[ICD10: R19.7] Diagnosis: Other specified intestinal infections[ICD10: A08.8] [facility] CPT-4: 08684 04/13/2017 OFFICE VISIT, NEW - LEVEL 4 Diagnosis: Other acute sinusitis[ICD10: J01.80] Diagnosis: Pain in left knee[ICD10: M25.562] Diagnosis: Nontoxic goiter, unspecified[ICD10: E04.9] [facility] CPT-4: 82662 04/06/2017 Plan of Care Planned Activity Notes [...] of over-medication. 10/15/2017 Appointment: Radha Sosa WPtel: [address] [place], [place] [address] (15 min) Moderate 10/15/2017 Patient Education: Patient [...] plan. 09/19/2017 [facility]ment[phone] [facility] 09/19/2017 Patient Education: Patient Medication Summary Completed 09/19/2017 Appointment: [facility] [phone] [facility] (15 min) Moderate 08/21/2017 Visit Plan: Chronic [...] Summary Completed 08/20/2017 Appointment: Radha Sosa [facility]Ptel: [facility] [place] (15 min) Moderate 08/17/2017 Appointment: Radha Sosa [facility]Ptel: [phone] [facility] [place] (30 min) Complex 07/23/2017 Visit Plan: [...] patient. 07/19/2017 Appointment: [facility]osa [facility] [phone] [facility] [place] ([facility] min) Complex 07/19/2017 Patient Education: [...] plan. 06/13/2017 Appointment: Radha Sosa [facility]Ptel: [phone] [facility] [place] (15 min) Moderate 06/13/2017 Patient Education: [...] improve. 05/25/2017 Appointment: Rad[facility] Sosa [facility]: [phone] [facility] [place] ([facility] min) Complex 05/25/2017 Patient Education: Patient Medication Summary Completed 05/25/2017 Appointment: [facility]el[facility] [phone] [facility] [place] (30 min) Complex 05/24/2017 Visit Plan: [...] treatment plan. 05/11/2017 Appointment: [facility] [phone] [facility] ([facility]) Complex 05/11/2017 Patient Education: Patient [...] as indicated 04/25/2017 Appointment: [facility] [phone] [facility] [place] ([facility] min) Complex 04/25/2017 Patient Education: [...] allergy spray. 04/17/2017 Appointment: Radha Sosa WPtel: [phone] [facility] (30 min) Complex 04/17/2017 Patient Education: Patient [...] not improved. 04/13/2017 Appointment: Radha Sosa WPtel: [facility] (15 min) Moderate 04/13/2017 Patient Education: Patient [...] as indicated 04/06/2017 Appointment: Radha Sosa WPtel: [facility] New Patient 04/06/2017 Patient Education: Patient Medication [...]
[2018-08-07 11:11] VITALS: BP 161/79
--- OUTSIDE RECORDS SUMMARY | 2018-08-07 11:11 | XMS REPORT | CCD ---
Author Author Radha Sosa MD, [facility] Address [address] [place] [address] Phone Care Team Providers Care Long Distance Billing Operator Name Role Phone PP Unavailable CCM Unavailable Summary Purpose Interface Exchange Insurance Providers Payer name Policy type / Coverage type Covered democrat ID Effective Begin Date Effective End Date Blue Cross Blue [facility] Blue Cross/Blue Shield [id number] Unknown Family history Father Diagnosis Age At Onset Arthritis Unknown Cancer Unknown Mother Diagnosis Age At Onset Cancer Unknown Social History Social History Element Codes Description Effective Dates Marital status Unknown Michael 04/17/2017 Number of children Unknown 1 04/06/[address]: 076379467 Never smoker 04/06/[address]: 314126067 Never drinks alcohol 04/06/2017 Allergies, Adverse Reactions, Alerts Allergies, Adverse Reactions, Alerts data not found Past Medical History Illness Codes Condition Status Onset Date Resolved Date Acute laryngopharyngitis ICD-9: 465.0 ICD-10: J06.0 Active 04/17/2017 Unknown Gastro-esophageal reflux disease without esophagitis ICD-9: 530.81 ICD-10: K21.9 Active 04/17/2017 Unknown Other allergic rhinitis ICD-9: 477.8 ICD-10: J30.89 Active 04/17/2017 Unknown Diarrhea, unspecified ICD-9: 787.91 ICD-10: R19.7 Active 04/13/2017 Unknown Other specified intestinal infections ICD-9: 009.0 ICD-10: A08.8 Active 04/13/2017 Unknown Nontoxic goiter, unspecified ICD-9: 240.9 ICD-10: E04.9 Active 04/06/2017 Unknown Other acute sinusitis ICD-9: 461.8 ICD-10: J01.80 Active 04/06/2017 Unknown Pain in left knee ICD- 9: 719.46 ICD-10: M25.562 Active 04/06/2017 Unknown Problems Condition Codes Effective Dates Condition Status Acute laryngopharyngitis ICD-9: 465.0 ICD-10: J06.0 04/17/2017 Active Gastro-esophageal reflux disease without esophagitis ICD-9: 530.81 ICD-10: K21.9 04/17/2017 Active Other allergic rhinitis ICD-9: 477.8 ICD-10: J30.89 04/17/2017 Active Diarrhea, unspecified ICD-9: 787.91 ICD-10: R19.7 04/13/2017 Active Other specified intestinal infections ICD-9: 009.0 ICD-10: A08.8 04/13/2017 Active Nontoxic goiter, unspecified ICD-9: 240.9 ICD-10: E04.9 04/06/2017 Active Other acute sinusitis ICD-9: 461.8 ICD-10: J01.80 04/06/2017 Active Pain in left knee ICD- 9: 719.46 ICD-10: M25.562 04/06/2017 Active Medications Medication Codes Instructions Start Date Stop Date Status Fill Instructions amoxicillin 500 mg capsule RxNorm: 663237 1 Capsule(s) PO TID 04/17/2017 04/26/2017 Active Prilosec OTC 20 mg tablet,delayed release RxNorm: 347730 1 Tablet(s) PO BID 04/17/2017 05/16/2017 Active 1 pill twice a day x 2 weeks, then daily Zofran 4 mg tablet RxNorm: 005918 1 Tablet(s) PO TID as needed 04/13/2017 04/17/2017 Inactive Flagyl 500 mg tablet RxNorm: 179455 1 Tablet(s) PO TID 201704/22/2017 Inactive promethazine 25 mg tablet RxNorm: 040967 1 Tablet(s) PO TID as needed nausea unrelieved by zofran 04/13/20172017 Inactive Zithromax Z-Gary 250 mg tablet RxNorm: 460793 1 Tablet(s) PO UD 04/06/2017 04/16/2017 Inactive Linzess 145 mcg capsule RxNorm: 0554595 1 Capsule(s) PO daily No Start Date Active prednisone 5 mg tablet RxNorm: 840872 1 Tablet(s) PO daily No Start Date Active Prilosec 20 mg capsule,delayed release RxNorm: 453885 1 Capsule(s) PO daily No Start Date Active Humira Pen 40 mg/0.8 mL subcutaneous RxNorm: 6448289 1 Milliliter(s) SQ QW No Start Date Active Premarin 1.25 mg tablet RxNorm: 397440 1 Tablet(s) PO daily No Start Date Active Medication Administered No Medication Administered data Immunizations No Immunization data Assessments Condition Codes Effective Dates Acute laryngopharyngitis ICD-10: J06.0 ICD-9: 465.0 04/17/2017 Gastro-esophageal reflux disease without esophagitis ICD-10 : K21.9 ICD-9: 530.81 04/17/2017 Other allergic rhinitis ICD-10: J30.89 ICD-9: 477.8 04/17/2017 Other specified intestinal infections ICD-10: A08.8 ICD-9: 009.0 04/13/2017 Diarrhea, unspecified ICD-10: R19.7 ICD-9: 787.91 04/13/2017 Pain in left knee ICD-10: M25.562 ICD-9: 719.46 04/06/2017 Nontoxic goiter, unspecified ICD-10: E04.9 ICD-9: 240.9 04/06/2017 Other acute sinusitis ICD-10: J01.80 ICD-9: 461.8 04/06/2017 Reason For Visit Reason For Visit Effective Dates Notes abdominal pain 04/17/2017 vomiting 04/13/2017 knee pain 04/06/2017 Results No Results data Review of Systems System Result Effective Dates Constitutional recent illness 04/17/2017 Constitutional chills 04/17/2017 [...] knee: pain with flexion 04/06/2017 None Procedures No Procedures data Vital Signs Date Vital 04/17/2017 Blood Pressure 1: 118/70 Code : 8480-6 BMI: 20.2 Code : 61837-4 Heart Rate 1 : 62 bpm Height: 4'11" SpO2: 99% Temperature: 36.4 (C) / 97.6 (F) Weight: 100 lbs 04/13/2017 Blood Pressure 1: 136/78 Code : 8480-6 BMI: 19.4 Code : 50974-7 Heart Rate 1 : 79 bpm Height: 4'11" SpO2: 97% Temperature: 36.8 (C) / 98.2 (F) Weight: 96 lbs 04/06/2017 Blood Pressure 1: 120/68 Code : 8480-6 BMI: 20.2 Code : 34801-1 Heart Rate 1 : 71 bpm Height: 4'11" SpO2: 97% Weight: 100 lbs Functional Status No Functional Status data History of Present Illness Symptom Name Status Result Effective Date Notes earache Location left ear 04/17/2017 None earache [...] Codes Date EST. PATIENT, LEVEL IV Diagnosis: Acute laryngopharyngitis[ICD10: J06.0] Diagnosis: Other allergic rhinitis[ICD10: J30.89] Diagnosis: Gastro-esophageal reflux disease without esophagitis[ICD10: K21.9] Radha Angeles MD, [facility] CPT-4: 73503 04/17/2017 15084 EST. PATIENT, LEVEL IV Diagnosis: Diarrhea, unspecified[ICD10: R19.7] Diagnosis: Other specified intestinal infections[ICD10: A08.8] Radha Angeles MD, [facility] CPT-4: 12510 04/13/2017 OFFICE VISIT, NEW - LEVEL 4 Diagnosis: Other acute sinusitis[ICD10: J01.80] Diagnosis: Pain in left knee[ICD10: M25.562] Diagnosis: Nontoxic goiter, unspecified[ICD10: E04.9] Radha Angeles MD, [facility] CPT-4: 79225 04/06/2017 Plan of Care Planned Activity Notes Codes Status Date Visit Plan: Esophageal Reflux - the patient [...] allergy spray. 04/17/2017 Appointment: Radha Sosa WPtel: [address] [place] [address] (30 min) Complex 04/17/2017 Patient Education: Patient [...] not improved. 04/13/2017 Appointment: Radha Sosa WPtel: [address] [place] [address] (15 min) Moderate 04/13/2017 Patient Education: Patient [...] as indicated 04/06/2017 Appointment: Radha Sosa WPtel: [facility]66[facility] New Patient 04/06/2017 Patient Education: Patient Medication Summary Completed 04/06/2017 Instructions Comment Prilosec twice a day x 2 weeks [...] US - will treat as indicated . Diarrhea - recommended bland [...]
--- OUTSIDE RECORDS SUMMARY | 2018-08-07 11:11 | XMS REPORT | CCD ---
Author Author Radha Sosa MD, [facility] Address [address] [place] [address] Phone Care Team Providers Care Registered Nurse Cardiac Name Role Phone PP Unavailable CCM Unavailable Summary Purpose Interface Exchange Insurance Providers Payer name Policy type / Coverage type Covered democrat ID Effective Begin Date Effective End Date Blue Cross Blue [facility] Blue Cross/Blue Shield [id number] Unknown Family history Father Diagnosis Age At Onset Arthritis Unknown Cancer Unknown Mother Diagnosis Age At Onset Cancer Unknown Social History Social History Element Codes Description Effective Dates Marital status Unknown Michael 04/17/2017 Number of children Unknown 1 04/06/[address]: 942321912 Never smoker 04/06/[address]: 443298563 Never drinks alcohol 04/06/2017 Allergies, Adverse Reactions, Alerts Allergies, Adverse Reactions, Alerts data not found Past Medical History Illness Codes Condition Status Onset Date Resolved Date Cough ICD-9: 786.2 ICD-10: R05 Active 04/25/2017 Unknown Gastro-esophageal reflux disease without esophagitis ICD-9: 530.81 ICD-10: K21.9 Active 04/17/2017 Unknown Nontoxic goiter, unspecified ICD-9: 240.9 ICD-10: E04.9 Active 04/06/2017 Unknown Other specified intestinal infections ICD-9: 009.0 ICD-10: A08.8 Active 04/13/2017 Unknown Shortness of breath ICD-9: 786.05 ICD-10: [...] Problems Condition Codes Effective Dates Condition Status Cough ICD-9: 786.2 ICD-10: R05 04/25/2017 Active Gastro-esophageal reflux disease without esophagitis ICD-9: 530.81 ICD-10: K21.9 04/17/2017 Active Nontoxic goiter, unspecified ICD-9: 240.9 ICD-10: E04.9 04/06/2017 Active Other specified intestinal infections ICD-9: 009.0 ICD-10: A08.8 04/13/2017 Active Shortness of breath ICD-9: 786.05 ICD-10: [...] Start Date Stop Date Status Fill Instructions Prilosec OTC 20 mg tablet,delayed release RxNorm: 750006 1 Tablet(s) PO BID 04/17/2017 05/16/2017 Inactive 1 pill twice a day x 2 weeks, then daily amoxicillin 500 mg capsule RxNorm: 267032 1 Capsule(s) PO TID 04/17/2017 04/26/2017 Inactive Zofran 4 mg tablet RxNorm: 705140 1 Tablet(s) PO TID as needed 04/13/2017 04/17/2017 Inactive Flagyl 500 mg tablet RxNorm: 385564 1 Tablet(s) PO TID 201704/22/2017 Inactive promethazine 25 mg tablet RxNorm: 323040 1 Tablet(s) PO TID as needed nausea unrelieved by zofran 04/13/20172017 Inactive Zithromax Z-Gary 250 mg tablet RxNorm: 150366 1 Tablet(s) PO UD 04/06/2017 04/16/2017 Inactive Linzess 145 mcg capsule RxNorm: 9324211 1 Capsule(s) PO daily No Start Date Active prednisone 5 mg tablet RxNorm: 335110 1 Tablet(s) PO daily No Start Date Active Prilosec 20 mg capsule,delayed release RxNorm: 822118 1 Capsule(s) PO daily No Start Date Active Humira Pen 40 mg/0.8 mL subcutaneous RxNorm: 4780705 1 Milliliter(s) SQ QW No Start Date Active Premarin 1.25 mg tablet RxNorm: 494701 1 Tablet(s) PO daily No Start Date Active Medication Administered No Medication Administered data Immunizations No Immunization data Assessments Condition Codes Effective Dates Gastro-esophageal reflux disease without esophagitis ICD-10 : K21.9 ICD-9: 530.81 04/25/2017 Cough ICD-10: R05 ICD-9: 786.2 04/25/2017 Nontoxic [...] Visit Reason For Visit Effective Dates Notes cough 04/25/2017 abdominal pain 04/17/2017 vomiting 04/13/2017 knee pain 04/06/2017 Results No Results data Review of Systems System Result Effective Dates Constitutional recent illness 04/25/2017 Constitutional chills 04/25/2017 [...] No Procedures data Vital Signs Date Vital 04/25/2017 Blood Pressure 1: 136/78 Code : 8480-6 BMI: 20.2 Code : 48147-7 Heart Rate 1 : 70 bpm Height: 4'11" SpO2: 99% Weight: 100 lbs 04/17/2017 Blood Pressure 1: 118/70 Code : 8480-6 BMI: 20.2 Code : 39329-4 Heart Rate 1 : 62 bpm Height: 4'11" SpO2: 99% Temperature: 36.4 (C) / 97.6 (F) Weight: 100 lbs 04/13/2017 Blood Pressure 1: 136/78 Code : 8480-6 BMI: 19.4 Code : 25787-2 Heart Rate 1 : 79 bpm Height: 4'11" SpO2: 97% Temperature: 36.8 (C) / 98.2 (F) Weight: 96 lbs 04/06/2017 Blood Pressure 1: 120/68 Code : 8480-6 BMI: 20.2 Code : 26279-0 Heart Rate 1 : 71 bpm Height: 4'11" SpO2: 97% Weight: 100 lbs Functional Status No Functional Status data History of Present Illness Symptom Name Status Result Effective Date Notes cough Location in the lung 04/25/2017 None [...] data Encounters Encounter Performer Location Codes Date 99646 EST. PATIENT, LEVEL IV Diagnosis: Cough[ICD10: R05] Diagnosis: Gastro-esophageal reflux disease without esophagitis[ICD10: K21.9] Diagnosis: Nontoxic goiter, unspecified[ICD10: E04.9] Diagnosis: Shortness of breath[ICD10: R06.02] [facility] CPT-4: 00918 04/25/2017 20993 EST. PATIENT, LEVEL IV Diagnosis: Acute laryngopharyngitis[ICD10: J06.0] Diagnosis: Other allergic rhinitis[ICD10: J30.89] Diagnosis: Gastro-esophageal reflux disease without esophagitis[ICD10: K21.9] Radha Angeles MD, [facility] CPT-4: 46323 04/17/2017 88818 EST. PATIENT, LEVEL IV Diagnosis: Diarrhea, unspecified[ICD10: R19.7] Diagnosis: Other specified intestinal infections[ICD10: A08.8] [facility] CPT-4: 01179 04/13/2017 OFFICE VISIT, NEW - LEVEL 4 Diagnosis: Other acute sinusitis[ICD10: J01.80] Diagnosis: Pain in left knee[ICD10: M25.562] Diagnosis: Nontoxic goiter, unspecified[ICD10: E04.9] [facility] CPT-4: 61803 04/06/2017 Plan of Care Planned Activity Notes Codes Status Date Appointment: Radha Sosa WPtel: [address] [facility] (30 min) Complex 05/11/2017 Appointment: [facility] [facility] [place] ([place]) Complex 04/25/2017 Patient Education: Patient Medication Summary Completed 04/25/2017 Appointment: [facility] [address] [facility] [place] [place] (30 min) Complex 04/17/2017 Patient Education: Patient Medication Summary Completed 04/17/2017 Appointment: [facility] [address] [facility] [place] (15 min) Moderate 04/13/2017 Patient Education: Patient Medication Summary Completed 04/13/2017 Appointment: [facility] [address] [facility] [place] [place] New Patient 04/06/2017 Patient Education: Patient Medication Summary Completed 04/06/2017 Instructions No Instructions
--- OUTSIDE RECORDS SUMMARY | 2018-08-07 11:11 | XMS REPORT | CCD ---
Author Author Radha Sosa MD, [facility] Address [address] [place] [address] Phone Care Team Providers Care Ethics Manager Name Role Phone PP Unavailable CCM Unavailable Summary Purpose Interface Exchange Insurance Providers Payer name Policy type / Coverage type Covered alliance party ID Effective Begin Date Effective End Date Blue Cross Blue [facility] Blue Cross/Blue Shield [id number] Unknown Family history Father Diagnosis Age At Onset Arthritis Unknown Cancer Unknown Mother Diagnosis Age At Onset Cancer Unknown Social History Social History Element Codes Description Effective Dates Marital status Unknown Michael 04/17/2017 Number of children Unknown 1 04/06/[address]: 941041580 Never smoker 04/06/[address]: 863329936 Never drinks alcohol 04/06/2017 Allergies, Adverse Reactions, [...] Fill Instructions amoxicillin 500 mg capsule RxNorm: 303044 1 Capsule(s) PO TID 04/17/2017 04/26/2017 Active Prilosec OTC 20 mg tablet,delayed release RxNorm: 751162 1 Tablet(s) PO BID 04/17/2017 05/16/2017 Active 1 pill twice a day x 2 weeks, then daily Zofran 4 mg tablet RxNorm: 406976 1 Tablet(s) PO TID as needed 04/13/2017 04/17/2017 Inactive Flagyl 500 mg tablet RxNorm: 658433 1 Tablet(s) PO TID 201704/22/2017 Inactive promethazine 25 mg tablet RxNorm: 439854 1 Tablet(s) PO TID as needed nausea unrelieved by zofran 04/13/20172017 Inactive Zithromax Z-Gary 250 mg tablet RxNorm: 374666 1 Tablet(s) PO UD 04/06/2017 04/16/2017 Inactive Linzess 145 mcg capsule RxNorm: 5530183 1 Capsule(s) PO daily No Start Date Active prednisone 5 mg tablet RxNorm: 602608 1 Tablet(s) PO daily No Start Date Active Prilosec 20 mg capsule,delayed release RxNorm: 136192 1 Capsule(s) PO daily No Start Date Active Humira Pen 40 mg/0.8 mL subcutaneous RxNorm: 7676852 1 Milliliter(s) SQ QW No Start Date Active Premarin 1.25 mg tablet RxNorm: 554645 1 Tablet(s) PO daily No Start Date [...] Code : 8480-6 BMI: 20.2 Code : 83566-7 Heart Rate 1 : 62 bpm Height: 4'11" SpO2: 99% Temperature: 36.4 (C) / 97.6 (F) Weight: 100 lbs 04/13/2017 Blood Pressure 1: 136/78 Code : 8480-6 BMI: 19.4 Code : 87920-8 Heart Rate 1 : 79 bpm Height: 4'11" SpO2: 97% Temperature: 36.8 (C) / 98.2 (F) Weight: 96 lbs 04/06/2017 Blood Pressure 1: 120/68 Code : 8480-6 BMI: 20.2 Code : 69154-7 Heart Rate 1 : 71 bpm Height: [...] disease without esophagitis[ICD10: K21.9] Radha Angeles MD, [facility] CPT-4: 52282 04/17/2017 17716 EST. PATIENT, LEVEL IV Diagnosis: Diarrhea, unspecified[ICD10: R19.7] Diagnosis: Other specified intestinal infections[ICD10: A08.8] Radha Angeles MD, [facility] CPT-4: 48064 04/13/2017 OFFICE VISIT, NEW - LEVEL 4 Diagnosis: Other acute sinusitis[ICD10: J01.80] Diagnosis: Pain in left knee[ICD10: M25.562] Diagnosis: Nontoxic goiter, unspecified[ICD10: E04.9] Radha Angeles MD, [facility] CPT-4: 77288 04/06/2017 Plan of Care Planned Activity Notes [...] allergy spray. 04/17/2017 Appointment: Radha Sosa WPtel: [address] [place] [address] (30 min) Complex 04/17/2017 Patient Education: Patient [...] not improved. 04/13/2017 Appointment: Radha Sosa WPtel: [address] [place] [address] (15 min) Moderate 04/13/2017 Patient Education: Patient [...] as indicated 04/06/2017 Appointment: Radha Sosa WPtel: [facility]0 [facility]66[facility] New Patient 04/06/2017 Patient Education: Patient [...]
--- OUTSIDE RECORDS SUMMARY | 2018-08-07 11:12 | XMS REPORT | CCD ---
Author Author Radha Sosa MD, [facility] Address [address] [place] [address] Phone Care Team Providers Care Banana Loader Name Role Phone PP Unavailable CCM Unavailable Summary Purpose Interface Exchange Insurance Providers Payer name Policy type / Coverage type Covered green party ID Effective Begin Date Effective End Date Blue Cross Blue [facility] Blue Cross/Blue Shield [id number] Unknown Family history Father Diagnosis Age At Onset Arthritis Unknown Cancer Unknown Mother Diagnosis Age At Onset Cancer Unknown Social History Social History Element Codes Description Effective Dates Marital status Unknown Michael 04/17/2017 Number of children Unknown 1 04/06/[address]: 783066800 Never smoker 04/06/[address]: 395228102 Never drinks alcohol 04/06/2017 Allergies, Adverse Reactions, [...] Prilosec OTC 20 mg tablet,delayed release RxNorm: 896112 1 Tablet(s) PO BID 04/17/2017 05/16/2017 Active 1 pill twice a day x 2 weeks, then daily amoxicillin 500 mg capsule RxNorm: 667538 1 Capsule(s) PO TID 04/17/2017 04/26/2017 Inactive Zofran 4 mg tablet RxNorm: 371453 1 Tablet(s) PO TID as needed 04/13/2017 04/17/2017 Inactive Flagyl 500 mg tablet RxNorm: 498404 1 Tablet(s) PO TID 201704/22/2017 Inactive promethazine 25 mg tablet RxNorm: 097952 1 Tablet(s) PO TID as needed nausea unrelieved by zofran 04/13/20172017 Inactive Zithromax Z-Gary 250 mg tablet RxNorm: 980364 1 Tablet(s) PO UD 04/06/2017 04/16/2017 Inactive Linzess 145 mcg capsule RxNorm: 9156505 1 Capsule(s) PO daily No Start Date Active prednisone 5 mg tablet RxNorm: 399392 1 Tablet(s) PO daily No Start Date Active Prilosec 20 mg capsule,delayed release RxNorm: 431274 1 Capsule(s) PO daily No Start Date Active Humira Pen 40 mg/0.8 mL subcutaneous RxNorm: 2086626 1 Milliliter(s) SQ QW No Start Date Active Premarin 1.25 mg tablet RxNorm: 634286 1 Tablet(s) PO daily No Start Date [...] Code : 8480-6 BMI: 20.2 Code : 44603-6 Heart Rate 1 : 70 bpm Height: 4'11" SpO2: 99% Weight: 100 lbs 04/17/2017 Blood Pressure 1: 118/70 Code : 8480-6 BMI: 20.2 Code : 45115-2 Heart Rate 1 : 62 bpm Height: 4'11" SpO2: 99% Temperature: 36.4 (C) / 97.6 (F) Weight: 100 lbs 04/13/2017 Blood Pressure 1: 136/78 Code : 8480-6 BMI: 19.4 Code : 72714-7 Heart Rate 1 : 79 bpm Height: 4'11" SpO2: 97% Temperature: 36.8 (C) / 98.2 (F) Weight: 96 lbs 04/06/2017 Blood Pressure 1: 120/68 Code : 8480-6 BMI: 20.2 Code : 99889-5 Heart Rate 1 : 71 bpm Height: [...] data Encounters Encounter Performer Location Codes Date 21216 EST. PATIENT, LEVEL IV Diagnosis: Cough[ICD10: R05] Diagnosis: Gastro-esophageal reflux disease without esophagitis[ICD10: K21.9] Diagnosis: Nontoxic goiter, unspecified[ICD10: E04.9] Diagnosis: Shortness of breath[ICD10: R06.02] [facility] CPT-4: 11274 04/25/2017 08049 EST. PATIENT, LEVEL IV Diagnosis: Acute laryngopharyngitis[ICD10: J06.0] Diagnosis: Other allergic rhinitis[ICD10: J30.89] Diagnosis: Gastro-esophageal reflux disease without esophagitis[ICD10: K21.9] Radha Angeles MD, [facility] CPT-4: 79853 04/17/2017 27656 EST. PATIENT, LEVEL IV Diagnosis: Diarrhea, unspecified[ICD10: R19.7] Diagnosis: Other specified intestinal infections[ICD10: A08.8] [facility] CPT-4: 73409 04/13/2017 OFFICE VISIT, NEW - LEVEL 4 Diagnosis: Other acute sinusitis[ICD10: J01.80] Diagnosis: Pain in left knee[ICD10: M25.562] Diagnosis: Nontoxic goiter, unspecified[ICD10: E04.9] [facility] CPT-4: 46585 04/06/2017 Plan of Care Planned Activity Notes Codes Status Date Appointment: Radha Sosa WPtel: [facility]9 [facility] (30 min) Complex 05/11/2017 Visit Plan: cough, shortness of breath [...] as indicated 04/25/2017 Appointment: Radha Sosa WPtel: [facility]5 [facility] [place] ([place] min) Complex 04/25/2017 Patient Education: Patient [...] allergy spray. 04/17/2017 Appointment: Radha Sosa WPtel: [address] [place], [place] [address] (30 min) Complex 04/17/2017 Patient [...] not improved. 04/13/2017 Appointment: Radha Sosa WPtel: [facility]6 [facility] (15 min) Moderate 04/13/2017 Patient Education: Patient [...] as indicated 04/06/2017 Appointment: Radha Sosa WPtel: [facility] New Patient 04/06/2017 Patient Education: Patient Medication [...] US - will treat as indicated . cough, shortness of breath - ongoing [...]
--- OUTSIDE RECORDS SUMMARY | 2018-08-07 11:12 | XMS REPORT | Continuity of Care Document ---
Author Organization Unknown Address Unknown Allergies Active Description Code Type Severity Reaction Onset Reported/Identified Relationship to Patient Clinical Status Yes Iodinated Contrast- Oral and IV Dye [id number] Drug Allergy Unknown SWELLING, HIVES 01/25/2010 Yes latex [id number] Drug Allergy Unknown SWELLING, HIVES 01/25/2010 Medications There is no data. Problems Date Dx Coded Attending Type Code Diagnosis Diagnosed By 04/23/2017 MCKENNA PRATT APRN Ot E86.0 DEHYDRATION 04/23/2017 MCKENNA PRATT APRN Ot R53.81 OTHER MALAISE 04/23/2017 MCKENNA PRATT APRN Ot R53.83 OTHER FATIGUE 05/01/2017 MCKENNA PRATT APRN Ot E04.9 NONTOXIC GOITER, UNSPECIFIED 05/01/2017 MCKENNA PRATT APRN Ot R13.10 DYSPHAGIA, UNSPECIFIED 05/02/2017 MCKENNA PRATT APRN Ot E86.0 DEHYDRATION 05/02/2017 MCKENNA PRATT APRN Ot R53.81 OTHER MALAISE 05/02/2017 MCKENNA PRATT APRN Ot R53.83 OTHER FATIGUE 05/10/2017 MCKENNA PRATT APRN Ot R05 COUGH 05/10/2017 MCKENNA PRATT APRN Ot R06.02 SHORTNESS OF BREATH 05/10/2017 MCKENNA PRATT [employer]CTION SUPERVISOR Ot R06.02 SHORTNESS OF BREATH 05/11/2017 MCKENNA PRATT APRN Ot E04.9 NONTOXIC GOITER, UNSPECIFIED 05/11/2017 MCKENNA PRATT APRN Ot R13.10 DYSPHAGIA, UNSPECIFIED 05/23/2017 MCKENNA PRATT APRN Ot R06.02 SHORTNESS OF BREATH 05/01/2018 MCKENNA PRATT APRN Ot E86.0 DEHYDRATION 05/01/2018 CMKENNA PRATT APRN Ot R53.81 OTHER MALAISE 05/01/2018 TERENCE, MCKENNA M [employer]CTION SUPERVISOR Ot R53.83 OTHER FATIGUE 05/01/2018 MCKENNA PRATT [employer] SUPERVISOR Ot E04.9 NONTOXIC GOITER, UNSPECIFIED 05/01/2018 MCKENNA PRATT [employer]STRUCTION SUPERVISOR Ot R13.10 DYSPHAGIA, UNSPECIFIED 05/01/2018 MCKENNA PRATT [employer] SUPERVISOR Ot R05 COUGH 05/01/2018 MCKENNA PRATT [employer]STRUCTION SUPERVISOR Ot R06.02 SHORTNESS OF BREATH 05/01/2018 TERENCE MCKENNA Cindy PANIAGUAN Ot R06.02 SHORTNESS OF BREATH 05/01/2018 TERENCE MCKENNA Cindy [employer] CONSTRUCTION SUPERVISOR Ot E86.0 DEHYDRATION 05/01/2018 MCKENNA PRATT [employer]STRUCTION SUPERVISOR Ot R53.81 OTHER MALAISE 05/01/2018 KYLE PRATTLEROY White [employer]STRUCTION SUPERVISOR Ot R53.83 OTHER FATIGUE 05/01/2018 MCKENNA PRATT PRINCE Ot E04.9 NONTOXIC GOITER, UNSPECIFIED 05/01/2018 MCKENNA PRATT [employer]STRUCTION SUPERVISOR Ot R13.10 DYSPHAGIA, UNSPECIFIED 05/01/2018 TERENCE MCKENNA Cindy MORRISON Ot R05 COUGH 05/01/2018 TERENCE MCKENNA Cindy MORRISON Ot R06.02 SHORTNESS OF BREATH 05/01/2018 TERENCE MCKENNA White [employer]STRUCTION SUPERVISOR Ot R06.02 SHORTNESS OF BREATH 08/02/2018 DARION MEDLEY, KADEEM Ot Z01.818 ENCOUNTER FOR OTHER PREPROCEDURAL EXAMIN 08/02/2018 KADEEM ORLANDO MD Ot Z01.818 ENCOUNTER FOR OTHER PREPROCEDURAL EXAMIN Procedures There is no data. Results Test Result Range Complete urinalysis with reflex to culture - 04/17/17 13:48 Urine color determination YELLOW NRG Urine clarity determination CLEAR NRG Urine pH measurement by test strip 7 5-9 Specific gravity of urine by test strip 1.010 1.016- 1.022 Urine protein assay by test strip, semi-quantitative NEGATIVE NEGATIVE Urine glucose detection by automated test strip NEGATIVE NEGATIVE Erythrocytes detection in urine sediment by light microscopy 2+ NEGATIVE Urine ketones detection by automated test strip NEGATIVE NEGATIVE Urine nitrite detection by test strip NEGATIVE NEGATIVE Urine total bilirubin detection by test strip NEGATIVE NEGATIVE Urine urobilinogen measurement by automated test strip (mass/volume) NORMAL NORMAL Urine leukocyte esterase detection by dipstick NEGATIVE NEGATIVE Automated urine sediment erythrocyte count by microscopy (number/high power field) [HPF] NRG Automated urine sediment leukocyte count by microscopy (number/high power field ) NONE NRG Bacteria detection in urine sediment by light microscopy NEGATIVE NRG Squamous epithelial cells detection in urine sediment by light microscopy RARE NRG Crystals detection in urine sediment by light microscopy NONE NRG Casts detection in urine sediment by light microscopy NONE NRG Mucus detection in urine sediment by light microscopy NEGATIVE NRG Complete urinalysis with reflex to culture NO NRG Automated blood complete blood count (hemogram) panel - 04/17/17 13:55 Blood leukocytes automated count (number/volume) 12.8 10*3/uL 4.3-11.0 Blood erythrocytes automated count (number/volume) 4.59 10*6/uL 4.35-5.85 Venous blood hemoglobin measurement (mass/volume) 13.5 g/dL 11.5-16.0 Blood hematocrit (volume fraction) 40 % 35-52 Automated erythrocyte mean corpuscular volume 87 [foz_us] 80-99 Automated erythrocyte mean corpuscular hemoglobin (mass per erythrocyte) 29 pg 25-34 Automated erythrocyte mean corpuscular hemoglobin concentration measurement ( mass/volume) 34 g/dL 32-36 Automated erythrocyte distribution width ratio 12.7 % 10.0-14.5 Automated blood platelet count (count/volume) 410 10*3/uL 130-400 Automated blood platelet mean volume measurement 8.7 [foz_us] 7.4-10.4 Comprehensive metabolic panel - 04/17/17 13:55 Serum or plasma sodium measurement (moles/volume) 141 mmol/L 135-145 Serum or plasma potassium measurement (moles/volume) 3.7 mmol/L 3.6-5.0 Serum or plasma chloride measurement (moles/volume) 104 mmol/L 98-107 Carbon dioxide 27 mmol/L 21-32 Serum or plasma anion gap determination (moles/volume) 10 mmol/L 5-14 Serum or plasma urea nitrogen measurement (mass/volume) 11 mg/dL 7-18 Serum or plasma creatinine measurement (mass/volume) 0.75 mg/dL 0.60-1.30 Serum or plasma urea nitrogen/creatinine mass ratio 15 NRG Serum or plasma creatinine measurement with calculation of estimated glomerular filtration rate > NRG Serum or plasma glucose measurement (mass/volume) 90 mg/dL 70-105 Serum or plasma calcium measurement (mass/volume) 9.3 mg/dL 8.5-10.1 Serum or plasma total bilirubin measurement (mass/volume) 0.3 mg/dL 0.1-1.0 Serum or plasma alkaline phosphatase measurement (enzymatic activity/volume) 40 U/L 40-136 Serum or plasma aspartate aminotransferase measurement (enzymatic activity/ volume) 16 U/L 5-34 Serum or plasma alanine aminotransferase measurement (enzymatic activity/volume ) 18 U/L 0-55 Serum or plasma protein measurement (mass/volume) 6.4 g/dL 6.4-8.2 Serum or plasma albumin measurement (mass/volume) 3.5 g/dL 3.2-4.5 THYROID STIMULATING HORMONE - 04/17/17 13:55 THYROID STIMULATING HORMONE 0.94 u[iU]/mL 0.35-4.94 Encounters ACCT No. Visit Date/Time Discharge Status Pt. Type Provider Facility Loc./Unit Complaint [id number] 08/01/2018 08:59:00 08/01/2018 12:42:00 DIS Outpatient KADEEM ORLANDO MD [facility] PREOP EGD [id number] 05/01/2018 14:36:00 05/01/2018 14:36:00 CAN Preadmit MCKENNA PRATT APRN [facility] RAD COUGH [id number] 08/02/2017 13:05:00 08/02/2017 23:59:59 CLS Preadmit SAM YOU [facility] RAD GOITER E04.9 [id number] 05/09/2017 14:09:00 05/09/2017 23:59:59 CLS Outpatient MCKENNA PRATT APRN [facility] RT SOB [id number] 04/30/2017 09:36:00 04/30/2017 23:59:59 CLS Outpatient MCKENNA PRATT APRN [facility] RAD ENLARGED THYROID [id number] 04/25/2017 11:54:00 04/25/2017 23:59:59 CLS Outpatient MCKENNA PRATT APRN [facility] RAD COUGH, SOB [id number] 04/17/2017 13:34:00 04/17/2017 23:59:59 CLS Outpatient MCKENNA PRATT APRN [facility] SDC DEHYDRATION,FATIGUE, MALAISE [id number] 08/07/2018 12:00:00 PEN Preadmit KADEEM ORLANDO MD [facility] ENDO REFLUX
[2018-08-07] MEDS ORDERED: LIDOCAINE JELLY 2% 6 ML SYRINGE ONE (12:51)
[2018-08-07] MEDS ORDERED: MIDAZOLAM 2 MG/2 ML (VERSED) VIAL ONE ×3 (12:51)
[2018-08-07] MEDS ORDERED: fentaNYL INJECTION 100 MCG/2 ML AMP ONE (12:51)
[2018-08-07] MEDS ORDERED: ONDANSETRON 4 MG/2 ML (SDV) Z0FRAN ONE (12:52)
[2018-08-07] MEDS ORDERED: HURRICAINE EXT TUBE (BENZOCAINE) ONE (12:52)
[2018-08-07 13:45] VITALS: BP 151/73
[2018-08-07 14:05] VITALS: BP 150/80
[2018-08-07 14:10] VITALS: BP 150/80
--- NOTE | 2018-08-07 15:29 | Progress Note-Post Operative ---
Post-Operative Progess Note Surgeon (s)/Manager Licensing (s) Surgeon KADEEM ORLANDO MD Manager Licensing: none Pre-Operative Diagnosis GERD Post-Operative Diagnosis reflux esophagitis(stage 2) with mild distal esophageal stricture, small HH(1.5cm), mild gastritis. Procedure & Operative Findings Date of Procedure 08/07/18 Procedure Performed/Findings EGD with bx and balloon dilatation. Anesthesia Type cs Estimated Blood Loss Estimated blood loss (mL): minimal Specimens/Packing Specimens Removed ge jxn, antrum KADEEM ORLANDO MD August 07, 2018 15:29
--- NOTE | 2018-08-07 22:30 | OPERATIVE REPORT ---
DATE OF SERVICE: 08/07/2018 ATTENDING PRIMARY RETAIL ASSISTANT: Radha Sosa APRN PREOPERATIVE DIAGNOSES: Epigastric burning sensation with occasional episodes of regurgitation and dysphagia. POSTOPERATIVE DIAGNOSES: Reflux esophagitis, stage II, mild distal esophageal stricture and Schatzki's ring, small hiatal hernia approximately 1.5 cm in size, mild to moderate gastritis. No distal obstructions. PROCEDURE: EGD with biopsy and balloon dilatation. SURGEON: Kadeem Orlando MD ANESTHESIA: Conscious sedation. ESTIMATED BLOOD LOSS: Minimal. FINDINGS: As above in the postoperative diagnoses. DISPOSITION: The patient tolerated the procedure well. INDICATIONS: The patient is a 58-year-old female who referred over to us for epigastric burning sensation as well as pain. She reports that she has had a history of gastroesophageal reflux disease for several years; however, in the past several months she has worsening symptoms and also she states regurgitation and difficulty swallowing at times. She was on Protonix and then recently started on Carafate, which she states has helped some of her symptoms. The patient was brought to the endoscopy suite, laid in the left lateral decubitus position. After adequate IV pain and sedative medications and conscious sedation anesthesia, a mouthpiece was applied. Endoscope was placed in the mouth, visualizing the pharynx and hypopharyngeal region. Vocal cords, epiglottis and vallecula identified and appeared to be normal. The endoscope was gently intubated in the esophageal opening and esophagus insufflated. The endoscope was then advanced to the first, second and third portion of the esophagus. At the level of the GE junction, a reflux esophagitis stage II identified. There were also an esophageal stricture and Schatzki's ring identified. A biopsy was taken of the GE junction with forceps with visualization of good hemostasis. The endoscope was then advanced in the stomach and endoscope retroflexed, visualizing a small hiatal hernia approximately 1.5 cm in size. There was a mild to moderate gastritis; however, nothing severe. No ulcerations or polyps. A biopsy was taken of the antrum to rule out H. pylori with visualization of good hemostasis. The endoscope was then advanced to the pylorus and the first and second portion of the duodenum, which appeared normal with no distal obstructions. We then proceeded with dilatation of the Schatzki's ring. A balloon was placed in the stomach and pulled back to the area of the stricture. We then proceeded to 2 atmospheres of pressure with no resistance. We then proceeded to 4 atmospheres with mild resistance and then to 6 atmospheres of pressure with mild to moderate resistance or 20 mm in diameter and left this in place for approximately 60 seconds. The balloon was then desufflated and removed with visualization of good hemostasis as well as no mucosal tears. The endoscope was slowly withdrawn while taking a second look and suctioning residual air with no additional findings. The patient tolerated the procedure well. We will have her continue with the Protonix 40 mg daily as well as Carafate as needed. However, she will need to proceed with the necessary lifestyle and diet accommodation including small and more frequent meals, avoidance of eating at night as well as head elevation while lying supine. She also needs to avoid caffeinated beverages, spicy, greasy and acidic foods. If she has recurrent dysphagia symptoms, we will proceed with repeat upper endoscopy as well as graded balloon dilatation. Job ID: [id number] DocumentID: [id number] Dictated Date: 08/07/2018 13:25:30 Ring Striker Date: 08/07/2018 22:29:24 Dictated By: KADEEM ORLANDO MD MTDD
== END 2018-08-07 14:10 | disposition home or self-care (01) ==
LOC: ENDO 10:25
PROVIDERS: ATTEND Surgery
DX: K21.0 Gastro-esophageal reflux disease with esophagitis (principal); K22.2 Esophageal obstruction; K44.9 Diaphragmatic hernia without obstruction or gangrene; K29.50 Unspecified chronic gastritis without bleeding; K57.30 Diverticulosis of large intestine without perforation or abscess without bleeding; M06.9 Rheumatoid arthritis, unspecified; M35.00 Sjogren syndrome, unspecified; Z86.010 Personal history of colon polyps; Z88.1 Allergy status to other antibiotic agents; Z79.899 Other long term (current) drug therapy; Z79.52 Long term (current) use of systemic steroids; Z80.0 Family history of malignant neoplasm of digestive organs; Z80.8 Family history of malignant neoplasm of other organs or systems
CPT/HCPCS: 88305; 88342